=== PATIENT | female | born 1975 | race African-American/Black ===

== ENCOUNTER 2017-08-30 18:57 | Inpatient (IN) | payer MEDICARE, OTHER ==
[~2017-08-30] VITALS: Ht 165.1 cm; Wt 147.9 kg
[2017-08-30 18:31] VITALS: BP 123/86
[~2017-08-30 18:57] MED LIST: ABILIFY20 MG ORAL; ACETAMINOPHEN325 M3 PO; ADVAIR HFA 115-12 GM INH; ALPRAZOLAM0.5 MG PO; ALPRAZOLAM1 MG ORAL; AMBIEN10 M1 ORAL; AMLODIPINE BESYL5 MG ORAL; BREO ELLIPTA 11 EACH IH; COLACE100 MG ORAL; CYMBALTA60 MG ORAL; DETROL2 MG ORAL; DILAUDID2 MG ORAL; DITROPAN XL5 MG ORAL; DITROPAN10 MG ORAL; DULCOLAX10 MG RC; DUONEB 0.5-3(2.53 ML HHN; FENTANYL1 EACH TDERMAL; FOLIC ACID1 MG ORAL; FUROSEMIDE40 MG ORAL; HEPARIN SO5000 UNIT2 SUBQ; LIDODERM700 M1 TOPIC; LISINOPRIL10 MG ORAL; LISINOPRIL5 MG ORAL; LYRICA75 M1 ORAL; Lidocaine Patch TD; MIRALAX; MIRALAX17 G2 ORAL; MORPHINE SU4 MG/1 M2 IV; MULTIVITAMINS1 EA14 PO; MYLANTA30 M1 ORAL; MYLANTA30 M1 PO; NALOXONE H0.4 MG/11 IV; NEURONTIN800 MG ORAL; NORCO 10/3251 EA ORAL; OMEPRAZOLE20 M2 ORAL; OXYCODONE HCL10 MG ORAL; OXYCODONE HCL15 M1 ORAL; PEPTO-BISMOL262 MG PO; POTASSIUM CHLO10 MEQ ORAL; POTASSIUM CHLO20 ME1 ORAL; POTASSIUM CHLO20 ME3 PO; PREDNISONE20 MG ORAL; PROAIR HFA8.5 GM INH; PROTONIX40 M2 GT; PROTONIX40 MG ORAL; REGLAN5 MG ORAL; RESTORIL30 MG ORAL; RISPERDAL1 MG PO; ROBAXIN500 MG PO; ROXICODONE15 MG ORAL; SENNA-GEN8.6 M1 PO; SENNA8.6 M3 PO; SERTRALINE HCL50 MG ORAL; SOMA350 MG PO; TRAMADOL HCL50 MG ORAL; TYLENOL325 MG ORAL; XANAX2 MG ORAL; ZOFRAN4 M1 ORAL; ZOFRAN4 M3 ORAL; ZOLPIDEM TARTRA10 MG ORAL
[2017-08-30] MEDS ORDERED: Solu-MEDROL 125mg Inj IVP ONE (19:15)
[2017-08-30] MEDS ORDERED: Morphine Sulfate 10mg/ml Inj IVP ONE (19:15)
--- NOTE | 2017-08-30 20:11 | Emergency Room Report ---
History of Present Illness General Chief Complaint: Generalized Weakness Source: Patient Present Illness HPI 41-year-old female presents ED for evaluation. States that [facility] with generalized body pain times one week. History of fibromyalgia and lupus. States she is having a flareup of her lupus. Also notes spots on her hands bilaterally. States pain has improved with pain medication at the facility. Pain is sharp, 10 out of 10, diffuse, nonradiating. Denies chest pain or shortness of breath. Denies fevers or chills. Denies nausea or vomiting. No other aggravating relieving factors. Denies any other associated symptoms Allergies: Coded Allergies: Cashew (Verified Allergy, Unknown, 12/30/14) White Fish (Verified Allergy, Unknown, 01/19/15) Uncoded Allergies: FISH (Allergy, Unknown, 12/30/14) Patient History Past Medical History: HTN, asthma, COPD, other - lupus/fibromylalgia Past Surgical History: none Pertinent Family History: none Social History: Denies: smoking, alcohol use, drug use Now: No Immunizations: UTD Reviewed Nursing Documentation: PMH: Agreed; PSxH: Agreed Nursing Documentation-PMH Hx Hypertension: Yes Hx Asthma: Yes Hx COPD: Yes Hx Cancer: No Hx Gastrointestinal Problems: Yes Hx Neurological Problems: Yes - Spinal cord injury Hx Spinal Cord Injury: Yes - 2012 Review of Systems All Other Systems: negative except mentioned in HPI Physical Exam Vital Signs Date Time Temp Pulse Resp B/P (MAP) Pulse Ox O2 Delivery O2 Flow Rate FiO2 08/30/17 18:25 98.4 89 16 123/86 94 Room Air 98.4 Sp02 EP Interpretation: reviewed, normal General Appearance: no apparent distress, alert, GCS 15, non-toxic, obese Head: normocephalic, atraumatic Eyes: bilateral eye normal inspection, bilateral eye PERRL ENT: hearing grossly normal, normal pharynx, no angioedema, normal voice Neck: full range of motion, supple/symm/no masses Respiratory: chest non-tender, lungs clear, normal breath sounds, speaking full sentences Cardiovascular #1: regular rate, rhythm, no edema Cardiovascular #2: 2+ carotid (R), 2+ carotid (L), 2+ radial (R), 2+ radial (L) , 2+ dorsalis pedis (R), 2+ dorsalis pedis (L) Gastrointestinal: normal bowel sounds, non tender, soft, non-distended, no guarding, no rebound Rectal: deferred Genitourinary: normal inspection, no CVA tenderness Musculoskeletal: back normal, gait/station normal, normal range of motion, non- tender Neurologic: alert, oriented x3, responsive, motor strength/tone normal, sensory intact, speech normal Psychiatric: judgement/insight normal, memory normal, mood/affect normal, no suicidal/homicidal ideation Reflexes: 3+ bicep (R), 3+ bicep (L), 3+ tricep (R), 3+ tricep (L), 3+ knee (R) , 3+ knee (L) Skin: normal color, no rash, warm/dry, well hydrated Lymphatic: no adenopathy Medical Decision Making Diagnostic Impression: Primary Impression: Intractable pain Additional Impressions: Lupus (systemic lupus erythematosus) Qualified Codes: M32.9 - Systemic lupus erythematosus, unspecified Obesity, morbid, BMI 40.0-49.9 ER Course Hospital Course 41 yo F presents to ED c/o generalized pain. 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 electrolytes ok. Unable to establish IV access despite multiple times. Unsuccessful using ultrasound. Patient has stable vitals with normal labs. No emergent indication for central line access She given IM medications here. however continues to have pain Case discussed with Dr. Tovar and he agreed to accept the patient to his service for further care and support I feel this is a highly complex case requiring extensive working including EKG/ Rhythm strip, Xray/CT/US, Blood/urine lab work, repeat exams while in ED, and administration of strong opiates/narcotics for pain control, admission to hospital or close patient follow up. Diagnosis -intractable pain, lupus, morbid obesity Patient admitted to floor in serious condition Labs Test 08/30/17 20:50 08/30/17 21:25 White Blood Count 7.7 K/UL (4.8-10.8) Red Blood Count 4.28 M/UL (4.20-5.40) Hemoglobin 11.2 G/DL (12.0-16.0) Hematocrit 35.6 % (37.0-47.0) Mean Corpuscular Volume 83 FL (80-99) Mean Corpuscular Hemoglobin 26.2 PG (27.0-31.0) Mean Corpuscular Hemoglobin Concent 31.5 G/DL (32.0-36.0) Red Cell Distribution Width 15.1 % (11.6-14.8) Platelet Count 179 K/UL (150-450) Mean Platelet Volume 6.1 FL (6.5-10.1) Neutrophils (%) (Auto) 51.1 % (45.0-75.0) Lymphocytes (%) (Auto) 39.6 % (20.0-45.0) Monocytes (%) (Auto) 6.5 % (1.0-10.0) Eosinophils (%) (Auto) 1.6 % (0.0-3.0) Basophils (%) (Auto) 1.3 % (0.0-2.0) Erythrocyte Sedimentation Rate 73 MM/HR (0-20) Sodium Level 135 MMOL/L (136-145) Potassium Level 4.1 MMOL/L (3.5-5.1) Chloride Level 102 MMOL/L (98-107) Carbon Dioxide Level 28 MMOL/L (21-32) Anion Gap 5 mmol/L (5-15) Blood Urea Nitrogen 13 mg/dL (7-18) Creatinine 0.7 MG/DL (0.55-1.30) Estimat Glomerular Filtration Rate > 60 mL/min (>60) Glucose Level 98 MG/DL (74-106) Calcium Level 8.8 MG/DL (8.5-10.1) Total Bilirubin 0.2 MG/DL (0.2-1.0) Aspartate Amino Transf (AST/SGOT) 29 U/L (15-37) Alanine Aminotransferase (ALT/SGPT) 43 U/L (12-78) Alkaline Phosphatase 110 U/L (46-116) Total Protein 8.8 G/DL (6.4-8.2) Albumin 3.0 G/DL (3.4-5.0) Globulin 5.8 g/dL Albumin/Globulin Ratio 0.5 (1.0-2.7) Lipase 82 U/L (73-393) Urine Color Pale yellow Urine Appearance Clear Urine pH 6 (4.5-8.0) Urine Specific [place] 1.015 (1.005-1.035) Urine Protein Negative (NEGATIVE) Urine Glucose (UA) Negative (NEGATIVE) Urine Ketones Negative (NEGATIVE) Urine Occult Blood Negative (NEGATIVE) Urine Nitrite Negative (NEGATIVE) Urine Bilirubin Negative (NEGATIVE) Urine Urobilinogen Normal MG/DL (0.0-1.0) Urine Leukocyte Esterase Negative (NEGATIVE) Urine HCG, Qualitative Negative (NEGATIVE) Last Vital Signs Date Time Temp Pulse Resp B/P (MAP) Pulse Ox O2 Delivery O2 Flow Rate FiO2 08/30/17 18:31 98.4 88 16 123/86 94 Room Air 98.4 Status: improved Disposition: ADMITTED INPATIENT Condition: Serious Mazin Martinez MD Aug 30, 2017 20:11
[2017-08-30 21:07] LABS: BASOPHILS % (AUTO) 1.3 % (0.0-2.0); EOSINOPHILS % (AUTO) 1.6 % (0.0-3.0); HEMATOCRIT 35.6 % (37.0-47.0); HEMOGLOBIN 11.2 G/DL (12.0-16.0); LYMPHOCYTES % (AUTO) 39.6 % (20.0-45.0); MEAN CORPUSCULAR VOLUME 83 FL (80-99); MONOCYTES % (AUTO) 6.5 % (1.0-10.0); NEUTROPHILS % (AUTO) 51.1 % (45.0-75.0); PLATELET COUNT 179 K/UL (150-450); RED BLOOD COUNT 4.28 M/UL (4.20-5.40); RED CELL DISTRIBUTION WIDTH 15.1 % (11.6-14.8); WHITE BLOOD COUNT 7.7 K/UL (4.8-10.8)
[2017-08-30 21:28] LABS: ANION GAP 5 mmol/L (5-15); BLOOD UREA NITROGEN 13 mg/dL (7-18); CALCIUM 8.8 MG/DL (8.5-10.1); CARBON DIOXIDE 28 MMOL/L (21-32); CHLORIDE 102 MMOL/L (98-107); CREATININE 0.7 MG/DL (0.55-1.30); POTASSIUM 4.1 MMOL/L (3.5-5.1); SODIUM 135 MMOL/L (136-145)
[2017-08-30 21:33] LABS: ALANINE AMINOTRANSFERASE 43 U/L (12-78); ALBUMIN/GLOBULIN RATIO 0.5 (1.0-2.7); ALKALINE PHOSPHATASE 110 U/L (46-116); ASPARTATE AMINO TRANSFERASE 29 U/L (15-37); BILIRUBIN,TOTAL 0.2 MG/DL (0.2-1.0)
[2017-08-30 21:37] LABS: APPEARANCE,URINE CLEAR; BILIRUBIN, URINE NEGATIVE (NEGATIVE); COLOR,URINE PALE YELLOW; GLUCOSE, URINE (UA) NEGATIVE (NEGATIVE); KETONES,URINE NEGATIVE (NEGATIVE); LEUKOCYTE ESTERASE ,URINE NEGATIVE (NEGATIVE); NITRITE,URINE NEGATIVE (NEGATIVE); PH,URINE 6 (4.5-8.0); PROTEIN,URINE NEGATIVE (NEGATIVE); UROBILINOGEN,URINE NORMAL MG/DL (0.0-1.0)
[2017-08-30] MEDS ORDERED: Morphine Sulfate 2mg/ml Inj(IV/IM USE ONLY) IM ONE (22:30)
[2017-08-30 22:59] VITALS: BP 126/85
[2017-08-31] VITALS: BP 158/92
[2017-08-31 04:00] VITALS: BP 153/86
[2017-08-31] MEDS ORDERED: Zolpidem 5mg tab ORAL PRN ×2 (05:15→22:45)
[2017-08-31] MEDS ORDERED: oxyCODONE 5mg IR tab ORAL PRN ×2 (05:45→09:45)
[2017-08-31] MEDS ORDERED: ALPRAZolam 0.5mg tab ORAL PRN ×2 (06:30→20:30)
[2017-08-31] MEDS ORDERED: Morphine Sulfate 4mg/ml Inj (IV USE ONLY) IVP PRN (07:30)
[2017-08-31 08:00] VITALS: BP 159/99
[2017-08-31] MEDS ORDERED: CYCLOBENZAPRINE10 MG ORAL (08:39)
[2017-08-31] MEDS ORDERED: LYRICA75 M1 ORAL (08:39)
[2017-08-31] MEDS ORDERED: CYMBALTA60 MG ORAL (08:39)
[2017-08-31] MEDS ORDERED: FUROSEMIDE20 M1 ORAL (08:39)
[2017-08-31] MEDS ORDERED: BENADRYL25 MG ORAL (08:50)
[2017-08-31] MEDS ORDERED: Morphine Sulfate 4mg/ml Inj (IV USE ONLY) IVP ONE (09:00)
[2017-08-31] MEDS ORDERED: Albuterol 90mcg Inhaler 8gm INH SCH (09:00)
[2017-08-31] MEDS: DULoxetine 30mg cap ORAL SCH ×2 (09:30→18:31)
[2017-08-31] MEDS: Lyrica 75mg cap ORAL SCH ×3 (09:32→18:32)
[2017-08-31] MEDS: Lisinopril 10mg tab ORAL SCH (09:33)
[2017-08-31] MEDS: Heparin 5000 units/ml inj SUBQ SCH ×3 (09:45→20:50)
[2017-08-31 10:13] LABS: BASOPHILS % (AUTO) 1.1 % (0.0-2.0); HEMATOCRIT 35.6 % (37.0-47.0); HEMOGLOBIN 11.4 G/DL (12.0-16.0); LYMPHOCYTES % (AUTO) 20.1 % (20.0-45.0); MEAN CORPUSCULAR VOLUME 83 FL (80-99); MONOCYTES % (AUTO) 5.4 % (1.0-10.0); NEUTROPHILS % (AUTO) 73.3 % (45.0-75.0); PLATELET COUNT 392 K/UL (150-450); RED CELL DISTRIBUTION WIDTH 15.1 % (11.6-14.8); WHITE BLOOD COUNT 9.1 K/UL (4.8-10.8)
[2017-08-31 10:31] LABS: ANION GAP 5 mmol/L (5-15); BLOOD UREA NITROGEN 13 mg/dL (7-18); CALCIUM 8.8 MG/DL (8.5-10.1); CARBON DIOXIDE 27 MMOL/L (21-32); CHLORIDE 101 MMOL/L (98-107); CREATININE 0.8 MG/DL (0.55-1.30); POTASSIUM 4.1 MMOL/L (3.5-5.1); SODIUM 133 MMOL/L (136-145)
--- NOTE | 2017-08-31 10:54 | General Progress Note ---
Assessment/Plan Assessment/Plan (1) Morbid obesity (2) Degenerative disc disease, cervical (3) Lumbar degenerative disc disease (4) Lumbar radiculopathy (5) Cervical radiculopathy (6) Osteoarthritis of multiple joints (7) Multiple joint pain (8) Fibromyalgia We will continue Oxycodone increased to 10mg PO 1 tab Q6H PRN moderate pain, Lyrica and Morphine We recommend patient to be seen by Facilities Custodian as per iphone developer. Pt was d/w Dr. Leonardo and he concurred. Subjective Date patient seen: Aug 31, 2017 Time patient seen: 07:30 - am Constitutional: Reports: no symptoms HEENT: Reports: no symptoms Cardiovascular: Reports: no symptoms Respiratory: Reports: no symptoms Gastrointestinal/Abdominal: Reports: no symptoms Genitourinary: Reports: no symptoms Neurologic/Psychiatric: Reports: numbness, weakness Endocrine: Reports: no symptoms Hematologic/Lymphatic: Reports: no symptoms Allergies: Coded Allergies: Cashew (Verified Allergy, Unknown, 12/30/14) HYDROXYCHLOROQUINE (Verified Allergy, Unknown, 08/31/17) White Fish (Verified Allergy, Unknown, 01/19/15) Uncoded Allergies: FISH (Allergy, Unknown, 12/30/14) Subjective Patient is a known patient brought in from SNF due to SLU flare up, has been seen a Pain management physician Dr. Mazariegos who has been prescribing Fentanyl patch 12mcg patches and Oxycodone 15mg tabs. At this time is on Morphine IV 4mg Q4H PRN and Oxycodone 5mg tab Q4H PRN moderate pain with minimal pain relief, due to this we were consulted so patient has adequate pain relief while her in the hospital. Objective Last 24 Hour Vital Signs Date Time Temp Pulse Resp B/P (MAP) Pulse Ox O2 Delivery O2 Flow Rate FiO2 08/31/17 09:34 97.1 08/31/17 09:33 159/99 08/31/17 09:33 114 159/99 08/31/17 09:32 97.1 08/31/17 08:00 97.1 114 23 159/99 (119) 97 97.1 08/31/17 04:00 98.4 79 20 153/86 (108) 95 98.4 08/31/17 02:42 Room Air 08/31/17 00:00 98.8 82 20 158/92 (114) 97 98.8 08/30/17 23:10 98.4 75 16 126/85 96 Room Air 209.1 08/30/17 22:59 75 16 126/85 96 Room Air 08/30/17 22:29 98.4 08/30/17 18:31 98.4 88 16 123/86 94 Room Air 98.4 08/30/17 18:25 98.4 89 16 123/86 94 Room Air 98.4 Intake and Output 08/30/17 08/31/17 19:00 07:00 Intake Total 350 ml Output Total 0 ml 500 ml Balance 0 ml -150 ml Intake Oral 350 ml Output Urine Total 0 ml 500 ml # Voids 3 Laboratory Tests 08/30/17 20:50: White Blood Count 7.7, Red Blood Count 4.28, Hemoglobin 11.2L, Hematocrit 35.6L , Mean Corpuscular Volume 83, Mean Corpuscular Hemoglobin 26.2L, Mean Corpuscular Hemoglobin Concent 31.5L, Red Cell Distribution Width 15.1H, Platelet Count 179, Mean Platelet Volume 6.1L, Neutrophils (%) (Auto) 51.1, Lymphocytes (%) (Auto) 39.6, Monocytes (%) (Auto) 6.5, Eosinophils (%) (Auto) 1.6, Basophils (%) (Auto) 1.3, Erythrocyte Sedimentation Rate 73H, Sodium Level 135L, Potassium Level 4.1, Chloride Level 102, Carbon Dioxide Level 28, Anion Gap 5, Blood Urea Nitrogen 13, Creatinine 0.7, Estimat Glomerular Filtration Rate > 60, Glucose Level 98, Calcium Level 8.8, Total Bilirubin 0.2, Aspartate Amino Transf (AST/SGOT) 29, Alanine Aminotransferase (ALT/SGPT) 43, Alkaline Phosphatase 110, Total Protein 8.8H, Albumin 3.0L, Globulin 5.8, Albumin/ Globulin Ratio 0.5L, Lipase 82 08/30/17 21:25: Urine Color Pale yellow, Urine Appearance Clear, Urine pH 6, Urine Specific [place] 1.015, Urine Protein Negative, Urine Glucose (UA) Negative, Urine Ketones Negative, Urine Occult Blood Negative, Urine Nitrite Negative, Urine Bilirubin Negative, Urine Urobilinogen Normal, Urine Leukocyte Esterase Negative , Urine HCG, Qualitative Negative 08/31/17 09:55: White Blood Count 9.1, Red Blood Count 4.30, Hemoglobin 11.4L, Hematocrit 35.6L , Mean Corpuscular Volume 83, Mean Corpuscular Hemoglobin 26.4L, Mean Corpuscular Hemoglobin Concent 31.9L, Red Cell Distribution Width 15.1H, Platelet Count 392#, Mean Platelet Volume 5.6L, Neutrophils (%) (Auto) 73.3, Lymphocytes (%) (Auto) 20.1, Monocytes (%) (Auto) 5.4, Eosinophils (%) (Auto) 0.0, Basophils (%) (Auto) 1.1, Sodium Level 133L, Potassium Level 4.1, Chloride Level 101, Carbon Dioxide Level 27, Anion Gap 5, Blood Urea Nitrogen 13, Creatinine 0.8, Estimat Glomerular Filtration Rate > 60, Glucose Level 105, Calcium Level 8.8 Height (Feet): 5 Height (Inches): 5.00 Weight (Pounds): 300 Objective General Appearance: no apparent distress, alert EENT: PERRL/EOMI, normal ENT inspection, TMs normal Neck: non-tender, supple Cardiovascular: normal rate, regular rhythm Respiratory/Chest: lungs clear, normal breath sounds Abdomen: soft, no organomegaly Extremities: non-tender Edema: no edema noted Arm (L), no edema noted Arm (R), no edema noted Leg (L), no edema noted Leg (R), no edema noted Pedal (L), no edema noted Pedal (R), no edema noted Generalized Neurologic: alert, oriented x 3 Skin: warm/dry Cirilo Chavez Aug 31, 2017 10:54
[2017-08-31] MEDS ORDERED: Albuterol 90mcg Inhaler 8gm INH PRN (11:00)
[2017-08-31] MEDS ORDERED: Oxybutynin 5mg tab ORAL SCH (11:30)
--- NOTE | 2017-08-31 11:37 | Consultation ---
History of Present Illness General Date patient seen: Aug 31, 2017 Chief Complaint: Generalized Weakness Present Illness HPI 41-year-old female with hx of KAREN, Asthma, Lupus, morbid obesity, Fibromyalgia presented to ED for evaluation of generalized body pain times one week. States she is having a flareup of her lupus. Also notes spots on her hands bilaterally. Pain is sharp, 10 out of 10, diffuse, nonradiating. Denies chest pain or shortness of breath. Denies fevers or chills. Pt is admitted for furhter evaluation. Allergies: Coded Allergies: Cashew (Verified Allergy, Unknown, 12/30/14) HYDROXYCHLOROQUINE (Verified Allergy, Unknown, 08/31/17) White Fish (Verified Allergy, Unknown, 01/19/15) Uncoded Allergies: FISH (Allergy, Unknown, 12/30/14) Medication History Scheduled Acetaminophen (Tylenol), 325 MG ORAL Q4HR, (Reported) Acetaminophen (Acetaminophen), 325 MG PO Q4HR, (Reported) Al Hydroxide/mg Hydroxide (Mag-Al Liquid), 30 ML PO Q4HR, (Reported) Al Hydroxide/mg Hydroxide (Mag-Al Liquid), 30 ML ORAL Q6HR, (Reported) Albuterol Sulfate* (Proair Hfa*), 1 PUFF INH Q4HR, (Reported) Amlodipine Besylate* (Amlodipine Besylate*), 5 MG ORAL DAILY, (Reported) Carisoprodol* (Soma*), 350 MG PO TID, (Reported) Docusate Sodium* (Colace*), 250 MG ORAL BID, (Reported) Duloxetine Hcl* (Cymbalta*), 60 MG ORAL BID, (Reported) Fentanyl 25MCG Patch* (Fentanyl 25MCG Patch*), 1 PATCH TDERMAL EVERY 72 HOURS, ( Reported) Fluticasone/Salmeterol (Advair Hfa 115-21 Mcg Inhaler), 2 PUFFS INH EVERY 12 HOURS, (Reported) Fluticasone/Vilanterol (Breo Ellipta 100-25 Mcg INH), 1 EACH IH DAILY, (Reported ) Folic Acid* (Folic Acid*), 1 MG ORAL DAILY, (Reported) Furosemide* (Lasix*), 20 MG ORAL DAILY, (Reported) Gabapentin* (Neurontin*), 800 MG ORAL TID, (Reported) Heparin Sod (Porcine) (Heparin Sodium*), 5,000 UNITS SUBQ EVERY 12 HOURS, ( Reported) Ipratropium/Albuterol Sulfate (DuoNeb 0.5-3(2.5)mg/3ml), 3 ML HHN Q4HR, ( Reported) Lisinopril* (Lisinopril*), 10 MG ORAL DAILY, (Reported) Morphine Sulfate (Morphine Sulfate), 4 MG IV Q4HR, (Reported) Multivitamin (Multivitamins), 1 EACH PO DAILY, (Reported) Oxybutynin Chloride (Ditropan Xl), 5 MG ORAL THREE TIMES A DAY, (Reported) Pantoprazole* (Protonix*), 40 MG ORAL DAILY, (Reported) Potassium Chloride* (K-Dur*), 10 MEQ ORAL DAILY, (Reported) Potassium Chloride* (K-Dur*), 20 MEQ ORAL TWICE A DAY, (Reported) Prednisone* (Prednisone*), 20 MG ORAL DAILY Pregabalin* (Lyrica*), 150 MG ORAL THREE TIMES A DAY, (Reported) Sennosides (Senna), 8.6 MG PO BID, (Reported) Sennosides (Senna-Gen), 17.2 MG PO BID, (Reported) [Lidocaine Patch], TD BID, (Reported) Scheduled PRN Bisacodyl (Dulcolax), 10 MG RC DAILY PRN for Constipation, (Reported) Bismuth Subsalicylate ([place] Bismuth), 30 MG PO BID PRN for Per rx protocol, ( Reported) Cyclobenzaprine Hcl* (Flexeril*), 10 MG ORAL THREE TIMES A DAY PRN for fibromyalgia pain, (Reported) Diphenhydramine Hcl* (Benadryl*), 125 MG ORAL Q6H PRN for Itching, (Reported) Metoclopramide Hcl* (Reglan*), 5 MG ORAL EVERY 6 HOURS PRN for Nausea & Vomiting , (Reported) Ondansetron* (Zofran*), 4 MG ORAL DAILY PRN for Nausea & Vomiting, (Reported) Oxycodone Hcl* (Oxycodone Hcl*), 5 MG ORAL Q4HR PRN for Moderate Pain (Pain Scale 4-6), (Reported) Polyethylene Glycol 3350* (Miralax*), 17 GM ORAL DAILY PRN for Constipation, ( Reported) Miscellaneous Medications Lidocaine (Lidoderm), 2 PATCH TOPIC, (Reported) Naloxone HCl (Naloxone HCl), 0.1 MG IV, (Reported) [Miralax powder], (Reported) Discontinued Medications Alprazolam* (Xanax*), 0.5 MG PO Q6HR, (Reported) Discontinued Reason: MD discontinued med Duloxetine Hcl* (Cymbalta*), 90 MG ORAL DAILY, (Reported) Discontinued Reason: Medication dose changed Furosemide* (Lasix*), 40 MG ORAL TWICE A DAY, (Reported) Discontinued Reason: Medication dose changed Furosemide* (Lasix*), 40 MG ORAL DAILY, (Reported) Discontinued Reason: Medication dose changed Omeprazole (Omeprazole), 20 MG ORAL DAILY, (Reported) Discontinued Reason: MD discontinued med Ondansetron* (Zofran*), 4 MG ORAL DAILY PRN for Nausea & Vomiting, (Reported) Discontinued Reason: Therapy completed Pregabalin* (Lyrica*), 100 MG ORAL THREE TIMES A DAY, (Reported) Discontinued Reason: Medication dose changed Risperidone* (Risperdal*), 1 MG PO TID, (Reported) Discontinued Reason: Pt stopped taking med Risperidone* (Risperdal*), 1 MG PO Q12HR, (Reported) Discontinued Reason: Pt stopped taking med Tramadol Hcl* (Ultram*), 50 MG ORAL Q8HR PRN for Breakthrough Pain, (Reported) Discontinued Reason: Therapy completed Zolpidem Tartrate* (Ambien*), 10 MG ORAL HS PRN for Insomnia, (Reported) Discontinued Reason: Medication dose changed Patient History Healthcare decision maker Resuscitation status Full Code Advanced Directive on File Past Medical/Surgical History Past Medical/Surgical History: (1) Lupus (systemic lupus erythematosus) (2) KAREN (obstructive sleep apnea) (3) Hepatitis C (4) Fibromyalgia Review of Systems All Other Systems: negative except mentioned in HPI Physical Exam General Appearance: WD/WN, no apparent distress Lines, tubes and drains: peripheral HEENT: normocephalic, anicteric Neck: non-tender, supple, limited range of motion Respiratory/Chest: lungs clear, normal breath sounds Breasts: no masses Cardiovascular/Chest: normal peripheral pulses, no gallop/murmur Abdomen: normal bowel sounds Genitourinary/Rectal: normal genital exam, normal rectal exam Last 24 Hour Vital Signs Date Time Temp Pulse Resp B/P (MAP) Pulse Ox O2 Delivery O2 Flow Rate FiO2 08/31/17 09:34 97.1 08/31/17 09:33 159/99 08/31/17 09:33 114 159/99 08/31/17 09:32 97.1 08/31/17 08:00 97.1 114 23 159/99 (119) 97 97.1 08/31/17 04:00 98.4 79 20 153/86 (108) 95 98.4 08/31/17 02:42 Room Air 08/31/17 00:00 98.8 82 20 158/92 (114) 97 98.8 08/30/17 23:10 98.4 75 16 126/85 96 Room Air 209.1 08/30/17 22:59 75 16 126/85 96 Room Air 08/30/17 22:29 98.4 08/30/17 18:31 98.4 88 16 123/86 94 Room Air 98.4 08/30/17 18:25 98.4 89 16 123/86 94 Room Air 98.4 Intake and Output 08/30/17 08/31/17 19:00 07:00 Intake Total 350 ml Output Total 0 ml 500 ml Balance 0 ml -150 ml Intake Oral 350 ml Output Urine Total 0 ml 500 ml # Voids 3 Laboratory Tests Test 08/30/17 20:50 08/30/17 21:25 08/31/17 09:55 White Blood Count 7.7 K/UL (4.8-10.8) 9.1 K/UL (4.8-10.8) Red Blood Count 4.28 M/UL (4.20-5.40) 4.30 M/UL (4.20-5.40) Hemoglobin 11.2 G/DL (12.0-16.0) L 11.4 G/DL (12.0-16.0) L Hematocrit 35.6 % (37.0-47.0) L 35.6 % (37.0-47.0) L Mean Corpuscular Volume 83 FL (80-99) 83 FL (80-99) Mean Corpuscular Hemoglobin 26.2 PG (27.0-31.0) L 26.4 PG (27.0-31.0) L Mean Corpuscular Hemoglobin Concent 31.5 G/DL (32.0-36.0) L 31.9 G/DL (32.0-36.0) L Red Cell Distribution Width 15.1 % (11.6-14.8) H 15.1 % (11.6-14.8) H Platelet Count 179 K/UL (150-450) 392 K/UL (150-450) # Mean Platelet Volume 6.1 FL (6.5-10.1) L 5.6 FL (6.5-10.1) L Neutrophils (%) (Auto) 51.1 % (45.0-75.0) 73.3 % (45.0-75.0) Lymphocytes (%) (Auto) 39.6 % (20.0-45.0) 20.1 % (20.0-45.0) Monocytes (%) (Auto) 6.5 % (1.0-10.0) 5.4 % (1.0-10.0) Eosinophils (%) (Auto) 1.6 % (0.0-3.0) 0.0 % (0.0-3.0) Basophils (%) (Auto) 1.3 % (0.0-2.0) 1.1 % (0.0-2.0) Erythrocyte Sedimentation Rate 73 MM/HR (0-20) H Sodium Level 135 MMOL/L (136-145) L 133 MMOL/L (136-145) L Potassium Level 4.1 MMOL/L (3.5-5.1) 4.1 MMOL/L (3.5-5.1) Chloride Level 102 MMOL/L (98-107) 101 MMOL/L (98-107) Carbon Dioxide Level 28 MMOL/L (21-32) 27 MMOL/L (21-32) Anion Gap 5 mmol/L (5-15) 5 mmol/L (5-15) Blood Urea Nitrogen 13 mg/dL (7-18) 13 mg/dL (7-18) Creatinine 0.7 MG/DL (0.55-1.30) 0.8 MG/DL (0.55-1.30) Estimat Glomerular Filtration Rate > 60 mL/min (>60) > 60 mL/min (>60) Glucose Level 98 MG/DL (74-106) 105 MG/DL (74-106) Calcium Level 8.8 MG/DL (8.5-10.1) 8.8 MG/DL (8.5-10.1) Total Bilirubin 0.2 MG/DL (0.2-1.0) Aspartate Amino Transf (AST/SGOT) 29 U/L (15-37) Alanine Aminotransferase (ALT/SGPT) 43 U/L (12-78) Alkaline Phosphatase 110 U/L (46-116) Total Protein 8.8 G/DL (6.4-8.2) H Albumin 3.0 G/DL (3.4-5.0) L Globulin 5.8 g/dL Albumin/Globulin Ratio 0.5 (1.0-2.7) L Lipase 82 U/L (73-393) Urine Color Pale yellow Urine Appearance Clear Urine pH 6 (4.5-8.0) Urine Specific [place] 1.015 (1.005-1.035) Urine Protein Negative (NEGATIVE) Urine Glucose (UA) Negative (NEGATIVE) Urine Ketones Negative (NEGATIVE) Urine Occult Blood Negative (NEGATIVE) Urine Nitrite Negative (NEGATIVE) Urine Bilirubin Negative (NEGATIVE) Urine Urobilinogen Normal MG/DL (0.0-1.0) Urine Leukocyte Esterase Negative (NEGATIVE) Urine HCG, Qualitative Negative (NEGATIVE) Microbiology Date/Time Source Procedure Growth Status 08/30/17 22:00 Rectum Received Height (Feet): 5 Height (Inches): 5.00 Weight (Pounds): 300 Medications Current Medications Medications (Trade) Dose Ordered Sig/Farideh Route PRN Reason Start Time Stop Time Status Last Admin Dose Admin Albuterol Sulfate (Proventil MDI) 1 puff Q4HR PRN INH Bronchospasm 08/31/17 11:00 09/30/17 08:59 Alprazolam (Xanax) 2 mg Q4H PRN ORAL For Anxiety 08/31/17 06:30 09/07/17 06:29 Amlodipine Besylate (Norvasc) 5 mg DAILY ORAL 08/31/17 09:00 09/30/17 08:59 08/31/17 09:33 Clonidine HCl (Catapres Tab) 0.1 mg Q6H PRN ORAL For High Blood Pressure 08/31/17 06:30 09/30/17 06:29 Cyclobenzaprine HCl (Flexeril) 10 mg THREE TIMES A DAY PRN ORAL Muscle Spasm 08/31/17 06:30 8 06:29 Diphenhydramine HCl (Benadryl) 25 mg Q6H PRN ORAL Itching 08/31/17 06:30 8 06:29 Docusate Sodium (Colace) 250 mg BID ORAL 08/31/17 18:00 09/30/17 17:59 Duloxetine HCl (Cymbalta) 60 mg BID ORAL 08/31/17 09:00 09/30/17 08:59 08/31/17 09:30 Folic Acid (Folate) 1 mg DAILY ORAL 08/31/17 09:00 09/30/17 08:59 08/31/17 09:32 Furosemide (Lasix) 20 mg DAILY ORAL 08/31/17 09:00 09/30/17 08:59 08/31/17 09:31 Heparin Sodium (Porcine) (Heparin 5000 units/ml) 5,000 units EVERY 12 HOURS SUBQ 08/31/17 09:00 09/30/17 08:59 08/31/17 09:45 Lisinopril (Zestril) 10 mg DAILY ORAL 08/31/17 09:00 09/30/17 08:59 08/31/17 09:33 Morphine Sulfate (Morphine Sulfate) 4 mg Q4H PRN IVP Severe Pain (Pain Scale 7-10) 08/31/17 11:30 09/07/17 07:29 Multivitamins (Multivitamins) 1 tab DAILY ORAL 08/31/17 09:00 09/30/17 08:59 08/31/17 09:31 Oxybutynin Chloride (Ditropan) 5 mg ONCE ORAL 08/31/17 11:30 08/31/17 11:31 Oxybutynin Chloride (Ditropan) 5 mg Q8HR ORAL 08/31/17 14:00 09/30/17 13:59 Oxycodone HCl (Roxicodone) 10 mg Q6H PRN ORAL moderate breakthrough pain 08/31/17 11:11 09/07/17 11:10 Pantoprazole (Protonix) 40 mg DAILY ORAL 08/31/17 09:00 09/30/17 08:59 08/31/17 09:31 Potassium Chloride (K-Dur) 20 meq DAILY ORAL 08/31/17 09:00 09/30/17 08:59 08/31/17 09:53 Pregabalin (Lyrica) 150 mg THREE TIMES A DAY ORAL 08/31/17 09:00 09/30/17 08:59 08/31/17 09:32 Zolpidem Tartrate (Ambien) 5 mg QHS PRN ORAL Insomnia 08/31/17 05:15 09/07/17 05:14 Assessment/Plan Problem List: (1) Lupus (systemic lupus erythematosus) ICD Codes: M32.9 - Systemic lupus erythematosus, unspecified SNOMED: 85951710 Qualifiers: Qualified Codes: M32.9 - Systemic lupus erythematosus, unspecified (2) KAREN (obstructive sleep apnea) ICD Codes: G47.33 - Obstructive sleep apnea (adult) (pediatric) SNOMED: 54153588 (3) Intractable pain ICD Codes: R52 - Pain, unspecified SNOMED: 64735227 (4) Fibromyalgia ICD Codes: M79.7 - Fibromyalgia SNOMED: 54177420 (5) Hx of gastric bypass ICD Codes: Z98.89 - Other specified postprocedural states SNOMED: 66261194, 52210839, 437773464 (6) Hepatitis C ICD Codes: B19.20 - Unspecified viral hepatitis C without hepatic coma SNOMED: 93845634 (7) Obesity, morbid, BMI 40.0-49.9 ICD Codes: E66.01 - Morbid (severe) obesity due to excess calories SNOMED: 927203299 Assessment/Plan symptomatic treatment check CH50, ESR, RF etc titrate fio2 to sat of 92% BIPAP prn for KAREN pain management dvt prophylaxis. Mer Powell MD Aug 31, 2017 11:36
[2017-08-31] MEDS: Cyclobenzaprine 10mg Tab ORAL PRN (11:41)
[2017-08-31 12:00] VITALS: BP 141/98
[2017-08-31] MEDS: Oxybutynin 5mg tab ORAL SCH ×2 (13:40→21:50)
[2017-08-31] MEDS: Morphine Sulfate 4mg/ml Inj (IV USE ONLY) IVP PRN ×2 (13:41→21:50)
[2017-08-31 16:00] VITALS: BP 121/82
[2017-08-31] MEDS: Docusate 100mg cap ORAL SCH (18:32)
[2017-08-31 20:00] VITALS: BP 149/100
--- NOTE | 2017-08-31 20:22 | Consultation ---
History of Present Illness General Date patient seen: Aug 31, 2017 Chief Complaint: Generalized Weakness Present Illness HPI 41-year-old female presents ED coming from half-way facility with generalized body pain times one week. the pt is axious and has med seeking behavior. she is asking for Xanax ans pain medication Allergies: Coded Allergies: Cashew (Verified Allergy, Unknown, 12/30/14) HYDROXYCHLOROQUINE (Verified Allergy, Unknown, 08/31/17) White Fish (Verified Allergy, Unknown, 01/19/15) Uncoded Allergies: FISH (Allergy, Unknown, 12/30/14) Medication History Scheduled Acetaminophen (Tylenol), 325 MG ORAL Q4HR, (Reported) Acetaminophen (Acetaminophen), 325 MG PO Q4HR, (Reported) Al Hydroxide/mg Hydroxide (Mag-Al Liquid), 30 ML PO Q4HR, (Reported) Al Hydroxide/mg Hydroxide (Mag-Al Liquid), 30 ML ORAL Q6HR, (Reported) Albuterol Sulfate* (Proair Hfa*), 1 PUFF INH Q4HR, (Reported) Amlodipine Besylate* (Amlodipine Besylate*), 5 MG ORAL DAILY, (Reported) Carisoprodol* (Soma*), 350 MG PO TID, (Reported) Docusate Sodium* (Colace*), 250 MG ORAL BID, (Reported) Duloxetine Hcl* (Cymbalta*), 60 MG ORAL BID, (Reported) Fentanyl 25MCG Patch* (Fentanyl 25MCG Patch*), 1 PATCH TDERMAL EVERY 72 HOURS, ( Reported) Fluticasone/Salmeterol (Advair Hfa 115-21 Mcg Inhaler), 2 PUFFS INH EVERY 12 HOURS, (Reported) Fluticasone/Vilanterol (Breo Ellipta 100-25 Mcg INH), 1 EACH IH DAILY, (Reported ) Folic Acid* (Folic Acid*), 1 MG ORAL DAILY, (Reported) Furosemide* (Lasix*), 20 MG ORAL DAILY, (Reported) Gabapentin* (Neurontin*), 800 MG ORAL TID, (Reported) Heparin Sod (Porcine) (Heparin Sodium*), 5,000 UNITS SUBQ EVERY 12 HOURS, ( Reported) Ipratropium/Albuterol Sulfate (DuoNeb 0.5-3(2.5)mg/3ml), 3 ML HHN Q4HR, ( Reported) Lisinopril* (Lisinopril*), 10 MG ORAL DAILY, (Reported) Morphine Sulfate (Morphine Sulfate), 4 MG IV Q4HR, (Reported) Multivitamin (Multivitamins), 1 EACH PO DAILY, (Reported) Oxybutynin Chloride (Ditropan Xl), 5 MG ORAL THREE TIMES A DAY, (Reported) Pantoprazole* (Protonix*), 40 MG ORAL DAILY, (Reported) Potassium Chloride* (K-Dur*), 10 MEQ ORAL DAILY, (Reported) Potassium Chloride* (K-Dur*), 20 MEQ ORAL TWICE A DAY, (Reported) Prednisone* (Prednisone*), 20 MG ORAL DAILY Pregabalin* (Lyrica*), 150 MG ORAL THREE TIMES A DAY, (Reported) Sennosides (Senna), 8.6 MG PO BID, (Reported) Sennosides (Senna-Gen), 17.2 MG PO BID, (Reported) [Lidocaine Patch], TD BID, (Reported) Scheduled PRN Bisacodyl (Dulcolax), 10 MG RC DAILY PRN for Constipation, (Reported) Bismuth Subsalicylate (Struthers Bismuth), 30 MG PO BID PRN for Per rx protocol, ( Reported) Cyclobenzaprine Hcl* (Flexeril*), 10 MG ORAL THREE TIMES A DAY PRN for fibromyalgia pain, (Reported) Diphenhydramine Hcl* (Benadryl*), 125 MG ORAL Q6H PRN for Itching, (Reported) Metoclopramide Hcl* (Reglan*), 5 MG ORAL EVERY 6 HOURS PRN for Nausea & Vomiting , (Reported) Ondansetron* (Zofran*), 4 MG ORAL DAILY PRN for Nausea & Vomiting, (Reported) Oxycodone Hcl* (Oxycodone Hcl*), 5 MG ORAL Q4HR PRN for Moderate Pain (Pain Scale 4-6), (Reported) Polyethylene Glycol 3350* (Miralax*), 17 GM ORAL DAILY PRN for Constipation, ( Reported) Miscellaneous Medications Lidocaine (Lidoderm), 2 PATCH TOPIC, (Reported) Naloxone HCl (Naloxone HCl), 0.1 MG IV, (Reported) [Miralax powder], (Reported) Discontinued Medications Alprazolam* (Xanax*), 0.5 MG PO Q6HR, (Reported) Discontinued Reason: MD discontinued med Duloxetine Hcl* (Cymbalta*), 90 MG ORAL DAILY, (Reported) Discontinued Reason: Medication dose changed Furosemide* (Lasix*), 40 MG ORAL TWICE A DAY, (Reported) Discontinued Reason: Medication dose changed Furosemide* (Lasix*), 40 MG ORAL DAILY, (Reported) Discontinued Reason: Medication dose changed Omeprazole (Omeprazole), 20 MG ORAL DAILY, (Reported) Discontinued Reason: MD discontinued med Ondansetron* (Zofran*), 4 MG ORAL DAILY PRN for Nausea & Vomiting, (Reported) Discontinued Reason: Therapy completed Pregabalin* (Lyrica*), 100 MG ORAL THREE TIMES A DAY, (Reported) Discontinued Reason: Medication dose changed Risperidone* (Risperdal*), 1 MG PO TID, (Reported) Discontinued Reason: Pt stopped taking med Risperidone* (Risperdal*), 1 MG PO Q12HR, (Reported) Discontinued Reason: Pt stopped taking med Tramadol Hcl* (Ultram*), 50 MG ORAL Q8HR PRN for Breakthrough Pain, (Reported) Discontinued Reason: Therapy completed Zolpidem Tartrate* (Ambien*), 10 MG ORAL HS PRN for Insomnia, (Reported) Discontinued Reason: Medication dose changed Patient History Limited by: medical condition History Provided By: Patient, Medical Record, PMD Healthcare decision maker Resuscitation status Full Code Advanced Directive on File Past Medical/Surgical History Past Medical/Surgical History: (1) Migraine (2) Depressed (3) Encounter for generalized patient complaints (4) Vomiting (5) Lumbar radiculopathy (6) Cervical radiculopathy (7) Osteoarthritis of multiple joints (8) Degenerative disc disease, cervical (9) Lumbar degenerative disc disease (10) Lupus (11) Morbid obesity (12) Multiple joint pain (13) H/O back injury (14) Constipation (15) Hypoalbuminemia (16) Abdominal pain (17) Alkaline phosphatase elevation (18) Hypertension (19) History of asthma (20) Hypokalemia (21) Lupus (systemic lupus erythematosus) (22) Obesity, morbid, BMI 40.0-49.9 (23) Fibromyalgia (24) Hepatitis C (25) KAREN (obstructive sleep apnea) (26) Intractable pain Review of Systems Psychiatric: Reports: prior hx, anxiety, depressed feelings, emotional problems Physical Exam General Appearance: no apparent distress, alert Neurologic: oriented x 3, responsive, depressed affect Last 24 Hour Vital Signs Date Time Temp Pulse Resp B/P (MAP) Pulse Ox O2 Delivery O2 Flow Rate FiO2 08/31/17 19:31 98.4 08/31/17 18:32 98.4 08/31/17 16:00 98.4 87 22 121/82 (95) 95 98.4 08/31/17 14:11 98.6 08/31/17 13:41 98.6 08/31/17 13:40 98.6 08/31/17 12:40 98.6 08/31/17 12:00 98.6 91 22 141/98 (112) 97 98.6 08/31/17 11:41 97.1 08/31/17 10:04 98.6 08/31/17 09:34 97.1 08/31/17 09:33 159/99 08/31/17 09:33 114 159/99 08/31/17 09:32 97.1 08/31/17 09:00 Room Air 08/31/17 08:00 97.1 114 23 159/99 (119) 97 97.1 08/31/17 04:00 98.4 79 20 153/86 (108) 95 98.4 08/31/17 02:42 Room Air 08/31/17 00:00 98.8 82 20 158/92 (114) 97 98.8 08/30/17 23:10 98.4 75 16 126/85 96 Room Air 209.1 08/30/17 22:59 75 16 126/85 96 Room Air 08/30/17 22:29 98.4 Intake and Output 08/30/17 08/31/17 19:00 07:00 Intake Total 350 ml Output Total 0 ml 500 ml Balance 0 ml -150 ml Intake Oral 350 ml Output Urine Total 0 ml 500 ml # Voids 3 Laboratory Tests Test 08/30/17 20:50 08/30/17 21:25 08/31/17 09:55 White Blood Count 7.7 K/UL (4.8-10.8) 9.1 K/UL (4.8-10.8) Red Blood Count 4.28 M/UL (4.20-5.40) 4.30 M/UL (4.20-5.40) Hemoglobin 11.2 G/DL (12.0-16.0) L 11.4 G/DL (12.0-16.0) L Hematocrit 35.6 % (37.0-47.0) L 35.6 % (37.0-47.0) L Mean Corpuscular Volume 83 FL (80-99) 83 FL (80-99) Mean Corpuscular Hemoglobin 26.2 PG (27.0-31.0) L 26.4 PG (27.0-31.0) L Mean Corpuscular Hemoglobin Concent 31.5 G/DL (32.0-36.0) L 31.9 G/DL (32.0-36.0) L Red Cell Distribution Width 15.1 % (11.6-14.8) H 15.1 % (11.6-14.8) H Platelet Count 179 K/UL (150-450) 392 K/UL (150-450) # Mean Platelet Volume 6.1 FL (6.5-10.1) L 5.6 FL (6.5-10.1) L Neutrophils (%) (Auto) 51.1 % (45.0-75.0) 73.3 % (45.0-75.0) Lymphocytes (%) (Auto) 39.6 % (20.0-45.0) 20.1 % (20.0-45.0) Monocytes (%) (Auto) 6.5 % (1.0-10.0) 5.4 % (1.0-10.0) Eosinophils (%) (Auto) 1.6 % (0.0-3.0) 0.0 % (0.0-3.0) Basophils (%) (Auto) 1.3 % (0.0-2.0) 1.1 % (0.0-2.0) Erythrocyte Sedimentation Rate 73 MM/HR (0-20) H Sodium Level 135 MMOL/L (136-145) L 133 MMOL/L (136-145) L Potassium Level 4.1 MMOL/L (3.5-5.1) 4.1 MMOL/L (3.5-5.1) Chloride Level 102 MMOL/L (98-107) 101 MMOL/L (98-107) Carbon Dioxide Level 28 MMOL/L (21-32) 27 MMOL/L (21-32) Anion Gap 5 mmol/L (5-15) 5 mmol/L (5-15) Blood Urea Nitrogen 13 mg/dL (7-18) 13 mg/dL (7-18) Creatinine 0.7 MG/DL (0.55-1.30) 0.8 MG/DL (0.55-1.30) Estimat Glomerular Filtration Rate > 60 mL/min (>60) > 60 mL/min (>60) Glucose Level 98 MG/DL (74-106) 105 MG/DL (74-106) Calcium Level 8.8 MG/DL (8.5-10.1) 8.8 MG/DL (8.5-10.1) Total Bilirubin 0.2 MG/DL (0.2-1.0) Aspartate Amino Transf (AST/SGOT) 29 U/L (15-37) Alanine Aminotransferase (ALT/SGPT) 43 U/L (12-78) Alkaline Phosphatase 110 U/L (46-116) Total Protein 8.8 G/DL (6.4-8.2) H Albumin 3.0 G/DL (3.4-5.0) L Globulin 5.8 g/dL Albumin/Globulin Ratio 0.5 (1.0-2.7) L Lipase 82 U/L (73-393) Urine Color Pale yellow Urine Appearance Clear Urine pH 6 (4.5-8.0) Urine Specific Arnold 1.015 (1.005-1.035) Urine Protein Negative (NEGATIVE) Urine Glucose (UA) Negative (NEGATIVE) Urine Ketones Negative (NEGATIVE) Urine Occult Blood Negative (NEGATIVE) Urine Nitrite Negative (NEGATIVE) Urine Bilirubin Negative (NEGATIVE) Urine Urobilinogen Normal MG/DL (0.0-1.0) Urine Leukocyte Esterase Negative (NEGATIVE) Urine HCG, Qualitative Negative (NEGATIVE) Microbiology Date/Time Source Procedure Growth Status 08/30/17 22:00 Rectum Received Height (Feet): 5 Height (Inches): 5.00 Weight (Pounds): 300 Medications Current Medications Medications (Trade) Dose Ordered Sig/Farideh Route PRN Reason Start Time Stop Time Status Last Admin Dose Admin Albuterol Sulfate (Proventil MDI) 1 puff Q4HR PRN INH Bronchospasm 08/31/17 11:00 09/30/17 08:59 Alprazolam (Xanax) 2 mg Q4H PRN ORAL For Anxiety 08/31/17 06:30 09/07/17 06:29 08/31/17 11:41 Amlodipine Besylate (Norvasc) 5 mg DAILY ORAL 08/31/17 09:00 09/30/17 08:59 08/31/17 09:33 Clonidine HCl (Catapres Tab) 0.1 mg Q6H PRN ORAL For High Blood Pressure 08/31/17 06:30 8 06:29 Cyclobenzaprine HCl (Flexeril) 10 mg THREE TIMES A DAY PRN ORAL Muscle Spasm 08/31/17 06:30 09/30/17 06:29 08/31/17 11:41 Diphenhydramine HCl (Benadryl) 25 mg Q6H PRN ORAL Itching 08/31/17 06:30 09/30/17 06:29 08/31/17 11:41 Docusate Sodium (Colace) 250 mg BID ORAL 08/31/17 18:00 09/30/17 17:59 08/31/17 18:32 Duloxetine HCl (Cymbalta) 60 mg BID ORAL 08/31/17 09:00 09/30/17 08:59 08/31/17 18:31 Folic Acid (Folate) 1 mg DAILY ORAL 08/31/17 09:00 09/30/17 08:59 08/31/17 09:32 Furosemide (Lasix) 20 mg DAILY ORAL 08/31/17 09:00 09/30/17 08:59 08/31/17 09:31 Heparin Sodium (Porcine) (Heparin 5000 units/ml) 5,000 units EVERY 12 HOURS SUBQ 08/31/17 09:00 09/30/17 08:59 08/31/17 09:45 Lisinopril (Zestril) 10 mg DAILY ORAL 08/31/17 09:00 09/30/17 08:59 08/31/17 09:33 Morphine Sulfate (Morphine Sulfate) 4 mg Q4H PRN IVP Severe Pain (Pain Scale 7-10) 08/31/17 11:30 09/07/17 07:29 08/31/17 13:41 Multivitamins (Multivitamins) 1 tab DAILY ORAL 08/31/17 09:00 09/30/17 08:59 08/31/17 09:31 Oxybutynin Chloride (Ditropan) 5 mg Q8HR ORAL 08/31/17 14:00 09/30/17 13:59 08/31/17 13:40 Oxycodone HCl (Roxicodone) 10 mg Q6H PRN ORAL moderate breakthrough pain 08/31/17 11:11 09/07/17 11:10 Pantoprazole (Protonix) 40 mg DAILY ORAL 08/31/17 09:00 09/30/17 08:59 08/31/17 09:31 Potassium Chloride (K-Dur) 20 meq DAILY ORAL 08/31/17 09:00 09/30/17 08:59 08/31/17 09:53 Pregabalin (Lyrica) 150 mg THREE TIMES A DAY ORAL 08/31/17 09:00 09/30/17 08:59 08/31/17 18:32 Zolpidem Tartrate (Ambien) 5 mg QHS PRN ORAL Insomnia 08/31/17 05:15 09/07/17 05:14 Assessment/Plan Assessment/Plan MDD Anxiety d/u xanax Ana Guzman MD Aug 31, 2017 20:22
[2017-08-31] MEDS: Cyclobenzaprine 10mg Tab ORAL SCH (20:41)
--- NOTE | 2017-08-31 21:31 | History and Physical Report ---
DATE OF ADMISSION: 08/30/2017 CONSULTANTS: 1. Karlee Leonardo M.D. 2. Troy Esparza M.D. 3. Mer Powell M.D. CHIEF COMPLAINT: Weakness, pain, and lupus flare. BRIEF HISTORY: This is a 41-year-old female, living at the [facility], presented with increased bilateral hand pain, slight shortness of breath, history of lupus, I think it is flaring up. The patient came in also with hip pain bilaterally, 8/10, admitted to medical floor for further treatment. Currently slightly anxious in bed, general pain, 8/10, oriented x3, in no acute distress. REVIEW OF SYSTEMS: No chest pain. Slight shortness of breath. No nausea, vomiting, or diarrhea. PAST MEDICAL HISTORY: DJD, arthritis, lupus, obesity, hypertension, asthma, CHF, rheumatoid arthritis, Sjogren, chronic pain, hepatitis C, and fibromyalgia. PAST SURGICAL HISTORY: Spine surgery. MEDICATIONS: Colace, Ditropan, morphine, oxycodone, Proventil, Norvasc, multivitamin, folate, Cymbalta, K-Dur, Zestril, Lasix, Lyrica, heparin, alprazolam, Catapres, Benadryl and Flexeril. ALLERGIES: Plaquenil. SOCIAL HISTORY: No smoking. Occasional alcohol. No intravenous drug abuse. FAMILY HISTORY: Noncontributory. PHYSICAL EXAMINATION: GENERAL: Slightly anxious in bed, oriented x3, in no acute distress. VITAL SIGNS: Temperature 97 degrees, pulse 114, respirations 23, and blood pressure 159/99. CARDIOVASCULAR: No murmur. LUNGS: Distant and clear. ABDOMEN: Bowel sounds positive. Nontender. Nondistended. EXTREMITIES: No cyanosis, clubbing, or edema. NEUROLOGIC: The patient moves all extremities, slightly weak. LABORATORY AND DIAGNOSTIC DATA: Hemoglobin 11.4, otherwise, CBC is normal. BMP shows sodium 133, otherwise, BMP is normal. Albumin is 3.0. Urinalysis is negative. ASSESSMENT: 1. Bilateral hip pain. 2. Shortness of breath. 3. Lupus. 4. Hand pain. 5. Obesity. 6. Hypertension. 7. Asthma. 8. Congestive heart failure. 9. Rheumatoid arthritis. 10. Hepatitis C. 11. Sjogren's. 12. Fibromyalgia. 13. Anemia. PLAN: 1. Continue previous medications. 2. Pain control. 3. O2 and pulmonary treatment as needed. 4. OT, PT, and dietary evaluation. 5. CBC and BMP in the morning. 6. We will continue to follow the patient medically. Get Tovar D.O. DR: ALEX JOB#: [id number] CC:
[2017-08-31] MEDS ORDERED: Zolpidem 5mg tab ORAL ONE ×2 (22:15→23:00)
[2017-09-01] VITALS: BP 162/90
[2017-09-01] MEDS: oxyCODONE 5mg IR tab ORAL PRN ×3 (03:22→17:36)
[2017-09-01] MEDS: Cyclobenzaprine 10mg Tab ORAL PRN ×3 (03:22→17:37)
[2017-09-01 04:00] VITALS: BP 139/92
--- NOTE | 2017-09-01 05:46 | Consultation ---
DATE OF CONSULTATION: 09/01/2017 INITIAL PSYCHIATRIC EVALUATION CONSULTING PHYSICIAN: Troy Esparza M.D. REQUESTING PHYSICIAN: Get Tovar D.O. HISTORY OF PRESENT ILLNESS: This psychiatric consultation was requested specifically by Dr. Get Tovar for me to see this patient. So, I saw and assessed this patient this morning, 09/01/2017. This patient says that she has high levels of anxiety and mood lability. She said her anxiety is primarily a result of her lupus flare she has been having and she states that she is in lot of pain and has anxiety and depression related to her medical illness, but she denies any current suicidal or homicidal thoughts. Denies auditory or visual hallucinations or delusions. MEDICAL HISTORY: She has a history of degenerative joint disease, arthritis, lupus, hypertension, asthma, congestive heart failure, rheumatoid arthritis, Sjogren syndrome, hepatitis C, and fibromyalgia. SOCIAL HISTORY: She lives at [facility]. She is financially supported by [employer] and Medicare. ALLERGIES: Plaquenil. SUBSTANCE ABUSE HISTORY: Denies any recent drug and alcohol use. FAMILY PSYCHIATRIC HISTORY: Denies. PSYCHIATRIC HISTORY: She has had multiple psychiatric admissions specifically at [facility] for diagnosis of schizoaffective, bipolar type. STRENGTHS: She is motivated to get better and has a place to live. WEAKNESSES: She is impulsive. Minimal support system. MENTAL STATUS EXAMINATION: This is a 41-year-old female. Appearance is disheveled. Attitude irritable and agitated. Affect guarded and restricted. Intellect poor. Mood depressed and anxious. Motor activity, psychomotor agitation. Attention span is poor. Orientation x2. Speech is pressured. Thought process, disorganized and illogical. Thought content, auditory hallucinations and paranoid delusions. Insight and judgment is poor. Short-term memory, 3/3 word recall is good. Long-term memory, she is able to recall long-term events she went to. DIAGNOSES: 1. Major depressive disorder, mild, recurrent, without psychotic features. Also secondary generalized anxiety disorder. 2. Medical, lupus flare. 3. Psychosocial stressors, financial. PLAN: The plan for this patient is to treat her with a medication regimen of Cymbalta 60 mg twice a day and Ambien 10 mg at bedtime and then also I am going to increase this patient's Xanax, but the patient says she is on higher dose of Xanax. She normally takes 2 mg q.6 hours and she lacked to titrate her Xanax down much slower than her original dose was started, so I am going to change her Xanax to 1.5 mg of Xanax q.6 hours p.r.n. anxiety and provide her with 20 minutes of cognitive behavioral therapy. Discussing automatic negative thoughts as a result of outside stressors and how to convert those 20 minutes of cognitive behavior therapy at bedside today. Chart reviewed and discussed with staff. Seen and assessed in her room. I would like to thank, Dr. Get Tovar, for this interesting consultation. The patient was seen and assessed at bedside. Chart reviewed and discussed with staff. Troy Esparza M.D. DR: ROBERT JOB#: [id number] CC:
[2017-09-01] MEDS: Morphine Sulfate 4mg/ml Inj (IV USE ONLY) IVP PRN ×4 (06:37→20:28)
[2017-09-01] MEDS: Oxybutynin 5mg tab ORAL SCH ×3 (06:37→22:14)
--- NOTE | 2017-09-01 07:42 | Pulmonology Progress Note ---
Assessment/Plan Assessment/Plan ASSESSMENT Lupus flare intractable pain obstructive sleep apnea morbid obesity history of gastric bypass hepatitis C cervical DDD lumbar DDD cervical radiculopathy lumbar radiculopathy fibromyalgia HTN MDD PIIL OF CARE Med Surg floor BiPAP at night prn O2 HHN prn Pain management pain specialist follows ESR elevated, intractable pain, likely lupus flare under rheumo care as outpt, had appointment soon not on any meds for lupus developed SE from Plaquenil ( change in vision) after 2 yrs of taking it DVT prophylaxis bowel regimen supportive care BP management with CCB Maintenance dose of Lasix, monitor volumes, cardiorenal parameters PT/OT a/emetic prn hep C management - as outpt seen and evaluated by psych for MDD case discussed and evaluated by supervising physician Subjective Allergies: Coded Allergies: Cashew (Verified Allergy, Unknown, 12/30/14) HYDROXYCHLOROQUINE (Verified Allergy, Unknown, 08/31/17) White Fish (Verified Allergy, Unknown, 01/19/15) Uncoded Allergies: FISH (Allergy, Unknown, 12/30/14) Subjective intermittent pain in neck and back and joint pain migraine Objective Last 24 Hour Vital Signs Date Time Temp Pulse Resp B/P (MAP) Pulse Ox O2 Delivery O2 Flow Rate FiO2 09/01/17 04:00 98.4 93 19 139/92 (108) 95 98.4 09/01/17 03:21 162/90 09/01/17 00:00 99.1 104 20 162/90 (114) 96 99.1 08/31/17 21:23 99 20 Room Air 21 08/31/17 21:00 Room Air 08/31/17 20:00 99.3 88 20 149/100 (116) 96 99.3 08/31/17 19:31 98.4 08/31/17 18:32 98.4 08/31/17 16:00 98.4 87 22 121/82 (95) 95 98.4 08/31/17 14:11 98.6 08/31/17 13:41 98.6 08/31/17 13:40 98.6 08/31/17 12:40 98.6 08/31/17 12:00 98.6 91 22 141/98 (112) 97 98.6 08/31/17 11:41 97.1 08/31/17 10:04 98.6 08/31/17 09:34 97.1 08/31/17 09:33 159/99 08/31/17 09:33 114 159/99 08/31/17 09:32 97.1 08/31/17 09:00 Room Air 08/31/17 08:00 97.1 114 23 159/99 (119) 97 97.1 Intake and Output 08/31/17 09/01/17 19:00 07:00 Intake Total 1200 ml 1000 ml Balance 1200 ml 1000 ml Intake Oral 1200 ml 1000 ml # Voids 3 # Bowel Movements 1 1 General Appearance: no acute distress, other - A/A/O x 3 obese AA female HEENT: normocephalic, atraumatic, anicteric, mucous membranes moist Respiratory/Chest: lungs clear Cardiovascular: normal rate, no JVD Abdomen: normal bowel sounds, soft, non tender - obese Extremities: no edema Neurologic/Psychiatric: no motor/sensory deficits, alert, oriented x 3, responsive Musculoskeletal: normal muscle bulk Microbiology Date/Time Source Procedure Growth Status 08/30/17 22:00 Rectum Received Laboratory Tests 08/31/17 09:55: White Blood Count 9.1, Red Blood Count 4.30, Hemoglobin 11.4L, Hematocrit 35.6L , Mean Corpuscular Volume 83, Mean Corpuscular Hemoglobin 26.4L, Mean Corpuscular Hemoglobin Concent 31.9L, Red Cell Distribution Width 15.1H, Platelet Count 392#, Mean Platelet Volume 5.6L, Neutrophils (%) (Auto) 73.3, Lymphocytes (%) (Auto) 20.1, Monocytes (%) (Auto) 5.4, Eosinophils (%) (Auto) 0.0, Basophils (%) (Auto) 1.1, Sodium Level 133L, Potassium Level 4.1, Chloride Level 101, Carbon Dioxide Level 27, Anion Gap 5, Blood Urea Nitrogen 13, Creatinine 0.8, Estimat Glomerular Filtration Rate > 60, Glucose Level 105, Calcium Level 8.8 09/01/17 06:58: White Blood Count [Pending], Red Blood Count [Pending], Hemoglobin [Pending], Hematocrit [Pending], Mean Corpuscular Volume [Pending], Mean Corpuscular Hemoglobin [Pending], Mean Corpuscular Hemoglobin Concent [Pending], Red Cell Distribution Width [Pending], Platelet Count [Pending], Mean Platelet Volume [ Pending], Neutrophils (%) (Auto) [Pending], Lymphocytes (%) (Auto) [Pending], Monocytes (%) (Auto) [Pending], Eosinophils (%) (Auto) [Pending], Basophils (%) (Auto) [Pending], Sodium Level [Pending], Potassium Level [Pending], Chloride Level [Pending], Carbon Dioxide Level [Pending], Blood Urea Nitrogen [Pending], Creatinine [Pending], Estimat Glomerular Filtration Rate [Pending], Glucose Level [Pending], Calcium Level [Pending], Erythrocyte Sedimentation Rate [ Pending], Reticulocyte Count [Pending], Prothrombin Time [Pending], Prothromb Time International Ratio [Pending], Activated Partial Thromboplast Time [Pending ], Iron Level [Pending], Unsaturated Iron Binding [Pending], Lactate Dehydrogenase [Pending], Carcinoembryonic Antigen [Pending], Vitamin B12 Level [ Pending], Folate [Pending] Current Medications Medications (Trade) Dose Ordered Sig/Farideh Route PRN Reason Start Time Stop Time Status Last Admin Dose Admin Albuterol Sulfate (Proventil MDI) 1 puff Q4HR PRN INH Bronchospasm 08/31/17 11:00 09/30/17 08:59 Alprazolam (Xanax) 1.5 mg Q6H PRN ORAL For Anxiety 09/01/17 04:30 09/08/17 04:29 Amlodipine Besylate (Norvasc) 5 mg DAILY ORAL 08/31/17 09:00 09/30/17 08:59 08/31/17 09:33 Clonidine HCl (Catapres Tab) 0.1 mg Q6H PRN ORAL For High Blood Pressure 08/31/17 06:30 09/30/17 06:29 09/01/17 03:21 Cyclobenzaprine HCl (Flexeril) 10 mg BEDTIME ORAL 08/31/17 21:00 09/30/17 20:59 08/31/17 20:41 Cyclobenzaprine HCl (Flexeril) 10 mg THREE TIMES A DAY PRN ORAL Muscle Spasm 08/31/17 06:30 09/30/17 06:29 09/01/17 03:22 Diphenhydramine HCl (Benadryl) 25 mg Q6H PRN ORAL Itching 08/31/17 06:30 09/30/17 06:29 08/31/17 11:41 Diphenhydramine HCl (Benadryl) 50 mg HSPRN PRN ORAL Insomnia 08/31/17 20:30 09/30/17 20:29 08/31/17 21:49 Docusate Sodium (Colace) 250 mg BID ORAL 08/31/17 18:00 09/30/17 17:59 08/31/17 18:32 Duloxetine HCl (Cymbalta) 60 mg BID ORAL 08/31/17 09:00 09/30/17 08:59 08/31/17 18:31 Folic Acid (Folate) 1 mg DAILY ORAL 08/31/17 09:00 09/30/17 08:59 08/31/17 09:32 Furosemide (Lasix) 20 mg DAILY ORAL 08/31/17 09:00 09/30/17 08:59 08/31/17 09:31 Heparin Sodium (Porcine) (Heparin 5000 units/ml) 5,000 units EVERY 12 HOURS SUBQ 08/31/17 09:00 09/30/17 08:59 08/31/17 09:45 Lisinopril (Zestril) 10 mg DAILY ORAL 08/31/17 09:00 09/30/17 08:59 08/31/17 09:33 Morphine Sulfate (Morphine Sulfate) 4 mg Q4H PRN IVP Severe Pain (Pain Scale 7-10) 08/31/17 11:30 09/07/17 07:29 09/01/17 06:37 Multivitamins (Multivitamins) 1 tab DAILY ORAL 08/31/17 09:00 09/30/17 08:59 08/31/17 09:31 Oxybutynin Chloride (Ditropan) 5 mg Q8HR ORAL 08/31/17 14:00 09/30/17 13:59 09/01/17 06:37 Oxycodone HCl (Roxicodone) 10 mg Q6H PRN ORAL moderate breakthrough pain 08/31/17 11:11 09/07/17 11:10 09/01/17 03:22 Pantoprazole (Protonix) 40 mg DAILY ORAL 08/31/17 09:00 09/30/17 08:59 08/31/17 09:31 Potassium Chloride (K-Dur) 20 meq DAILY ORAL 08/31/17 09:00 09/30/17 08:59 08/31/17 09:53 Pregabalin (Lyrica) 150 mg THREE TIMES A DAY ORAL 08/31/17 09:00 09/30/17 08:59 08/31/17 18:32 Zolpidem Tartrate (Ambien) 10 mg HSPRN PRN ORAL Insomnia 09/01/17 04:00 09/08/17 03:59 Yasmin Blackwood PATIENT ACCESS DIRECTOR Sep 01, 2017 07:42
[2017-09-01 07:54] LABS: HEMATOCRIT 35.7 % (37.0-47.0); HEMOGLOBIN 11.7 G/DL (12.0-16.0); MEAN CORPUSCULAR VOLUME 83 FL (80-99); PLATELET COUNT 357 K/UL (150-450); RED BLOOD COUNT 4.27 M/UL (4.20-5.40); RED CELL DISTRIBUTION WIDTH 15.2 % (11.6-14.8)
[2017-09-01 07:59] LABS: ANION GAP 7 mmol/L (5-15); BLOOD UREA NITROGEN 16 mg/dL (7-18); CALCIUM 8.2 MG/DL (8.5-10.1); CARBON DIOXIDE 28 MMOL/L (21-32); CHLORIDE 100 MMOL/L (98-107); CREATININE 0.9 MG/DL (0.55-1.30); POTASSIUM 3.5 MMOL/L (3.5-5.1); SODIUM 135 MMOL/L (136-145)
[2017-09-01 08:00] VITALS: BP 150/106
[2017-09-01 08:25] LABS: LACTATE DEHYDROGENASE 141 U/L (81-234)
--- NOTE | 2017-09-01 08:49 | General Progress Note ---
Assessment/Plan Problem List: (1) Lupus (systemic lupus erythematosus) ICD Codes: M32.9 - Systemic lupus erythematosus, unspecified SNOMED: 58766037 Qualifiers: Qualified Codes: M32.9 - Systemic lupus erythematosus, unspecified (2) Obesity, morbid, BMI 40.0-49.9 ICD Codes: E66.01 - Morbid (severe) obesity due to excess calories SNOMED: 533377230 (3) Fibromyalgia ICD Codes: M79.7 - Fibromyalgia SNOMED: 60558085 (4) Intractable pain ICD Codes: R52 - Pain, unspecified SNOMED: 46395552 (5) Hypertension ICD Codes: I10 - Essential (primary) hypertension SNOMED: 56238079 (6) Multiple joint pain ICD Codes: M25.50 - Pain in unspecified joint SNOMED: 78039694 Status: unchanged Assessment/Plan ot pt diet pain control cbc bmp am Subjective Constitutional: Reports: weakness Allergies: Coded Allergies: Cashew (Verified Allergy, Unknown, 12/30/14) HYDROXYCHLOROQUINE (Verified Allergy, Unknown, 08/31/17) White Fish (Verified Allergy, Unknown, 01/19/15) Uncoded Allergies: FISH (Allergy, Unknown, 12/30/14) All Systems: reviewed and negative except above Subjective sl gen pain Objective Last 24 Hour Vital Signs Date Time Temp Pulse Resp B/P (MAP) Pulse Ox O2 Delivery O2 Flow Rate FiO2 09/01/17 08:00 97.8 98 19 150/106 (121) 96 97.8 09/01/17 04:00 98.4 93 19 139/92 (108) 95 98.4 09/01/17 03:21 162/90 09/01/17 00:00 99.1 104 20 162/90 (114) 96 99.1 08/31/17 21:23 99 20 Room Air 21 08/31/17 21:00 Room Air 08/31/17 20:00 99.3 88 20 149/100 (116) 96 99.3 08/31/17 19:31 98.4 08/31/17 18:32 98.4 08/31/17 16:00 98.4 87 22 121/82 (95) 95 98.4 08/31/17 14:11 98.6 08/31/17 13:41 98.6 08/31/17 13:40 98.6 08/31/17 12:40 98.6 08/31/17 12:00 98.6 91 22 141/98 (112) 97 98.6 08/31/17 11:41 97.1 08/31/17 10:04 98.6 08/31/17 09:34 97.1 08/31/17 09:33 159/99 08/31/17 09:33 114 159/99 08/31/17 09:32 97.1 08/31/17 09:00 Room Air Intake and Output 08/31/17 09/01/17 19:00 07:00 Intake Total 1200 ml 1000 ml Balance 1200 ml 1000 ml Intake Oral 1200 ml 1000 ml # Voids 3 # Bowel Movements 1 1 Laboratory Tests 08/31/17 09:55: White Blood Count 9.1, Red Blood Count 4.30, Hemoglobin 11.4L, Hematocrit 35.6L , Mean Corpuscular Volume 83, Mean Corpuscular Hemoglobin 26.4L, Mean Corpuscular Hemoglobin Concent 31.9L, Red Cell Distribution Width 15.1H, Platelet Count 392#, Mean Platelet Volume 5.6L, Neutrophils (%) (Auto) 73.3, Lymphocytes (%) (Auto) 20.1, Monocytes (%) (Auto) 5.4, Eosinophils (%) (Auto) 0.0, Basophils (%) (Auto) 1.1, Sodium Level 133L, Potassium Level 4.1, Chloride Level 101, Carbon Dioxide Level 27, Anion Gap 5, Blood Urea Nitrogen 13, Creatinine 0.8, Estimat Glomerular Filtration Rate > 60, Glucose Level 105, Calcium Level 8.8 09/01/17 06:58: White Blood Count 8.0, Red Blood Count 4.27, Hemoglobin 11.7L, Hematocrit 35.7L , Mean Corpuscular Volume 83, Mean Corpuscular Hemoglobin 27.4, Mean Corpuscular Hemoglobin Concent 32.8, Red Cell Distribution Width 15.2H, Platelet Count 357, Mean Platelet Volume 5.4L, Neutrophils (%) (Auto) , Lymphocytes (%) (Auto) , Monocytes (%) (Auto) , Eosinophils (%) (Auto) , Basophils (%) (Auto) , Sodium Level 135L, Potassium Level 3.5, Chloride Level 100, Carbon Dioxide Level 28, Anion Gap 7, Blood Urea Nitrogen 16, Creatinine 0.9, Estimat Glomerular Filtration Rate > 60, Glucose Level 153H, Calcium Level 8.2L, Neutrophils % (Manual) [Pending], Lymphocytes % (Manual) [Pending], Platelet Estimate [Pending], Platelet Morphology [Pending], Erythrocyte Sedimentation Rate [Pending], Reticulocyte Count [Pending], Prothrombin Time 10.1, Prothromb Time International Ratio 1.0, Activated Partial Thromboplast Time 26, Iron Level [Pending], Unsaturated Iron Binding [Pending], Lactate Dehydrogenase 141, Carcinoembryonic Antigen [Pending], Vitamin B12 Level [ Pending], Folate [Pending] Height (Feet): 5 Height (Inches): 5.00 Weight (Pounds): 300 General Appearance: lethargic EENT: normal ENT inspection Neck: normal alignment Cardiovascular: normal peripheral pulses, normal rate, regular rhythm Respiratory/Chest: chest wall non-tender, lungs clear, normal breath sounds Abdomen: normal bowel sounds, non tender, soft Extremities: normal inspection Edema: no edema noted Arm (L), no edema noted Arm (R), no edema noted Leg (L), no edema noted Leg (R), no edema noted Pedal (L), no edema noted Pedal (R), no edema noted Generalized Neurologic: responsive, motor weakness Skin: normal pigmentation, warm/dry Get Tovar DO Sep 01, 2017 08:49
[2017-09-01] MEDS: Lisinopril 10mg tab ORAL SCH (09:21)
[2017-09-01] MEDS: Docusate 100mg cap ORAL SCH ×2 (09:21→17:35)
[2017-09-01] MEDS: Lyrica 75mg cap ORAL SCH ×3 (09:22→17:34)
[2017-09-01] MEDS: DULoxetine 30mg cap ORAL SCH ×2 (09:23→17:34)
[2017-09-01 09:35] LABS: % IRON SATURATION 12 % (15-50); IRON 51 ug/dL (50-175); TOTAL IRON BINDING CAPACITY 435 ug/dL (250-450)
[2017-09-01 12:00] VITALS: BP 114/72
[2017-09-01] MEDS: ALPRAZolam 0.5mg tab ORAL PRN ×2 (12:36→20:29)
--- NOTE | 2017-09-01 13:13 | Consultation ---
Consult Note Consult Note NEUROLOGY CONSULTATION: Full note dictated #[id number] y/o, RH, BF with PH of FM, Lupus, neck injuries, low back injuries, visual problems, headaches, DJD, chronic pain syndrome, chronic opiate use, HTN, asthma and hep C. She was hospitalized on 08/30/17 for generalized worsening of her pain. At this time she continues to complain of pain all over. She is also not very cooperative with her exam and attributes that to being in pain. She feels that her mind has also been unclear for quite sometime and is getting worse. ON EXAM: Disoriented to exact date. Problems with memory, HCF, VS function and language. CN Normal Give way in all muscle groups and thus unable to assess power. Did not cooperate for sensory tests. Globally diminished DTRs. Refused to stand and walk. IMPRESSION: Chronic pain syndrome. Intoxicated at this time with prescription medications. Unable to assess motor and sensory function. H/O Lupus and FM. B12 deficiency. REC: Rx of underlying rheumatologic illnesses. Pain management as per pain management. Minimize mind altering drugs. B12 parenterally. EEG. Labs for cognitive dysfunction. Observe Cesar Walton M.D., M.S.P.CESAR ENCISO Sep 01, 2017 13:13
[2017-09-01] MEDS: Vitamin B12 1000mcg/ml Inj SUBQ SCH (14:09)
[2017-09-01 16:00] VITALS: BP 123/80
[2017-09-01 20:00] VITALS: BP 141/87
--- NOTE | 2017-09-01 20:12 | Cardiology Progress Note ---
Assessment/Plan Assessment/Plan The patient is seen and examined, full consult note is dictated. Objective Last 24 Hour Vital Signs Date Time Temp Pulse Resp B/P (MAP) Pulse Ox O2 Delivery O2 Flow Rate FiO2 09/01/17 18:33 97.5 09/01/17 18:33 97.5 09/01/17 17:37 97.5 09/01/17 17:34 97.5 09/01/17 16:48 97.5 09/01/17 16:18 97.5 09/01/17 16:00 97.8 88 20 123/80 (94) 96 97.8 09/01/17 14:08 97.5 09/01/17 12:00 97.5 87 19 114/72 (86) 95 97.5 09/01/17 11:30 97.8 09/01/17 09:23 97.8 09/01/17 09:23 98 150/106 09/01/17 09:22 97.8 09/01/17 09:21 150/106 09/01/17 09:00 Room Air 09/01/17 08:00 97.8 98 19 150/106 (121) 96 97.8 09/01/17 04:00 98.4 93 19 139/92 (108) 95 98.4 09/01/17 03:21 162/90 09/01/17 00:00 99.1 104 20 162/90 (114) 96 99.1 08/31/17 21:23 99 20 Room Air 21 08/31/17 21:00 Room Air Intake and Output 08/31/17 09/01/17 19:00 07:00 Intake Total 1200 ml 1000 ml Balance 1200 ml 1000 ml Intake Oral 1200 ml 1000 ml # Voids 3 # Bowel Movements 1 1 Laboratory Tests Test 09/01/17 06:58 White Blood Count 8.0 K/UL (4.8-10.8) Red Blood Count 4.27 M/UL (4.20-5.40) Hemoglobin 11.7 G/DL (12.0-16.0) L Hematocrit 35.7 % (37.0-47.0) L Mean Corpuscular Volume 83 FL (80-99) Mean Corpuscular Hemoglobin 27.4 PG (27.0-31.0) Mean Corpuscular Hemoglobin Concent 32.8 G/DL (32.0-36.0) Red Cell Distribution Width 15.2 % (11.6-14.8) H Platelet Count 357 K/UL (150-450) Mean Platelet Volume 5.4 FL (6.5-10.1) L Neutrophils (%) (Auto) % (45.0-75.0) Lymphocytes (%) (Auto) % (20.0-45.0) Monocytes (%) (Auto) % (1.0-10.0) Eosinophils (%) (Auto) % (0.0-3.0) Basophils (%) (Auto) % (0.0-2.0) Differential Total Cells Counted 100 Neutrophils % (Manual) 44 % (45-75) L Lymphocytes % (Manual) 55 % (20-45) H Monocytes % (Manual) 1 % (1-10) Eosinophils % (Manual) 0 % (0-3) Basophils % (Manual) 0 % (0-2) Band Neutrophils 0 % (0-8) Platelet Estimate Adequate Platelet Morphology Normal Anisocytosis 1+ Erythrocyte Sedimentation Rate 49 MM/HR (0-20) H Reticulocyte Count 0.5 % (0.0-2.0) Prothrombin Time 10.1 SEC (9.30-11.50) Prothromb Time International Ratio 1.0 (0.9-1.1) Activated Partial Thromboplast Time 26 SEC (23-33) Sodium Level 135 MMOL/L (136-145) L Potassium Level 3.5 MMOL/L (3.5-5.1) Chloride Level 100 MMOL/L (98-107) Carbon Dioxide Level 28 MMOL/L (21-32) Anion Gap 7 mmol/L (5-15) Blood Urea Nitrogen 16 mg/dL (7-18) Creatinine 0.9 MG/DL (0.55-1.30) Estimat Glomerular Filtration Rate > 60 mL/min (>60) Glucose Level 153 MG/DL (74-106) H Hemoglobin A1c 6.2 % (4.3-6.0) H Calcium Level 8.2 MG/DL (8.5-10.1) L Iron Level 51 ug/dL (50-175) Total Iron Binding Capacity 435 ug/dL (250-450) Percent Iron Saturation 12 % (15-50) L Unsaturated Iron Binding 384 ug/dL (112-346) H Lactate Dehydrogenase 141 U/L (81-234) Carcinoembryonic Antigen Pending Vitamin B12 Level 305 PG/ML (193-986) Vitamin D 25-Hydroxy Pending 25-Hydroxy Vitamin D2 Pending 25-Hydroxy Vitamin D3 Pending Folate 34.4 NG/ML (8.6-58.9) Thyroid Stimulating Hormone (TSH) 2.614 uiU/mL (0.358-3.740) Microbiology Date/Time Source Procedure Growth Status 08/30/17 22:00 Rectum Received Lorenzo Peck MD Sep 01, 2017 20:12
[2017-09-01] MEDS: Zolpidem 5mg tab ORAL PRN (20:29)
[2017-09-01] MEDS: Heparin 5000 units/ml inj SUBQ SCH (20:30)
[2017-09-01] MEDS: Cyclobenzaprine 10mg Tab ORAL SCH (20:30)
[2017-09-01] MEDS ORDERED: Zolpidem 5mg tab ORAL PRN (22:30)
--- NOTE | 2017-09-01 23:01 | Consultation ---
DATE OF CONSULTATION: 09/01/2017 CONSULTING PHYSICIAN: Fabian Walton M.D. REQUESTING PHYSICIAN: Dr. Get Tovar. HISTORY: Ms. Patricia Quiroga is a 41-year-old, right-handed, black lady who does have a past history of fibromyalgia, systemic lupus erythematosus, neck injuries, low back injuries, degenerative joint disease involving multiple joints including the spine, visual problems related to Plaquenil use, headaches, a chronic pain syndrome, chronic opiate use, hypertension, asthma, and hepatitis C. She was hospitalized on 08/30/2017 from her [facility] for generalized worsening of her pain and she also says that the mind has been unclear. At this point in time, she continues to have pain all over her body. She is also not very cooperative with her examination and attributes that to being in pain. She feels that her mind has been unclear for quite sometime now and is getting worse. She denies any specific weakness on one side or the other, numbness on one side or the other, problems with speech, problems with language, problems with vision, but does say that she is generally weak. PAST MEDICAL HISTORY: Significant for fibromyalgia, lupus, neck injuries, low back injuries, degenerative joint disease involving multiple joints including the spine, visual problems, headaches, chronic pain, chronic opiate use, hypertension, asthma, and hepatitis C. FAMILY HISTORY: Nothing significant. PERSONAL HISTORY: Home: She lives in a [facility]. Work: She is unemployed and has been unemployed for numerous years. Habits: She denies use of alcohol, tobacco, or illicit drugs. PRESENT MEDICATIONS: Zofran, Xanax, Ambien, Flexeril, Benadryl, DSS, Ditropan, morphine, oxycodone, albuterol, amlodipine, folic acid, multivitamins, pantoprazole, Cymbalta, K-Dur, lisinopril, Lasix, Lyrica, heparin for DVT prophylaxis, and clonidine. PHYSICAL EXAMINATION: GENERAL: She is a well-developed and well-nourished obese, black lady, lying in bed, in no acute distress. VITAL SIGNS: Pulse 87/minute, blood pressure 114/72 mm of Hg respirations 19/minute, and temperature 97.5 degrees Fahrenheit. HEAD: Normocephalic and atraumatic. EENT: Examination benign. NECK: No neck rigidity was observed. NEUROLOGICAL EXAMINATION: MENTAL STATUS EXAMINATION: She was awake and alert. She was oriented to [facility], [facility], and August 2017. She did not know the exact date. She was able to recall 3/3 words immediately, but could only remember 2/3 words in 1 minute and 3 minutes. She was able to remember presidents, Trump and Obama, but could not remember presidents prior to that. Her mathematical skills were impaired. Her visuospatial function was also impaired. She had slowing of a cerebration and she was not very cooperative with the entire examination. SPEECH: She had no dysarthria. LANGUAGE: She had anomia for low-frequency words. CRANIAL NERVE EXAMINATION: II: The visual byrd were intact on confrontation testing. III, IV & : External ocular movements were full and the pupils 3 mm in diameter, equal, round, regular, and reactive to light. V: She had normal facial sensations and the temporales, masseters, and pterygoids functioned normally. VII: She had normal facial expressions and no facial asymmetry. VIII: She was able to hear well bilaterally and had no nystagmus. IX: The palate moved symmetrically on phonation. X: She had no hoarseness of voice. XI: The sternocleidomastoids and trapezii functioned normally. XII: The tongue was in the midline without any fasciculations or atrophy. MOTOR SYSTEM: The tone was normal in all four extremities. Examination of muscle mass revealed no focal wasting. Examination of power was exceedingly difficult to test because of her poor cooperation. She gave way in all muscle groups making it impossible to know what the underlying power was like. SENSORY EXAMINATION: She responded to painful stimuli equally in all four extremities. She did not cooperate for testing other sensory modalities. REFLEXES: Trace+ and bilaterally symmetrical at the biceps, triceps, brachioradialis, and knees, 0 at both ankles. The plantar responses were flexor bilaterally. COORDINATION: She performed well on [id number] testing. STANCE & GAIT: Could not tested as she refused to stand and walk. DIAGNOSTIC IMPRESSION: 1. Ms. patricia Quiroga is a 41-year-old, right-handed, black lady, who does have past history of fibromyalgia, lupus, neck injuries, low back injuries, degenerative joint disease involving the spine, visual problems, headache, chronic pain, chronic opiate use, hypertension, asthma, and hepatitis C who was hospitalized for generalized worsening of her pain, and in addition she has been bothered by the mind not being very clear. 2. On neurological examination at this time, she has significant slowing of cerebration, is disoriented to the exact date, and has problems with memory, visuospatial function, higher cognitive function, and language. She is unable to give a good motor effort and thus is unable to cooperate for power testing making it impossible to know what her underlying motor power is. She is unable to cooperate for sensory testing, has globally diminished reflexes and refuses to stand and walk. 3. Laboratory data obtained thus far had revealed that she is mildly anemic with a hemoglobin of 11.7, her ESR is elevated to 49. Her chemistry panel reveals a sodium which is minimally low at 135, blood glucose is elevated to 153, her albumin is low at 3.0, B12 is low at 305, folate is normal at 34.4, and her urinalysis is benign. 4. The patient's history, neurological examination, and laboratory data are most compatible with rheumatological diseases mainly the systemic lupus erythematosus and fibromyalgia associated with a chronic pain syndrome and chronic opiate use. 5. At this point in time, the patient is intoxicated with prescription medicines and as a result of that is exhibiting significant slowing of cerebration and possibly some underlying cognitive dysfunction. She is unable to cooperate for motor and sensory examination and thus it is impossible to know if she does have an ongoing radiculopathic or neuropathic process. RECOMMENDATIONS: 1. Agree with management thus far. 2. Treatment of rheumatological illnesses. 3. Pain management as per pain care management coordinator. 4. Attempt should be made to minimize her mind-altering drugs. 5. Her B12 deficiency should be treated appropriately. 6. She should be worked up thoroughly for other treatable causes of cognitive dysfunction. 7. An EEG will be ordered to evaluate the patient for the degree and type of cerebral dysfunction. 8. The patient will be observed closely and depending on how she fares over the next day or so, further recommendations will be given. Thank you for entrusting me with the care of Ms. Quiroga. I shall follow her with you. Fabian Walton M.D., M.S.P.H. DR: EUGENE JOB#: [id number] [email or web address]
[2017-09-02] VITALS: BP 127/85
[2017-09-02] MEDS: Morphine Sulfate 4mg/ml Inj (IV USE ONLY) IVP PRN ×6 (00:30→21:39)
[2017-09-02] MEDS: oxyCODONE 5mg IR tab ORAL PRN (02:03)
[2017-09-02] MEDS: ALPRAZolam 0.5mg tab ORAL PRN ×3 (03:42→20:13)
[2017-09-02 04:00] VITALS: BP 127/78
[2017-09-02] MEDS: Oxybutynin 5mg tab ORAL SCH ×3 (05:54→21:38)
--- NOTE | 2017-09-02 07:53 | General Progress Note ---
Assessment/Plan Problem List: (1) Lupus (systemic lupus erythematosus) ICD Codes: M32.9 - Systemic lupus erythematosus, unspecified SNOMED: 51339026 Qualifiers: Qualified Codes: M32.9 - Systemic lupus erythematosus, unspecified (2) Obesity, morbid, BMI 40.0-49.9 ICD Codes: E66.01 - Morbid (severe) obesity due to excess calories SNOMED: 262676543 (3) Fibromyalgia ICD Codes: M79.7 - Fibromyalgia SNOMED: 39662415 (4) Intractable pain ICD Codes: R52 - Pain, unspecified SNOMED: 34364366 (5) Hypertension ICD Codes: I10 - Essential (primary) hypertension SNOMED: 53301404 (6) Multiple joint pain ICD Codes: M25.50 - Pain in unspecified joint SNOMED: 04851689 Status: stable, progressing Assessment/Plan ot pt diet pain control cbc bmp am Subjective Constitutional: Reports: weakness Allergies: Coded Allergies: Cashew (Verified Allergy, Unknown, 12/30/14) HYDROXYCHLOROQUINE (Verified Allergy, Unknown, 08/31/17) White Fish (Verified Allergy, Unknown, 01/19/15) Uncoded Allergies: FISH (Allergy, Unknown, 12/30/14) All Systems: reviewed and negative except above Subjective sl gen pain Objective Last 24 Hour Vital Signs Date Time Temp Pulse Resp B/P (MAP) Pulse Ox O2 Delivery O2 Flow Rate FiO2 09/02/17 04:00 98.5 97 20 127/78 (94) 96 98.5 09/02/17 00:30 98.5 09/02/17 00:00 98.5 100 20 127/85 (99) 92 98.5 09/01/17 21:00 Room Air 09/01/17 20:51 91 20 Room Air 09/01/17 20:00 99.2 77 20 141/87 (105) 94 99.2 09/01/17 18:33 97.5 09/01/17 18:33 97.5 09/01/17 17:37 97.5 09/01/17 17:34 97.5 09/01/17 16:48 97.5 09/01/17 16:18 97.5 09/01/17 16:00 97.8 88 20 123/80 (94) 96 97.8 09/01/17 14:08 97.5 09/01/17 12:00 97.5 87 19 114/72 (86) 95 97.5 09/01/17 11:30 97.8 09/01/17 09:23 97.8 09/01/17 09:23 98 150/106 09/01/17 09:22 97.8 09/01/17 09:21 150/106 09/01/17 09:00 Room Air 09/01/17 08:00 97.8 98 19 150/106 (121) 96 97.8 Intake and Output 09/01/17 09/02/17 19:00 07:00 Intake Total 560 ml 115 ml Balance 560 ml 115 ml Intake Oral 560 ml 115 ml # Voids 5 3 # Bowel Movements 1 1 Height (Feet): 5 Height (Inches): 5.00 Weight (Pounds): 300 General Appearance: lethargic EENT: normal ENT inspection Neck: normal alignment Cardiovascular: normal peripheral pulses, normal rate, regular rhythm Respiratory/Chest: chest wall non-tender, lungs clear, normal breath sounds Abdomen: normal bowel sounds, non tender, soft Extremities: normal inspection Edema: no edema noted Arm (L), no edema noted Arm (R), no edema noted Leg (L), no edema noted Leg (R), no edema noted Pedal (L), no edema noted Pedal (R), no edema noted Generalized Neurologic: responsive, motor weakness Skin: normal pigmentation, warm/dry Get Tovar DO Sep 02, 2017 07:53
[2017-09-02 08:05] VITALS: BP 145/83
--- NOTE | 2017-09-02 08:24 | Pulmonology Progress Note ---
Assessment/Plan Assessment/Plan ASSESSMENT Lupus flare intractable pain obstructive sleep apnea morbid obesity history of gastric bypass hepatitis C cervical DDD lumbar DDD cervical radiculopathy lumbar radiculopathy fibromyalgia HTN MDD B 12 deficiency PLAN OF CARE Med Surg floor BiPAP at night prn O2 HHN prn Pain management pain specialist follows ESR elevated, intractable pain, likely lupus flare under rheumo care as outpt, had appointment soon not on any meds for lupus ; developed SE from Plaquenil ( change in vision) after 2 yrs of taking it neuro eval appreciated EEG pending s/p B 12 x 1 TSH, HgA1c WNL DVT prophylaxis bowel regimen supportive care BP management with CCB Maintenance dose of Lasix, monitor volumes, cardiorenal parameters PT/OT a/emetic prn hep C management - as outpt seen and evaluated by psych for MDD case discussed and evaluated by supervising physician Subjective Allergies: Coded Allergies: Cashew (Verified Allergy, Unknown, 12/30/14) HYDROXYCHLOROQUINE (Verified Allergy, Unknown, 08/31/17) White Fish (Verified Allergy, Unknown, 01/19/15) Uncoded Allergies: FISH (Allergy, Unknown, 12/30/14) Subjective intermittent pain in neck , back and joints migraine continues seen and evaluated by neuro Objective Last 24 Hour Vital Signs Date Time Temp Pulse Resp B/P (MAP) Pulse Ox O2 Delivery O2 Flow Rate FiO2 09/02/17 08:08 Room Air 09/02/17 08:05 98.8 109 20 145/83 (103) 93 98.8 09/02/17 04:00 98.5 97 20 127/78 (94) 96 98.5 09/02/17 00:30 98.5 09/02/17 00:00 98.5 100 20 127/85 (99) 92 98.5 09/01/17 21:00 Room Air 09/01/17 20:51 91 20 Room Air 09/01/17 20:00 99.2 77 20 141/87 (105) 94 99.2 09/01/17 18:33 97.5 09/01/17 18:33 97.5 09/01/17 17:37 97.5 09/01/17 17:34 97.5 09/01/17 16:48 97.5 09/01/17 16:18 97.5 09/01/17 16:00 97.8 88 20 123/80 (94) 96 97.8 09/01/17 14:08 97.5 09/01/17 12:00 97.5 87 19 114/72 (86) 95 97.5 09/01/17 11:30 97.8 09/01/17 09:23 97.8 09/01/17 09:23 98 150/106 09/01/17 09:22 97.8 09/01/17 09:21 150/106 09/01/17 09:00 Room Air Intake and Output 09/01/17 09/02/17 19:00 07:00 Intake Total 560 ml 115 ml Balance 560 ml 115 ml Intake Oral 560 ml 115 ml # Voids 5 3 # Bowel Movements 1 1 Objective General Appearance: no acute distress, A/A/O x 3 obese AA female HEENT: normocephalic, atraumatic, anicteric, mucous membranes moist Respiratory/Chest: lungs clear Cardiovascular: normal rate, no JVD Abdomen: normal bowel sounds, soft, non tender - obese Extremities: no edema Neurologic/Psychiatric: no motor/sensory deficits, alert, oriented x 3, responsive Musculoskeletal: normal muscle bulk Microbiology Date/Time Source Procedure Growth Status 08/30/17 22:00 Rectum Received Laboratory Tests 09/02/17 07:55: White Blood Count [Pending], Red Blood Count [Pending], Hemoglobin [Pending], Hematocrit [Pending], Mean Corpuscular Volume [Pending], Mean Corpuscular Hemoglobin [Pending], Mean Corpuscular Hemoglobin Concent [Pending], Red Cell Distribution Width [Pending], Platelet Count [Pending], Mean Platelet Volume [ Pending], Neutrophils (%) (Auto) [Pending], Lymphocytes (%) (Auto) [Pending], Monocytes (%) (Auto) [Pending], Eosinophils (%) (Auto) [Pending], Basophils (%) (Auto) [Pending], Sodium Level [Pending], Potassium Level [Pending], Chloride Level [Pending], Carbon Dioxide Level [Pending], Blood Urea Nitrogen [Pending], Creatinine [Pending], Estimat Glomerular Filtration Rate [Pending], Glucose Level [Pending], Calcium Level [Pending] Current Medications Medications (Trade) Dose Ordered Sig/Farideh Route PRN Reason Start Time Stop Time Status Last Admin Dose Admin Albuterol Sulfate (Proventil MDI) 1 puff Q4HR PRN INH Bronchospasm 08/31/17 11:00 09/30/17 08:59 Alprazolam (Xanax) 1.5 mg Q6H PRN ORAL For Anxiety 09/01/17 04:30 09/08/17 04:29 09/02/17 03:42 Amlodipine Besylate (Norvasc) 5 mg DAILY ORAL 08/31/17 09:00 09/30/17 08:59 09/01/17 09:23 Clonidine HCl (Catapres Tab) 0.1 mg Q6H PRN ORAL For High Blood Pressure 08/31/17 06:30 09/30/17 06:29 09/01/17 03:21 Cyanocobalamin (Vitamin B12) 1,000 mcg DAILY SUBQ 09/01/17 13:45 09/03/17 09:01 09/01/17 14:09 Cyclobenzaprine HCl (Flexeril) 10 mg BEDTIME ORAL 08/31/17 21:00 09/30/17 20:59 09/01/17 20:30 Cyclobenzaprine HCl (Flexeril) 10 mg THREE TIMES A DAY PRN ORAL Muscle Spasm 08/31/17 06:30 09/30/17 06:29 09/01/17 17:37 Diphenhydramine HCl (Benadryl) 25 mg Q6H PRN ORAL Itching 08/31/17 06:30 09/30/17 06:29 09/01/17 22:14 Diphenhydramine HCl (Benadryl) 50 mg HSPRN PRN ORAL Insomnia 08/31/17 20:30 09/30/17 20:29 08/31/17 21:49 Docusate Sodium (Colace) 250 mg BID ORAL 08/31/17 18:00 09/30/17 17:59 09/01/17 17:35 Duloxetine HCl (Cymbalta) 60 mg BID ORAL 08/31/17 09:00 09/30/17 08:59 09/01/17 17:34 Folic Acid (Folate) 1 mg DAILY ORAL 08/31/17 09:00 09/30/17 08:59 09/01/17 09:21 Furosemide (Lasix) 20 mg DAILY ORAL 08/31/17 09:00 09/30/17 08:59 09/01/17 09:22 Heparin Sodium (Porcine) (Heparin 5000 units/ml) 5,000 units EVERY 12 HOURS SUBQ 08/31/17 09:00 09/30/17 08:59 08/31/17 09:45 Lisinopril (Zestril) 10 mg DAILY ORAL 08/31/17 09:00 09/30/17 08:59 09/01/17 09:21 Morphine Sulfate (Morphine Sulfate) 4 mg Q4H PRN IVP Severe Pain (Pain Scale 7-10) 08/31/17 11:30 09/07/17 07:29 09/02/17 04:39 Multivitamins (Multivitamins) 1 tab DAILY ORAL 08/31/17 09:00 09/30/17 08:59 09/01/17 09:21 Ondansetron HCl (Zofran) 4 mg Q6H PRN IVP Nausea & Vomiting 09/01/17 08:30 10/01/17 08:29 09/02/17 02:06 Oxybutynin Chloride (Ditropan) 5 mg Q8HR ORAL 08/31/17 14:00 09/30/17 13:59 09/02/17 05:54 Oxycodone HCl (Roxicodone) 10 mg Q6H PRN ORAL moderate breakthrough pain 08/31/17 11:11 09/07/17 11:10 09/02/17 02:03 Pantoprazole (Protonix) 40 mg DAILY ORAL 08/31/17 09:00 09/30/17 08:59 09/01/17 09:23 Potassium Chloride (K-Dur) 20 meq DAILY ORAL 08/31/17 09:00 09/30/17 08:59 09/01/17 09:21 Pregabalin (Lyrica) 150 mg THREE TIMES A DAY ORAL 08/31/17 09:00 09/30/17 08:59 09/01/17 17:34 Zolpidem Tartrate (Ambien) 10 mg HSPRN PRN ORAL Insomnia 09/01/17 04:00 09/08/17 03:59 09/01/17 20:29 Yasmin Youssef TECHNICAL AGRONOMIST Sep 02, 2017 08:24
[2017-09-02 08:44] LABS: BASOPHILS % (AUTO) 0.9 % (0.0-2.0); EOSINOPHILS % (AUTO) 2.7 % (0.0-3.0); HEMATOCRIT 37.4 % (37.0-47.0); LYMPHOCYTES % (AUTO) 44.3 % (20.0-45.0); MEAN CORPUSCULAR VOLUME 84 FL (80-99); MONOCYTES % (AUTO) 5.3 % (1.0-10.0); NEUTROPHILS % (AUTO) 46.7 % (45.0-75.0); PLATELET COUNT 350 K/UL (150-450); RED BLOOD COUNT 4.46 M/UL (4.20-5.40); RED CELL DISTRIBUTION WIDTH 15.3 % (11.6-14.8); WHITE BLOOD COUNT 8.5 K/UL (4.8-10.8)
[2017-09-02] MEDS: Docusate 100mg cap ORAL SCH (08:48)
[2017-09-02] MEDS: DULoxetine 30mg cap ORAL SCH ×2 (08:48→17:32)
[2017-09-02] MEDS: Lisinopril 10mg tab ORAL SCH (08:48)
[2017-09-02] MEDS: Vitamin B12 1000mcg/ml Inj SUBQ SCH (08:49)
[2017-09-02] MEDS: Lyrica 75mg cap ORAL SCH ×3 (08:49→17:32)
[2017-09-02] MEDS: Heparin 5000 units/ml inj SUBQ SCH ×2 (08:50→20:17)
[2017-09-02] MEDS: Cyclobenzaprine 10mg Tab ORAL PRN ×2 (09:07→16:19)
[2017-09-02 09:10] LABS: ANION GAP 11 mmol/L (5-15); BLOOD UREA NITROGEN 17 mg/dL (7-18); CALCIUM 8.8 MG/DL (8.5-10.1); CARBON DIOXIDE 25 MMOL/L (21-32); CHLORIDE 100 MMOL/L (98-107); CREATININE 0.9 MG/DL (0.55-1.30); POTASSIUM 4.2 MMOL/L (3.5-5.1); SODIUM 135 MMOL/L (136-145)
--- NOTE | 2017-09-02 11:11 | Neurology Progress Note ---
Interim History Interim History Interim History Ms. Quiroga looks and feels a little better. When I walked into her room she was in the bathroom. She walked out steadily with no signs of weakness. She continues to complain of headaches. She continues to complain of total body pain. The mind is still not completely clear. She continues to be cognitively impoverished. Her motor function however is much better today as she is more cooperative. Review of Systems Neuro Review of Systems Benign. Objective Physical Exam Last Vital Signs Date Time Temp Pulse Resp B/P (MAP) Pulse Ox O2 Delivery O2 Flow Rate FiO2 09/02/17 10:06 98.8 09/02/17 08:48 145/83 09/02/17 08:47 109 09/02/17 08:08 Room Air 09/02/17 08:05 20 93 08/31/17 21:23 21 Laboratory Tests Test 09/02/17 07:55 White Blood Count 8.5 K/UL (4.8-10.8) Red Blood Count 4.46 M/UL (4.20-5.40) Hemoglobin 12.0 G/DL (12.0-16.0) Hematocrit 37.4 % (37.0-47.0) Mean Corpuscular Volume 84 FL (80-99) Mean Corpuscular Hemoglobin 26.8 PG (27.0-31.0) L Mean Corpuscular Hemoglobin Concent 32.0 G/DL (32.0-36.0) Red Cell Distribution Width 15.3 % (11.6-14.8) H Platelet Count 350 K/UL (150-450) Mean Platelet Volume 5.8 FL (6.5-10.1) L Neutrophils (%) (Auto) 46.7 % (45.0-75.0) Lymphocytes (%) (Auto) 44.3 % (20.0-45.0) Monocytes (%) (Auto) 5.3 % (1.0-10.0) Eosinophils (%) (Auto) 2.7 % (0.0-3.0) Basophils (%) (Auto) 0.9 % (0.0-2.0) Sodium Level 135 MMOL/L (136-145) L Potassium Level 4.2 MMOL/L (3.5-5.1) Chloride Level 100 MMOL/L (98-107) Carbon Dioxide Level 25 MMOL/L (21-32) Anion Gap 11 mmol/L (5-15) Blood Urea Nitrogen 17 mg/dL (7-18) Creatinine 0.9 MG/DL (0.55-1.30) Estimat Glomerular Filtration Rate > 60 mL/min (>60) Glucose Level 178 MG/DL (74-106) H Calcium Level 8.8 MG/DL (8.5-10.1) Neurologic Exam Objective PHYSICAL EXAMINATION: GENERAL: She is a well-developed, well-nourished, obese, black lady, sitting up at the edge of her bed, in no acute distress. HEAD: Normocephalic and atraumatic. EENT: Examination benign. NECK: No neck rigidity was observed. NEUROLOGICAL EXAMINATION: MENTAL STATUS EXAMINATION: She was awake and alert. She was oriented to [facility], [facility], and September 02, 2017. She was able to recall 3/3 words immediately, but could only remember 2/3 words in 1 minute and 3 minutes. She was able to remember presidents, Trump and Obama, but could not remember presidents prior to that. Her mathematical skills were impaired. Her visuospatial function was also impaired. She had minimal slowing of a cerebration - better than yesterday. She was more cooperative. SPEECH: She had no dysarthria. LANGUAGE: She had anomia for low-frequency words. CRANIAL NERVE EXAMINATION: II: The visual byrd were intact on confrontation testing. III, IV & : External ocular movements were full and the pupils 3 mm in diameter, equal, round, regular, and reactive to light. V: She had normal facial sensations and the temporales, masseters, and pterygoids functioned normally. VII: She had normal facial expressions and no facial asymmetry. VIII: She was able to hear well bilaterally and had no nystagmus. IX: The palate moved symmetrically on phonation. X: She had no hoarseness of voice. XI: The sternocleidomastoids and trapezii functioned normally. XII: The tongue was in the midline without any fasciculations or atrophy. MOTOR SYSTEM: The tone was normal in all four extremities. Examination of muscle mass revealed no focal wasting. Examination of power revealed G 5/5 power. SENSORY EXAMINATION: She responded to painful stimuli equally in all four extremities. She did not cooperate for testing other sensory modalities. REFLEXES: Trace+ and bilaterally symmetrical at the biceps, triceps, brachioradialis, and knees, 0 at both ankles. The plantar responses were flexor bilaterally. COORDINATION: She performed well on [id number] testing. STANCE & GAIT: She was able to stand and walk normally. Impression/Recommendations Diagnostic Impression 1. Ms. Vanna Quiroga is a 41-year-old, right-handed, black lady, who does have past history of fibromyalgia, lupus, neck injuries, low back injuries, degenerative joint disease involving the spine, visual problems, headache, chronic pain, chronic opiate use, hypertension, asthma, and hepatitis C who was hospitalized for generalized worsening of her pain, and in addition she has been bothered by the mind not being very clear. 2. She looks and feels a little better. When I walked into her room she was in the bathroom. She walked out steadily with no signs of weakness. She continues to complain of headaches. She continues to complain of total body pain. The mind is still not completely clear. She continues to be cognitively impoverished. Her motor function however is much better today as she is more cooperative. 3. On neurological examination at this time, her cerebration is faster than yesterday. She is fully oriented. She still has problems with memory, visuospatial function, higher cognitive function, and language. Her motor function is normal now as she is giving an adequate effort. She is unable to cooperate for sensory testing, and has globally diminished reflexes. She is able to stand and walk normally. 4. Laboratory data obtained thus far had revealed that she is mildly anemic with a hemoglobin of 11.7, her ESR is elevated to 49. Her chemistry panel reveals a sodium which is minimally low at 135, blood glucose is elevated to 153 , her albumin is low at 3.0, B12 is low at 305, folate is normal at 34.4, and her urinalysis is benign. Her HB A1c is elevated at 6.2% 5. Her EEG done on 09/01/17 revealed a mild encephalopathy. 5. The patient's history, neurological examination, and laboratory data are most compatible with rheumatological diseases mainly the systemic lupus erythematosus and fibromyalgia associated with a chronic pain syndrome and chronic opiate use. 6. She does have a mild toxic encephalopathy leading to slowing of cerebration and possibly some underlying cognitive dysfunction. Recommendations 1. Continue present management. 2. Treatment of rheumatological illnesses. 3. Pain management as per pain trial management associate. 4. Attempt should be made to minimize her mind-altering drugs. 5. Vitamin B12 parenterally. 6. Increase activity. 7. Observe closely. Cesar Walton M.D., M.S.P.Tomas. CESAR WALTON Sep 02, 2017 11:11
[2017-09-02 12:00] VITALS: BP 118/79
--- NOTE | 2017-09-02 12:11 | General Progress Note ---
Assessment/Plan Assessment/Plan (1) Morbid obesity (2) Degenerative disc disease, cervical (3) Lumbar degenerative disc disease (4) Lumbar radiculopathy (5) Cervical radiculopathy (6) Osteoarthritis of multiple joints (7) Multiple joint pain (8) Fibromyalgia We will continue Oxycodone increased to 10mg PO 1 tab Q6H PRN moderate pain, Lyrica and Morphine We recommend patient to be seen by Communications Designer as per mottler machine feeder. Pt was d/w Dr. Leonardo and he concurred. Subjective Date patient seen: Sep 02, 2017 Time patient seen: 11:00 - am Constitutional: Reports: weakness HEENT: Reports: no symptoms Cardiovascular: Reports: no symptoms Respiratory: Reports: no symptoms Gastrointestinal/Abdominal: Reports: no symptoms Genitourinary: Reports: no symptoms Neurologic/Psychiatric: Reports: headache, numbness, weakness Endocrine: Reports: no symptoms Hematologic/Lymphatic: Reports: no symptoms Allergies: Coded Allergies: Cashew (Verified Allergy, Unknown, 12/30/14) HYDROXYCHLOROQUINE (Verified Allergy, Unknown, 08/31/17) White Fish (Verified Allergy, Unknown, 01/19/15) Uncoded Allergies: FISH (Allergy, Unknown, 12/30/14) Subjective Patient is in bed and sister is at bedside. She is requesting Dilaudid IV I d/w her option for Dilaudid 4mg tabs and that IV Dilaudid is used for acute fractures or s/p surgery and explained that her condition is a chronic condition , I also explained to pt that the Dilaudid tabs have the same effectiveness in reduction of her pain. Pt how ever refuses and would like to continue the Morphine IV. Objective Last 24 Hour Vital Signs Date Time Temp Pulse Resp B/P (MAP) Pulse Ox O2 Delivery O2 Flow Rate FiO2 09/02/17 10:06 98.8 09/02/17 09:48 98.8 09/02/17 09:20 98.8 09/02/17 09:07 98.8 09/02/17 08:50 98.8 09/02/17 08:49 98.8 09/02/17 08:48 145/83 09/02/17 08:47 109 145/83 09/02/17 08:08 Room Air 09/02/17 08:05 98.8 109 20 145/83 (103) 93 98.8 09/02/17 04:00 98.5 97 20 127/78 (94) 96 98.5 09/02/17 00:30 98.5 09/02/17 00:00 98.5 100 20 127/85 (99) 92 98.5 09/01/17 21:00 Room Air 09/01/17 20:51 91 20 Room Air 09/01/17 20:00 99.2 77 20 141/87 (105) 94 99.2 09/01/17 17:37 97.5 09/01/17 17:34 97.5 09/01/17 16:18 97.5 09/01/17 16:00 97.8 88 20 123/80 (94) 96 97.8 09/01/17 14:08 97.5 Intake and Output 09/01/17 09/02/17 19:00 07:00 Intake Total 560 ml 115 ml Balance 560 ml 115 ml Intake Oral 560 ml 115 ml # Voids 5 3 # Bowel Movements 1 1 Laboratory Tests 09/02/17 07:55: White Blood Count 8.5, Red Blood Count 4.46, Hemoglobin 12.0, Hematocrit 37.4, Mean Corpuscular Volume 84, Mean Corpuscular Hemoglobin 26.8L, Mean Corpuscular Hemoglobin Concent 32.0, Red Cell Distribution Width 15.3H, Platelet Count 350, Mean Platelet Volume 5.8L, Neutrophils (%) (Auto) 46.7, Lymphocytes (%) (Auto) 44.3, Monocytes (%) (Auto) 5.3, Eosinophils (%) (Auto) 2.7, Basophils (%) (Auto ) 0.9, Sodium Level 135L, Potassium Level 4.2, Chloride Level 100, Carbon Dioxide Level 25, Anion Gap 11, Blood Urea Nitrogen 17, Creatinine 0.9, Estimat Glomerular Filtration Rate > 60, Glucose Level 178H, Calcium Level 8.8 Height (Feet): 5 Height (Inches): 5.00 Weight (Pounds): 300 Objective General Appearance: no apparent distress, alert EENT: PERRL/EOMI, normal ENT inspection, TMs normal Neck: non-tender, supple Cardiovascular: normal rate, regular rhythm Respiratory/Chest: lungs clear, normal breath sounds Abdomen: soft, no organomegaly Extremities: non-tender Edema: no edema noted Arm (L), no edema noted Arm (R), no edema noted Leg (L), no edema noted Leg (R), no edema noted Pedal (L), no edema noted Pedal (R), no edema noted Generalized Neurologic: alert, oriented x 3 Skin: warm/dry Cirilo Chavez Sep 02, 2017 12:11
[2017-09-02] MEDS ORDERED: Metoprolol Succinate XL 25mg tab ORAL SCH (15:00)
[2017-09-02 16:00] VITALS: BP 129/60
--- NOTE | 2017-09-02 17:30 | Electroencephalogram ---
DATE OF PROCEDURE: 09/01/2017 EEG REPORT REQUESTING PHYSICIAN: Get Tovar D.O. HISTORY: This EEG was performed on a 41-year-old lady with history of multiple medical problems including lupus, fibromyalgia, cervical spine disease, lumbosacral spine disease, headaches, chronic opiate use, hypertension, a chronic pain syndrome, and slowness in her thought processing. The purpose of this EEG was to evaluate the patient for the degree and type of cerebral dysfunction. TECHNICAL NOTE: This EEG was performed on a [email or web address] with electrodes placed on the scalp according to the International 10-20 system. [id number] and [id number] montages were used. The EEG was technically satisfactory and was performed in the awake, drowsy, and sleep states. OBSERVATIONS: In the best awake state, the background activity consisted of 8-8.5 Hz alpha activity with a moderate amount of intermixed theta frequencies. Throughout the tracing, moderate amount of superimposed beta activity was also seen. Drowsiness was characterized by dissolution of the alpha rhythm and the appearance of slower frequencies in the 4-5 Hz theta range. Stage II sleep was characterized by further slowing of the background in the delta and theta range, the presence of vertex waves, and 14 Hz sleep spindles. No focal abnormalities or epileptiform discharges were seen. IMPRESSION: This is an abnormal EEG characterized by: 1. An unusually large amount of intermixed theta activity seen in the reportedly awake state. 2. The presence of superimposed beta activity seen throughout the tracing. COMMENT: This study is consistent with an encephalopathy of mild degree, most probably of toxic nature as evidenced by the abundance of beta activity seen throughout the tracing. Fabian Walton M.D., M.S.P.H. DR: Eloise JOB#: [id number] PETROS
[2017-09-02] MEDS: Docusate 250mg cap ORAL SCH (17:31)
[2017-09-02 20:00] VITALS: BP 125/72
[2017-09-02] MEDS: Zolpidem 5mg tab ORAL PRN (20:14)
[2017-09-02] MEDS: Cyclobenzaprine 10mg Tab ORAL SCH (20:14)
--- NOTE | 2017-09-02 21:04 | Cardiology Progress Note ---
Assessment/Plan Assessment/Plan 1. Accelerated HTN, metoprolol XL was added to amlodipine and lisinopril. 2. Hx of CHF due to SLE according to the patient , awaiting result of 2D echo. 3. SLE 4. Hx of asthma/COPD Subjective Subjective Not on the telemetry unit. Denies chest pain. Objective Last 24 Hour Vital Signs Date Time Temp Pulse Resp B/P (MAP) Pulse Ox O2 Delivery O2 Flow Rate FiO2 09/02/17 20:39 82 20 Room Air 09/02/17 18:03 97.9 09/02/17 18:03 97.9 09/02/17 17:33 97.9 09/02/17 17:32 97.9 09/02/17 17:18 97.9 09/02/17 16:19 97.9 09/02/17 16:00 97.9 94 20 129/60 (83) 92 97.9 09/02/17 15:40 94 129/60 09/02/17 13:06 98.9 09/02/17 12:39 98.9 09/02/17 12:00 98.9 95 20 118/79 (92) 90 98.9 95 09/02/17 09:07 98.8 09/02/17 08:50 98.8 09/02/17 08:49 98.8 09/02/17 08:48 145/83 09/02/17 08:47 109 145/83 09/02/17 08:08 Room Air 09/02/17 08:05 98.8 109 20 145/83 (103) 93 98.8 09/02/17 07:00 85 20 Room Air 09/02/17 04:00 98.5 97 20 127/78 (94) 96 98.5 09/02/17 00:30 98.5 09/02/17 00:00 98.5 100 20 127/85 (99) 92 98.5 09/01/17 21:00 Room Air Intake and Output 09/01/17 09/02/17 19:00 07:00 Intake Total 560 ml 115 ml Balance 560 ml 115 ml Intake Oral 560 ml 115 ml # Voids 5 3 # Bowel Movements 1 1 Laboratory Tests Test 09/02/17 07:55 White Blood Count 8.5 K/UL (4.8-10.8) Red Blood Count 4.46 M/UL (4.20-5.40) Hemoglobin 12.0 G/DL (12.0-16.0) Hematocrit 37.4 % (37.0-47.0) Mean Corpuscular Volume 84 FL (80-99) Mean Corpuscular Hemoglobin 26.8 PG (27.0-31.0) L Mean Corpuscular Hemoglobin Concent 32.0 G/DL (32.0-36.0) Red Cell Distribution Width 15.3 % (11.6-14.8) H Platelet Count 350 K/UL (150-450) Mean Platelet Volume 5.8 FL (6.5-10.1) L Neutrophils (%) (Auto) 46.7 % (45.0-75.0) Lymphocytes (%) (Auto) 44.3 % (20.0-45.0) Monocytes (%) (Auto) 5.3 % (1.0-10.0) Eosinophils (%) (Auto) 2.7 % (0.0-3.0) Basophils (%) (Auto) 0.9 % (0.0-2.0) Sodium Level 135 MMOL/L (136-145) L Potassium Level 4.2 MMOL/L (3.5-5.1) Chloride Level 100 MMOL/L (98-107) Carbon Dioxide Level 25 MMOL/L (21-32) Anion Gap 11 mmol/L (5-15) Blood Urea Nitrogen 17 mg/dL (7-18) Creatinine 0.9 MG/DL (0.55-1.30) Estimat Glomerular Filtration Rate > 60 mL/min (>60) Glucose Level 178 MG/DL (74-106) H Calcium Level 8.8 MG/DL (8.5-10.1) Microbiology Date/Time Source Procedure Growth Status 08/30/17 22:00 Nasal Nares MRSA Culture - Final NO METHICILLIN RESISTANT STAPH AUREUS... Complete 08/30/17 22:00 Rectum - Final NO CARBAPENEM-RESISTANT ENTEROBACTERI... Complete Objective HEENT: normocephalic, atraumatic, bilateral eye normal inspection, bilateral eye PERRL Neck: No JVD, no carotid bruit. Respiratory: chest non-tender, normal breath sounds Cardiovascular: Regular rate rhythm, normal S1S2, no murmurs, gallops or rubs. Gastrointestinal: normal bowel sounds, non tender, soft, non-distended, no guarding, no rebound Genitourinary: normal inspection, no CVA tenderness Musculoskeletal: back normal, gait/station normal, normal range of motion, non- tender, no edema, clubbing or cyanosis. Neurologic: alert, oriented x3, responsive, motor strength/tone normal, sensory intact, speech Lorenzo Ellison MD Sep 02, 2017 21:04
[2017-09-03] VITALS: BP 115/83
[2017-09-03] MEDS: Morphine Sulfate 4mg/ml Inj (IV USE ONLY) IVP PRN ×5 (01:44→21:12)
[2017-09-03] MEDS: Cyclobenzaprine 10mg Tab ORAL PRN ×3 (02:12→19:39)
[2017-09-03] MEDS: ALPRAZolam 0.5mg tab ORAL PRN ×2 (02:12→08:37)
[2017-09-03 04:00] VITALS: BP 110/74
[2017-09-03] MEDS: oxyCODONE 5mg IR tab ORAL PRN ×3 (04:52→19:39)
[2017-09-03] MEDS: Oxybutynin 5mg tab ORAL SCH ×4 (05:57→21:11)
[2017-09-03 08:00] VITALS: BP 144/98
--- NOTE | 2017-09-03 08:10 | General Progress Note ---
Assessment/Plan Assessment/Plan (1) Morbid obesity (2) Degenerative disc disease, cervical (3) Lumbar degenerative disc disease (4) Lumbar radiculopathy (5) Cervical radiculopathy (6) Osteoarthritis of multiple joints (7) Multiple joint pain (8) Fibromyalgia We will continue Oxycodone, Lyrica and Morphine Pt was d/w Dr. Leonardo and he concurred. Subjective Date patient seen: Sep 03, 2017 Time patient seen: 07:00 - am Allergies: Coded Allergies: Cashew (Verified Allergy, Unknown, 12/30/14) HYDROXYCHLOROQUINE (Verified Allergy, Unknown, 08/31/17) White Fish (Verified Allergy, Unknown, 01/19/15) Uncoded Allergies: FISH (Allergy, Unknown, 12/30/14) All Systems: reviewed and negative except above Subjective Constitutional: Reports: weakness HEENT: Reports: no symptoms Cardiovascular: Reports: no symptoms Respiratory: Reports: no symptoms Gastrointestinal/Abdominal: Reports: no symptoms Genitourinary: Reports: no symptoms Neurologic/Psychiatric: Reports: headache, numbness, weakness Endocrine: Reports: no symptoms Hematologic/Lymphatic: Reports: no symptoms Subjective: Patient is in bed wheel chair with no changes to her pain. The pain has been tolerated on the Oxycodone and Morphine. Objective Last 24 Hour Vital Signs Date Time Temp Pulse Resp B/P (MAP) Pulse Ox O2 Delivery O2 Flow Rate FiO2 09/03/17 04:00 98.2 68 22 110/74 (86) 94 98.2 09/03/17 00:00 98.1 75 24 115/83 (94) 93 98.1 09/02/17 21:00 Room Air 09/02/17 20:39 82 20 Room Air 09/02/17 20:00 99.3 87 20 125/72 (89) 94 99.3 09/02/17 18:03 97.9 09/02/17 18:03 97.9 09/02/17 17:33 97.9 09/02/17 17:32 97.9 09/02/17 17:18 97.9 09/02/17 16:19 97.9 09/02/17 16:00 97.9 94 20 129/60 (83) 92 97.9 09/02/17 15:40 94 129/60 7/15/18 13:06 98.9 09/02/17 12:39 98.9 09/02/17 12:00 98.9 95 20 118/79 (92) 90 98.9 95 09/02/17 09:07 98.8 09/02/17 08:50 98.8 09/02/17 08:49 98.8 09/02/17 08:48 145/83 09/02/17 08:47 109 145/83 Intake and Output 09/02/17 09/03/17 19:00 07:00 Intake Total 650 ml 500 ml Balance 650 ml 500 ml Intake Oral 650 ml 500 ml # Voids 1 3 Height (Feet): 5 Height (Inches): 5.00 Weight (Pounds): 300 Objective General Appearance: no apparent distress, alert EENT: PERRL/EOMI, normal ENT inspection, TMs normal Neck: non-tender, supple Cardiovascular: normal rate, regular rhythm Respiratory/Chest: lungs clear, normal breath sounds Abdomen: soft, no organomegaly Extremities: non-tender Edema: no edema noted Arm (L), no edema noted Arm (R), no edema noted Leg (L), no edema noted Leg (R), no edema noted Pedal (L), no edema noted Pedal (R), no edema noted Generalized Neurologic: alert, oriented x 3 Skin: warm/dry Cirilo Chavez Sep 03, 2017 08:10
[2017-09-03] MEDS: Heparin 5000 units/ml inj SUBQ SCH ×2 (08:35→21:00)
[2017-09-03] MEDS: Vitamin B12 1000mcg/ml Inj SUBQ SCH (08:35)
[2017-09-03] MEDS: Lisinopril 10mg tab ORAL SCH (08:36)
[2017-09-03] MEDS: DULoxetine 30mg cap ORAL SCH ×2 (08:36→17:52)
[2017-09-03] MEDS: Docusate 250mg cap ORAL SCH ×2 (08:36→17:53)
[2017-09-03] MEDS: Lyrica 75mg cap ORAL SCH ×3 (08:38→17:53)
[2017-09-03] MEDS: Metoprolol Succinate XL 25mg tab ORAL SCH (08:41)
--- NOTE | 2017-09-03 10:32 | Neurology Progress Note ---
Interim History Interim History Interim History Ms. Quiroga looks and feels a little better. The headache is better. She has been able to walk steadily. She continues to complain of total body pain. The mind is still not completely clear. She continues to be cognitively impoverished. Her motor function however is much better today as she is more cooperative. She denies any new neurologic symptoms. Review of Systems Neuro Review of Systems Benign. Objective Physical Exam Last Vital Signs Date Time Temp Pulse Resp B/P (MAP) Pulse Ox O2 Delivery O2 Flow Rate FiO2 09/03/17 09:50 80 16 Room Air 09/03/17 08:41 144/98 09/03/17 08:00 97.2 100 97.2 08/31/17 21:23 21 Neurologic Exam Objective PHYSICAL EXAMINATION: GENERAL: She is a well-developed, well-nourished, obese, black lady, lying in bed, in no acute distress. HEAD: Normocephalic and atraumatic. EENT: Examination benign. NECK: No neck rigidity was observed. NEUROLOGICAL EXAMINATION: MENTAL STATUS EXAMINATION: She was awake and alert. She was oriented to [facility], [facility], and September 03, 2017. She was able to recall 3/3 words immediately, but could only remember 2/3 words in 1 minute and 3 minutes. She was able to remember presidents, Trump and Obama, but could not remember presidents prior to that. Her mathematical skills were impaired. Her visuospatial function was also impaired. She had minimal slowing of a cerebration. She was more cooperative. SPEECH: She had no dysarthria. LANGUAGE: She had anomia for low-frequency words. CRANIAL NERVE EXAMINATION: II: The visual byrd were intact on confrontation testing. III, IV & : External ocular movements were full and the pupils 3 mm in diameter, equal, round, regular, and reactive to light. V: She had normal facial sensations and the temporales, masseters, and pterygoids functioned normally. VII: She had normal facial expressions and no facial asymmetry. VIII: She was able to hear well bilaterally and had no nystagmus. IX: The palate moved symmetrically on phonation. X: She had no hoarseness of voice. XI: The sternocleidomastoids and trapezii functioned normally. XII: The tongue was in the midline without any fasciculations or atrophy. MOTOR SYSTEM: The tone was normal in all four extremities. Examination of muscle mass revealed no focal wasting. Examination of power revealed G 5/5 power. SENSORY EXAMINATION: She responded to painful stimuli equally in all four extremities. She did not cooperate for testing other sensory modalities. REFLEXES: Trace+ and bilaterally symmetrical at the biceps, triceps, brachioradialis, and knees, 0 at both ankles. The plantar responses were flexor bilaterally. COORDINATION: She performed well on [id number] testing. STANCE & GAIT: She was able to stand and walk normally. Impression/Recommendations Diagnostic Impression 1. Ms. Vanna Quiroga is a 41-year-old, right-handed, black lady, who does have past history of fibromyalgia, lupus, neck injuries, low back injuries, degenerative joint disease involving the spine, visual problems, headache, chronic pain, chronic opiate use, hypertension, asthma, and hepatitis C who was hospitalized for generalized worsening of her pain, and in addition she has been bothered by the mind not being very clear. 2. She looks and feels a little better. The headache is better. She has been able to walk steadily. She continues to complain of total body pain. The mind is still not completely clear. She continues to be cognitively impoverished. Her motor function however is much better today as she is more cooperative. She denies any new neurologic symptoms. 3. On neurological examination at this time, her cerebration is faster than when I first saw her but about the same as yesterday. She is fully oriented. She still has problems with memory, visuospatial function, higher cognitive function, and language. Her motor function is normal now as she is giving an adequate effort. She is unable to cooperate for sensory testing, and has globally diminished reflexes. She is able to stand and walk normally. 4. Laboratory data obtained thus far had revealed that she is mildly anemic with a hemoglobin of 11.7, her ESR is elevated to 49. Her chemistry panel reveals a sodium which is minimally low at 135, blood glucose is elevated to 153 , her albumin is low at 3.0, B12 is low at 305, folate is normal at 34.4, and her urinalysis is benign. Her HB A1c is elevated at 6.2% 5. Her EEG done on 09/01/17 revealed a mild encephalopathy of a toxic nature. 5. The patient's history, neurological examination, and laboratory data are most compatible with rheumatological diseases mainly the systemic lupus erythematosus and fibromyalgia associated with a chronic pain syndrome and chronic opiate use. 6. She does have a mild toxic encephalopathy leading to slowing of cerebration and possibly some underlying cognitive dysfunction. Recommendations 1. Continue present management. 2. Treatment of rheumatological illnesses. 3. Pain management as per pain change management analyst. 4. Attempt should be made to minimize her mind-altering drugs. 5. Vitamin B12 parenterally. 6. Increase activity. 7. Observe closely. Cesar Walton M.D., M.S.P.H. CESAR WALTON Sep 03, 2017 10:32
[2017-09-03 10:52] LABS: BASOPHILS % (AUTO) 1.7 % (0.0-2.0); EOSINOPHILS % (AUTO) 2.7 % (0.0-3.0); HEMATOCRIT 33.8 % (37.0-47.0); HEMOGLOBIN 10.8 G/DL (12.0-16.0); MEAN CORPUSCULAR VOLUME 84 FL (80-99); MONOCYTES % (AUTO) 7.7 % (1.0-10.0); NEUTROPHILS % (AUTO) 49.9 % (45.0-75.0); PLATELET COUNT 346 K/UL (150-450); RED BLOOD COUNT 4.03 M/UL (4.20-5.40); RED CELL DISTRIBUTION WIDTH 15.1 % (11.6-14.8); WHITE BLOOD COUNT 8.8 K/UL (4.8-10.8)
--- NOTE | 2017-09-03 11:06 | General Progress Note ---
Assessment/Plan Problem List: (1) Lupus (systemic lupus erythematosus) ICD Codes: M32.9 - Systemic lupus erythematosus, unspecified SNOMED: 80689091 Qualifiers: Qualified Codes: M32.9 - Systemic lupus erythematosus, unspecified (2) Obesity, morbid, BMI 40.0-49.9 ICD Codes: E66.01 - Morbid (severe) obesity due to excess calories SNOMED: 756028138 (3) Fibromyalgia ICD Codes: M79.7 - Fibromyalgia SNOMED: 68823807 (4) Intractable pain ICD Codes: R52 - Pain, unspecified SNOMED: 71172282 (5) Hypertension ICD Codes: I10 - Essential (primary) hypertension SNOMED: 87469240 (6) Multiple joint pain ICD Codes: M25.50 - Pain in unspecified joint SNOMED: 29386840 Status: stable, progressing Assessment/Plan ot pt diet pain control cbc bmp am dc plan snf Subjective Constitutional: Reports: weakness Allergies: Coded Allergies: Cashew (Verified Allergy, Unknown, 12/30/14) HYDROXYCHLOROQUINE (Verified Allergy, Unknown, 08/31/17) White Fish (Verified Allergy, Unknown, 01/19/15) Uncoded Allergies: FISH (Allergy, Unknown, 12/30/14) All Systems: reviewed and negative except above Subjective sl gen pain Objective Last 24 Hour Vital Signs Date Time Temp Pulse Resp B/P (MAP) Pulse Ox O2 Delivery O2 Flow Rate FiO2 09/03/17 09:50 80 16 Room Air 09/03/17 08:41 87 144/98 09/03/17 08:37 87 144/98 09/03/17 08:36 144/98 09/03/17 08:25 Room Air 09/03/17 08:00 97.2 87 20 144/98 (113) 100 97.2 09/03/17 04:00 98.2 68 22 110/74 (86) 94 98.2 09/03/17 00:00 98.1 75 24 115/83 (94) 93 98.1 09/02/17 21:00 Room Air 09/02/17 20:39 82 20 Room Air 09/02/17 20:00 99.3 87 20 125/72 (89) 94 99.3 09/02/17 18:03 97.9 09/02/17 18:03 97.9 09/02/17 17:33 97.9 09/02/17 17:32 97.9 09/02/17 17:18 97.9 09/02/17 16:19 97.9 09/02/17 16:00 97.9 94 20 129/60 (83) 92 97.9 09/02/17 15:40 94 129/60 09/02/17 13:06 98.9 09/02/17 12:39 98.9 09/02/17 12:00 98.9 95 20 118/79 (92) 90 98.9 95 Intake and Output 09/02/17 09/03/17 19:00 07:00 Intake Total 650 ml 500 ml Balance 650 ml 500 ml Intake Oral 650 ml 500 ml # Voids 1 3 Laboratory Tests 09/03/17 10:40: White Blood Count 8.8, Red Blood Count 4.03L, Hemoglobin 10.8L, Hematocrit 33.8L , Mean Corpuscular Volume 84, Mean Corpuscular Hemoglobin 26.7L, Mean Corpuscular Hemoglobin Concent 31.9L, Red Cell Distribution Width 15.1H, Platelet Count 346, Mean Platelet Volume 5.3L, Neutrophils (%) (Auto) 49.9, Lymphocytes (%) (Auto) 38.0, Monocytes (%) (Auto) 7.7, Eosinophils (%) (Auto) 2.7, Basophils (%) (Auto) 1.7, Sodium Level [Pending], Potassium Level [Pending] , Chloride Level [Pending], Carbon Dioxide Level [Pending], Blood Urea Nitrogen [Pending], Creatinine [Pending], Estimat Glomerular Filtration Rate [Pending], Glucose Level [Pending], Calcium Level [Pending] Height (Feet): 5 Height (Inches): 5.00 Weight (Pounds): 300 General Appearance: alert EENT: normal ENT inspection Neck: normal alignment Cardiovascular: normal peripheral pulses, normal rate, regular rhythm Respiratory/Chest: chest wall non-tender, lungs clear, normal breath sounds Abdomen: normal bowel sounds, non tender, soft Extremities: normal inspection Edema: no edema noted Arm (L), no edema noted Arm (R), no edema noted Leg (L), no edema noted Leg (R), no edema noted Pedal (L), no edema noted Pedal (R), no edema noted Generalized Neurologic: responsive, motor weakness Skin: normal pigmentation, warm/dry Get Tovar DO Sep 03, 2017 11:06
[2017-09-03 11:19] LABS: ANION GAP 5 mmol/L (5-15); BLOOD UREA NITROGEN 21 mg/dL (7-18); CALCIUM 8.5 MG/DL (8.5-10.1); CARBON DIOXIDE 28 MMOL/L (21-32); CHLORIDE 100 MMOL/L (98-107); POTASSIUM 4.3 MMOL/L (3.5-5.1); SODIUM 133 MMOL/L (136-145)
--- NOTE | 2017-09-03 11:53 | GI Initial Consult Note ---
History of Present Illness General Date patient seen: Sep 03, 2017 Time patient seen: 10:00 Reason for Hospitalization: Generalized Weakness Referring physician: LOBO MOLINA Reason for Consultation: ABDOMINAL PAIN Present Illness HPI 41-year-old female presents ED for evaluation. States that she's been coming from residential facility with generalized body pain times one week. History of fibromyalgia and lupus. States she is having a flareup of her lupus. Also notes spots on her hands bilaterally. States pain has improved with pain medication at the facility. Pain is sharp, 10 out of 10, diffuse, nonradiating. Denies chest pain or shortness of breath. Denies fevers or chills. Denies nausea or vomiting. No other aggravating relieving factors. Denies any other associated symptoms. GI consulted for abdominal pain. Pt c/o of generalized abdominal pain. No active s/sx of N/V/D. States she has a history of Hep C without treatment. Presents today with iron deficiency anemia. Had EGD in 2014. Home Meds Active Scripts Prednisone* (PREDNISONE*) 20 Mg Tablet, 20 MG ORAL DAILY, #5 TAB 0 Refills Prov:Ángel Villela MD 09/25/15 Reported Medications Diphenhydramine Hcl* (BENADRYL*) 25 Mg Capsule, 125 MG ORAL Q6H PRN for Itching , CAP 08/31/17 Pregabalin* (LYRICA*) 75 Mg Capsule, 150 MG ORAL THREE TIMES A DAY, CAP 08/31/17 Cyclobenzaprine Hcl* (FLEXERIL*) 10 Mg Tablet, 10 MG ORAL THREE TIMES A DAY PRN for fibromyalgia pain, TAB 08/31/17 Furosemide* (LASIX*) 20 Mg Tablet, 20 MG ORAL DAILY, TAB 08/31/17 Duloxetine Hcl* (CYMBALTA*) 60 Mg Capsule.dr, 60 MG ORAL BID, CAP 08/31/17 Pantoprazole* (PROTONIX*) 40 Mg Tablet.dr, 40 MG ORAL DAILY, TAB 12/24/15 Heparin Sod (Porcine) (HEPARIN SODIUM*) 5 000/1 Ml Vial, 5000 UNITS SUBQ EVERY 12 HOURS, VIAL 12/24/15 Lidocaine (Lidoderm) 1 Each Adh..patch, 2 PATCH TOPIC, #7 PATCH 0 Refills Patch(es) may remain in place for up to 12 hours in any 24-hour period. 12/24/15 Morphine Sulfate (Morphine Sulfate) 4 Mg/1 Ml Vial, 4 MG IV Q4HR for Breakthrough Pain, VIAL 12/24/15 Naloxone HCl (Naloxone HCl) 0.4 Mg/1 Ml Syringe, 0.1 MG IV, EA 12/24/15 Ondansetron* (ZOFRAN*) 4 Mg Tablet, 4 MG ORAL DAILY PRN for Nausea & Vomiting, TAB 12/24/15 Sennosides (SENNA-GEN) 8.6 Mg Tablet, 17.2 MG PO BID for Constipation, TAB 12/24/15 Potassium Chloride* (K-DUR*) 20 Meq Tab.er.prt, 20 MEQ ORAL TWICE A DAY, #14 TAB 0 Refills 12/24/15 Al Hydroxide/mg Hydroxide (Mag-Al Liquid) 30 Ml Oral.susp, 30 ML ORAL Q6HR, ML 12/24/15 Acetaminophen (Acetaminophen) 325 Mg Capsule, 325 MG PO Q4HR for Fever/Headache/ Mild Pain, CAP 12/24/15 Fluticasone/Salmeterol (ADVAIR HFA 115-21 MCG INHALER) 12 Gm Hfa.aer.ad, 2 PUFFS INH EVERY 12 HOURS, EA 12/22/15 Bisacodyl (DULCOLAX) 10 Mg Supp.rect, 10 MG RC DAILY PRN for Constipation, SUPP 12/22/15 Fluticasone/Vilanterol (Breo Ellipta 100-25 Mcg INH) 1 Each Blst.w.dev, 1 EACH IH DAILY, EACH 12/22/15 Ipratropium/Albuterol Sulfate (DuoNeb 0.5-3(2.5)mg/3ml) 3 Ml Ampul.neb, 3 ML HHN Q4HR for Shortness of Breath, EA 12/22/15 Albuterol Sulfate* (PROAIR HFA*) 8.5 Gm Hfa.aer.ad, 1 PUFF INH Q4HR for Shortness of breath, #8.5 GM 0 Refills 12/22/15 Polyethylene Glycol 3350* (MIRALAX*) 17 Gm Powd.pack, 17 GM ORAL DAILY PRN for Constipation, PACKET 12/22/15 Metoclopramide Hcl* (REGLAN*) 5 Mg Tablet, 5 MG ORAL EVERY 6 HOURS PRN for Nausea & Vomiting, TAB 12/22/15 Oxybutynin Chloride (DITROPAN XL) 5 Mg Tab.er.24, 5 MG ORAL THREE TIMES A DAY, TAB 12/22/15 Oxycodone Hcl* (OXYCODONE HCL*) 15 Mg Tablet, 5 MG ORAL Q4HR PRN for Moderate Pain (Pain Scale 4-6), TAB 12/22/15 Potassium Chloride* (K-DUR*) 10 Meq Capsule.er, 10 MEQ ORAL DAILY, #7 TAB 0 Refills 09/25/15 Al Hydroxide/mg Hydroxide (Mag-Al Liquid) 30 Ml Susp, 30 ML PO Q4HR for Per rx protocol 01/16/15 Sennosides (SENNA) 8.6 Mg Capsule, 8.6 MG PO BID, CAP 01/16/15 Gabapentin* (NEURONTIN*) 800 Mg Tablet, 800 MG ORAL TID, #15 TAB 0 Refills 01/16/15 Bismuth Subsalicylate ([place] Bismuth) 262 Mg Chew, 30 MG PO BID PRN for Per rx protocol, TAB 01/16/15 Acetaminophen (Tylenol) 325 Mg Tab, 325 MG ORAL Q4HR for Prn Pain/Headache/Temp > 101, #30 TAB 0 Refills 12/30/14 Carisoprodol* (SOMA*) 350 Mg Tablet, 350 MG PO TID, TAB 12/30/14 Multivitamin (Multivitamins) 1 Each Tablet, 1 EACH PO DAILY, TAB 12/30/14 [Miralax powder] No Conflict Check 12/30/14 Lisinopril* (LISINOPRIL*) 10 Mg Tablet, 10 MG ORAL DAILY, TAB 12/30/14 [Lidocaine Patch] No Conflict Check, TD BID 12/30/14 Folic Acid* (FOLIC ACID*) 1 Mg Tablet, 1 MG ORAL DAILY, TAB 12/30/14 Fentanyl 25MCG Patch* (FENTANYL 25MCG PATCH*) 1 Each Patch.td72, 1 PATCH TDERMAL EVERY 72 HOURS, PATCH 12/30/14 Docusate Sodium* (COLACE*) 100 Mg Capsule, 250 MG ORAL BID, CAP 12/30/14 Amlodipine Besylate* (AMLODIPINE BESYLATE*) 5 Mg Tablet, 5 MG ORAL DAILY, TAB 12/30/14 Discontinued Reported Medications Ondansetron* (ZOFRAN*) 4 Mg Tablet, 4 MG ORAL DAILY PRN for Nausea & Vomiting, TAB 12/24/15 Risperidone* (RISPERDAL*) 1 Mg Tablet, 1 MG PO Q12HR, TAB 12/24/15 Furosemide* (LASIX*) 40 Mg Tablet, 40 MG ORAL DAILY, TAB 12/24/15 Alprazolam* (XANAX*) 0.5 Mg Tablet, 0.5 MG PO Q6HR for For Anxiety, TAB 12/24/15 Zolpidem Tartrate* (AMBIEN*) 10 Mg Tablet, 10 MG ORAL HS PRN for Insomnia, TAB 12/22/15 Omeprazole (OMEPRAZOLE) 20 Mg Capsule.dr, 20 MG ORAL DAILY, CAP 12/22/15 Tramadol Hcl* (ULTRAM*) 50 Mg Tablet, 50 MG ORAL Q8HR PRN for Breakthrough Pain , #30 TAB 0 Refills 12/22/15 Duloxetine Hcl* (CYMBALTA*) 60 Mg Capsule.dr, 90 MG ORAL DAILY, CAP 12/22/15 Risperidone* (RISPERDAL*) 1 Mg Tablet, 1 MG PO TID, TAB 12/22/15 Pregabalin* (LYRICA*) 75 Mg Capsule, 100 MG ORAL THREE TIMES A DAY, CAP 12/30/14 Furosemide* (LASIX*) 40 Mg Tablet, 40 MG ORAL TWICE A DAY, TAB 0 Refills 12/30/14 Med list reviewed/reconciled: Yes Allergies: Coded Allergies: Cashew (Verified Allergy, Unknown, 12/30/14) HYDROXYCHLOROQUINE (Verified Allergy, Unknown, 08/31/17) White Fish (Verified Allergy, Unknown, 01/19/15) Uncoded Allergies: FISH (Allergy, Unknown, 12/30/14) Patient History History Provided By: Patient, Medical Record PMH Narrative Past Medical History: HTN, asthma, COPD, other - lupus/fibromyalgia Past Surgical History: none Pertinent Family History: none Social History: Denies: smoking, alcohol use, drug use Now: No Immunizations: UTD Reviewed Nursing Documentation: PMH: Agreed; PSxH: Agreed Nursing Documentation-PM Hx Hypertension: Yes Hx Asthma: Yes Hx COPD: Yes Hx Cancer: No Hx Gastrointestinal Problems: Yes Hx Neurological Problems: Yes - Spinal cord injury Hx Spinal Cord Injury: Yes - 2012 Review of Systems All Other Systems: negative except mentioned in HPI Physical Exam Vital Signs Date Time Temp Pulse Resp B/P (MAP) Pulse Ox O2 Delivery O2 Flow Rate FiO2 08/30/17 18:25 98.4 89 16 123/86 94 Room Air 98.4 08/31/17 21:23 21 Sp02 EP Interpretation: reviewed, normal Labs Laboratory Tests Test 09/03/17 10:40 White Blood Count 8.8 K/UL (4.8-10.8) Red Blood Count 4.03 M/UL (4.20-5.40) L Hemoglobin 10.8 G/DL (12.0-16.0) L Hematocrit 33.8 % (37.0-47.0) L Mean Corpuscular Volume 84 FL (80-99) Mean Corpuscular Hemoglobin 26.7 PG (27.0-31.0) L Mean Corpuscular Hemoglobin Concent 31.9 G/DL (32.0-36.0) L Red Cell Distribution Width 15.1 % (11.6-14.8) H Platelet Count 346 K/UL (150-450) Mean Platelet Volume 5.3 FL (6.5-10.1) L Neutrophils (%) (Auto) 49.9 % (45.0-75.0) Lymphocytes (%) (Auto) 38.0 % (20.0-45.0) Monocytes (%) (Auto) 7.7 % (1.0-10.0) Eosinophils (%) (Auto) 2.7 % (0.0-3.0) Basophils (%) (Auto) 1.7 % (0.0-2.0) Sodium Level 133 MMOL/L (136-145) L Potassium Level 4.3 MMOL/L (3.5-5.1) Chloride Level 100 MMOL/L (98-107) Carbon Dioxide Level 28 MMOL/L (21-32) Anion Gap 5 mmol/L (5-15) Blood Urea Nitrogen 21 mg/dL (7-18) H Creatinine 1.0 MG/DL (0.55-1.30) Estimat Glomerular Filtration Rate > 60 mL/min (>60) Glucose Level 107 MG/DL (74-106) H Calcium Level 8.5 MG/DL (8.5-10.1) General Appearance: well appearing, no apparent distress, alert Head: normocephalic EENT: PERRL/EOMI, normal ENT inspection Neck: supple Respiratory: normal breath sounds, no respiratory distress Cardiovascular: normal rate Gastrointestinal: normal inspection, non tender, soft, normal bowel sounds, non -distended Rectal: deferred Genitourinary: no CVA tenderness Musculoskeletal: normal inspection, back normal Neurologic: normal inspection, alert, oriented x3, responsive Psychiatric: normal inspection, judgement/insight normal, memory normal Skin: normal inspection, normal color, no rash, warm/dry, palpation normal, well hydrated Lymphatic: normal inspection, no adenopathy Current Medications Current Medications Medications (Trade) Dose Ordered Sig/Farideh Route PRN Reason Start Time Stop Time Status Last Admin Dose Admin Albuterol Sulfate (Proventil MDI) 1 puff Q4HR PRN INH Bronchospasm 08/31/17 11:00 09/30/17 08:59 Alprazolam (Xanax) 1.5 mg Q6H PRN ORAL For Anxiety 09/01/17 04:30 09/08/17 04:29 09/03/17 08:37 Amlodipine Besylate (Norvasc) 5 mg DAILY ORAL 08/31/17 09:00 09/30/17 08:59 09/03/17 08:37 Clonidine HCl (Catapres Tab) 0.1 mg Q6H PRN ORAL For High Blood Pressure 08/31/17 06:30 09/30/17 06:29 09/01/17 03:21 Cyclobenzaprine HCl (Flexeril) 10 mg BEDTIME ORAL 08/31/17 21:00 09/30/17 20:59 09/02/17 20:14 Cyclobenzaprine HCl (Flexeril) 10 mg THREE TIMES A DAY PRN ORAL Muscle Spasm 08/31/17 06:30 09/30/17 06:29 09/03/17 11:15 Diphenhydramine HCl (Benadryl) 25 mg Q6H PRN ORAL Itching 08/31/17 06:30 09/30/17 06:29 09/02/17 21:38 Diphenhydramine HCl (Benadryl) 50 mg HSPRN PRN ORAL Insomnia 08/31/17 20:30 09/30/17 20:29 08/31/17 21:49 Docusate Sodium (Colace) 250 mg BID ORAL 09/02/17 18:00 8/14/18 17:59 09/03/17 08:36 Duloxetine HCl (Cymbalta) 60 mg BID ORAL 08/31/17 09:00 09/30/17 08:59 09/03/17 08:36 Folic Acid (Folate) 1 mg DAILY ORAL 08/31/17 09:00 09/30/17 08:59 09/03/17 08:35 Heparin Sodium (Porcine) (Heparin 5000 units/ml) 5,000 units EVERY 12 HOURS SUBQ 08/31/17 09:00 09/30/17 08:59 09/03/17 08:35 Lisinopril (Zestril) 10 mg DAILY ORAL 08/31/17 09:00 09/30/17 08:59 09/03/17 08:36 Metoprolol Succinate (Toprol XL) 25 mg DAILY ORAL 09/03/17 09:00 10/03/17 08:59 09/03/17 08:41 Morphine Sulfate (Morphine Sulfate) 4 mg Q4H PRN IVP Severe Pain (Pain Scale 7-10) 08/31/17 11:30 09/07/17 07:29 09/03/17 10:08 Multivitamins (Multivitamins) 1 tab DAILY ORAL 08/31/17 09:00 09/30/17 08:59 09/03/17 08:37 Ondansetron HCl (Zofran) 4 mg Q6H PRN IVP Nausea & Vomiting 09/01/17 08:30 10/01/17 08:29 09/03/17 10:07 Oxybutynin Chloride (Ditropan) 5 mg Q8HR ORAL 08/31/17 14:00 09/30/17 13:59 09/03/17 05:57 Oxycodone HCl (Roxicodone) 10 mg Q6H PRN ORAL moderate breakthrough pain 08/31/17 11:11 09/07/17 11:10 09/03/17 11:46 Pantoprazole (Protonix) 40 mg DAILY ORAL 08/31/17 09:00 09/30/17 08:59 09/03/17 07:50 Potassium Chloride (K-Dur) 20 meq DAILY ORAL 08/31/17 09:00 09/30/17 08:59 09/03/17 08:36 Pregabalin (Lyrica) 150 mg THREE TIMES A DAY ORAL 08/31/17 09:00 09/30/17 08:59 09/03/17 08:38 Zolpidem Tartrate (Ambien) 10 mg HSPRN PRN ORAL Insomnia 09/01/17 04:00 09/08/17 03:59 09/02/17 20:14 GI: Plan Problems: (1) Iron deficiency (2) Iron deficiency anemia (3) Hx of gastric bypass (4) Lupus (5) Hypoalbuminemia (6) Abdominal pain (7) Hepatitis C (8) Lupus (systemic lupus erythematosus) Plan symptomatic treatment at this time pain mgmt cont bowel regime cont PPI venofer outpatient Hep C treatment fu labs Discussed with Dr. Duggan. Thank you for this patient referral, we will follow. The patient was seen and examined at bedside and all new and available data was reviewed in the patients chart. I agree with the above findings, impression and plan. (Patient seen earlier today. Signature stamp does not reflect patient encounter time.). - MD Eloisa DuboisHonorhealth Rehabilitation HospitalEduardo SALES AND SERVICE OFFICER Sep 03, 2017 11:53
[2017-09-03 12:00] VITALS: BP 140/88
--- NOTE | 2017-09-03 12:15 | Consultation ---
DATE OF CONSULTATION: 09/02/2017 CARDIOLOGY CONSULTATION CONSULTING PHYSICIAN: Lorenzo Peck M.D. REFERRING PHYSICIAN: Get Tovar D.O. REASON FOR CONSULTATION: Management of accelerated hypertension. HISTORY OF PRESENT ILLNESS: The patient is a very unfortunate 41-year-old female, who presents to the emergency department for evaluation of generalized body pain that has been going on for about a week. The patient states that she may have a flare of her lupus erythematosus. The patient also complains of rash over the lips of all the fingers of both hands. The patient at the time of arrival to the hospital denied any chest pain or shortness of breath, however, her blood pressure arti to 159/99. Cardiology consultation was made at request of Dr. Tovar for evaluation and management of this condition. The patient states that she has had some cardiac workup at [facility] including a nuclear stress test which she could not complete due to the fact that she could not tolerate lying on her back due to low back pain and fibromyalgia. She complains of dyspnea on exertion with regular activities. Coronary artery disease risk factors including hypertension and obesity. She states that she has history of congestive heart failure due to lupus erythematosus. PAST MEDICAL HISTORY: Hypertension, history of congestive heart failure, history of asthma/COPD, history of lupus erythematosus, history of fibromyalgia. FAMILY HISTORY: No premature coronary artery disease or arrhythmogenic in the first-degree relatives. PAST SURGICAL HISTORY: None. SOCIAL HISTORY: Denies any tobacco, alcohol, or illicit drug use. ALLERGIES: To cashew and white fish. REVIEW OF SYSTEMS: HEENT: Denies any headache, diplopia, or blurred vision. CONSTITUTIONAL: Complains of general body but no fever, chills, or night sweats. CARDIOVASCULAR: Denies any chest pain. She complains of shortness of breath with usual activities. Denies any PND, orthopnea, leg swelling, or syncope. PULMONARY: Denies any cough, hemoptysis, or wheezing. GASTROINTESTINAL: Denies any nausea, vomiting, diarrhea, constipation, abdominal pain, or GI bleed. GENITOURINARY: Denies any hematuria, dysuria, or incontinence. NEUROLOGIC: Denies any motor dysfunction, sensory deficit, or altered speech. MUSCULOSKELETAL: Generalized pain including both upper and lower extremity and trunk. Diagnosis of fibromyalgia was made in the past. DERMATOLOGY: There is some presence of exfoliating-appearing rash over the lips of the fingers of both hands. LIST OF MEDICATIONS: Tylenol 325 mg q.4 h. p.r.n. fever, headaches, mild pain. liquid 30 mL p.o. q.4 h., ProAir 1 puff inhaler q.4 h. p.r.n. shortness of breath, amlodipine mg p.o. daily, bisacodyl 10 mg rectal daily, 30 mg p.o. twice daily p.r.n. per protocol, Soma 350 mg p.o. three times a day, Flexeril 10 mg p.o. three times a day p.r.n. fibromyalgia pain, Benadryl 125 mg q.6 h. p.r.n. itching, Colace 250 mg twice daily, Cymbalta 60 mg p.o. daily, fentanyl 1 patch transdermal every 72 hours, Advair 2 puffs inhaler every 12 hours, Breo one inhaler daily, folic acid 1 mg p.o. daily, Lasix 20 mg p.o. daily, gabapentin 800 mg three times daily, heparin sulfate 5000 units subcutaneous q.12 hours, DuoNeb 3 mL HHN q.4 h. p.r.n. shortness of breath, lidocaine patch topical 12 hours out of 24 hours, lisinopril 10 mg p.o. daily, Reglan 5 mg q.6 h. p.r.n. nausea or vomiting, morphine sulfate 4 mg IV q.4 h. p.r.n. breakthrough pain, multivitamin one tablet daily, 0.1 mg IV as needed, Zofran 4 mg p.o. daily p.r.n. nausea or vomiting, Ditropan XL 5 mg p.o. three times daily, oxycodone/HCl 5 mg p.o. q.4 h. p.r.n. moderate pain, Protonix 40 mg p.o. daily, MiraLAX 17 g p.o. daily p.r.n. constipation, K-Dur 10 mEq p.o. daily, prednisone 20 mg p.o. daily, Lyrica 150 mg three times daily, senna 8.6 mg twice daily. PHYSICAL EXAMINATION: VITAL SIGNS: Blood pressure at time of arrival to the floor was 159/99, heart rate of 114, temperature 97.1 degrees Fahrenheit, respirations 23, and O2 saturation 97% on room air. GENERAL: The patient is morbidly obese 41-year-old female, in no apparent respiratory distress. Alert and oriented x4. HEENT: Atraumatic, normocephalic. Anicteric. Pupils are equal, round, reactive to light and accommodation. Extraocular muscles intact. NECK: JVP cannot be assessed due to obesity and short neck. No carotid bruit. CARDIOVASCULAR: Normal S1, S2. Regular rate and rhythm. Tachycardic. No murmurs, gallops, or rubs. LUNGS: Diminished breath sounds, but appear to be clear. ABDOMEN: Distended due to obesity. No hepatosplenomegaly appreciated. Positive bowel sounds. EXTREMITIES: No evidence of edema, clubbing, or cyanosis. SKIN: There is exfoliating rash over the beds of both hands. LABORATORY FINDINGS: WBC was 7.7, hemoglobin 11.2, hematocrit 35.6, platelet count is 179,000. Sodium 135, potassium 4.1, chloride 102, bicarbonate 28, BUN of 13, creatinine 0.7, glucose is 98, calcium is 8.8. INR was 1.0. ASSESSMENT AND PLAN: The patient is a very unfortunate 41-year-old female who is seen in Cardiology consultation at the request of Dr. Tovar. 1. Accelerated hypertension. I would like to continue with amlodipine, lisinopril, and clonidine as needed. The latest blood pressure appears to be well controlled. We will obtain 2D echocardiography as the patient also mentions about history of congestive heart failure. Further therapeutic and diagnostic decision will be based on results of 2D echocardiography. 2. Sinus tachycardia. This could be due to pain. We will consider beta-blockers if tachycardia persists. I would like to thank Dr. Tovar for allowing me to participate in the care of this patient. Lorenzo Peck M.D. DR: Pavithra JOB#: [id number] CC:
--- NOTE | 2017-09-03 12:15 | Progress Note ---
HISTORY OF PRESENT ILLNESS: The patient is a 41-year-old female patient who has 00:07. She seems to have a lupus flare 00:12 pain, anxiety, depression, worsened by stress of her medical illness. That is why, her attending has requested daily psychiatric consultation. I saw and assessed the patient in her room. She is still complaining about question of high levels of anxiety 00:22. MENTAL STATUS EXAMINATION: This is a 41-year-old female. Appearance is disheveled. Attitude irritable and agitated. Affect guarded and restricted. Intellect poor. Mood, depressed and anxious. Motor activity, psychomotor agitation 00:33. Mood is depressed. Orientation x2. Speech is pressured. Thought process, disorganized and illogical. Thought content, auditory hallucinations and paranoid delusions. Insight and judgment are poor. DIAGNOSIS: Major depressive disorder, severe, recurrent without psychotic features. PLAN: I am going to treat her with Cymbalta 60 mg twice a day, Xanax 1 mg every 12 hours p.r.n. anxiety and agitation, 00:58 10 mg 00:59 p.r.n. Provided 18 to 20 minutes of supportive psychotherapy. Chart reviewed. Discussed with staff. Seen and assessed in her room. An 18-20 minutes of cognitive behavioral therapy provided. 01:32 to reduce depression and anxiety. The patient seen and assessed in her room. Troy Esparza M.D. DR: ASHA JOB#: [id number] CC:
--- NOTE | 2017-09-03 12:20 | Pulmonology Progress Note ---
Assessment/Plan Problems: (1) Lupus (systemic lupus erythematosus) (2) KAREN (obstructive sleep apnea) (3) Intractable pain (4) Fibromyalgia (5) Hx of gastric bypass (6) Hepatitis C (7) Obesity, morbid, BMI 40.0-49.9 Assessment/Plan feeling better pain is less titrate fio2 to sat of 92% check electrolytes All medications and treatment were reviewed. dc to [facility], with outpatient Rheumatology f/u Subjective ROS Limited/Unobtainable: No Constitutional: Reports: no symptoms HEENT: Repors: no symptoms Respiratory: Reports: no symptoms Allergies: Coded Allergies: Cashew (Verified Allergy, Unknown, 12/30/14) HYDROXYCHLOROQUINE (Verified Allergy, Unknown, 08/31/17) White Fish (Verified Allergy, Unknown, 01/19/15) Uncoded Allergies: FISH (Allergy, Unknown, 12/30/14) Objective Last 24 Hour Vital Signs Date Time Temp Pulse Resp B/P (MAP) Pulse Ox O2 Delivery O2 Flow Rate FiO2 09/03/17 09:50 80 16 Room Air 09/03/17 08:41 87 144/98 09/03/17 08:37 87 144/98 09/03/17 08:36 144/98 09/03/17 08:25 Room Air 09/03/17 08:00 97.2 87 20 144/98 (113) 100 97.2 09/03/17 04:00 98.2 68 22 110/74 (86) 94 98.2 09/03/17 00:00 98.1 75 24 115/83 (94) 93 98.1 09/02/17 21:00 Room Air 09/02/17 20:39 82 20 Room Air 09/02/17 20:00 99.3 87 20 125/72 (89) 94 99.3 09/02/17 18:03 97.9 09/02/17 18:03 97.9 09/02/17 17:33 97.9 09/02/17 17:32 97.9 09/02/17 17:18 97.9 09/02/17 16:19 97.9 09/02/17 16:00 97.9 94 20 129/60 (83) 92 97.9 09/02/17 15:40 94 129/60 09/02/17 13:06 98.9 09/02/17 12:39 98.9 Intake and Output 09/02/17 09/03/17 19:00 07:00 Intake Total 650 ml 500 ml Balance 650 ml 500 ml Intake Oral 650 ml 500 ml # Voids 1 3 General Appearance: WD/WN HEENT: normocephalic, atraumatic Respiratory/Chest: chest wall non-tender, lungs clear Cardiovascular: normal peripheral pulses, normal rate Abdomen: normal bowel sounds, soft, non tender Genitourinary: normal external genitalia Extremities: no cyanosis Skin: no rash 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 Laboratory Tests 09/03/17 10:40: White Blood Count 8.8, Red Blood Count 4.03L, Hemoglobin 10.8L, Hematocrit 33.8L , Mean Corpuscular Volume 84, Mean Corpuscular Hemoglobin 26.7L, Mean Corpuscular Hemoglobin Concent 31.9L, Red Cell Distribution Width 15.1H, Platelet Count 346, Mean Platelet Volume 5.3L, Neutrophils (%) (Auto) 49.9, Lymphocytes (%) (Auto) 38.0, Monocytes (%) (Auto) 7.7, Eosinophils (%) (Auto) 2.7, Basophils (%) (Auto) 1.7, Sodium Level 133L, Potassium Level 4.3, Chloride Level 100, Carbon Dioxide Level 28, Anion Gap 5, Blood Urea Nitrogen 21H, Creatinine 1.0, Estimat Glomerular Filtration Rate > 60, Glucose Level 107H, Calcium Level 8.5 Current Medications Medications (Trade) Dose Ordered Sig/Farideh Route PRN Reason Start Time Stop Time Status Last Admin Dose Admin Albuterol Sulfate (Proventil MDI) 1 puff Q4HR PRN INH Bronchospasm 08/31/17 11:00 09/30/17 08:59 Alprazolam (Xanax) 1.5 mg Q6H PRN ORAL For Anxiety 09/01/17 04:30 09/08/17 04:29 09/03/17 08:37 Amlodipine Besylate (Norvasc) 5 mg DAILY ORAL 08/31/17 09:00 09/30/17 08:59 09/03/17 08:37 Clonidine HCl (Catapres Tab) 0.1 mg Q6H PRN ORAL For High Blood Pressure 08/31/17 06:30 09/30/17 06:29 09/01/17 03:21 Cyclobenzaprine HCl (Flexeril) 10 mg BEDTIME ORAL 08/31/17 21:00 09/30/17 20:59 09/02/17 20:14 Cyclobenzaprine HCl (Flexeril) 10 mg THREE TIMES A DAY PRN ORAL Muscle Spasm 08/31/17 06:30 09/30/17 06:29 09/03/17 11:15 Diphenhydramine HCl (Benadryl) 25 mg Q6H PRN ORAL Itching 08/31/17 06:30 09/30/17 06:29 09/02/17 21:38 Diphenhydramine HCl (Benadryl) 50 mg HSPRN PRN ORAL Insomnia 08/31/17 20:30 09/30/17 20:29 08/31/17 21:49 Docusate Sodium (Colace) 250 mg BID ORAL 09/02/17 18:00 10/02/17 17:59 09/03/17 08:36 Duloxetine HCl (Cymbalta) 60 mg BID ORAL 08/31/17 09:00 09/30/17 08:59 09/03/17 08:36 Folic Acid (Folate) 1 mg DAILY ORAL 08/31/17 09:00 09/30/17 08:59 09/03/17 08:35 Heparin Sodium (Porcine) (Heparin 5000 units/ml) 5,000 units EVERY 12 HOURS SUBQ 08/31/17 09:00 09/30/17 08:59 09/03/17 08:35 Lisinopril (Zestril) 10 mg DAILY ORAL 08/31/17 09:00 09/30/17 08:59 09/03/17 08:36 Metoprolol Succinate (Toprol XL) 25 mg DAILY ORAL 09/03/17 09:00 10/03/17 08:59 09/03/17 08:41 Morphine Sulfate (Morphine Sulfate) 4 mg Q4H PRN IVP Severe Pain (Pain Scale 7-10) 08/31/17 11:30 09/07/17 07:29 09/03/17 10:08 Multivitamins (Multivitamins) 1 tab DAILY ORAL 08/31/17 09:00 09/30/17 08:59 09/03/17 08:37 Ondansetron HCl (Zofran) 4 mg Q6H PRN IVP Nausea & Vomiting 09/01/17 08:30 10/01/17 08:29 09/03/17 10:07 Oxybutynin Chloride (Ditropan) 5 mg Q8HR ORAL 08/31/17 14:00 09/30/17 13:59 09/03/17 05:57 Oxycodone HCl (Roxicodone) 10 mg Q6H PRN ORAL moderate breakthrough pain 08/31/17 11:11 09/07/17 11:10 09/03/17 11:46 Pantoprazole (Protonix) 40 mg DAILY ORAL 08/31/17 09:00 09/30/17 08:59 09/03/17 07:50 Potassium Chloride (K-Dur) 20 meq DAILY ORAL 08/31/17 09:00 09/30/17 08:59 09/03/17 08:36 Pregabalin (Lyrica) 150 mg THREE TIMES A DAY ORAL 08/31/17 09:00 09/30/17 08:59 09/03/17 08:38 Zolpidem Tartrate (Ambien) 10 mg HSPRN PRN ORAL Insomnia 09/01/17 04:00 09/08/17 03:59 09/02/17 20:14 Mer Powell MD Sep 03, 2017 12:20
--- NOTE | 2017-09-03 12:31 | Consultation ---
History of Present Illness General Date patient seen: Sep 03, 2017 Chief Complaint: Generalized Weakness Present Illness HPI 41 y/o F with hx of HTN, asthma/COPD, chronic opiate use, Hep C, chronic pain syndrome, fibromyalgia, SLE, DJD, neck and low back injuries, visual problems 2ry to Plaquenil, Headaches, SNF resident presents to ED on 08/30 with worsening generalized pain and feeling mind has been unclear. It was noted upon admission that patient had med seeking behavior and asking for Xanax as pain medication. Denied CP, SOB, f/c, n/v Afebrile no leukocytosis off abx Allergies: Coded Allergies: Cashew (Verified Allergy, Unknown, 12/30/14) HYDROXYCHLOROQUINE (Verified Allergy, Unknown, 08/31/17) White Fish (Verified Allergy, Unknown, 01/19/15) Uncoded Allergies: FISH (Allergy, Unknown, 12/30/14) Medication History Scheduled Acetaminophen (Tylenol), 325 MG ORAL Q4HR, (Reported) Acetaminophen (Acetaminophen), 325 MG PO Q4HR, (Reported) Al Hydroxide/mg Hydroxide (Mag-Al Liquid), 30 ML PO Q4HR, (Reported) Al Hydroxide/mg Hydroxide (Mag-Al Liquid), 30 ML ORAL Q6HR, (Reported) Albuterol Sulfate* (Proair Hfa*), 1 PUFF INH Q4HR, (Reported) Amlodipine Besylate* (Amlodipine Besylate*), 5 MG ORAL DAILY, (Reported) Carisoprodol* (Soma*), 350 MG PO TID, (Reported) Docusate Sodium* (Colace*), 250 MG ORAL BID, (Reported) Duloxetine Hcl* (Cymbalta*), 60 MG ORAL BID, (Reported) Fentanyl 25MCG Patch* (Fentanyl 25MCG Patch*), 1 PATCH TDERMAL EVERY 72 HOURS, ( Reported) Fluticasone/Salmeterol (Advair Hfa 115-21 Mcg Inhaler), 2 PUFFS INH EVERY 12 HOURS, (Reported) Fluticasone/Vilanterol (Breo Ellipta 100-25 Mcg INH), 1 EACH IH DAILY, (Reported ) Folic Acid* (Folic Acid*), 1 MG ORAL DAILY, (Reported) Furosemide* (Lasix*), 20 MG ORAL DAILY, (Reported) Gabapentin* (Neurontin*), 800 MG ORAL TID, (Reported) Heparin Sod (Porcine) (Heparin Sodium*), 5,000 UNITS SUBQ EVERY 12 HOURS, ( Reported) Ipratropium/Albuterol Sulfate (DuoNeb 0.5-3(2.5)mg/3ml), 3 ML HHN Q4HR, ( Reported) Lisinopril* (Lisinopril*), 10 MG ORAL DAILY, (Reported) Morphine Sulfate (Morphine Sulfate), 4 MG IV Q4HR, (Reported) Multivitamin (Multivitamins), 1 EACH PO DAILY, (Reported) Oxybutynin Chloride (Ditropan Xl), 5 MG ORAL THREE TIMES A DAY, (Reported) Pantoprazole* (Protonix*), 40 MG ORAL DAILY, (Reported) Potassium Chloride* (K-Dur*), 10 MEQ ORAL DAILY, (Reported) Potassium Chloride* (K-Dur*), 20 MEQ ORAL TWICE A DAY, (Reported) Prednisone* (Prednisone*), 20 MG ORAL DAILY Pregabalin* (Lyrica*), 150 MG ORAL THREE TIMES A DAY, (Reported) Sennosides (Senna), 8.6 MG PO BID, (Reported) Sennosides (Senna-Gen), 17.2 MG PO BID, (Reported) [Lidocaine Patch], TD BID, (Reported) Scheduled PRN Bisacodyl (Dulcolax), 10 MG RC DAILY PRN for Constipation, (Reported) Bismuth Subsalicylate ([place] Bismuth), 30 MG PO BID PRN for Per rx protocol, ( Reported) Cyclobenzaprine Hcl* (Flexeril*), 10 MG ORAL THREE TIMES A DAY PRN for fibromyalgia pain, (Reported) Diphenhydramine Hcl* (Benadryl*), 125 MG ORAL Q6H PRN for Itching, (Reported) Metoclopramide Hcl* (Reglan*), 5 MG ORAL EVERY 6 HOURS PRN for Nausea & Vomiting , (Reported) Ondansetron* (Zofran*), 4 MG ORAL DAILY PRN for Nausea & Vomiting, (Reported) Oxycodone Hcl* (Oxycodone Hcl*), 5 MG ORAL Q4HR PRN for Moderate Pain (Pain Scale 4-6), (Reported) Polyethylene Glycol 3350* (Miralax*), 17 GM ORAL DAILY PRN for Constipation, ( Reported) Miscellaneous Medications Lidocaine (Lidoderm), 2 PATCH TOPIC, (Reported) Naloxone HCl (Naloxone HCl), 0.1 MG IV, (Reported) [Miralax powder], (Reported) Discontinued Medications Alprazolam* (Xanax*), 0.5 MG PO Q6HR, (Reported) Discontinued Reason: MD discontinued med Duloxetine Hcl* (Cymbalta*), 90 MG ORAL DAILY, (Reported) Discontinued Reason: Medication dose changed Furosemide* (Lasix*), 40 MG ORAL TWICE A DAY, (Reported) Discontinued Reason: Medication dose changed Furosemide* (Lasix*), 40 MG ORAL DAILY, (Reported) Discontinued Reason: Medication dose changed Omeprazole (Omeprazole), 20 MG ORAL DAILY, (Reported) Discontinued Reason: MD discontinued med Ondansetron* (Zofran*), 4 MG ORAL DAILY PRN for Nausea & Vomiting, (Reported) Discontinued Reason: Therapy completed Pregabalin* (Lyrica*), 100 MG ORAL THREE TIMES A DAY, (Reported) Discontinued Reason: Medication dose changed Risperidone* (Risperdal*), 1 MG PO TID, (Reported) Discontinued Reason: Pt stopped taking med Risperidone* (Risperdal*), 1 MG PO Q12HR, (Reported) Discontinued Reason: Pt stopped taking med Tramadol Hcl* (Ultram*), 50 MG ORAL Q8HR PRN for Breakthrough Pain, (Reported) Discontinued Reason: Therapy completed Zolpidem Tartrate* (Ambien*), 10 MG ORAL HS PRN for Insomnia, (Reported) Discontinued Reason: Medication dose changed Patient History Healthcare decision maker Resuscitation status Full Code Advanced Directive on File Patient History Narrative Pmhx: as above Shx: She lives in a fci. She is unemployed and has been unemployed for numerous years. Habits: She denies use of alcohol, tobacco, or illicit drugs. Fhx: non contributory Review of Systems All Other Systems: negative except mentioned in HPI Physical Exam Physical Exam Narrative GENERAL: Slightly anxious in bed, oriented x3, in no acute distress. CARDIOVASCULAR: No murmur. LUNGS: Distant and clear. ABDOMEN: Bowel sounds positive. Nontender. Nondistended. EXTREMITIES: No cyanosis, clubbing, or edema. NEUROLOGIC: The patient moves all extremities, slightly weak. Last 24 Hour Vital Signs Date Time Temp Pulse Resp B/P (MAP) Pulse Ox O2 Delivery O2 Flow Rate FiO2 09/03/17 09:50 80 16 Room Air 09/03/17 08:41 87 144/98 09/03/17 08:37 87 144/98 09/03/17 08:36 144/98 09/03/17 08:25 Room Air 09/03/17 08:00 97.2 87 20 144/98 (113) 100 97.2 09/03/17 04:00 98.2 68 22 110/74 (86) 94 98.2 09/03/17 00:00 98.1 75 24 115/83 (94) 93 98.1 09/02/17 21:00 Room Air 09/02/17 20:39 82 20 Room Air 09/02/17 20:00 99.3 87 20 125/72 (89) 94 99.3 09/02/17 18:03 97.9 09/02/17 18:03 97.9 09/02/17 17:33 97.9 09/02/17 17:32 97.9 09/02/17 17:18 97.9 09/02/17 16:19 97.9 09/02/17 16:00 97.9 94 20 129/60 (83) 92 97.9 09/02/17 15:40 94 129/60 09/02/17 13:06 98.9 09/02/17 12:39 98.9 Intake and Output 09/02/17 09/03/17 19:00 07:00 Intake Total 650 ml 500 ml Balance 650 ml 500 ml Intake Oral 650 ml 500 ml # Voids 1 3 Laboratory Tests Test 09/03/17 10:40 White Blood Count 8.8 K/UL (4.8-10.8) Red Blood Count 4.03 M/UL (4.20-5.40) L Hemoglobin 10.8 G/DL (12.0-16.0) L Hematocrit 33.8 % (37.0-47.0) L Mean Corpuscular Volume 84 FL (80-99) Mean Corpuscular Hemoglobin 26.7 PG (27.0-31.0) L Mean Corpuscular Hemoglobin Concent 31.9 G/DL (32.0-36.0) L Red Cell Distribution Width 15.1 % (11.6-14.8) H Platelet Count 346 K/UL (150-450) Mean Platelet Volume 5.3 FL (6.5-10.1) L Neutrophils (%) (Auto) 49.9 % (45.0-75.0) Lymphocytes (%) (Auto) 38.0 % (20.0-45.0) Monocytes (%) (Auto) 7.7 % (1.0-10.0) Eosinophils (%) (Auto) 2.7 % (0.0-3.0) Basophils (%) (Auto) 1.7 % (0.0-2.0) Sodium Level 133 MMOL/L (136-145) L Potassium Level 4.3 MMOL/L (3.5-5.1) Chloride Level 100 MMOL/L (98-107) Carbon Dioxide Level 28 MMOL/L (21-32) Anion Gap 5 mmol/L (5-15) Blood Urea Nitrogen 21 mg/dL (7-18) H Creatinine 1.0 MG/DL (0.55-1.30) Estimat Glomerular Filtration Rate > 60 mL/min (>60) Glucose Level 107 MG/DL (74-106) H Calcium Level 8.5 MG/DL (8.5-10.1) Height (Feet): 5 Height (Inches): 5.00 Weight (Pounds): 300 Medications Current Medications Medications (Trade) Dose Ordered Sig/Farideh Route PRN Reason Start Time Stop Time Status Last Admin Dose Admin Albuterol Sulfate (Proventil MDI) 1 puff Q4HR PRN INH Bronchospasm 08/31/17 11:00 09/30/17 08:59 Alprazolam (Xanax) 1.5 mg Q6H PRN ORAL For Anxiety 09/01/17 04:30 09/08/17 04:29 09/03/17 08:37 Amlodipine Besylate (Norvasc) 5 mg DAILY ORAL 08/31/17 09:00 09/30/17 08:59 09/03/17 08:37 Clonidine HCl (Catapres Tab) 0.1 mg Q6H PRN ORAL For High Blood Pressure 08/31/17 06:30 09/30/17 06:29 09/01/17 03:21 Cyclobenzaprine HCl (Flexeril) 10 mg BEDTIME ORAL 08/31/17 21:00 09/30/17 20:59 09/02/17 20:14 Cyclobenzaprine HCl (Flexeril) 10 mg THREE TIMES A DAY PRN ORAL Muscle Spasm 08/31/17 06:30 09/30/17 06:29 09/03/17 11:15 Diphenhydramine HCl (Benadryl) 25 mg Q6H PRN ORAL Itching 08/31/17 06:30 09/30/17 06:29 09/02/17 21:38 Diphenhydramine HCl (Benadryl) 50 mg HSPRN PRN ORAL Insomnia 08/31/17 20:30 09/30/17 20:29 08/31/17 21:49 Docusate Sodium (Colace) 250 mg BID ORAL 09/02/17 18:00 10/02/17 17:59 09/03/17 08:36 Duloxetine HCl (Cymbalta) 60 mg BID ORAL 08/31/17 09:00 09/30/17 08:59 09/03/17 08:36 Folic Acid (Folate) 1 mg DAILY ORAL 08/31/17 09:00 09/30/17 08:59 09/03/17 08:35 Heparin Sodium (Porcine) (Heparin 5000 units/ml) 5,000 units EVERY 12 HOURS SUBQ 08/31/17 09:00 09/30/17 08:59 09/03/17 08:35 Lisinopril (Zestril) 10 mg DAILY ORAL 08/31/17 09:00 09/30/17 08:59 09/03/17 08:36 Metoprolol Succinate (Toprol XL) 25 mg DAILY ORAL 09/03/17 09:00 10/03/17 08:59 09/03/17 08:41 Morphine Sulfate (Morphine Sulfate) 4 mg Q4H PRN IVP Severe Pain (Pain Scale 7-10) 08/31/17 11:30 09/07/17 07:29 09/03/17 10:08 Multivitamins (Multivitamins) 1 tab DAILY ORAL 08/31/17 09:00 09/30/17 08:59 09/03/17 08:37 Ondansetron HCl (Zofran) 4 mg Q6H PRN IVP Nausea & Vomiting 09/01/17 08:30 10/01/17 08:29 09/03/17 10:07 Oxybutynin Chloride (Ditropan) 5 mg Q8HR ORAL 08/31/17 14:00 09/30/17 13:59 09/03/17 05:57 Oxycodone HCl (Roxicodone) 10 mg Q6H PRN ORAL moderate breakthrough pain 08/31/17 11:11 09/07/17 11:10 09/03/17 11:46 Pantoprazole (Protonix) 40 mg DAILY ORAL 08/31/17 09:00 09/30/17 08:59 09/03/17 07:50 Potassium Chloride (K-Dur) 20 meq DAILY ORAL 08/31/17 09:00 09/30/17 08:59 09/03/17 08:36 Pregabalin (Lyrica) 150 mg THREE TIMES A DAY ORAL 08/31/17 09:00 09/30/17 08:59 09/03/17 08:38 Zolpidem Tartrate (Ambien) 10 mg HSPRN PRN ORAL Insomnia 09/01/17 04:00 09/08/17 03:59 09/02/17 20:14 Assessment/Plan Assessment/Plan Abx: None Assessment: Lupus flare- no evidence of infectious process -u/a neg Afebrile, no leukocytosis HTN asthma/COPD chronic opiate use Hep C chronic pain syndrome fibromyalgia SLE DJD neck and low back injuries visual problems 2ry to Plaquenil hx of Headaches SNF resident Plan: -Continue to monitor off abx -f/u cx -Monitor CBC/CMP, temperatures -Lupus management -pain control -CXR am Thank you for this consultation. Will continue to follow along with you. Discussed with Zoie Mera M.D. Sep 03, 2017 12:31
[2017-09-03 16:00] VITALS: BP 138/84
[2017-09-03 20:00] VITALS: BP 119/70
--- NOTE | 2017-09-03 20:06 | Cardiology Progress Note ---
Assessment/Plan Assessment/Plan 1. Accelerated HTN, metoprolol XL was added to amlodipine and lisinopril. 2. Hx of CHF due to SLE according to the patient , awaiting result of 2D echo. 3. SLE 4. Hx of asthma/COPD Subjective Subjective Not on the telemetry unit. Denies chest pain. Objective Last 24 Hour Vital Signs Date Time Temp Pulse Resp B/P (MAP) Pulse Ox O2 Delivery O2 Flow Rate FiO2 09/03/17 16:00 97.7 81 20 138/84 (102) 98 97.7 09/03/17 12:00 97.6 84 19 140/88 (105) 98 97.6 09/03/17 09:50 80 16 Room Air 09/03/17 08:41 87 144/98 09/03/17 08:37 87 144/98 09/03/17 08:36 144/98 09/03/17 08:25 Room Air 09/03/17 08:00 97.2 87 20 144/98 (113) 100 97.2 09/03/17 04:00 98.2 68 22 110/74 (86) 94 98.2 09/03/17 00:00 98.1 75 24 115/83 (94) 93 98.1 09/02/17 21:00 Room Air 09/02/17 20:39 82 20 Room Air Intake and Output 09/02/17 09/03/17 19:00 07:00 Intake Total 650 ml 500 ml Balance 650 ml 500 ml Intake Oral 650 ml 500 ml # Voids 1 3 Laboratory Tests Test 09/03/17 10:40 White Blood Count 8.8 K/UL (4.8-10.8) Red Blood Count 4.03 M/UL (4.20-5.40) L Hemoglobin 10.8 G/DL (12.0-16.0) L Hematocrit 33.8 % (37.0-47.0) L Mean Corpuscular Volume 84 FL (80-99) Mean Corpuscular Hemoglobin 26.7 PG (27.0-31.0) L Mean Corpuscular Hemoglobin Concent 31.9 G/DL (32.0-36.0) L Red Cell Distribution Width 15.1 % (11.6-14.8) H Platelet Count 346 K/UL (150-450) Mean Platelet Volume 5.3 FL (6.5-10.1) L Neutrophils (%) (Auto) 49.9 % (45.0-75.0) Lymphocytes (%) (Auto) 38.0 % (20.0-45.0) Monocytes (%) (Auto) 7.7 % (1.0-10.0) Eosinophils (%) (Auto) 2.7 % (0.0-3.0) Basophils (%) (Auto) 1.7 % (0.0-2.0) Sodium Level 133 MMOL/L (136-145) L Potassium Level 4.3 MMOL/L (3.5-5.1) Chloride Level 100 MMOL/L (98-107) Carbon Dioxide Level 28 MMOL/L (21-32) Anion Gap 5 mmol/L (5-15) Blood Urea Nitrogen 21 mg/dL (7-18) H Creatinine 1.0 MG/DL (0.55-1.30) Estimat Glomerular Filtration Rate > 60 mL/min (>60) Glucose Level 107 MG/DL (74-106) H Calcium Level 8.5 MG/DL (8.5-10.1) Objective HEENT: normocephalic, atraumatic, bilateral eye normal inspection, bilateral eye PERRL Neck: No JVD, no carotid bruit. Respiratory: chest non-tender, normal breath sounds Cardiovascular: Regular rate rhythm, normal S1S2, no murmurs, gallops or rubs. Gastrointestinal: normal bowel sounds, non tender, soft, non-distended, no guarding, no rebound Genitourinary: normal inspection, no CVA tenderness Musculoskeletal: back normal, gait/station normal, normal range of motion, non- tender, no edema, clubbing or cyanosis. Neurologic: alert, oriented x3, responsive, motor strength/tone normal, sensory intact, speech Lorenzo Ellison MD Sep 03, 2017 20:06
[2017-09-03] MEDS: Cyclobenzaprine 10mg Tab ORAL SCH (21:11)
[2017-09-04] VITALS: BP 113/76
[2017-09-04] MEDS: Morphine Sulfate 4mg/ml Inj (IV USE ONLY) IVP PRN ×6 (01:18→21:51)
[2017-09-04] MEDS: Zolpidem 5mg tab ORAL PRN ×2 (01:52→21:22)
[2017-09-04] MEDS: ALPRAZolam 0.5mg tab ORAL PRN ×4 (01:53→21:22)
[2017-09-04 04:00] VITALS: BP 146/85
--- NOTE | 2017-09-04 05:00 | Consultation ---
DATE OF CONSULTATION: 09/03/2017 NOTE: POOR AUDIO CONSULTING PHYSICIAN: Troy Esparza M.D. HISTORY: This is a 41-year-old female with systemic lupus erythematosus. She had a flare, increasing levels of anxiety and depression and that is why her attending physician has requested daily psychiatric consultation to present her mood lability and anxiety secondary to stress of her medical illness. The patient seen and assessed at bedside. She is still depressed, confused and mood labile. MENTAL STATUS EXAMINATION: This is a female. Appearance is disheveled. Attitude is . Affect guarded and restricted. Intellect poor. Mood depressed and anxious. Motor activity, psychomotor agitation. Attention span is poor. Orientation x2. Speech is pressured. Thought process, disorganized and illogical. Thought content, auditory hallucinations and paranoid delusions. Insight and judgment is poor. . DIAGNOSIS: Major depressive disorder, severe, recurrent without psychotic features. PLAN: Continue Cymbalta 60 mg twice a day to reduce pain, anxiety and also every 12 hours p.r.n. and 18-20 minutes of cognitive behavioral therapy is provided. . Chart reviewed. Discussed with staff. Seen and assessed at bedside. Troy Esparza M.D. DR: ASHA JOB#: [id number] CC:
[2017-09-04] MEDS: Oxybutynin 5mg tab ORAL SCH ×3 (05:22→21:18)
[2017-09-04] MEDS: Cyclobenzaprine 10mg Tab ORAL PRN (08:20)
[2017-09-04] MEDS: Lyrica 75mg cap ORAL SCH ×3 (08:21→17:33)
[2017-09-04] MEDS: Heparin 5000 units/ml inj SUBQ SCH ×2 (08:22→21:00)
[2017-09-04] MEDS: Metoprolol Succinate XL 25mg tab ORAL SCH (08:29)
[2017-09-04] MEDS: DULoxetine 30mg cap ORAL SCH ×2 (08:29→17:33)
[2017-09-04] MEDS: Docusate 250mg cap ORAL SCH ×2 (08:30→17:37)
[2017-09-04] MEDS: Lisinopril 10mg tab ORAL SCH (08:30)
--- NOTE | 2017-09-04 08:34 | General Progress Note ---
Assessment/Plan Assessment/Plan (1) Morbid obesity (2) Degenerative disc disease, cervical (3) Lumbar degenerative disc disease (4) Lumbar radiculopathy (5) Cervical radiculopathy (6) Osteoarthritis of multiple joints (7) Multiple joint pain (8) Fibromyalgia We will continue Oxycodone, Lyrica and Morphine Pt was d/w Dr. Leonardo and he concurred. Subjective Date patient seen: Sep 04, 2017 Time patient seen: 07:15 - am Allergies: Coded Allergies: Cashew (Verified Allergy, Unknown, 12/30/14) HYDROXYCHLOROQUINE (Verified Allergy, Unknown, 08/31/17) White Fish (Verified Allergy, Unknown, 01/19/15) Uncoded Allergies: FISH (Allergy, Unknown, 12/30/14) Subjective Constitutional: Reports: weakness HEENT: Reports: no symptoms Cardiovascular: Reports: no symptoms Respiratory: Reports: no symptoms Gastrointestinal/Abdominal: Reports: no symptoms Genitourinary: Reports: no symptoms Neurologic/Psychiatric: Reports: headache, numbness, weakness Endocrine: Reports: no symptoms Hematologic/Lymphatic: Reports: no symptoms Subjective: Patient is in bed reports that the pain has been well tolerated on the Oxycodone and morphine. She has no new complaints. Objective Last 24 Hour Vital Signs Date Time Temp Pulse Resp B/P (MAP) Pulse Ox O2 Delivery O2 Flow Rate FiO2 09/04/17 08:30 147/74 09/04/17 08:29 89 147/74 09/04/17 08:29 89 147/74 09/04/17 08:21 98.7 09/04/17 08:20 98.7 09/04/17 04:00 98.7 20 146/85 (105) 92 98.7 09/04/17 00:00 98.6 20 113/76 (88) 93 98.6 09/03/17 21:00 Room Air 09/03/17 20:33 77 16 Room Air 21 09/03/17 20:00 98.9 89 20 119/70 (86) 95 98.9 09/03/17 16:00 97.7 81 20 138/84 (102) 98 97.7 09/03/17 12:00 97.6 84 19 140/88 (105) 98 97.6 09/03/17 09:50 80 16 Room Air 09/03/17 08:41 87 144/98 09/03/17 08:37 87 144/98 09/03/17 08:36 144/98 Intake and Output 09/03/17 09/04/17 19:00 07:00 Intake Total 600 ml 400 ml Balance 600 ml 400 ml Intake Oral 600 ml 400 ml # Voids 3 3 Laboratory Tests 09/03/17 10:40: White Blood Count 8.8, Red Blood Count 4.03L, Hemoglobin 10.8L, Hematocrit 33.8L , Mean Corpuscular Volume 84, Mean Corpuscular Hemoglobin 26.7L, Mean Corpuscular Hemoglobin Concent 31.9L, Red Cell Distribution Width 15.1H, Platelet Count 346, Mean Platelet Volume 5.3L, Neutrophils (%) (Auto) 49.9, Lymphocytes (%) (Auto) 38.0, Monocytes (%) (Auto) 7.7, Eosinophils (%) (Auto) 2.7, Basophils (%) (Auto) 1.7, Sodium Level 133L, Potassium Level 4.3, Chloride Level 100, Carbon Dioxide Level 28, Anion Gap 5, Blood Urea Nitrogen 21H, Creatinine 1.0, Estimat Glomerular Filtration Rate > 60, Glucose Level 107H, Calcium Level 8.5 Height (Feet): 5 Height (Inches): 5.00 Weight (Pounds): 300 Objective General Appearance: no apparent distress, alert EENT: PERRL/EOMI, normal ENT inspection, TMs normal Neck: non-tender, supple Cardiovascular: normal rate, regular rhythm Respiratory/Chest: lungs clear, normal breath sounds Abdomen: soft, no organomegaly Extremities: non-tender Edema: no edema noted Arm (L), no edema noted Arm (R), no edema noted Leg (L), no edema noted Leg (R), no edema noted Pedal (L), no edema noted Pedal (R), no edema noted Generalized Neurologic: alert, oriented x 3 Skin: warm/dry Cirilo Chavez Sep 04, 2017 08:34
[2017-09-04 09:00] VITALS: BP 147/74
[2017-09-04 09:21] LABS: BASOPHILS % (AUTO) 1.2 % (0.0-2.0); EOSINOPHILS % (AUTO) 2.7 % (0.0-3.0); HEMATOCRIT 34.3 % (37.0-47.0); HEMOGLOBIN 10.7 G/DL (12.0-16.0); MEAN CORPUSCULAR VOLUME 84 FL (80-99); MONOCYTES % (AUTO) 5.4 % (1.0-10.0); NEUTROPHILS % (AUTO) 55.6 % (45.0-75.0); PLATELET COUNT 354 K/UL (150-450); RED BLOOD COUNT 4.07 M/UL (4.20-5.40); RED CELL DISTRIBUTION WIDTH 15.4 % (11.6-14.8); WHITE BLOOD COUNT 7.7 K/UL (4.8-10.8)
[2017-09-04 09:34] LABS: ANION GAP 5 mmol/L (5-15); BLOOD UREA NITROGEN 15 mg/dL (7-18); CALCIUM 8.3 MG/DL (8.5-10.1); CARBON DIOXIDE 29 MMOL/L (21-32); CHLORIDE 101 MMOL/L (98-107); CREATININE 0.9 MG/DL (0.55-1.30); POTASSIUM 4.4 MMOL/L (3.5-5.1); SODIUM 135 MMOL/L (136-145)
--- NOTE | 2017-09-04 09:45 | Consultation ---
DATE OF CONSULTATION: 09/02/2017 PSYCHOTHERAPY CONSULTATION PROGRESS NOTE CONSULTING PHYSICIAN: Kevon Lala M.D. TREATING ATTENDING PHYSICIAN: Get Tovar D.O. HISTORY: This patient is a 41-year-old female patient. She is brought in from [facility], as she had bilateral chest pain, shortness of breath, and possibly history of lupus. The patient has a history of mental illness as well including schizophrenia and possible depression. The patient has been seen anxious and agitated. Today, the patient was very tired and lethargic and complaining of feelings of anxiety. The patient states that she wants more medication for her anxiety, states that her anxiety level has been very high. She has been feeling depressed. Denies suicidal or homicidal thoughts of ideation. She states that she has been sleeping more. She has been very tired. Her hallucination was very high today as well. Denies suicidal or homicidal thoughts of ideation. Denies any auditory or visual hallucination. PAST MEDICAL HISTORY: History of hypertension, CHF, rheumatoid arthritis, hepatitis C, and fibromyalgia. ALLERGIES: The patient is allergic to Plaquenil. SUBSTANCE ABUSE HISTORY: The patient has a history of alcohol use. Denies history of illicit substance use. 02:01. PSYCHIATRIC HISTORY: The patient has a history of depression and anxiety. The patient has been treated with psychotropic medications in the past and has been hospitalized in psychiatric hospitals. SOCIAL HISTORY: The patient is a 41-year-old female patient from [facility]. Financially supported by [email or web address]. [facility]. MENTAL STATUS EXAMINATION: The patient is alert and oriented to person and place. Her mood is anxious. Affect is blunted. Thought process is disoriented. Thought content, focused on her anxiety medication 02:32. DIAGNOSIS: Major depressive disorder, recurrent, severe without psychotic features and generalized anxiety disorder. PLAN: The clinician assessed this patient secondary to the patient's mental status. Provided the patient with reality orientation, supportive psychotherapy. Addressing the patient's anxiety, poor frustration tolerance, 02:57 skills. Continue behavioral management. The clinician has reviewed the patient's chart. Discussed with the treatment and nursing staff. Kevon Lala PsyD. DR: ERNESTO JOB#: [id number] CC:
--- NOTE | 2017-09-04 10:50 | Diagnostic Imaging Report ---
Indication: Cough Comparison: 12/21/2015 A single view chest radiograph was obtained. Findings: Cardiomediastinal appearance is prominent but within normal limits for age and for lung volumes which are extremely low. Pulmonary vascularity is probably within normal limits. The diaphragmatic contour is smooth and costophrenic angles are sharp. No pleural effusions are identified. The bones are unremarkable. Impression: No acute findings. Limited evaluation
--- NOTE | 2017-09-04 11:20 | Pulmonology Progress Note ---
Assessment/Plan Problems: (1) Lupus (systemic lupus erythematosus) (2) KAREN (obstructive sleep apnea) (3) Intractable pain (4) Fibromyalgia (5) Hx of gastric bypass (6) Hepatitis C (7) Obesity, morbid, BMI 40.0-49.9 Assessment/Plan still depressed c/o of the small lesion in palm of her hand pain is less titrate fio2 to sat of 92% check electrolytes All medications and treatment were reviewed. dc to [facility], with outpatient Rheumatology f/u Subjective ROS Limited/Unobtainable: No Constitutional: Reports: no symptoms HEENT: Repors: no symptoms Respiratory: Reports: no symptoms Allergies: Coded Allergies: Cashew (Verified Allergy, Unknown, 12/30/14) HYDROXYCHLOROQUINE (Verified Allergy, Unknown, 08/31/17) White Fish (Verified Allergy, Unknown, 01/19/15) Uncoded Allergies: FISH (Allergy, Unknown, 12/30/14) Objective Last 24 Hour Vital Signs Date Time Temp Pulse Resp B/P (MAP) Pulse Ox O2 Delivery O2 Flow Rate FiO2 09/04/17 09:54 98.6 09/04/17 09:24 98.6 09/04/17 09:19 98.6 09/04/17 09:19 98.6 09/04/17 09:00 Room Air 09/04/17 09:00 98.6 89 19 147/74 (98) 96 98.6 09/04/17 08:30 147/74 09/04/17 08:29 89 147/74 09/04/17 08:29 89 147/74 09/04/17 08:21 98.7 09/04/17 08:20 98.7 09/04/17 04:00 98.7 20 146/85 (105) 92 98.7 09/04/17 00:00 98.6 20 113/76 (88) 93 98.6 09/03/17 21:00 Room Air 09/03/17 20:33 77 16 Room Air 21 09/03/17 20:00 98.9 89 20 119/70 (86) 95 98.9 09/03/17 16:00 97.7 81 20 138/84 (102) 98 97.7 09/03/17 12:00 97.6 84 19 140/88 (105) 98 97.6 Intake and Output 09/03/17 09/04/17 19:00 07:00 Intake Total 600 ml 400 ml Balance 600 ml 400 ml Intake Oral 600 ml 400 ml # Voids 3 3 General Appearance: WD/WN HEENT: normocephalic, atraumatic Respiratory/Chest: chest wall non-tender, lungs clear Cardiovascular: normal peripheral pulses, normal rate Abdomen: normal bowel sounds, soft, non tender Genitourinary: normal external genitalia Extremities: no cyanosis Neurologic/Psychiatric: brass sorter II-XII grossly normal Lymphatic: no neck adenopathy Laboratory Tests 09/04/17 08:55: White Blood Count 7.7, Red Blood Count 4.07L, Hemoglobin 10.7L, Hematocrit 34.3L , Mean Corpuscular Volume 84, Mean Corpuscular Hemoglobin 26.3L, Mean Corpuscular Hemoglobin Concent 31.3L, Red Cell Distribution Width 15.4H, Platelet Count 354, Mean Platelet Volume 5.9L, Neutrophils (%) (Auto) 55.6, Lymphocytes (%) (Auto) 35.0, Monocytes (%) (Auto) 5.4, Eosinophils (%) (Auto) 2.7, Basophils (%) (Auto) 1.2, Sodium Level 135L, Potassium Level 4.4, Chloride Level 101, Carbon Dioxide Level 29, Anion Gap 5, Blood Urea Nitrogen 15, Creatinine 0.9, Estimat Glomerular Filtration Rate > 60, Glucose Level 117H, Calcium Level 8.3L Current Medications Medications (Trade) Dose Ordered Sig/Farideh Route PRN Reason Start Time Stop Time Status Last Admin Dose Admin Albuterol Sulfate (Proventil MDI) 1 puff Q4HR PRN INH Bronchospasm 08/31/17 11:00 09/30/17 08:59 Alprazolam (Xanax) 1.5 mg Q6H PRN ORAL For Anxiety 09/01/17 04:30 09/08/17 04:29 09/04/17 08:28 Amlodipine Besylate (Norvasc) 5 mg DAILY ORAL 08/31/17 09:00 09/30/17 08:59 09/04/17 08:29 Clonidine HCl (Catapres Tab) 0.1 mg Q6H PRN ORAL For High Blood Pressure 08/31/17 06:30 09/30/17 06:29 09/01/17 03:21 Cyclobenzaprine HCl (Flexeril) 10 mg BEDTIME ORAL 08/31/17 21:00 09/30/17 20:59 09/03/17 21:11 Cyclobenzaprine HCl (Flexeril) 10 mg THREE TIMES A DAY PRN ORAL Muscle Spasm 08/31/17 06:30 09/30/17 06:29 09/04/17 08:20 Diphenhydramine HCl (Benadryl) 25 mg Q6H PRN ORAL Itching 08/31/17 06:30 09/30/17 06:29 09/04/17 05:22 Diphenhydramine HCl (Benadryl) 50 mg HSPRN PRN ORAL Insomnia 08/31/17 20:30 09/30/17 20:29 08/31/17 21:49 Docusate Sodium (Colace) 250 mg BID ORAL 09/02/17 18:00 10/02/17 17:59 09/04/17 08:30 Duloxetine HCl (Cymbalta) 60 mg BID ORAL 08/31/17 09:00 09/30/17 08:59 09/04/17 08:29 Folic Acid (Folate) 1 mg DAILY ORAL 08/31/17 09:00 09/30/17 08:59 09/04/17 08:28 Heparin Sodium (Porcine) (Heparin 5000 units/ml) 5,000 units EVERY 12 HOURS SUBQ 08/31/17 09:00 09/30/17 08:59 09/04/17 08:22 Lisinopril (Zestril) 10 mg DAILY ORAL 08/31/17 09:00 09/30/17 08:59 09/04/17 08:30 Metoprolol Succinate (Toprol XL) 25 mg DAILY ORAL 09/03/17 09:00 10/03/17 08:59 09/04/17 08:29 Morphine Sulfate (Morphine Sulfate) 4 mg Q4H PRN IVP Severe Pain (Pain Scale 7-10) 08/31/17 11:30 09/07/17 07:29 09/04/17 09:24 Multivitamins (Multivitamins) 1 tab DAILY ORAL 08/31/17 09:00 09/30/17 08:59 09/04/17 08:28 Ondansetron HCl (Zofran) 4 mg Q6H PRN IVP Nausea & Vomiting 09/01/17 08:30 10/01/17 08:29 09/04/17 09:24 Oxybutynin Chloride (Ditropan) 5 mg Q8HR ORAL 08/31/17 14:00 09/30/17 13:59 09/04/17 05:22 Oxycodone HCl (Roxicodone) 10 mg Q6H PRN ORAL moderate breakthrough pain 08/31/17 11:11 09/07/17 11:10 09/03/17 19:39 Pantoprazole (Protonix) 40 mg DAILY ORAL 08/31/17 09:00 09/30/17 08:59 09/04/17 08:20 Potassium Chloride (K-Dur) 20 meq DAILY ORAL 08/31/17 09:00 09/30/17 08:59 09/04/17 08:30 Pregabalin (Lyrica) 150 mg THREE TIMES A DAY ORAL 08/31/17 09:00 09/30/17 08:59 09/04/17 08:21 Zolpidem Tartrate (Ambien) 10 mg HSPRN PRN ORAL Insomnia 09/01/17 04:00 09/08/17 03:59 09/04/17 01:52 Mer Powell MD Sep 04, 2017 11:20
[2017-09-04 12:00] VITALS: BP 132/74
[2017-09-04] MEDS: oxyCODONE 5mg IR tab ORAL PRN (12:37)
--- NOTE | 2017-09-04 14:03 | GI Progress Note ---
Assessment/Plan Problems: (1) Hx of gastric bypass ICD Codes: Z98.89 - Other specified postprocedural states SNOMED: 17022211, 44213023, 822825601 (2) Iron deficiency anemia ICD Codes: D50.9 - Iron deficiency anemia, unspecified SNOMED: 66499018 (3) Iron deficiency ICD Codes: E61.1 - Iron deficiency SNOMED: 65157452 (4) Encounter for generalized patient complaints ICD Codes: Z00.8 - Encounter for other general examination SNOMED: 671118774 (5) Lupus ICD Codes: M32.9 - Systemic lupus erythematosus, unspecified SNOMED: 38811275 (6) Vomiting ICD Codes: R11.10 - Vomiting, unspecified SNOMED: 361550730 (7) Abdominal pain ICD Codes: R10.9 - Unspecified abdominal pain SNOMED: 80326885 (8) Hypoalbuminemia ICD Codes: E88.09 - Other disorders of plasma-protein metabolism, not elsewhere classified SNOMED: 508710971 (9) Morbid obesity ICD Codes: E66.01 - Morbid (severe) obesity due to excess calories SNOMED: 223999925 (10) Hepatitis C ICD Codes: B19.20 - Unspecified viral hepatitis C without hepatic coma SNOMED: 83049636 Status: stable Status Narrative Discussed with Dr. Duggan. Assessment/Plan symptomatic treatment at this time pain mgmt cont bowel regime cont PPI venofer outpatient Hep C treatment fu labs The patient was seen and examined at bedside and all new and available data was reviewed in the patients chart. I agree with the above findings, impression and plan. (Patient seen earlier today. Signature stamp does not reflect patient encounter time.). - Tuan Duggan MD Subjective Gastrointestinal/Abdominal: Reports: abdominal pain Objective Last 24 Hour Vital Signs Date Time Temp Pulse Resp B/P (MAP) Pulse Ox O2 Delivery O2 Flow Rate FiO2 09/04/17 13:41 99.4 09/04/17 13:35 99.4 09/04/17 12:36 99.4 09/04/17 12:00 99.4 76 18 132/74 (93) 96 99.4 09/04/17 09:54 98.6 09/04/17 09:50 81 16 Room Air 21 09/04/17 09:24 98.6 09/04/17 09:19 98.6 7/17/18 09:00 Room Air 09/04/17 09:00 98.6 89 19 147/74 (98) 96 98.6 09/04/17 08:30 147/74 09/04/17 08:29 89 147/74 09/04/17 08:29 89 147/74 09/04/17 08:21 98.7 09/04/17 08:20 98.7 09/04/17 04:00 98.7 20 146/85 (105) 92 98.7 09/04/17 00:00 98.6 20 113/76 (88) 93 98.6 09/03/17 21:00 Room Air 09/03/17 20:33 77 16 Room Air 21 09/03/17 20:00 98.9 89 20 119/70 (86) 95 98.9 09/03/17 16:00 97.7 81 20 138/84 (102) 98 97.7 Intake and Output 09/03/17 09/04/17 19:00 07:00 Intake Total 600 ml 400 ml Balance 600 ml 400 ml Intake Oral 600 ml 400 ml # Voids 3 3 Laboratory Tests Test 09/04/17 08:55 White Blood Count 7.7 K/UL (4.8-10.8) Red Blood Count 4.07 M/UL (4.20-5.40) L Hemoglobin 10.7 G/DL (12.0-16.0) L Hematocrit 34.3 % (37.0-47.0) L Mean Corpuscular Volume 84 FL (80-99) Mean Corpuscular Hemoglobin 26.3 PG (27.0-31.0) L Mean Corpuscular Hemoglobin Concent 31.3 G/DL (32.0-36.0) L Red Cell Distribution Width 15.4 % (11.6-14.8) H Platelet Count 354 K/UL (150-450) Mean Platelet Volume 5.9 FL (6.5-10.1) L Neutrophils (%) (Auto) 55.6 % (45.0-75.0) Lymphocytes (%) (Auto) 35.0 % (20.0-45.0) Monocytes (%) (Auto) 5.4 % (1.0-10.0) Eosinophils (%) (Auto) 2.7 % (0.0-3.0) Basophils (%) (Auto) 1.2 % (0.0-2.0) Sodium Level 135 MMOL/L (136-145) L Potassium Level 4.4 MMOL/L (3.5-5.1) Chloride Level 101 MMOL/L (98-107) Carbon Dioxide Level 29 MMOL/L (21-32) Anion Gap 5 mmol/L (5-15) Blood Urea Nitrogen 15 mg/dL (7-18) Creatinine 0.9 MG/DL (0.55-1.30) Estimat Glomerular Filtration Rate > 60 mL/min (>60) Glucose Level 117 MG/DL (74-106) H Calcium Level 8.3 MG/DL (8.5-10.1) L Height (Feet): 5 Height (Inches): 5.00 Weight (Pounds): 300 General Appearance: WD/WN, no apparent distress, alert, morbidly obese Cardiovascular: normal rate Respiratory/Chest: normal breath sounds, no respiratory distress Abdominal Exam: normal bowel sounds, non tender, soft Extremities: normal range of motion, non-tender Nerissa Amin NP Sep 04, 2017 14:03
--- NOTE | 2017-09-04 14:52 | General Progress Note ---
Assessment/Plan Problem List: (1) Lupus (systemic lupus erythematosus) ICD Codes: M32.9 - Systemic lupus erythematosus, unspecified SNOMED: 41938256 Qualifiers: Qualified Codes: M32.9 - Systemic lupus erythematosus, unspecified (2) Obesity, morbid, BMI 40.0-49.9 ICD Codes: E66.01 - Morbid (severe) obesity due to excess calories SNOMED: 220803643 (3) Fibromyalgia ICD Codes: M79.7 - Fibromyalgia SNOMED: 85829258 (4) Intractable pain ICD Codes: R52 - Pain, unspecified SNOMED: 03930716 (5) Hypertension ICD Codes: I10 - Essential (primary) hypertension SNOMED: 35636392 (6) Multiple joint pain ICD Codes: M25.50 - Pain in unspecified joint SNOMED: 84403299 Status: stable, progressing Assessment/Plan ot pt diet pain control cbc bmp am dc plan snf Subjective Constitutional: Reports: weakness Allergies: Coded Allergies: Cashew (Verified Allergy, Unknown, 12/30/14) HYDROXYCHLOROQUINE (Verified Allergy, Unknown, 08/31/17) White Fish (Verified Allergy, Unknown, 01/19/15) Uncoded Allergies: FISH (Allergy, Unknown, 12/30/14) All Systems: reviewed and negative except above Subjective sl gen pain Objective Last 24 Hour Vital Signs Date Time Temp Pulse Resp B/P (MAP) Pulse Ox O2 Delivery O2 Flow Rate FiO2 09/04/17 14:11 99.4 09/04/17 13:41 99.4 09/04/17 13:35 99.4 09/04/17 12:36 99.4 09/04/17 12:00 99.4 76 18 132/74 (93) 96 99.4 09/04/17 09:50 81 16 Room Air 21 09/04/17 09:24 98.6 09/04/17 09:19 98.6 09/04/17 09:00 Room Air 09/04/17 09:00 98.6 89 19 147/74 (98) 96 98.6 09/04/17 08:30 147/74 09/04/17 08:29 89 147/74 09/04/17 08:29 89 147/74 09/04/17 08:21 98.7 09/04/17 08:20 98.7 09/04/17 04:00 98.7 20 146/85 (105) 92 98.7 09/04/17 00:00 98.6 20 113/76 (88) 93 98.6 09/03/17 21:00 Room Air 09/03/17 20:33 77 16 Room Air 21 09/03/17 20:00 98.9 89 20 119/70 (86) 95 98.9 09/03/17 16:00 97.7 81 20 138/84 (102) 98 97.7 Intake and Output 09/03/17 09/04/17 19:00 07:00 Intake Total 600 ml 400 ml Balance 600 ml 400 ml Intake Oral 600 ml 400 ml # Voids 3 3 Laboratory Tests 09/04/17 08:55: White Blood Count 7.7, Red Blood Count 4.07L, Hemoglobin 10.7L, Hematocrit 34.3L , Mean Corpuscular Volume 84, Mean Corpuscular Hemoglobin 26.3L, Mean Corpuscular Hemoglobin Concent 31.3L, Red Cell Distribution Width 15.4H, Platelet Count 354, Mean Platelet Volume 5.9L, Neutrophils (%) (Auto) 55.6, Lymphocytes (%) (Auto) 35.0, Monocytes (%) (Auto) 5.4, Eosinophils (%) (Auto) 2.7, Basophils (%) (Auto) 1.2, Sodium Level 135L, Potassium Level 4.4, Chloride Level 101, Carbon Dioxide Level 29, Anion Gap 5, Blood Urea Nitrogen 15, Creatinine 0.9, Estimat Glomerular Filtration Rate > 60, Glucose Level 117H, Calcium Level 8.3L Height (Feet): 5 Height (Inches): 5.00 Weight (Pounds): 300 General Appearance: alert EENT: normal ENT inspection Neck: normal alignment Cardiovascular: normal peripheral pulses, normal rate, regular rhythm Respiratory/Chest: chest wall non-tender, lungs clear, normal breath sounds Abdomen: normal bowel sounds, non tender, soft Extremities: normal inspection Edema: no edema noted Arm (L), no edema noted Arm (R), no edema noted Leg (L), no edema noted Leg (R), no edema noted Pedal (L), no edema noted Pedal (R), no edema noted Generalized Neurologic: motor weakness Skin: normal pigmentation, warm/dry Get Tovar DO Sep 04, 2017 14:52
[2017-09-04 16:00] VITALS: BP 147/75
--- NOTE | 2017-09-04 17:12 | Neurology Progress Note ---
Interim History Interim History Interim History Ms. Quiroga looks and feels a little better. She is headache-free now but says she had a headache this morning. She has been able to walk steadily. She continues to complain of total body pain. The mind is still not completely clear. She continues to be cognitively impoverished. Her motor function is much better and she is more cooperative. She denies any new neurologic symptoms. Review of Systems Neuro Review of Systems Benign. Objective Physical Exam Last Vital Signs Date Time Temp Pulse Resp B/P (MAP) Pulse Ox O2 Delivery O2 Flow Rate FiO2 09/04/17 16:00 98.0 84 19 147/75 (99) 96 98.0 09/04/17 09:50 Room Air 21 Laboratory Tests Test 09/04/17 08:55 White Blood Count 7.7 K/UL (4.8-10.8) Red Blood Count 4.07 M/UL (4.20-5.40) L Hemoglobin 10.7 G/DL (12.0-16.0) L Hematocrit 34.3 % (37.0-47.0) L Mean Corpuscular Volume 84 FL (80-99) Mean Corpuscular Hemoglobin 26.3 PG (27.0-31.0) L Mean Corpuscular Hemoglobin Concent 31.3 G/DL (32.0-36.0) L Red Cell Distribution Width 15.4 % (11.6-14.8) H Platelet Count 354 K/UL (150-450) Mean Platelet Volume 5.9 FL (6.5-10.1) L Neutrophils (%) (Auto) 55.6 % (45.0-75.0) Lymphocytes (%) (Auto) 35.0 % (20.0-45.0) Monocytes (%) (Auto) 5.4 % (1.0-10.0) Eosinophils (%) (Auto) 2.7 % (0.0-3.0) Basophils (%) (Auto) 1.2 % (0.0-2.0) Sodium Level 135 MMOL/L (136-145) L Potassium Level 4.4 MMOL/L (3.5-5.1) Chloride Level 101 MMOL/L (98-107) Carbon Dioxide Level 29 MMOL/L (21-32) Anion Gap 5 mmol/L (5-15) Blood Urea Nitrogen 15 mg/dL (7-18) Creatinine 0.9 MG/DL (0.55-1.30) Estimat Glomerular Filtration Rate > 60 mL/min (>60) Glucose Level 117 MG/DL (74-106) H Calcium Level 8.3 MG/DL (8.5-10.1) L Neurologic Exam Objective PHYSICAL EXAMINATION: GENERAL: She is a well-developed, well-nourished, obese, black lady, lying in bed, in no acute distress. HEAD: Normocephalic and atraumatic. EENT: Examination benign. NECK: No neck rigidity was observed. NEUROLOGICAL EXAMINATION: MENTAL STATUS EXAMINATION: She was awake and alert. She was oriented to [facility], [facility], and September 04, 2017. She was able to recall 3/3 words immediately, but could only remember 2/3 words in 1 minute and 3 minutes. She was able to remember presidents, Trump and Obama, but could not remember presidents prior to that. Her mathematical skills were impaired. Her visuospatial function was also impaired. She had minimal slowing of a cerebration. She was more cooperative. SPEECH: She had no dysarthria. LANGUAGE: She had anomia for low-frequency words. CRANIAL NERVE EXAMINATION: II: The visual byrd were intact on confrontation testing. III, IV & : External ocular movements were full and the pupils 3 mm in diameter, equal, round, regular, and reactive to light. V: She had normal facial sensations and the temporales, masseters, and pterygoids functioned normally. VII: She had normal facial expressions and no facial asymmetry. VIII: She was able to hear well bilaterally and had no nystagmus. IX: The palate moved symmetrically on phonation. X: She had no hoarseness of voice. XI: The sternocleidomastoids and trapezii functioned normally. XII: The tongue was in the midline without any fasciculations or atrophy. MOTOR SYSTEM: The tone was normal in all four extremities. Examination of muscle mass revealed no focal wasting. Examination of power revealed G 5/5 power. SENSORY EXAMINATION: She responded to painful stimuli equally in all four extremities. She did not cooperate for testing other sensory modalities. REFLEXES: Trace+ and bilaterally symmetrical at the biceps, triceps, brachioradialis, and knees, 0 at both ankles. The plantar responses were flexor bilaterally. COORDINATION: She performed well on [id number] testing. STANCE & GAIT: She was able to stand and walk normally. Impression/Recommendations Diagnostic Impression 1. Ms. Vanna Quiroga is a 41-year-old, right-handed, black lady, who does have past history of fibromyalgia, lupus, neck injuries, low back injuries, degenerative joint disease involving the spine, visual problems, headache, chronic pain, chronic opiate use, hypertension, asthma, and hepatitis C who was hospitalized for generalized worsening of her pain, and in addition she has been bothered by the mind not being very clear. 2. She looks and feels a little better. She is headache-free now but says she had a headache this morning. She has been able to walk steadily. She continues to complain of total body pain. The mind is still not completely clear. She continues to be cognitively impoverished. Her motor function is much better and she is more cooperative. She denies any new neurologic symptoms. 3. On neurological examination at this time, her cerebration is faster than when I first saw her but about the same as yesterday. She is fully oriented. She still has problems with memory, visuospatial function, higher cognitive function, and language. Her motor function is normal now that she is giving an adequate effort. She is unable to cooperate for sensory testing, and has globally diminished reflexes. She is able to stand and walk normally. 4. Laboratory data obtained thus far had revealed that she is mildly anemic with a hemoglobin of 11.7, her ESR is elevated to 49. Her chemistry panel reveals a sodium which is minimally low at 135, blood glucose is elevated to 153 , her albumin is low at 3.0, B12 is low at 305, folate is normal at 34.4, and her urinalysis is benign. Her HB A1c is elevated at 6.2% 5. Her EEG done on 09/01/17 revealed a mild encephalopathy of a toxic nature. 5. The patient's history, neurological examination, and laboratory data are most compatible with rheumatological diseases mainly the systemic lupus erythematosus and fibromyalgia associated with a chronic pain syndrome and chronic opiate use. 6. She does have a mild toxic encephalopathy leading to slowing of cerebration and possibly some underlying cognitive dysfunction. Recommendations 1. Continue present management. 2. Treatment of rheumatological illnesses. 3. Pain management as per pain resource management planner. 4. Attempt should be made to minimize her mind-altering drugs. 5. Vitamin B12 parenterally. 6. Increase activity. 7. Observe closely. Cesar Walton M.D., M.SYury.Tomas. CESAR WALTON Sep 04, 2017 17:12
[2017-09-04 20:00] VITALS: BP 140/90
[2017-09-04] MEDS: Cyclobenzaprine 10mg Tab ORAL SCH (21:17)
--- NOTE | 2017-09-04 23:30 | Cardiology Progress Note ---
Assessment/Plan Assessment/Plan 1. Accelerated HTN, still stage I, increase metoprolol XL, continue amlodipine and lisinopril. 2. Hx of CHF due to SLE according to the patient , awaiting result of 2D echo. 3. SLE 4. Hx of asthma/COPD Subjective Subjective Denies chest pain or SOB. Objective Last 24 Hour Vital Signs Date Time Temp Pulse Resp B/P (MAP) Pulse Ox O2 Delivery O2 Flow Rate FiO2 09/04/17 20:11 79 16 Room Air 21 09/04/17 18:32 98.0 09/04/17 18:03 98.0 09/04/17 17:33 98.0 09/04/17 17:33 98.0 09/04/17 16:00 98.0 84 19 147/75 (99) 96 98.0 09/04/17 13:41 99.4 09/04/17 12:36 99.4 09/04/17 12:00 99.4 76 18 132/74 (93) 96 99.4 09/04/17 09:50 81 16 Room Air 21 09/04/17 09:24 98.6 09/04/17 09:19 98.6 09/04/17 09:00 Room Air 09/04/17 09:00 98.6 89 19 147/74 (98) 96 98.6 09/04/17 08:30 147/74 09/04/17 08:29 89 147/74 09/04/17 08:29 89 147/74 09/04/17 08:21 98.7 09/04/17 08:20 98.7 09/04/17 04:00 98.7 20 146/85 (105) 92 98.7 09/04/17 00:00 98.6 20 113/76 (88) 93 98.6 Intake and Output 09/03/17 09/04/17 19:00 07:00 Intake Total 600 ml 400 ml Balance 600 ml 400 ml Intake Oral 600 ml 400 ml # Voids 3 3 Laboratory Tests Test 09/04/17 08:55 09/04/17 20:00 White Blood Count 7.7 K/UL (4.8-10.8) Red Blood Count 4.07 M/UL (4.20-5.40) L Hemoglobin 10.7 G/DL (12.0-16.0) L Hematocrit 34.3 % (37.0-47.0) L Mean Corpuscular Volume 84 FL (80-99) Mean Corpuscular Hemoglobin 26.3 PG (27.0-31.0) L Mean Corpuscular Hemoglobin Concent 31.3 G/DL (32.0-36.0) L Red Cell Distribution Width 15.4 % (11.6-14.8) H Platelet Count 354 K/UL (150-450) Mean Platelet Volume 5.9 FL (6.5-10.1) L Neutrophils (%) (Auto) 55.6 % (45.0-75.0) Lymphocytes (%) (Auto) 35.0 % (20.0-45.0) Monocytes (%) (Auto) 5.4 % (1.0-10.0) Eosinophils (%) (Auto) 2.7 % (0.0-3.0) Basophils (%) (Auto) 1.2 % (0.0-2.0) Sodium Level 135 MMOL/L (136-145) L Potassium Level 4.4 MMOL/L (3.5-5.1) Chloride Level 101 MMOL/L (98-107) Carbon Dioxide Level 29 MMOL/L (21-32) Anion Gap 5 mmol/L (5-15) Blood Urea Nitrogen 15 mg/dL (7-18) Creatinine 0.9 MG/DL (0.55-1.30) Estimat Glomerular Filtration Rate > 60 mL/min (>60) Glucose Level 117 MG/DL (74-106) H Calcium Level 8.3 MG/DL (8.5-10.1) L Stool Occult Blood Pending Objective HEENT: normocephalic, atraumatic, bilateral eye normal inspection, bilateral eye PERRL Neck: No JVD, no carotid bruit. Respiratory: chest non-tender, normal breath sounds Cardiovascular: Regular rate rhythm, normal S1S2, no murmurs, gallops or rubs. Gastrointestinal: normal bowel sounds, non tender, soft, non-distended, no guarding, no rebound Genitourinary: normal inspection, no CVA tenderness Musculoskeletal: back normal, gait/station normal, normal range of motion, non- tender, no edema, clubbing or cyanosis. Neurologic: alert, oriented x3, responsive, motor strength/tone normal, sensory intact, speech fransico Cisco,Lorenzo MD Sep 04, 2017 23:30
[2017-09-05] VITALS: BP 121/77
[2017-09-05 04:00] VITALS: BP 120/80
[2017-09-05] MEDS: Oxybutynin 5mg tab ORAL SCH ×2 (05:45→14:04)
[2017-09-05] MEDS: Morphine Sulfate 4mg/ml Inj (IV USE ONLY) IVP PRN ×4 (05:52→18:16)
[2017-09-05] MEDS: Cyclobenzaprine 10mg Tab ORAL PRN ×3 (06:00→19:40)
[2017-09-05 07:08] LABS: BASOPHILS % (AUTO) 0.8 % (0.0-2.0); EOSINOPHILS % (AUTO) 2.4 % (0.0-3.0); HEMATOCRIT 34.3 % (37.0-47.0); LYMPHOCYTES % (AUTO) 33.6 % (20.0-45.0); MEAN CORPUSCULAR VOLUME 84 FL (80-99); MONOCYTES % (AUTO) 8.3 % (1.0-10.0); NEUTROPHILS % (AUTO) 54.8 % (45.0-75.0); PLATELET COUNT 314 K/UL (150-450); RED BLOOD COUNT 4.06 M/UL (4.20-5.40); RED CELL DISTRIBUTION WIDTH 15.2 % (11.6-14.8); WHITE BLOOD COUNT 7.6 K/UL (4.8-10.8)
[2017-09-05 07:21] LABS: ANION GAP 3 mmol/L (5-15); BLOOD UREA NITROGEN 12 mg/dL (7-18); CALCIUM 8.2 MG/DL (8.5-10.1); CARBON DIOXIDE 30 MMOL/L (21-32); CHLORIDE 103 MMOL/L (98-107); CREATININE 0.9 MG/DL (0.55-1.30); POTASSIUM 4.4 MMOL/L (3.5-5.1); SODIUM 136 MMOL/L (136-145)
[2017-09-05 08:00] VITALS: BP 133/66
[2017-09-05] MEDS: oxyCODONE 5mg IR tab ORAL PRN ×2 (08:18→15:53)
--- NOTE | 2017-09-05 08:30 | General Progress Note ---
Assessment/Plan Assessment/Plan (1) Morbid obesity (2) Degenerative disc disease, cervical (3) Lumbar degenerative disc disease (4) Lumbar radiculopathy (5) Cervical radiculopathy (6) Osteoarthritis of multiple joints (7) Multiple joint pain (8) Fibromyalgia We will continue Oxycodone, Lyrica and Morphine Pt was d/w Dr. Leonardo and he concurred. Subjective Date patient seen: Sep 05, 2017 Time patient seen: 07:00 - am Allergies: Coded Allergies: Cashew (Verified Allergy, Unknown, 12/30/14) HYDROXYCHLOROQUINE (Verified Allergy, Unknown, 08/31/17) White Fish (Verified Allergy, Unknown, 01/19/15) Uncoded Allergies: FISH (Allergy, Unknown, 12/30/14) Subjective Constitutional: Reports: weakness HEENT: Reports: no symptoms Cardiovascular: Reports: no symptoms Respiratory: Reports: no symptoms Gastrointestinal/Abdominal: Reports: no symptoms Genitourinary: Reports: no symptoms Neurologic/Psychiatric: Reports: headache, numbness, weakness Endocrine: Reports: no symptoms Hematologic/Lymphatic: Reports: no symptoms Subjective: Patient looking forward to being discharged back to SNF. Her pain has been stable on the Oxycodone and morphine. Objective Last 24 Hour Vital Signs Date Time Temp Pulse Resp B/P (MAP) Pulse Ox O2 Delivery O2 Flow Rate FiO2 09/05/17 04:00 98.0 73 20 120/80 (93) 90 98.0 09/05/17 00:00 98.2 73 19 121/77 (92) 100 98.2 09/04/17 21:00 Room Air 09/04/17 20:11 79 16 Room Air 21 09/04/17 20:00 98.7 67 20 140/90 (107) 93 98.7 09/04/17 18:32 98.0 09/04/17 18:03 98.0 09/04/17 17:33 98.0 09/04/17 17:33 98.0 09/04/17 16:00 98.0 84 19 147/75 (99) 96 98.0 09/04/17 13:41 99.4 09/04/17 12:36 99.4 09/04/17 12:00 99.4 76 18 132/74 (93) 96 99.4 09/04/17 09:50 81 16 Room Air 21 09/04/17 09:24 98.6 09/04/17 09:19 98.6 09/04/17 09:00 Room Air 09/04/17 09:00 98.6 89 19 147/74 (98) 96 98.6 09/04/17 08:30 147/74 Intake and Output 09/04/17 09/05/17 19:00 07:00 Intake Total 1600 ml Balance 1600 ml Other 1600 ml # Voids 3 # Bowel Movements 1 Laboratory Tests 09/04/17 08:55: White Blood Count 7.7, Red Blood Count 4.07L, Hemoglobin 10.7L, Hematocrit 34.3L , Mean Corpuscular Volume 84, Mean Corpuscular Hemoglobin 26.3L, Mean Corpuscular Hemoglobin Concent 31.3L, Red Cell Distribution Width 15.4H, Platelet Count 354, Mean Platelet Volume 5.9L, Neutrophils (%) (Auto) 55.6, Lymphocytes (%) (Auto) 35.0, Monocytes (%) (Auto) 5.4, Eosinophils (%) (Auto) 2.7, Basophils (%) (Auto) 1.2, Sodium Level 135L, Potassium Level 4.4, Chloride Level 101, Carbon Dioxide Level 29, Anion Gap 5, Blood Urea Nitrogen 15, Creatinine 0.9, Estimat Glomerular Filtration Rate > 60, Glucose Level 117H, Calcium Level 8.3L 09/04/17 20:00: Stool Occult Blood [Pending] 09/05/17 07:00: White Blood Count 7.6, Red Blood Count 4.06L, Hemoglobin 11.0L, Hematocrit 34.3L , Mean Corpuscular Volume 84, Mean Corpuscular Hemoglobin 27.1, Mean Corpuscular Hemoglobin Concent 32.2, Red Cell Distribution Width 15.2H, Platelet Count 314, Mean Platelet Volume 5.4L, Neutrophils (%) (Auto) 54.8, Lymphocytes (%) (Auto) 33.6, Monocytes (%) (Auto) 8.3, Eosinophils (%) (Auto) 2.4, Basophils (%) (Auto) 0.8, Sodium Level 136, Potassium Level 4.4, Chloride Level 103, Carbon Dioxide Level 30, Anion Gap 3L, Blood Urea Nitrogen 12, Creatinine 0.9, Estimat Glomerular Filtration Rate > 60, Glucose Level 109H, Calcium Level 8.2L, Rapid Plasma Reagin [Pending], Treponema pallidum Ab (FTA- ABS) [Pending] Height (Feet): 5 Height (Inches): 5.00 Weight (Pounds): 326 Objective General Appearance: no apparent distress, alert EENT: PERRL/EOMI, normal ENT inspection, TMs normal Neck: non-tender, supple Cardiovascular: normal rate, regular rhythm Respiratory/Chest: lungs clear, normal breath sounds Abdomen: soft, no organomegaly Extremities: non-tender Edema: no edema noted Arm (L), no edema noted Arm (R), no edema noted Leg (L), no edema noted Leg (R), no edema noted Pedal (L), no edema noted Pedal (R), no edema noted Generalized Neurologic: alert, oriented x 3 Skin: warm/dry Cirilo Chavez Sep 05, 2017 08:29
[2017-09-05] MEDS: ALPRAZolam 0.5mg tab ORAL PRN ×2 (08:43→14:38)
[2017-09-05] MEDS: Docusate 250mg cap ORAL SCH ×2 (08:43→18:12)
[2017-09-05] MEDS: Lisinopril 10mg tab ORAL SCH (08:47)
[2017-09-05] MEDS: DULoxetine 30mg cap ORAL SCH ×2 (08:48→18:13)
[2017-09-05] MEDS: Lyrica 75mg cap ORAL SCH ×3 (08:49→18:13)
[2017-09-05] MEDS: Heparin 5000 units/ml inj SUBQ SCH (08:53)
[2017-09-05] MEDS ORDERED: Metoprolol Succinate XL 25mg tab ORAL SCH (09:00)
--- NOTE | 2017-09-05 11:20 | GI Progress Note ---
Assessment/Plan Problems: (1) Hx of gastric bypass ICD Codes: Z98.89 - Other specified postprocedural states SNOMED: 40705504, 99632921, 614176323 (2) Iron deficiency anemia ICD Codes: D50.9 - Iron deficiency anemia, unspecified SNOMED: 75113363 (3) Iron deficiency ICD Codes: E61.1 - Iron deficiency SNOMED: 00059795 (4) Encounter for generalized patient complaints ICD Codes: Z00.8 - Encounter for other general examination SNOMED: 297310405 (5) Lupus ICD Codes: M32.9 - Systemic lupus erythematosus, unspecified SNOMED: 18203144 (6) Vomiting ICD Codes: R11.10 - Vomiting, unspecified SNOMED: 928312267 (7) Abdominal pain ICD Codes: R10.9 - Unspecified abdominal pain SNOMED: 18032457 (8) Hypoalbuminemia ICD Codes: E88.09 - Other disorders of plasma-protein metabolism, not elsewhere classified SNOMED: 242415778 (9) Morbid obesity ICD Codes: E66.01 - Morbid (severe) obesity due to excess calories SNOMED: 186888415 (10) Hepatitis C ICD Codes: B19.20 - Unspecified viral hepatitis C without hepatic coma SNOMED: 30446222 (11) Drug-seeking behavior ICD Codes: Z76.5 - Malingerer [conscious simulation] SNOMED: 398025108 (12) Depressed ICD Codes: F32.9 - Major depressive disorder, single episode, unspecified SNOMED: 68395907 Status: stable, unchanged Status Narrative Discussed with Dr. Duggan. Assessment/Plan OB stool negative symptomatic treatment at this time pain mgmt cont bowel regime cont PPI venofer outpatient Hep C treatment fu labs okay for DC per GI standpoint The patient was seen and examined at bedside and all new and available data was reviewed in the patients chart. I agree with the above findings, impression and plan. (Patient seen earlier today. Signature stamp does not reflect patient encounter time.). - Tuan Duggan MD Subjective Gastrointestinal/Abdominal: Reports: abdominal pain Subjective generalized pain nausea Objective Last 24 Hour Vital Signs Date Time Temp Pulse Resp B/P (MAP) Pulse Ox O2 Delivery O2 Flow Rate FiO2 09/05/17 10:17 98.0 09/05/17 09:48 98.0 09/05/17 09:47 98.0 09/05/17 09:00 Room Air 09/05/17 08:50 90 133/66 09/05/17 08:49 90 133/66 09/05/17 08:49 98.0 09/05/17 08:47 133/66 09/05/17 08:19 83 16 Room Air 21 09/05/17 08:00 99.0 90 16 133/66 (88) 90 99.0 09/05/17 04:00 98.0 73 20 120/80 (93) 90 98.0 09/05/17 00:00 98.2 73 19 121/77 (92) 100 98.2 09/04/17 21:00 Room Air 09/04/17 20:11 79 16 Room Air 21 09/04/17 20:00 98.7 67 20 140/90 (107) 93 98.7 09/04/17 17:33 98.0 09/04/17 17:33 98.0 09/04/17 16:00 98.0 84 19 147/75 (99) 96 98.0 09/04/17 13:41 99.4 09/04/17 12:36 99.4 09/04/17 12:00 99.4 76 18 132/74 (93) 96 99.4 Intake and Output 09/04/17 09/05/17 19:00 07:00 Intake Total 1600 ml Balance 1600 ml Other 1600 ml # Voids 3 # Bowel Movements 1 Laboratory Tests Test 09/04/17 20:00 09/05/17 07:00 Stool Occult Blood Negative (NEGATIVE) White Blood Count 7.6 K/UL (4.8-10.8) Red Blood Count 4.06 M/UL (4.20-5.40) L Hemoglobin 11.0 G/DL (12.0-16.0) L Hematocrit 34.3 % (37.0-47.0) L Mean Corpuscular Volume 84 FL (80-99) Mean Corpuscular Hemoglobin 27.1 PG (27.0-31.0) Mean Corpuscular Hemoglobin Concent 32.2 G/DL (32.0-36.0) Red Cell Distribution Width 15.2 % (11.6-14.8) H Platelet Count 314 K/UL (150-450) Mean Platelet Volume 5.4 FL (6.5-10.1) L Neutrophils (%) (Auto) 54.8 % (45.0-75.0) Lymphocytes (%) (Auto) 33.6 % (20.0-45.0) Monocytes (%) (Auto) 8.3 % (1.0-10.0) Eosinophils (%) (Auto) 2.4 % (0.0-3.0) Basophils (%) (Auto) 0.8 % (0.0-2.0) Sodium Level 136 MMOL/L (136-145) Potassium Level 4.4 MMOL/L (3.5-5.1) Chloride Level 103 MMOL/L (98-107) Carbon Dioxide Level 30 MMOL/L (21-32) Anion Gap 3 mmol/L (5-15) L Blood Urea Nitrogen 12 mg/dL (7-18) Creatinine 0.9 MG/DL (0.55-1.30) Estimat Glomerular Filtration Rate > 60 mL/min (>60) Glucose Level 109 MG/DL (74-106) H Calcium Level 8.2 MG/DL (8.5-10.1) L Rapid Plasma Reagin Pending Treponema pallidum Ab (FTA-ABS) Pending Height (Feet): 5 Height (Inches): 5.00 Weight (Pounds): 326 General Appearance: WD/WN, no apparent distress, alert, morbidly obese Cardiovascular: normal rate Respiratory/Chest: normal breath sounds, no respiratory distress Abdominal Exam: normal bowel sounds, non tender, soft Extremities: normal range of motion, non-tender Nerissa Amin MEDICAL PATHOLOGY TEACHER Sep 05, 2017 11:20
[2017-09-05 12:00] VITALS: BP 134/80
--- NOTE | 2017-09-05 12:24 | Infectious Diseases Prog Note ---
Assessment/Plan Assessment/Plan Abx: None Assessment: Lupus flare- no evidence of infectious process -u/a neg -CXR : No acute findings Afebrile, no leukocytosis R hand skin lesion, healing HTN asthma/COPD chronic opiate use Hep C chronic pain syndrome fibromyalgia SLE DJD neck and low back injuries visual problems 2ry to Plaquenil hx of Headaches SNF resident Plan: -Continue to monitor off abx; ok to discharge from ID stand point -Monitor CBC/CMP, temperatures -Lupus management -pain control -f/u RPR, FTA-abs Thank you for this consultation. Will continue to follow along with you. Discussed with RN. Subjective Allergies: Coded Allergies: Cashew (Verified Allergy, Unknown, 12/30/14) HYDROXYCHLOROQUINE (Verified Allergy, Unknown, 08/31/17) White Fish (Verified Allergy, Unknown, 01/19/15) Uncoded Allergies: FISH (Allergy, Unknown, 12/30/14) Subjective afebrile no leukcoytosis at RA Objective Vital Signs Last 24 Hour Vital Signs Date Time Temp Pulse Resp B/P (MAP) Pulse Ox O2 Delivery O2 Flow Rate FiO2 09/05/17 10:17 98.0 09/05/17 09:48 98.0 09/05/17 09:47 98.0 09/05/17 09:00 Room Air 09/05/17 08:50 90 133/66 09/05/17 08:49 90 133/66 09/05/17 08:49 98.0 09/05/17 08:47 133/66 09/05/17 08:19 83 16 Room Air 21 09/05/17 08:00 99.0 90 16 133/66 (88) 90 99.0 09/05/17 04:00 98.0 73 20 120/80 (93) 90 98.0 09/05/17 00:00 98.2 73 19 121/77 (92) 100 98.2 09/04/17 21:00 Room Air 09/04/17 20:11 79 16 Room Air 21 09/04/17 20:00 98.7 67 20 140/90 (107) 93 98.7 09/04/17 17:33 98.0 09/04/17 17:33 98.0 09/04/17 16:00 98.0 84 19 147/75 (99) 96 98.0 09/04/17 13:41 99.4 09/04/17 12:36 99.4 Height (Feet): 5 Height (Inches): 5.00 Weight (Pounds): 326 Objective GENERAL: Slightly anxious in bed, oriented x3, in no acute distress. CARDIOVASCULAR: No murmur. LUNGS: Distant and clear. ABDOMEN: Bowel sounds positive. Nontender. Nondistended. EXTREMITIES: No cyanosis, clubbing, or edema. NEUROLOGIC: The patient moves all extremities, slightly weak. Laboratory Tests Test 09/04/17 20:00 09/05/17 07:00 Stool Occult Blood Negative (NEGATIVE) White Blood Count 7.6 K/UL (4.8-10.8) Red Blood Count 4.06 M/UL (4.20-5.40) L Hemoglobin 11.0 G/DL (12.0-16.0) L Hematocrit 34.3 % (37.0-47.0) L Mean Corpuscular Volume 84 FL (80-99) Mean Corpuscular Hemoglobin 27.1 PG (27.0-31.0) Mean Corpuscular Hemoglobin Concent 32.2 G/DL (32.0-36.0) Red Cell Distribution Width 15.2 % (11.6-14.8) H Platelet Count 314 K/UL (150-450) Mean Platelet Volume 5.4 FL (6.5-10.1) L Neutrophils (%) (Auto) 54.8 % (45.0-75.0) Lymphocytes (%) (Auto) 33.6 % (20.0-45.0) Monocytes (%) (Auto) 8.3 % (1.0-10.0) Eosinophils (%) (Auto) 2.4 % (0.0-3.0) Basophils (%) (Auto) 0.8 % (0.0-2.0) Sodium Level 136 MMOL/L (136-145) Potassium Level 4.4 MMOL/L (3.5-5.1) Chloride Level 103 MMOL/L (98-107) Carbon Dioxide Level 30 MMOL/L (21-32) Anion Gap 3 mmol/L (5-15) L Blood Urea Nitrogen 12 mg/dL (7-18) Creatinine 0.9 MG/DL (0.55-1.30) Estimat Glomerular Filtration Rate > 60 mL/min (>60) Glucose Level 109 MG/DL (74-106) H Calcium Level 8.2 MG/DL (8.5-10.1) L Rapid Plasma Reagin Pending Treponema pallidum Ab (FTA-ABS) Pending Current Medications Medications (Trade) Dose Ordered Sig/Farideh Route PRN Reason Start Time Stop Time Status Last Admin Dose Admin Albuterol Sulfate (Proventil MDI) 1 puff Q4HR PRN INH Bronchospasm 08/31/17 11:00 09/30/17 08:59 Alprazolam (Xanax) 1.5 mg Q6H PRN ORAL For Anxiety 09/01/17 04:30 09/08/17 04:29 09/05/17 08:43 Amlodipine Besylate (Norvasc) 5 mg DAILY ORAL 08/31/17 09:00 09/30/17 08:59 09/05/17 08:50 Clonidine HCl (Catapres Tab) 0.1 mg Q6H PRN ORAL For High Blood Pressure 08/31/17 06:30 09/30/17 06:29 09/01/17 03:21 Cyclobenzaprine HCl (Flexeril) 10 mg BEDTIME ORAL 08/31/17 21:00 09/30/17 20:59 09/04/17 21:17 Cyclobenzaprine HCl (Flexeril) 10 mg THREE TIMES A DAY PRN ORAL Muscle Spasm 08/31/17 06:30 09/30/17 06:29 09/05/17 06:00 Diphenhydramine HCl (Benadryl) 25 mg Q6H PRN ORAL Itching 08/31/17 06:30 09/30/17 06:29 09/04/17 15:11 Diphenhydramine HCl (Benadryl) 50 mg HSPRN PRN ORAL Insomnia 08/31/17 20:30 09/30/17 20:29 08/31/17 21:49 Docusate Sodium (Colace) 250 mg BID ORAL 09/02/17 18:00 10/02/17 17:59 09/05/17 08:43 Duloxetine HCl (Cymbalta) 60 mg BID ORAL 08/31/17 09:00 09/30/17 08:59 09/05/17 08:48 Folic Acid (Folate) 1 mg DAILY ORAL 08/31/17 09:00 09/30/17 08:59 09/05/17 08:43 Heparin Sodium (Porcine) (Heparin 5000 units/ml) 5,000 units EVERY 12 HOURS SUBQ 08/31/17 09:00 09/30/17 08:59 09/04/17 08:22 Lisinopril (Zestril) 10 mg DAILY ORAL 08/31/17 09:00 09/30/17 08:59 09/05/17 08:47 Metoprolol Succinate (Toprol XL) 50 mg DAILY ORAL 09/05/17 09:00 10/05/17 08:59 09/05/17 08:49 Morphine Sulfate (Morphine Sulfate) 4 mg Q4H PRN IVP Severe Pain (Pain Scale 7-10) 08/31/17 11:30 09/07/17 07:29 09/05/17 09:47 Multivitamins (Multivitamins) 1 tab DAILY ORAL 08/31/17 09:00 09/30/17 08:59 09/05/17 08:49 Ondansetron HCl (Zofran) 4 mg Q6H PRN IVP Nausea & Vomiting 09/01/17 08:30 10/01/17 08:29 09/05/17 05:51 Oxybutynin Chloride (Ditropan) 5 mg Q8HR ORAL 08/31/17 14:00 09/30/17 13:59 09/05/17 05:45 Oxycodone HCl (Roxicodone) 10 mg Q6H PRN ORAL moderate breakthrough pain 08/31/17 11:11 09/07/17 11:10 09/05/17 08:18 Pantoprazole (Protonix) 40 mg DAILY ORAL 08/31/17 09:00 09/30/17 08:59 09/05/17 08:48 Potassium Chloride (K-Dur) 20 meq DAILY ORAL 08/31/17 09:00 09/30/17 08:59 09/05/17 08:48 Pregabalin (Lyrica) 150 mg THREE TIMES A DAY ORAL 08/31/17 09:00 09/30/17 08:59 09/05/17 08:49 Zolpidem Tartrate (Ambien) 10 mg HSPRN PRN ORAL Insomnia 09/01/17 04:00 09/08/17 03:59 09/04/17 21:22 Zoie Connolly M.D. Sep 05, 2017 12:24
[2017-09-05] MEDS ORDERED: ROXICODONE15 MG ORAL (14:24)
--- NOTE | 2017-09-05 14:34 | General Progress Note ---
Assessment/Plan Problem List: (1) Lupus (systemic lupus erythematosus) ICD Codes: M32.9 - Systemic lupus erythematosus, unspecified SNOMED: 80805903 Qualifiers: Qualified Codes: M32.9 - Systemic lupus erythematosus, unspecified (2) Obesity, morbid, BMI 40.0-49.9 ICD Codes: E66.01 - Morbid (severe) obesity due to excess calories SNOMED: 721102612 (3) Fibromyalgia ICD Codes: M79.7 - Fibromyalgia SNOMED: 51736847 (4) Intractable pain ICD Codes: R52 - Pain, unspecified SNOMED: 77371691 (5) Hypertension ICD Codes: I10 - Essential (primary) hypertension SNOMED: 18256248 (6) Multiple joint pain ICD Codes: M25.50 - Pain in unspecified joint SNOMED: 85158196 Status: stable, progressing Assessment/Plan ot pt diet pain control dc to snf if clear Subjective Constitutional: Reports: weakness Allergies: Coded Allergies: Cashew (Verified Allergy, Unknown, 12/30/14) HYDROXYCHLOROQUINE (Verified Allergy, Unknown, 08/31/17) White Fish (Verified Allergy, Unknown, 01/19/15) Uncoded Allergies: FISH (Allergy, Unknown, 12/30/14) All Systems: reviewed and negative except above Subjective sl gen pain Objective Last 24 Hour Vital Signs Date Time Temp Pulse Resp B/P (MAP) Pulse Ox O2 Delivery O2 Flow Rate FiO2 09/05/17 14:04 98.0 09/05/17 12:57 98.0 09/05/17 12:00 98.6 72 14 134/80 (98) 92 98.6 09/05/17 10:17 98.0 09/05/17 09:48 98.0 09/05/17 09:47 98.0 09/05/17 09:00 Room Air 09/05/17 08:50 90 133/66 09/05/17 08:49 90 133/66 09/05/17 08:49 98.0 09/05/17 08:47 133/66 09/05/17 08:19 83 16 Room Air 21 09/05/17 08:00 99.0 90 16 133/66 (88) 90 99.0 09/05/17 04:00 98.0 73 20 120/80 (93) 90 98.0 09/05/17 00:00 98.2 73 19 121/77 (92) 100 98.2 09/04/17 21:00 Room Air 09/04/17 20:11 79 16 Room Air 21 09/04/17 20:00 98.7 67 20 140/90 (107) 93 98.7 18 17:33 98.0 18 17:33 98.0 09/04/17 16:00 98.0 84 19 147/75 (99) 96 98.0 Intake and Output 09/04/17 09/05/17 19:00 07:00 Intake Total 1600 ml Balance 1600 ml Other 1600 ml # Voids 3 # Bowel Movements 1 Laboratory Tests 09/04/17 20:00: Stool Occult Blood Negative 09/05/17 07:00: White Blood Count 7.6, Red Blood Count 4.06L, Hemoglobin 11.0L, Hematocrit 34.3L , Mean Corpuscular Volume 84, Mean Corpuscular Hemoglobin 27.1, Mean Corpuscular Hemoglobin Concent 32.2, Red Cell Distribution Width 15.2H, Platelet Count 314, Mean Platelet Volume 5.4L, Neutrophils (%) (Auto) 54.8, Lymphocytes (%) (Auto) 33.6, Monocytes (%) (Auto) 8.3, Eosinophils (%) (Auto) 2.4, Basophils (%) (Auto) 0.8, Sodium Level 136, Potassium Level 4.4, Chloride Level 103, Carbon Dioxide Level 30, Anion Gap 3L, Blood Urea Nitrogen 12, Creatinine 0.9, Estimat Glomerular Filtration Rate > 60, Glucose Level 109H, Calcium Level 8.2L, Rapid Plasma Reagin [Pending], Treponema pallidum Ab (FTA- ABS) [Pending] Height (Feet): 5 Height (Inches): 5.00 Weight (Pounds): 326 General Appearance: lethargic EENT: normal ENT inspection Neck: normal alignment Cardiovascular: normal peripheral pulses, normal rate, regular rhythm Respiratory/Chest: chest wall non-tender, lungs clear, normal breath sounds Abdomen: normal bowel sounds, non tender, soft Extremities: normal inspection Edema: no edema noted Arm (L), no edema noted Arm (R), no edema noted Leg (L), no edema noted Leg (R), no edema noted Pedal (L), no edema noted Pedal (R), no edema noted Generalized Neurologic: responsive, motor weakness Skin: normal pigmentation, warm/dry Get Tovar DO Sep 05, 2017 14:34
[2017-09-05] MEDS ORDERED: LIDOCAINE700 M1 TP (15:21)
--- NOTE | 2017-09-05 15:30 | Pulmonology Progress Note ---
Assessment/Plan Problems: (1) Lupus (systemic lupus erythematosus) (2) KAREN (obstructive sleep apnea) (3) Intractable pain (4) Fibromyalgia (5) Hx of gastric bypass (6) Hepatitis C (7) Obesity, morbid, BMI 40.0-49.9 Assessment/Plan doing better c/o of the small lesion in palm of her hand pain is less titrate fio2 to sat of 92% check electrolytes All medications and treatment were reviewed. dc to [facility], with outpatient Rheumatology f/u Subjective ROS Limited/Unobtainable: No Constitutional: Reports: no symptoms HEENT: Repors: no symptoms Respiratory: Reports: no symptoms Allergies: Coded Allergies: Cashew (Verified Allergy, Unknown, 12/30/14) HYDROXYCHLOROQUINE (Verified Allergy, Unknown, 08/31/17) White Fish (Verified Allergy, Unknown, 01/19/15) Uncoded Allergies: FISH (Allergy, Unknown, 12/30/14) Objective Last 24 Hour Vital Signs Date Time Temp Pulse Resp B/P (MAP) Pulse Ox O2 Delivery O2 Flow Rate FiO2 09/05/17 14:38 98.0 09/05/17 14:34 98.0 09/05/17 14:04 98.0 09/05/17 13:56 98.0 09/05/17 12:57 98.0 09/05/17 12:00 98.6 72 14 134/80 (98) 92 98.6 09/05/17 09:47 98.0 09/05/17 09:00 Room Air 09/05/17 08:50 90 133/66 09/05/17 08:49 90 133/66 09/05/17 08:49 98.0 09/05/17 08:47 133/66 09/05/17 08:19 83 16 Room Air 21 09/05/17 08:00 99.0 90 16 133/66 (88) 90 99.0 09/05/17 04:00 98.0 73 20 120/80 (93) 90 98.0 09/05/17 00:00 98.2 73 19 121/77 (92) 100 98.2 09/04/17 21:00 Room Air 09/04/17 20:11 79 16 Room Air 21 09/04/17 20:00 98.7 67 20 140/90 (107) 93 98.7 09/04/17 17:33 98.0 09/04/17 17:33 98.0 09/04/17 16:00 98.0 84 19 147/75 (99) 96 98.0 Intake and Output 09/04/17 09/05/17 19:00 07:00 Intake Total 1600 ml Balance 1600 ml Other 1600 ml # Voids 3 # Bowel Movements 1 General Appearance: WD/WN HEENT: normocephalic, atraumatic Respiratory/Chest: chest wall non-tender, lungs clear Cardiovascular: normal peripheral pulses, normal rate Abdomen: normal bowel sounds, soft, non tender Genitourinary: normal external genitalia Extremities: no cyanosis Skin: no rash Neurologic/Psychiatric: litigation partner II-XII grossly normal Laboratory Tests 09/04/17 20:00: Stool Occult Blood Negative 09/05/17 07:00: White Blood Count 7.6, Red Blood Count 4.06L, Hemoglobin 11.0L, Hematocrit 34.3L , Mean Corpuscular Volume 84, Mean Corpuscular Hemoglobin 27.1, Mean Corpuscular Hemoglobin Concent 32.2, Red Cell Distribution Width 15.2H, Platelet Count 314, Mean Platelet Volume 5.4L, Neutrophils (%) (Auto) 54.8, Lymphocytes (%) (Auto) 33.6, Monocytes (%) (Auto) 8.3, Eosinophils (%) (Auto) 2.4, Basophils (%) (Auto) 0.8, Sodium Level 136, Potassium Level 4.4, Chloride Level 103, Carbon Dioxide Level 30, Anion Gap 3L, Blood Urea Nitrogen 12, Creatinine 0.9, Estimat Glomerular Filtration Rate > 60, Glucose Level 109H, Calcium Level 8.2L, Rapid Plasma Reagin [Pending], Treponema pallidum Ab (FTA- ABS) [Pending] Current Medications Medications (Trade) Dose Ordered Sig/Farideh Route PRN Reason Start Time Stop Time Status Last Admin Dose Admin Albuterol Sulfate (Proventil MDI) 1 puff Q4HR PRN INH Bronchospasm 08/31/17 11:00 09/30/17 08:59 Alprazolam (Xanax) 1.5 mg Q6H PRN ORAL For Anxiety 09/01/17 04:30 09/08/17 04:29 09/05/17 14:38 Amlodipine Besylate (Norvasc) 5 mg DAILY ORAL 08/31/17 09:00 09/30/17 08:59 09/05/17 08:50 Clonidine HCl (Catapres Tab) 0.1 mg Q6H PRN ORAL For High Blood Pressure 08/31/17 06:30 09/30/17 06:29 09/01/17 03:21 Cyclobenzaprine HCl (Flexeril) 10 mg BEDTIME ORAL 08/31/17 21:00 09/30/17 20:59 09/04/17 21:17 Cyclobenzaprine HCl (Flexeril) 10 mg THREE TIMES A DAY PRN ORAL Muscle Spasm 08/31/17 06:30 09/30/17 06:29 09/05/17 14:38 Diphenhydramine HCl (Benadryl) 25 mg Q6H PRN ORAL Itching 08/31/17 06:30 09/30/17 06:29 09/04/17 15:11 Diphenhydramine HCl (Benadryl) 50 mg HSPRN PRN ORAL Insomnia 08/31/17 20:30 09/30/17 20:29 08/31/17 21:49 Docusate Sodium (Colace) 250 mg BID ORAL 09/02/17 18:00 10/02/17 17:59 09/05/17 08:43 Duloxetine HCl (Cymbalta) 60 mg BID ORAL 08/31/17 09:00 09/30/17 08:59 09/05/17 08:48 Folic Acid (Folate) 1 mg DAILY ORAL 08/31/17 09:00 09/30/17 08:59 09/05/17 08:43 Heparin Sodium (Porcine) (Heparin 5000 units/ml) 5,000 units EVERY 12 HOURS SUBQ 08/31/17 09:00 09/30/17 08:59 09/04/17 08:22 Lisinopril (Zestril) 10 mg DAILY ORAL 08/31/17 09:00 09/30/17 08:59 09/05/17 08:47 Metoprolol Succinate (Toprol XL) 50 mg DAILY ORAL 09/05/17 09:00 10/05/17 08:59 09/05/17 08:49 Morphine Sulfate (Morphine Sulfate) 4 mg Q4H PRN IVP Severe Pain (Pain Scale 7-10) 08/31/17 11:30 09/07/17 07:29 09/05/17 14:04 Multivitamins (Multivitamins) 1 tab DAILY ORAL 08/31/17 09:00 09/30/17 08:59 09/05/17 08:49 Ondansetron HCl (Zofran) 4 mg Q6H PRN IVP Nausea & Vomiting 09/01/17 08:30 10/01/17 08:29 09/05/17 12:56 Oxybutynin Chloride (Ditropan) 5 mg Q8HR ORAL 08/31/17 14:00 09/30/17 13:59 09/05/17 14:04 Oxycodone HCl (Roxicodone) 10 mg Q6H PRN ORAL moderate breakthrough pain 08/31/17 11:11 09/07/17 11:10 09/05/17 08:18 Pantoprazole (Protonix) 40 mg DAILY ORAL 08/31/17 09:00 09/30/17 08:59 09/05/17 08:48 Potassium Chloride (K-Dur) 20 meq DAILY ORAL 08/31/17 09:00 09/30/17 08:59 09/05/17 08:48 Pregabalin (Lyrica) 150 mg THREE TIMES A DAY ORAL 08/31/17 09:00 09/30/17 08:59 09/05/17 12:57 Zolpidem Tartrate (Ambien) 10 mg HSPRN PRN ORAL Insomnia 09/01/17 04:00 09/08/17 03:59 09/04/17 21:22 Mer Powell MD Sep 05, 2017 15:30
--- NOTE | 2017-09-05 17:46 | Neurology Progress Note ---
Interim History Interim History Interim History Ms. Quiroga feels about the same as yesterday. She again has a headache. She has been able to walk steadily. She continues to complain of total body pain. The mind is still not completely clear. She continues to be cognitively impoverished. Her motor function is much better and she is more cooperative. She denies any new neurologic symptoms. Review of Systems Neuro Review of Systems Benign. Objective Physical Exam Last Vital Signs Date Time Temp Pulse Resp B/P (MAP) Pulse Ox O2 Delivery O2 Flow Rate FiO2 09/05/17 15:37 98.0 09/05/17 12:00 72 14 134/80 (98) 92 09/05/17 09:00 Room Air 09/05/17 08:19 21 Laboratory Tests Test 09/04/17 20:00 09/05/17 07:00 Stool Occult Blood Negative (NEGATIVE) White Blood Count 7.6 K/UL (4.8-10.8) Red Blood Count 4.06 M/UL (4.20-5.40) L Hemoglobin 11.0 G/DL (12.0-16.0) L Hematocrit 34.3 % (37.0-47.0) L Mean Corpuscular Volume 84 FL (80-99) Mean Corpuscular Hemoglobin 27.1 PG (27.0-31.0) Mean Corpuscular Hemoglobin Concent 32.2 G/DL (32.0-36.0) Red Cell Distribution Width 15.2 % (11.6-14.8) H Platelet Count 314 K/UL (150-450) Mean Platelet Volume 5.4 FL (6.5-10.1) L Neutrophils (%) (Auto) 54.8 % (45.0-75.0) Lymphocytes (%) (Auto) 33.6 % (20.0-45.0) Monocytes (%) (Auto) 8.3 % (1.0-10.0) Eosinophils (%) (Auto) 2.4 % (0.0-3.0) Basophils (%) (Auto) 0.8 % (0.0-2.0) Sodium Level 136 MMOL/L (136-145) Potassium Level 4.4 MMOL/L (3.5-5.1) Chloride Level 103 MMOL/L (98-107) Carbon Dioxide Level 30 MMOL/L (21-32) Anion Gap 3 mmol/L (5-15) L Blood Urea Nitrogen 12 mg/dL (7-18) Creatinine 0.9 MG/DL (0.55-1.30) Estimat Glomerular Filtration Rate > 60 mL/min (>60) Glucose Level 109 MG/DL (74-106) H Calcium Level 8.2 MG/DL (8.5-10.1) L Rapid Plasma Reagin Pending Treponema pallidum Ab (FTA-ABS) Pending Neurologic Exam Objective PHYSICAL EXAMINATION: GENERAL: She is a well-developed, well-nourished, obese, black lady, lying in bed, in no acute distress. HEAD: Normocephalic and atraumatic. EENT: Examination benign. NECK: No neck rigidity was observed. NEUROLOGICAL EXAMINATION: MENTAL STATUS EXAMINATION: She was awake and alert. She was oriented to [facility], [facility], and September 05, 2017. She was able to recall 3/3 words immediately, but could only remember 2/3 words in 1 minute and 3 minutes. She was able to remember presidents, Trump and Obama, but could not remember presidents prior to that. Her mathematical skills were impaired. Her visuospatial function was also impaired. She had minimal slowing of a cerebration. She was more cooperative. SPEECH: She had no dysarthria. LANGUAGE: She had anomia for low-frequency words. CRANIAL NERVE EXAMINATION: II: The visual byrd were intact on confrontation testing. III, IV & : External ocular movements were full and the pupils 3 mm in diameter, equal, round, regular, and reactive to light. V: She had normal facial sensations and the temporales, masseters, and pterygoids functioned normally. VII: She had normal facial expressions and no facial asymmetry. VIII: She was able to hear well bilaterally and had no nystagmus. IX: The palate moved symmetrically on phonation. X: She had no hoarseness of voice. XI: The sternocleidomastoids and trapezii functioned normally. XII: The tongue was in the midline without any fasciculations or atrophy. MOTOR SYSTEM: The tone was normal in all four extremities. Examination of muscle mass revealed no focal wasting. Examination of power revealed G 5/5 power. SENSORY EXAMINATION: She responded to painful stimuli equally in all four extremities. She did not cooperate for testing other sensory modalities. REFLEXES: Trace+ and bilaterally symmetrical at the biceps, triceps, brachioradialis, and knees, 0 at both ankles. The plantar responses were flexor bilaterally. COORDINATION: She performed well on [id number] testing. STANCE & GAIT: She was able to stand and walk normally. Impression/Recommendations Diagnostic Impression 1. Ms. Vanna Quiroga is a 41-year-old, right-handed, black lady, who does have past history of fibromyalgia, lupus, neck injuries, low back injuries, degenerative joint disease involving the spine, visual problems, headache, chronic pain, chronic opiate use, hypertension, asthma, and hepatitis C who was hospitalized for generalized worsening of her pain, and in addition she has been bothered by the mind not being very clear. 2. She feels about the same as yesterday. She again has a headache. She has been able to walk steadily. She continues to complain of total body pain. The mind is still not completely clear. She continues to be cognitively impoverished. Her motor function is much better and she is more cooperative. She denies any new neurologic symptoms. 3. On neurological examination at this time, her cerebration is faster than when I first saw her but about the same as yesterday. She is fully oriented. She still has problems with memory, visuospatial function, higher cognitive function, and language. Her motor function is normal now that she is giving an adequate effort. She is unable to cooperate for sensory testing, and has globally diminished reflexes. She is able to stand and walk normally. 4. Laboratory data obtained thus far had revealed that she is mildly anemic with a hemoglobin of 11.7, her ESR is elevated to 49. Her chemistry panel reveals a sodium which is minimally low at 135, blood glucose is elevated to 153 , her albumin is low at 3.0, B12 is low at 305, folate is normal at 34.4, and her urinalysis is benign. Her HB A1c is elevated at 6.2% 5. Her EEG done on 09/01/17 revealed a mild encephalopathy of a toxic nature. 5. The patient's history, neurological examination, and laboratory data are most compatible with rheumatological diseases mainly the systemic lupus erythematosus and fibromyalgia associated with a chronic pain syndrome and chronic opiate use. 6. She does have a mild toxic encephalopathy leading to slowing of cerebration and possibly some underlying cognitive dysfunction. Recommendations 1. Continue present management. 2. Treatment of rheumatological illnesses. 3. Pain management as per pain knowledge management advisor. 4. Attempt should be made to minimize her mind-altering drugs. 5. Vitamin B12 parenterally. 6. Increase activity. 7. Observe. Cesar Walton M.D., M.S.P.H. CESAR WALTON Sep 05, 2017 17:46
[2017-09-05] MEDS: Zolpidem 5mg tab ORAL PRN (19:41)
[2017-09-05 20:00] VITALS: BP 135/81
--- NOTE | 2017-09-06 08:40 | Discharge Summary ---
Discharge Summary Discharge Summary _ DATE OF ADMISSION: 08/30/2017 DATE OF DISCHARGE: 09/05/2017 CONSULTANTS: Dr. Fabian Esparza [facility] COURSE: Patient is a 41-year-old female, who resides at [facility], presented with increased bilateral hand pain, shortness of breath and bilateral hip pain. Patient has history of lupus. She complained of severe pain unrelieved with pain medications. She has medical history significant for hypertension, asthma, rheumatoid arthritis, hepatitis C, fibromyalgia, Sjogren's disease, degenerative joint disease involving multiple joints including the spine, and visual problems secondary to Plaquenil . She was brought to emergency room. Blood work was stable. ESR was 49. She was given pain medications with no relief. She was then admitted for lupus flareup. She was seen by pain management. Oxycodone was increased to 10 mg every 6 hours , she was given morphine 4 mg IV every 4 hours and Lyrica 150 mg 3 times a day. She was given muscle relaxants 10 mg 3 times a day prn. She has history of obesity and obstructive sleep apnea. Chest x-ray with no acute findings. She underwent neuro evaluation. She denied any specific localized weakness or numbness. B12 was low. She was given B12 injections. She had an EEG that revealed mild encephalopathy of a toxic nature. Patient has mild toxic encephalopathy leading to slowing of cerebration and possibly underlying cognitive dysfunction. She had elevated blood pressure. She was given amlodipine and lisinopril. Metoprolol XL was increased to 50 mg daily. She complained of generalized abdominal pain. There was no nausea, vomiting or diarrhea. She had iron deficiency anemia. Stool OB was negative. She was given proton pump inhibitors. She had high levels of anxiety and mood lability. She was given Cymbalta 60 mg twice a day and Ambien 10 mg daily at bedtime prn. 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 She was given Xanax 1.5 mg every 6 hours. There was no evidence of infectious process that caused lupus flare. Urinalysis was negative, RPR nonreactive and patient was afebrile with no leukocytosis. She was observed off antibiotics. She was discharged back to intermediate. 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 DISCHARGE MEDICATIONS: Refer to Discharge Medication List. I have been assigned to dictate discharge summary on this account, and I was not involved in the patient's management. Molly Green NP Sep 06, 2017 08:40
== END 2017-09-05 20:15 | DRG 545 ==
LOC: EDBD 18:57 → EMR 19:05 → 4E 21:10 → EDBEDREQ 22:04
DX: M32.9 Systemic lupus erythematosus, unspecified (principal); G92 Toxic encephalopathy; F33.9 Major depressive disorder, recurrent, unspecified; Z68.41 Body mass index [BMI] 40.0-44.9, adult; E66.01 Morbid (severe) obesity due to excess calories; G47.33 Obstructive sleep apnea (adult) (pediatric); B19.20 Unspecified viral hepatitis C without hepatic coma; Z88.8 Allergy status to other drugs, medicaments and biological substances; M06.9 Rheumatoid arthritis, unspecified; M25.552 Pain in left hip; M25.551 Pain in right hip; M79.643 Pain in unspecified hand; I11.0 Hypertensive heart disease with heart failure; I50.9 Heart failure, unspecified; M35.00 Sjogren syndrome, unspecified; M79.7 Fibromyalgia; D64.9 Anemia, unspecified; F41.1 Generalized anxiety disorder; D50.9 Iron deficiency anemia, unspecified; J44.9 Chronic obstructive pulmonary disease, unspecified; E53.8 Deficiency of other specified B group vitamins; Z98.84 Bariatric surgery status; M51.16 Intervertebral disc disorders with radiculopathy, lumbar region; R00.0 Tachycardia, unspecified; F20.9 Schizophrenia, unspecified; M54.12 Radiculopathy, cervical region; Z76.5 Malingerer [conscious simulation]; R51 Headache
CPT/HCPCS: 36415; 71045; 80048; 80053; 81003; 81025; 82270; 82306; 82378; 82607; 82746; 83036; 83540; 83550; 83615; 83690; 84443; 85007; 85025; 85044; 85060; 85610; 85651; 85730; 86592; 86780; 87081; 94664; 95819; 97803; 99285; J2405; J8499

== ENCOUNTER 2017-11-08 19:30 | Inpatient (IN) | payer MEDICARE, OTHER ==
[~2017-11-08] VITALS: Ht 172.7 cm; Wt 134.3 kg
[2017-11-08 19:27] VITALS: BP 150/80
[~2017-11-08 19:30] MED LIST changes: +BENADRYL25 MG ORAL; +CYCLOBENZAPRINE10 MG ORAL; +FUROSEMIDE20 M1 ORAL; +LIDOCAINE700 M1 TP
[2017-11-08] MEDS ORDERED: Sodium Chloride 500ML 500 ML IV ONE (19:46)
[2017-11-08] MEDS ORDERED: DiphenhydrAMINE 50mg/ml Inj IVP ONE (20:00)
[2017-11-08] MEDS ORDERED: Metoclopramide 10mg/2ml Inj IVP ONE (20:00)
--- NOTE | 2017-11-08 20:20 | Emergency Room Report ---
History of Present Illness General Chief Complaint: Pain Source: Patient, EMS Present Illness HPI 41-year-old female, coming from [facility], for headache, nausea, vomiting. She has history of lupus, fibromyalgia, chronic pain. Says that she's had a headache for 6 months. Has not yet seen a neurologist but she has an appointment. She is visiting her pain specialist, she has been taking oxycodone , Excedrin, says that nothing is working for her headache. It is intermittent, throbbing, bilateral head. Says that she has damage to her retinas from Plaquenil, so the light also makes the pain worse. Says that has the headache has been worse the last 2 days. No fever no chills. Has chronic neck pain and back pain from multiple disc herniations. Allergies: Coded Allergies: Cashew (Verified Allergy, Unknown, 12/30/14) HYDROQUINONE (Unverified Allergy, Unknown, 11/08/17) HYDROXYCHLOROQUINE (Verified Allergy, Unknown, 08/31/17) White Fish (Verified Allergy, Unknown, 01/19/15) Uncoded Allergies: FISH (Allergy, Unknown, 12/30/14) Patient History Past Medical History: see triage record Past Surgical History: none Pertinent Family History: none Last Menstrual Period: 11/05/17 Reviewed Nursing Documentation: PMH: Agreed; PSxH: Agreed Nursing Documentation-PMH Past Medical History: No History, Except For Hx Cardiac Problems: Yes - CHF Hx Asthma: Yes Hx COPD: Yes Hx Cancer: No Hx Gastrointestinal Problems: Yes Hx Neurological Problems: Yes - Fibromyalgia; Lupus Hx Spinal Cord Injury: Yes - 2012 Review of Systems All Other Systems: negative except mentioned in HPI Physical Exam Vital Signs Date Time Temp Pulse Resp B/P (MAP) Pulse Ox O2 Delivery O2 Flow Rate FiO2 11/08/17 19:22 98.2 70 16 150/80 98 Room Air 98.2 Sp02 EP Interpretation: reviewed, normal General Appearance: alert, GCS 15, non-toxic, mild distress Head: normocephalic, atraumatic Eyes: bilateral eye normal inspection, bilateral eye PERRL, bilateral eye EOMI ENT: normal ENT inspection, normal pharynx, normal voice, moist mucus membranes Neck: normal inspection, full range of motion, supple Respiratory: normal inspection, lungs clear, normal breath sounds, no respiratory distress, no retraction, no wheezing, speaking full sentences, chest symmetrical Cardiovascular #1: normal inspection, regular rate, rhythm, normal capillary refill Cardiovascular #2: 2+ radial (R), 2+ radial (L) Gastrointestinal: normal inspection, non tender, soft, non-distended, no guarding Musculoskeletal: normal inspection, back normal, normal range of motion, non- tender Neurologic: normal inspection, alert, oriented x3, responsive, motor strength/ tone normal, sensory intact, normal gait, speech normal Psychiatric: normal inspection, judgement/insight normal, memory normal Skin: normal inspection, normal color, no rash, warm/dry, well hydrated, normal turgor Medical Decision Making Diagnostic Impression: Primary Impression: Headache ER Course 41-year-old female headache for 6 months worsening last 3 days DDX: Primary LACY such as migraine, tension LACY, cluster. vs. dehydration Other serious diagnoses on differential such as intracranial bleed/sah, meningitis/encephalitis, tumor, however patients H&P is more consistent with benign etiology at this time. There are no neurological signs/symptoms/findings on physical exam and patient appears nontoxic. Plan: Pain control with reglan/benadryl, IVF ER course: Patient continues to appear nontoxic, aox3, no neurologic symptoms. still not feeling well, despite meds unlikely to be meningitis, no meningismus, pain has been chronic will admit for acute on chronic pain Disposition: Admitted to medicine under Dr Get Tovar Please note that this Emergency Department Report was dictated using FohBohlighting technician technology software, occasionally this can lead to erroneous entry secondary to interpretation by the dictation equipment. Laboratory Tests Test 11/08/17 20:10 White Blood Count 7.2 K/UL (4.8-10.8) Red Blood Count 4.41 M/UL (4.20-5.40) Hemoglobin 12.3 G/DL (12.0-16.0) Hematocrit 37.4 % (37.0-47.0) Mean Corpuscular Volume 85 FL (80-99) Mean Corpuscular Hemoglobin 27.9 PG (27.0-31.0) Mean Corpuscular Hemoglobin Concent 32.9 G/DL (32.0-36.0) Red Cell Distribution Width 15.6 % (11.6-14.8) H Platelet Count 257 K/UL (150-450) Mean Platelet Volume 6.3 FL (6.5-10.1) L Neutrophils (%) (Auto) 47.0 % (45.0-75.0) Lymphocytes (%) (Auto) 40.5 % (20.0-45.0) Monocytes (%) (Auto) 8.8 % (1.0-10.0) Eosinophils (%) (Auto) 2.4 % (0.0-3.0) Basophils (%) (Auto) 1.3 % (0.0-2.0) Sodium Level 131 MMOL/L (136-145) L Potassium Level 4.4 MMOL/L (3.5-5.1) Chloride Level 102 MMOL/L (98-107) Carbon Dioxide Level 23 MMOL/L (21-32) Anion Gap 6 mmol/L (5-15) Blood Urea Nitrogen 9 mg/dL (7-18) Creatinine 0.8 MG/DL (0.55-1.30) Estimate Glomerular Filtration Rate > 60 mL/min (>60) Glucose Level 100 MG/DL (74-106) Calcium Level 8.7 MG/DL (8.5-10.1) Total Bilirubin 0.2 MG/DL (0.2-1.0) Aspartate Amino Transferase (AST) 38 U/L (15-37) H Alanine Aminotransferase (ALT) 36 U/L (12-78) Alkaline Phosphatase 91 U/L (46-116) Total Protein 8.1 G/DL (6.4-8.2) Albumin 2.6 G/DL (3.4-5.0) L Globulin 5.5 g/dL Albumin/Globulin Ratio 0.5 (1.0-2.7) L Lipase 71 U/L (73-393) L Last Vital Signs Date Time Temp Pulse Resp B/P (MAP) Pulse Ox O2 Delivery O2 Flow Rate FiO2 11/08/17 19:27 98.2 16 150/80 98 Room Air 98.2 11/08/17 19:22 70 Disposition: ADMITTED INPATIENT Condition: Charlie Burroughs M.D. Nov 08, 2017 20:20
[2017-11-08 20:41] LABS: BASOPHILS % (AUTO) 1.3 % (0.0-2.0); EOSINOPHILS % (AUTO) 2.4 % (0.0-3.0); HEMATOCRIT 37.4 % (37.0-47.0); HEMOGLOBIN 12.3 G/DL (12.0-16.0); LYMPHOCYTES % (AUTO) 40.5 % (20.0-45.0); MEAN CORPUSCULAR VOLUME 85 FL (80-99); MONOCYTES % (AUTO) 8.8 % (1.0-10.0); PLATELET COUNT 257 K/UL (150-450); RED BLOOD COUNT 4.41 M/UL (4.20-5.40); RED CELL DISTRIBUTION WIDTH 15.6 % (11.6-14.8); WHITE BLOOD COUNT 7.2 K/UL (4.8-10.8)
[2017-11-08 20:42] LABS: ANION GAP 6 mmol/L (5-15); BLOOD UREA NITROGEN 9 mg/dL (7-18); CALCIUM 8.7 MG/DL (8.5-10.1); CARBON DIOXIDE 23 MMOL/L (21-32); CHLORIDE 102 MMOL/L (98-107); CREATININE 0.8 MG/DL (0.55-1.30); POTASSIUM 4.4 MMOL/L (3.5-5.1); SODIUM 131 MMOL/L (136-145)
[2017-11-08 20:46] LABS: ALANINE AMINOTRANSFERASE 36 U/L (12-78); ALBUMIN 2.6 G/DL (3.4-5.0); ALBUMIN/GLOBULIN RATIO 0.5 (1.0-2.7); ALKALINE PHOSPHATASE 91 U/L (46-116); ASPARTATE AMINO TRANSFERASE 38 U/L (15-37); BILIRUBIN,TOTAL 0.2 MG/DL (0.2-1.0)
[2017-11-08] MEDS ORDERED: Ketorolac 30mg Inj IV ONE (21:00)
[2017-11-08] MEDS ORDERED: TOPROL XL PO (21:15)
[2017-11-08] MEDS ORDERED: LIDOCAINE PATCH 5% SOFTTIS (21:18)
[2017-11-08] MEDS ORDERED: Miralax 17gm pkt ORAL PRN (21:30)
[2017-11-08] MEDS ORDERED: oxyCODONE 15mg IR tab ORAL PRN (21:30)
[2017-11-08] MEDS ORDERED: Mylanta II UD 30ml ORAL PRN (21:30)
[2017-11-08 21:44] LABS: APPEARANCE,URINE CLEAR; BILIRUBIN, URINE NEGATIVE (NEGATIVE); GLUCOSE, URINE (UA) NEGATIVE (NEGATIVE); KETONES,URINE NEGATIVE (NEGATIVE); LEUKOCYTE ESTERASE ,URINE NEGATIVE (NEGATIVE); NITRITE,URINE NEGATIVE (NEGATIVE); PH,URINE 6 (4.5-8.0); PROTEIN,URINE NEGATIVE (NEGATIVE); UROBILINOGEN,URINE 1 MG/DL (0.0-1.0)
[2017-11-08 21:48] LABS: COLOR,URINE YELLOW
[2017-11-08] MEDS ORDERED: DSS PO (21:50)
[2017-11-08] MEDS ORDERED: FENTANYL1 EAC4 TDERMAL (21:50)
[2017-11-08] MEDS ORDERED: TOPIRAMATE25 MG ORAL (21:51)
[2017-11-08] MEDS ORDERED: Zolpidem 5mg tab ORAL PRN (22:30)
[2017-11-08 22:39] VITALS: BP 148/75
[2017-11-08] MEDS: Morphine Sulfate 4mg/ml Inj (IV USE ONLY) IVP PRN (23:29)
[2017-11-09] VITALS: BP 127/64
[2017-11-09] MEDS: Zolpidem 5mg tab ORAL PRN ×3 (00:37→21:54)
[2017-11-09] MEDS: LORazepam Inj 2mg/ml 1ml IV PRN ×2 (02:59→11:18)
[2017-11-09] MEDS: Morphine Sulfate 4mg/ml Inj (IV USE ONLY) IVP PRN ×4 (05:08→20:20)
[2017-11-09 08:00] VITALS: BP 143/83
[2017-11-09] MEDS: DULoxetine 30mg cap ORAL SCH ×2 (08:32→18:58)
[2017-11-09] MEDS: Heparin 5000 units/ml inj SUBQ SCH ×2 (08:32→21:00)
[2017-11-09] MEDS: Lisinopril 10mg tab ORAL SCH (08:33)
[2017-11-09] MEDS: Lyrica 75mg cap ORAL SCH ×3 (08:33→18:58)
[2017-11-09] MEDS: Sennosides 8.6mg ORAL SCH ×2 (08:34→18:58)
[2017-11-09 08:58] LABS: BASOPHILS % (AUTO) 0.6 % (0.0-2.0); EOSINOPHILS % (AUTO) 2.6 % (0.0-3.0); HEMATOCRIT 35.2 % (37.0-47.0); HEMOGLOBIN 11.7 G/DL (12.0-16.0); LYMPHOCYTES % (AUTO) 39.4 % (20.0-45.0); MEAN CORPUSCULAR VOLUME 85 FL (80-99); MONOCYTES % (AUTO) 7.9 % (1.0-10.0); NEUTROPHILS % (AUTO) 49.4 % (45.0-75.0); PLATELET COUNT 327 K/UL (150-450); RED BLOOD COUNT 4.16 M/UL (4.20-5.40); RED CELL DISTRIBUTION WIDTH 15.5 % (11.6-14.8); WHITE BLOOD COUNT 7.2 K/UL (4.8-10.8)
[2017-11-09 09:25] LABS: ALANINE AMINOTRANSFERASE 38 U/L (12-78); ALBUMIN 2.6 G/DL (3.4-5.0); ALBUMIN/GLOBULIN RATIO 0.5 (1.0-2.7); ALKALINE PHOSPHATASE 86 U/L (46-116); ANION GAP 6 mmol/L (5-15); ASPARTATE AMINO TRANSFERASE 31 U/L (15-37); BILIRUBIN,TOTAL 0.2 MG/DL (0.2-1.0); BLOOD UREA NITROGEN 8 mg/dL (7-18); CALCIUM 8.5 MG/DL (8.5-10.1); CARBON DIOXIDE 27 MMOL/L (21-32); CHLORIDE 105 MMOL/L (98-107); CREATININE 0.8 MG/DL (0.55-1.30); POTASSIUM 4.1 MMOL/L (3.5-5.1); SODIUM 138 MMOL/L (136-145)
[2017-11-09] MEDS ORDERED: oxyCODONE 5mg IR tab ORAL PRN (10:30)
[2017-11-09 12:00] VITALS: BP 139/92
--- NOTE | 2017-11-09 12:33 | Consultation ---
History of Present Illness General Date patient seen: Nov 09, 2017 Chief Complaint: Pain Present Illness HPI 41-year-old female with hx of asthma, COPD, SLE, Hep C, fibromyalgia, morbid obesity, incapacitated, bed bound, alf resident, presented to ER with CC of headache, nausea, vomiting and a headache for 6 months. The pain is intermittent, throbbing, bilateral and worse in the last 2 days. No fever no chills. Has chronic neck pain and back pain from multiple disc herniations. Pt is admitted for intractable pain. Allergies: Coded Allergies: Cashew (Verified Allergy, Unknown, 12/30/14) HYDROQUINONE (Unverified Allergy, Unknown, 11/08/17) HYDROXYCHLOROQUINE (Verified Allergy, Unknown, 08/31/17) White Fish (Verified Allergy, Unknown, 01/19/15) Uncoded Allergies: FISH (Allergy, Unknown, 12/30/14) Medication History Scheduled Acetaminophen (Tylenol), 325 MG ORAL Q4HR, (Reported) Acetaminophen (Acetaminophen), 325 MG PO Q4HR, (Reported) Al Hydroxide/mg Hydroxide (Mag-Al Liquid), 30 ML PO Q4HR, (Reported) Al Hydroxide/mg Hydroxide (Mag-Al Liquid), 30 ML ORAL Q6HR, (Reported) Albuterol Sulfate* (Proair Hfa*), 1 PUFF INH Q4HR, (Reported) Amlodipine Besylate* (Amlodipine Besylate*), 5 MG ORAL DAILY, (Reported) Carisoprodol* (Soma*), 350 MG PO TID, (Reported) Docusate Sodium* (Colace*), 250 MG ORAL BID, (Reported) Duloxetine Hcl* (Cymbalta*), 60 MG ORAL BID, (Reported) Fentanyl 12MCG Patch* (Fentanyl 12MCG Patch*), 1 PATCH TDERMAL EVERY 72 HOURS, ( Reported) Fentanyl 25MCG Patch* (Fentanyl 25MCG Patch*), 1 PATCH TDERMAL EVERY 72 HOURS, ( Reported) Fluticasone/Salmeterol (Advair Hfa 115-21 Mcg Inhaler), 2 PUFFS INH EVERY 12 HOURS, (Reported) Fluticasone/Vilanterol (Breo Ellipta 100-25 Mcg INH), 1 EACH IH DAILY, (Reported ) Folic Acid* (Folic Acid*), 1 MG ORAL DAILY, (Reported) Furosemide* (Lasix*), 40 MG ORAL DAILY, (Reported) Gabapentin* (Neurontin*), 800 MG ORAL TID, (Reported) Heparin Sod (Porcine) (Heparin Sodium*), 5,000 UNITS SUBQ EVERY 12 HOURS, ( Reported) Ipratropium/Albuterol Sulfate (DuoNeb 0.5-3(2.5)mg/3ml), 3 ML HHN Q4HR, ( Reported) Lidocaine (Lidocaine), 700 MG TP DAILY, (Reported) Lisinopril* (Lisinopril*), 10 MG ORAL DAILY, (Reported) Morphine Sulfate (Morphine Sulfate), 4 MG IV Q4HR, (Reported) Multivitamin (Multivitamins), 1 EACH PO DAILY, (Reported) Oxybutynin Chloride (Ditropan Xl), 5 MG ORAL THREE TIMES A DAY, (Reported) Pantoprazole* (Protonix*), 40 MG ORAL DAILY, (Reported) Potassium Chloride* (K-Dur*), 10 MEQ ORAL DAILY, (Reported) Potassium Chloride* (K-Dur*), 20 MEQ ORAL DAILY, (Reported) Prednisone* (Prednisone*), 20 MG ORAL DAILY Pregabalin* (Lyrica*), 150 MG ORAL THREE TIMES A DAY, (Reported) Sennosides (Senna), 8.6 MG PO BID, (Reported) Sennosides (Senna-Gen), 17.2 MG PO BID, (Reported) Topiramate* (Topamax*), 25 MG ORAL TWICE A DAY, (Reported) [Dss], 250 MG PO BID, (Reported) [Lidocaine Patch 5%], 2 PATCH SOFTTIS Q12HR, (Reported) [Lidocaine Patch], TD BID, (Reported) [Toprol Xl], 75 MG PO DAILY, (Reported) Scheduled PRN Bisacodyl (Dulcolax), 10 MG RC DAILY PRN for Constipation, (Reported) Bismuth Subsalicylate ([place] Bismuth), 30 MG PO BID PRN for Per rx protocol, ( Reported) Cyclobenzaprine Hcl* (Flexeril*), 10 MG ORAL THREE TIMES A DAY PRN for fibromyalgia pain, (Reported) Diphenhydramine Hcl* (Benadryl*), 125 MG ORAL Q6H PRN for Itching, (Reported) Metoclopramide Hcl* (Reglan*), 5 MG ORAL EVERY 6 HOURS PRN for Nausea & Vomiting , (Reported) OXYCODONE HCl* (Roxicodone*), 10 MG ORAL Q4HR PRN for For Pain, (Reported) Ondansetron* (Zofran*), 4 MG ORAL DAILY PRN for Nausea & Vomiting, (Reported) Oxycodone Hcl* (Oxycodone Hcl*), 5 MG ORAL Q4HR PRN for Moderate Pain (Pain Scale 4-6), (Reported) Polyethylene Glycol 3350* (Miralax*), 17 GM ORAL DAILY PRN for Constipation, ( Reported) Miscellaneous Medications Lidocaine (Lidoderm), 2 PATCH TOPIC, (Reported) Naloxone HCl (Naloxone HCl), 0.1 MG IV, (Reported) [Miralax powder], (Reported) Patient History Healthcare decision maker Resuscitation status Full Code Advanced Directive on File Past Medical/Surgical History Past Medical/Surgical History: (1) Hx of gastric bypass (2) Iron deficiency (3) Degenerative disc disease, cervical (4) History of asthma (5) Lupus (6) Morbid obesity (7) Migraine (8) Fibromyalgia Review of Systems Constitutional: Reports: malaise Musculoskeletal: Reports: back pain, joint pain, joint swelling, muscle pain, muscle stiffness Physical Exam General Appearance: WD/WN, obese Lines, tubes and drains: peripheral HEENT: normocephalic, atraumatic Neck: non-tender, normal alignment Respiratory/Chest: chest wall non-tender, lungs clear Breasts: no masses Cardiovascular/Chest: normal peripheral pulses Abdomen: normal bowel sounds, non tender Genitourinary/Rectal: normal genital exam Extremities: normal range of motion Skin Exam: warm/dry 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 Last 24 Hour Vital Signs Date Time Temp Pulse Resp B/P (MAP) Pulse Ox O2 Delivery O2 Flow Rate FiO2 11/09/17 09:51 99.1 11/09/17 09:21 99.1 11/09/17 09:03 99.1 11/09/17 08:34 68 143/83 11/09/17 08:33 99.1 11/09/17 08:33 143/83 11/09/17 08:00 99.1 68 20 143/83 (103) 98 99.1 11/09/17 03:42 Room Air 11/09/17 00:00 98.7 60 18 127/64 (85) 97 98.7 11/08/17 23:25 98.2 72 16 148/75 98 Room Air 98.2 11/08/17 22:39 98.2 72 16 148/75 98 Room Air 98.2 11/08/17 21:08 98.2 11/08/17 19:27 98.2 16 150/80 98 Room Air 98.2 11/08/17 19:22 98.2 70 16 150/80 98 Room Air 98.2 Intake and Output 11/08/17 11/09/17 19:00 07:00 Intake Total 480 ml Balance 480 ml Intake Oral 480 ml Laboratory Tests Test 11/08/17 20:10 11/08/17 21:10 11/09/17 08:00 White Blood Count 7.2 K/UL (4.8-10.8) 7.2 K/UL (4.8-10.8) Red Blood Count 4.41 M/UL (4.20-5.40) 4.16 M/UL (4.20-5.40) L Hemoglobin 12.3 G/DL (12.0-16.0) 11.7 G/DL (12.0-16.0) L Hematocrit 37.4 % (37.0-47.0) 35.2 % (37.0-47.0) L Mean Corpuscular Volume 85 FL (80-99) 85 FL (80-99) Mean Corpuscular Hemoglobin 27.9 PG (27.0-31.0) 28.2 PG (27.0-31.0) Mean Corpuscular Hemoglobin Concent 32.9 G/DL (32.0-36.0) 33.4 G/DL (32.0-36.0) Red Cell Distribution Width 15.6 % (11.6-14.8) H 15.5 % (11.6-14.8) H Platelet Count 257 K/UL (150-450) 327 K/UL (150-450) Mean Platelet Volume 6.3 FL (6.5-10.1) L 5.7 FL (6.5-10.1) L Neutrophils (%) (Auto) 47.0 % (45.0-75.0) 49.4 % (45.0-75.0) Lymphocytes (%) (Auto) 40.5 % (20.0-45.0) 39.4 % (20.0-45.0) Monocytes (%) (Auto) 8.8 % (1.0-10.0) 7.9 % (1.0-10.0) Eosinophils (%) (Auto) 2.4 % (0.0-3.0) 2.6 % (0.0-3.0) Basophils (%) (Auto) 1.3 % (0.0-2.0) 0.6 % (0.0-2.0) Sodium Level 131 MMOL/L (136-145) L 138 MMOL/L (136-145) Potassium Level 4.4 MMOL/L (3.5-5.1) 4.1 MMOL/L (3.5-5.1) Chloride Level 102 MMOL/L (98-107) 105 MMOL/L (98-107) Carbon Dioxide Level 23 MMOL/L (21-32) 27 MMOL/L (21-32) Anion Gap 6 mmol/L (5-15) 6 mmol/L (5-15) Blood Urea Nitrogen 9 mg/dL (7-18) 8 mg/dL (7-18) Creatinine 0.8 MG/DL (0.55-1.30) 0.8 MG/DL (0.55-1.30) Estimat Glomerular Filtration Rate > 60 mL/min (>60) > 60 mL/min (>60) Glucose Level 100 MG/DL (74-106) 114 MG/DL (74-106) H Calcium Level 8.7 MG/DL (8.5-10.1) 8.5 MG/DL (8.5-10.1) Total Bilirubin 0.2 MG/DL (0.2-1.0) 0.2 MG/DL (0.2-1.0) Aspartate Amino Transf (AST/SGOT) 38 U/L (15-37) H 31 U/L (15-37) Alanine Aminotransferase (ALT/SGPT) 36 U/L (12-78) 38 U/L (12-78) Alkaline Phosphatase 91 U/L (46-116) 86 U/L (46-116) Total Protein 8.1 G/DL (6.4-8.2) 7.8 G/DL (6.4-8.2) Albumin 2.6 G/DL (3.4-5.0) L 2.6 G/DL (3.4-5.0) L Globulin 5.5 g/dL 5.2 g/dL Albumin/Globulin Ratio 0.5 (1.0-2.7) L 0.5 (1.0-2.7) L Lipase 71 U/L (73-393) L Urine Color Yellow Urine Appearance Clear Urine pH 6 (4.5-8.0) Urine Specific [place] 1.010 (1.005-1.035) Urine Protein Negative (NEGATIVE) Urine Glucose (UA) Negative (NEGATIVE) Urine Ketones Negative (NEGATIVE) Urine Blood Negative (NEGATIVE) Urine Nitrite Negative (NEGATIVE) Urine Bilirubin Negative (NEGATIVE) Urine Urobilinogen 1 MG/DL (0.0-1.0) H Urine Leukocyte Esterase Negative (NEGATIVE) Urine HCG, Qualitative Negative (NEGATIVE) Thyroid Stimulating Hormone (TSH) 1.600 uiU/mL (0.358-3.740) Microbiology Date/Time Source Procedure Growth Status 11/08/17 21:30 Rectum Received Height (Feet): 5 Height (Inches): 8.00 Weight (Pounds): 296 Medications Current Medications Medications (Trade) Dose Ordered Sig/Farideh Route PRN Reason Start Time Stop Time Status Last Admin Dose Admin Acetaminophen (Tylenol) 650 mg Q4H PRN ORAL fever 11/08/17 21:30 12/08/17 21:29 Al Hydroxide/Mg Hydroxide (Mylanta II) 30 ml Q6H PRN ORAL dyspepsia 11/08/17 21:30 12/08/17 21:29 Alprazolam (Xanax) 1.5 mg Q6H PRN ORAL For Anxiety 11/09/17 12:15 11/16/17 12:14 UNV Amlodipine Besylate (Norvasc) 5 mg DAILY ORAL 11/09/17 09:00 12/09/17 08:59 11/09/17 08:34 Carisoprodol (Soma) 350 mg THREE TIMES A DAY ORAL 11/09/17 13:00 12/09/17 12:59 UNV Clonidine HCl (Catapres Tab) 0.1 mg EVERY 6 HOURS PRN ORAL For High Blood Pressure 11/09/17 12:15 12/09/17 12:14 UNV Cyclobenzaprine HCl (Flexeril) 10 mg TIDPRN PRN ORAL fibromyalgia pain 11/08/17 21:00 12/08/17 20:59 Dextrose (Dextrose 50%) STAT PRN IV Hypoglycemia 11/08/17 21:30 12/08/17 21:29 Duloxetine HCl (Cymbalta) 60 mg BID ORAL 11/09/17 09:00 12/09/17 08:59 11/09/17 08:32 Fentanyl (Duragesic) 1 patch EVERY 72 HOURS TDERMAL 11/11/17 09:00 11/18/17 08:59 Folic Acid (Folate) 1 mg DAILY ORAL 11/10/17 09:00 12/10/17 08:59 UNV Heparin Sodium (Porcine) (Heparin 5000 units/ml) 5,000 units EVERY 12 HOURS SUBQ 11/09/17 09:00 12/09/17 08:59 11/09/17 08:32 Lisinopril (Zestril) 10 mg DAILY ORAL 11/09/17 09:00 12/09/17 08:59 11/09/17 08:33 Lubiprostone (Amitiza) 24 mcg TWICE A DAY ORAL 11/09/17 18:00 12/09/17 17:59 UNV Miscellaneous Medication (fentaNYL Destruction) 1 ea Q72H MISC 11/11/17 09:00 12/11/17 08:59 Morphine Sulfate (Morphine Sulfate) 2 mg Q4H PRN IVP For Pain 4-6 11/08/17 21:30 11/15/17 21:29 Morphine Sulfate (Morphine Sulfate) 4 mg Q4H PRN IVP For Pain 7-10 11/08/17 21:30 11/15/17 21:29 11/09/17 09:21 Multivitamins (Multivitamins) 1 tab DAILY ORAL 11/10/17 09:00 12/10/17 08:59 UNV Ondansetron HCl (Zofran) 4 mg Q6H PRN IVP Nausea & Vomiting 11/08/17 21:30 12/08/17 21:29 Ondansetron HCl (Zofran) 4 mg Q6H PRN IVP Nausea & Vomiting 11/09/17 12:15 12/09/17 12:14 UNV Oxybutynin Chloride (Ditropan) 5 mg Q8HR ORAL 11/09/17 14:00 12/09/17 13:59 UNV Oxycodone HCl (Roxicodone) 15 mg Q4H PRN ORAL Breakthrough Pain 11/09/17 12:15 11/16/17 12:14 UNV Pantoprazole (Protonix) 40 mg DAILY ORAL 11/09/17 09:00 12/09/17 08:59 11/09/17 08:32 Polyethylene Glycol (Miralax) 17 gm HSPRN PRN ORAL Constipation 11/08/17 21:30 12/08/17 21:29 Pregabalin (Lyrica) 150 mg THREE TIMES A DAY ORAL 11/09/17 09:00 12/09/17 08:59 11/09/17 08:33 Sennosides (Senokot) 1 tab BID ORAL 11/09/17 09:00 12/09/17 08:59 11/09/17 08:34 Topiramate (Topamax) 25 mg EVERY 12 HOURS ORAL 11/09/17 21:00 12/09/17 20:59 UNV Zolpidem Tartrate (Ambien) 10 mg HSPRN PRN ORAL Insomnia 11/09/17 12:00 11/15/17 21:29 UNV Assessment/Plan Problem List: (1) History of asthma ICD Codes: Z87.09 - Personal history of other diseases of the respiratory system SNOMED: 692627843 (2) KAREN (obstructive sleep apnea) ICD Codes: G47.33 - Obstructive sleep apnea (adult) (pediatric) SNOMED: 08917317 (3) Intractable pain ICD Codes: R52 - Pain, unspecified SNOMED: 41996245 (4) Fibromyalgia ICD Codes: M79.7 - Fibromyalgia SNOMED: 08017027 (5) Migraine ICD Codes: G43.909 - Migraine, unspecified, not intractable, without status migrainosus SNOMED: 24242591 (6) Lumbar radiculopathy ICD Codes: M54.16 - Radiculopathy, lumbar region SNOMED: 635767143 (7) Degenerative disc disease, cervical ICD Codes: M50.30 - Other cervical disc degeneration, unspecified cervical region SNOMED: 07837221 Assessment/Plan review alf medications pain management symptomatic treatment Pain specialist to see dvt prophylaxis f/u liver enzymes check electrolytes pt/ot psych evaluation. Mer Powell MD Nov 09, 2017 12:33
[2017-11-09] MEDS: oxyCODONE 15mg IR tab ORAL PRN (12:51)
[2017-11-09] MEDS: Oxybutynin 5mg tab ORAL SCH ×2 (14:50→21:54)
--- NOTE | 2017-11-09 15:13 | General Progress Note ---
Assessment/Plan Assessment/Plan (1) Morbid obesity (2) Degenerative disc disease, cervical (3) Lumbar degenerative disc disease (4) Lumbar radiculopathy (5) Cervical radiculopathy (6) Osteoarthritis of multiple joints (7) Multiple joint pain (8) Fibromyalgia We will continue Fentanyl patch, Oxycodone, Lyrica and Morphine. We will order MRI of Cervical and Lumbar spine w/o contrast. Pt was d/w Dr. Leonardo and he concurred. Subjective Date patient seen: Nov 09, 2017 Time patient seen: 02:30 - pm Allergies: Coded Allergies: Cashew (Verified Allergy, Unknown, 12/30/14) HYDROQUINONE (Unverified Allergy, Unknown, 11/08/17) HYDROXYCHLOROQUINE (Verified Allergy, Unknown, 08/31/17) White Fish (Verified Allergy, Unknown, 01/19/15) Uncoded Allergies: FISH (Allergy, Unknown, 12/30/14) Subjective Constitutional: Reports: weakness HEENT: Reports: no symptoms Cardiovascular: Reports: no symptoms Respiratory: Reports: no symptoms Gastrointestinal/Abdominal: Reports: no symptoms Genitourinary: Reports: no symptoms Neurologic/Psychiatric: Reports: headache, numbness, weakness Endocrine: Reports: no symptoms Hematologic/Lymphatic: Reports: no symptoms Subjective: Patient is known patient from prior admission and has been admitted under the care of Dr. Tovar with exacerbation of chronic pain due to her being depressed due to family member passing away. She is on Fentanyl patch 25mcg Q72hrs, Morphine 2-4mg IV Q4h PRN, Oxycodone 15mg PO 1 tab Q4H PRN for breakthrough pain being followed by Dr. Ángel Mazariegos Physical medicine & rehabilitation - hospice and palliative medicine physician. We will order MRI of Cervical and Lumbar spine w/o contrast to further asses her for further pathology due to the severity of pain. Objective Last 24 Hour Vital Signs Date Time Temp Pulse Resp B/P (MAP) Pulse Ox O2 Delivery O2 Flow Rate FiO2 11/09/17 14:35 98.7 11/09/17 14:34 98.7 11/09/17 12:00 98.7 71 19 139/92 (108) 96 98.7 11/09/17 09:51 99.1 11/09/17 09:21 99.1 11/09/17 09:03 99.1 11/09/17 09:00 Room Air 11/09/17 08:34 68 143/83 11/09/17 08:33 99.1 11/09/17 08:33 143/83 11/09/17 08:00 99.1 68 20 143/83 (103) 98 99.1 11/09/17 03:42 Room Air 11/09/17 00:00 98.7 60 18 127/64 (85) 97 98.7 11/08/17 23:25 98.2 72 16 148/75 98 Room Air 98.2 11/08/17 22:39 98.2 72 16 148/75 98 Room Air 98.2 11/08/17 21:08 98.2 11/08/17 19:27 98.2 16 150/80 98 Room Air 98.2 11/08/17 19:22 98.2 70 16 150/80 98 Room Air 98.2 Intake and Output 11/08/17 11/09/17 19:00 07:00 Intake Total 480 ml Balance 480 ml Intake Oral 480 ml Laboratory Tests 11/08/17 20:10: White Blood Count 7.2, Red Blood Count 4.41, Hemoglobin 12.3, Hematocrit 37.4, Mean Corpuscular Volume 85, Mean Corpuscular Hemoglobin 27.9, Mean Corpuscular Hemoglobin Concent 32.9, Red Cell Distribution Width 15.6H, Platelet Count 257, Mean Platelet Volume 6.3L, Neutrophils (%) (Auto) 47.0, Lymphocytes (%) (Auto) 40.5, Monocytes (%) (Auto) 8.8, Eosinophils (%) (Auto) 2.4, Basophils (%) (Auto ) 1.3, Sodium Level 131L, Potassium Level 4.4, Chloride Level 102, Carbon Dioxide Level 23, Anion Gap 6, Blood Urea Nitrogen 9, Creatinine 0.8, Estimat Glomerular Filtration Rate > 60, Glucose Level 100, Calcium Level 8.7, Total Bilirubin 0.2, Aspartate Amino Transf (AST/SGOT) 38H, Alanine Aminotransferase ( ALT/SGPT) 36, Alkaline Phosphatase 91, Total Protein 8.1, Albumin 2.6L, Globulin 5.5, Albumin/Globulin Ratio 0.5L, Lipase 71L 11/08/17 21:10: Urine Color Yellow, Urine Appearance Clear, Urine pH 6, Urine Specific [place] 1.010, Urine Protein Negative, Urine Glucose (UA) Negative, Urine Ketones Negative, Urine Blood Negative, Urine Nitrite Negative, Urine Bilirubin Negative , Urine Urobilinogen 1H, Urine Leukocyte Esterase Negative, Urine HCG, Qualitative Negative 11/09/17 08:00: White Blood Count 7.2, Red Blood Count 4.16L, Hemoglobin 11.7L, Hematocrit 35.2L , Mean Corpuscular Volume 85, Mean Corpuscular Hemoglobin 28.2, Mean Corpuscular Hemoglobin Concent 33.4, Red Cell Distribution Width 15.5H, Platelet Count 327, Mean Platelet Volume 5.7L, Neutrophils (%) (Auto) 49.4, Lymphocytes (%) (Auto) 39.4, Monocytes (%) (Auto) 7.9, Eosinophils (%) (Auto) 2.6, Basophils (%) (Auto) 0.6, Sodium Level 138, Potassium Level 4.1, Chloride Level 105, Carbon Dioxide Level 27, Anion Gap 6, Blood Urea Nitrogen 8, Creatinine 0.8, Estimat Glomerular Filtration Rate > 60, Glucose Level 114H, Calcium Level 8.5, Total Bilirubin 0.2, Aspartate Amino Transf (AST/SGOT) 31, Alanine Aminotransferase (ALT/SGPT) 38, Alkaline Phosphatase 86, Total Protein 7.8, Albumin 2.6L, Globulin 5.2, Albumin/Globulin Ratio 0.5L, Thyroid Stimulating Hormone (TSH) 1.600 Height (Feet): 5 Height (Inches): 8.00 Weight (Pounds): 296 Objective General Appearance: no apparent distress, alert EENT: PERRL/EOMI, normal ENT inspection, TMs normal Neck: non-tender, supple Cardiovascular: normal rate, regular rhythm Respiratory/Chest: lungs clear, normal breath sounds Abdomen: soft, no organomegaly Extremities: non-tender Edema: no edema noted Arm (L), no edema noted Arm (R), no edema noted Leg (L), no edema noted Leg (R), no edema noted Pedal (L), no edema noted Pedal (R), no edema noted Generalized Neurologic: alert, oriented x 3 Skin: warm/dry Cirilo Chavez Nov 09, 2017 15:13
[2017-11-09] MEDS: Cyclobenzaprine 10mg Tab ORAL PRN (16:37)
[2017-11-09] MEDS ORDERED: Amitiza 24mcg cap ORAL SCH (18:00)
--- NOTE | 2017-11-09 18:20 | Diagnostic Imaging Report ---
EXAM: MR Lumbar Spine Without Intravenous Contrast CLINICAL HISTORY: PAIN TECHNIQUE: Magnetic resonance images of the lumbar spine without intravenous contrast in multiple planes. COMPARISON: No relevant prior studies available. FINDINGS: Vertebrae: Unremarkable. No acute fracture. Spinal cord: Unremarkable. Normal signal. Soft tissues: Unremarkable. DISCS/SPINAL CANAL/NEURAL FORAMINA: L1-L2: Unremarkable. No significant disc disease. No stenosis. L2-L3: Unremarkable. No significant disc disease. No stenosis. L3-L4: Unremarkable. No significant disc disease. No stenosis. L4-L5: Unremarkable. No significant disc disease. No stenosis. L5-S1: Unremarkable. No significant disc disease. No stenosis. IMPRESSION: Normal study.
--- NOTE | 2017-11-09 18:23 | Diagnostic Imaging Report ---
EXAM: MR Cervical Spine Without Intravenous Contrast CLINICAL HISTORY: PAIN TECHNIQUE: Magnetic resonance images of the cervical spine without intravenous contrast in multiple planes. COMPARISON: No relevant prior studies available. FINDINGS: Vertebrae: Cervical spine straightening, which may be incidental or may represent muscle spasm. No acute fracture. Marrow: Minimal discogenic degeneration C2-C6 with mild marrow signal changes due to discogenic degeneration C5 and C6. Spinal cord: Unremarkable. Normal signal. Soft tissues: Unremarkable. DISCS/SPINAL CANAL/NEURAL FORAMINA: C2-C3: Unremarkable. No significant disc disease. No stenosis. C3-C4: Unremarkable. No significant disc disease. No stenosis. C4-C5: Unremarkable. No significant disc disease. No stenosis. C5-C6: Unremarkable. No significant disc disease. No stenosis. C6-C7: Unremarkable. No significant disc disease. No stenosis. C7-T1: Unremarkable. No significant disc disease. No stenosis. IMPRESSION: 1. Cervical spine straightening, which may be incidental or may represent muscle spasm. 2. Mild multilevel age-related degenerative spine findings. 3. No significant spinal canal or foraminal stenosis.
[2017-11-09] MEDS: Amitiza 24mcg cap ORAL SCH (18:58)
[2017-11-09 20:00] VITALS: BP 132/80
--- NOTE | 2017-11-09 21:30 | History and Physical Report ---
DATE OF ADMISSION: 11/08/2017 TIME: 3 p.m. CONSULTANTS: 1. Mer Powell M.D. 2. Karlee Leonardo M.D. 3. Troy Salcido M.D. 4. Fabian Walton M.D. CHIEF COMPLAINT: Intractable pain, headache, and weakness. BRIEF HISTORY: The patient is a 41-year-old female who lives at [facility], presented with above-mentioned diagnoses, has been having on and off headache for about six months, yesterday got really bad and the patient came to [facility], diagnosed with the above, admitted to medical floor for further treatment. Currently, slightly anxious in bed, oriented x3, complaining of 10/10 headache, no complaint. REVIEW OF SYSTEMS: No chest pain. No shortness of breath. No nausea, vomiting, or diarrhea. PAST MEDICAL HISTORY: Migraine headaches, neuropathy, hepatitis C, and CHF. PAST SURGICAL HISTORY: Gastric bypass, lung surgery, and spine surgery. ALLERGIES: Plaquenil. SOCIAL HISTORY: No smoking. No alcohol. No intravenous drug abuse. FAMILY HISTORY: Noncontributory. PHYSICAL EXAMINATION: GENERAL: Slightly anxious in bed, oriented x3, slight distress, headache. VITAL SIGNS: Temperature is 98 degrees, pulse 71, respirations 19, and blood pressure 139/92. CARDIOVASCULAR: No murmur. LUNGS: Distant and clear. ABDOMEN: Bowel sounds positive. Nontender. Nondistended. EXTREMITIES: No cyanosis, clubbing, or edema. NEUROLOGIC: The patient moves all extremities, slightly weak. LABORATORY DATA: Hemoglobin 11.7, normal. CBC is normal. BMP showed glucose 114 and albumin 2.6. Otherwise, BMP is normal. Urinalysis, urobilinogen is 1, otherwise normal. MEDICATIONS: Fentanyl, folic acid, multivitamins, zolpidem, topiramate, alprazolam, oxybutynin, clonidine, Zofran, Soma, Roxicodone, amlodipine, lisinopril. ASSESSMENT: 1. Hypertension. 2. Congestive heart failure. 3. Neuropathy. 4. Intractable headache, migraine. 5. Anemia. 6. Malnutrition. PLAN: 1. Continue previous medications. 2. Blood pressure, pain control. 3. Dietary followup. 4. OT, PT, dietary evaluation. 5. CBC and BMP in the morning. 6. Dr. Powell, Dr. Leonardo, Dr. Salcido, and Dr. Walton to consult. Get Tovar D.O. DR: MARY JOB#: [id number] CC:
[2017-11-09] MEDS: Topiramate 25mg tab ORAL SCH (21:53)
[2017-11-09] MEDS: ALPRAZolam 0.5mg tab ORAL PRN ×2 (21:53→22:09)
[2017-11-10] MEDS: Morphine Sulfate 4mg/ml Inj (IV USE ONLY) IVP PRN ×5 (00:30→20:39)
[2017-11-10] MEDS: Cyclobenzaprine 10mg Tab ORAL PRN ×3 (00:50→19:51)
[2017-11-10 04:50] VITALS: BP 164/85
[2017-11-10] MEDS: Oxybutynin 5mg tab ORAL SCH ×3 (05:35→21:56)
[2017-11-10] MEDS: oxyCODONE 15mg IR tab ORAL PRN ×3 (05:35→23:40)
[2017-11-10 05:40] LABS: BASOPHILS % (AUTO) 1.2 % (0.0-2.0); EOSINOPHILS % (AUTO) 2.4 % (0.0-3.0); HEMATOCRIT 35.8 % (37.0-47.0); HEMOGLOBIN 11.8 G/DL (12.0-16.0); LYMPHOCYTES % (AUTO) 44.4 % (20.0-45.0); MEAN CORPUSCULAR VOLUME 85 FL (80-99); MONOCYTES % (AUTO) 7.3 % (1.0-10.0); NEUTROPHILS % (AUTO) 44.8 % (45.0-75.0); PLATELET COUNT 224 K/UL (150-450); RED BLOOD COUNT 4.22 M/UL (4.20-5.40); RED CELL DISTRIBUTION WIDTH 15.6 % (11.6-14.8); WHITE BLOOD COUNT 6.9 K/UL (4.8-10.8)
[2017-11-10 06:44] LABS: ANION GAP 5 mmol/L (5-15); BLOOD UREA NITROGEN 9 mg/dL (7-18); CALCIUM 8.6 MG/DL (8.5-10.1); CARBON DIOXIDE 29 MMOL/L (21-32); CHLORIDE 104 MMOL/L (98-107); CREATININE 0.8 MG/DL (0.55-1.30); POTASSIUM 4.4 MMOL/L (3.5-5.1); SODIUM 138 MMOL/L (136-145)
[2017-11-10] MEDS: ALPRAZolam 0.5mg tab ORAL PRN ×2 (08:45→21:56)
--- NOTE | 2017-11-10 09:24 | General Progress Note ---
Assessment/Plan Problem List: (1) Obesity, morbid, BMI 40.0-49.9 ICD Codes: E66.01 - Morbid (severe) obesity due to excess calories SNOMED: 205478210 (2) Hepatitis C ICD Codes: B19.20 - Unspecified viral hepatitis C without hepatic coma SNOMED: 69630506 (3) Hypertension ICD Codes: I10 - Essential (primary) hypertension SNOMED: 48244540 (4) Depressed ICD Codes: F32.9 - Major depressive disorder, single episode, unspecified SNOMED: 66471203 (5) Intractable pain ICD Codes: R52 - Pain, unspecified SNOMED: 31027262 (6) Migraine ICD Codes: G43.909 - Migraine, unspecified, not intractable, without status migrainosus SNOMED: 00368383 Status: unchanged Assessment/Plan ot pt diet pain control psyc f/u cbc bmp am Subjective Allergies: Coded Allergies: Cashew (Verified Allergy, Unknown, 12/30/14) HYDROQUINONE (Unverified Allergy, Unknown, 11/08/17) HYDROXYCHLOROQUINE (Verified Allergy, Unknown, 08/31/17) White Fish (Verified Allergy, Unknown, 01/19/15) Uncoded Allergies: FISH (Allergy, Unknown, 12/30/14) All Systems: reviewed and negative except above Subjective tired sad c/o gen pain Objective Last 24 Hour Vital Signs Date Time Temp Pulse Resp B/P (MAP) Pulse Ox O2 Delivery O2 Flow Rate FiO2 11/10/17 04:50 98.1 80 18 164/85 (111) 98 98.1 11/09/17 20:00 97.4 76 19 132/80 (97) 97.4 11/09/17 20:00 Room Air 11/09/17 18:59 98.7 11/09/17 18:58 98.7 11/09/17 16:16 98.7 11/09/17 16:16 98.7 11/09/17 15:46 98.7 11/09/17 15:04 98.7 11/09/17 15:04 98.7 11/09/17 14:35 98.7 11/09/17 14:34 98.7 11/09/17 12:00 98.7 71 19 139/92 (108) 96 98.7 Intake and Output 11/09/17 11/10/17 19:00 07:00 Intake Total 800 ml 820 ml Output Total 1100 ml Balance 800 ml -280 ml Intake Oral 800 ml 120 ml Other 700 ml Output Other 1100 ml # Voids 4 Laboratory Tests 11/10/17 04:58: White Blood Count 6.9, Red Blood Count 4.22, Hemoglobin 11.8L, Hematocrit 35.8L , Mean Corpuscular Volume 85, Mean Corpuscular Hemoglobin 27.9, Mean Corpuscular Hemoglobin Concent 32.8, Red Cell Distribution Width 15.6H, Platelet Count 224, Mean Platelet Volume 5.7L, Neutrophils (%) (Auto) 44.8L, Lymphocytes (%) (Auto) 44.4, Monocytes (%) (Auto) 7.3, Eosinophils (%) (Auto) 2.4, Basophils (%) (Auto) 1.2, Sodium Level 138, Potassium Level 4.4, Chloride Level 104, Carbon Dioxide Level 29, Anion Gap 5, Blood Urea Nitrogen 9, Creatinine 0.8, Estimat Glomerular Filtration Rate > 60, Glucose Level 107H, Calcium Level 8.6 Height (Feet): 5 Height (Inches): 8.00 Weight (Pounds): 296 General Appearance: lethargic EENT: normal ENT inspection Neck: normal alignment Cardiovascular: normal peripheral pulses, normal rate, regular rhythm Respiratory/Chest: chest wall non-tender, lungs clear, normal breath sounds Abdomen: normal bowel sounds, non tender, soft Extremities: normal inspection Edema: no edema noted Arm (L), no edema noted Arm (R), no edema noted Leg (L), no edema noted Leg (R), no edema noted Pedal (L), no edema noted Pedal (R), no edema noted Generalized Neurologic: responsive, motor weakness Skin: normal pigmentation, warm/dry Get Tovar DO Nov 10, 2017 09:24
--- NOTE | 2017-11-10 10:03 | Pulmonology Progress Note ---
Assessment/Plan Assessment/Plan ASSESSMENT migraines COPD/asthma Obstructive sleep apnea HTN urgency SLE Fibromyalgia Chronic pain Morbid obesity Hepatitis C Lumbar radiculopathy DDD C-spine PLAN OF CARE Med Surg floor BiPAP at night at least 4 hrs O2 prn to keep pulse ox above 92% pulmonary toilet prn pain specialist consult pain management as per pain specialist recs BP management with CCB, increase to bid and ANGELO DVT /GI prophylaxis PT /OT psych consult sleep study if not done recently as outpatient, encourage use of BiPAP nightly for at least 4 hours previous study + KAREN patient is not using CPAP/BiPAP , could be a reason for constant headaches case discussed and evaluated by supervising physician Subjective Allergies: Coded Allergies: Cashew (Verified Allergy, Unknown, 12/30/14) HYDROQUINONE (Unverified Allergy, Unknown, 11/08/17) HYDROXYCHLOROQUINE (Verified Allergy, Unknown, 08/31/17) White Fish (Verified Allergy, Unknown, 01/19/15) Uncoded Allergies: FISH (Allergy, Unknown, 12/30/14) Subjective c/p intermittent headaches BP not controlled no CP no SOB Objective Last 24 Hour Vital Signs Date Time Temp Pulse Resp B/P (MAP) Pulse Ox O2 Delivery O2 Flow Rate FiO2 11/10/17 04:50 98.1 80 18 164/85 (111) 98 98.1 11/09/17 20:00 97.4 76 19 132/80 (97) 97.4 11/09/17 20:00 Room Air 11/09/17 18:59 98.7 11/09/17 18:58 98.7 11/09/17 16:16 98.7 11/09/17 16:16 98.7 11/09/17 15:46 98.7 11/09/17 15:04 98.7 11/09/17 15:04 98.7 11/09/17 14:35 98.7 11/09/17 14:34 98.7 11/09/17 12:00 98.7 71 19 139/92 (108) 96 98.7 Intake and Output 11/09/17 11/10/17 19:00 07:00 Intake Total 800 ml 820 ml Output Total 1100 ml Balance 800 ml -280 ml Intake Oral 800 ml 120 ml Other 700 ml Output Other 1100 ml # Voids 4 General Appearance: no acute distress, other - A/A/O x 3 morbidly obese AA female HEENT: normocephalic, atraumatic, anicteric, mucous membranes moist Respiratory/Chest: lungs clear - with mdoerate air exchange , no respiratory distress Cardiovascular: normal peripheral pulses, normal rate - distant heart sounds , no JVD Abdomen: normal bowel sounds, soft, non tender - obese Extremities: pedal pulses normal Neurologic/Psychiatric: alert, oriented x 3, responsive Musculoskeletal: normal muscle bulk Microbiology Date/Time Source Procedure Growth Status 11/08/17 21:30 Rectum Received Laboratory Tests 11/10/17 04:58: White Blood Count 6.9, Red Blood Count 4.22, Hemoglobin 11.8L, Hematocrit 35.8L , Mean Corpuscular Volume 85, Mean Corpuscular Hemoglobin 27.9, Mean Corpuscular Hemoglobin Concent 32.8, Red Cell Distribution Width 15.6H, Platelet Count 224, Mean Platelet Volume 5.7L, Neutrophils (%) (Auto) 44.8L, Lymphocytes (%) (Auto) 44.4, Monocytes (%) (Auto) 7.3, Eosinophils (%) (Auto) 2.4, Basophils (%) (Auto) 1.2, Sodium Level 138, Potassium Level 4.4, Chloride Level 104, Carbon Dioxide Level 29, Anion Gap 5, Blood Urea Nitrogen 9, Creatinine 0.8, Estimat Glomerular Filtration Rate > 60, Glucose Level 107H, Calcium Level 8.6 Current Medications Medications (Trade) Dose Ordered Sig/Farideh Route PRN Reason Start Time Stop Time Status Last Admin Dose Admin Acetaminophen (Tylenol) 650 mg Q4H PRN ORAL fever 11/08/17 21:30 12/08/17 21:29 Al Hydroxide/Mg Hydroxide (Mylanta II) 30 ml Q6H PRN ORAL dyspepsia 11/08/17 21:30 12/08/17 21:29 Alprazolam (Xanax) 1.5 mg Q6H PRN ORAL For Anxiety 11/09/17 15:18 11/16/17 15:17 11/10/17 08:45 Amlodipine Besylate (Norvasc) 5 mg DAILY ORAL 11/09/17 09:00 12/09/17 08:59 11/09/17 08:34 Carisoprodol (Soma) 350 mg THREE TIMES A DAY ORAL 11/09/17 13:00 12/09/17 12:59 11/09/17 18:59 Clonidine HCl (Catapres Tab) 0.1 mg Q6H PRN ORAL SBP>160 11/09/17 13:00 12/09/17 12:59 Cyclobenzaprine HCl (Flexeril) 10 mg TIDPRN PRN ORAL fibromyalgia pain 11/08/17 21:00 12/08/17 20:59 11/10/17 08:47 Dextrose (Dextrose 50%) STAT PRN IV Hypoglycemia 11/08/17 21:30 12/08/17 21:29 Duloxetine HCl (Cymbalta) 60 mg BID ORAL 11/09/17 09:00 12/09/17 08:59 11/09/17 18:58 Fentanyl (Duragesic) 1 patch EVERY 72 HOURS TDERMAL 11/11/17 09:00 11/18/17 08:59 Folic Acid (Folate) 1 mg DAILY ORAL 11/10/17 09:00 12/10/17 08:59 Heparin Sodium (Porcine) (Heparin 5000 units/ml) 5,000 units EVERY 12 HOURS SUBQ 11/09/17 09:00 12/09/17 08:59 11/09/17 21:00 Lidocaine (Lidoderm 5% PATCH) 1 patch DAILY TDERMAL 11/10/17 09:00 12/10/17 08:59 Lisinopril (Zestril) 10 mg DAILY ORAL 11/09/17 09:00 12/09/17 08:59 11/09/17 08:33 Lubiprostone (Amitiza) 24 mcg TWICE A DAY ORAL 11/09/17 18:00 12/09/17 17:59 11/09/17 18:58 Miscellaneous Medication (fentaNYL Destruction) 1 ea Q72H MISC 11/11/17 09:00 12/11/17 08:59 Morphine Sulfate (Morphine Sulfate) 2 mg Q4H PRN IVP For Pain 4-6 11/08/17 21:30 11/15/17 21:29 Morphine Sulfate (Morphine Sulfate) 4 mg Q4H PRN IVP For Pain 7-10 11/08/17 21:30 11/15/17 21:29 11/10/17 04:32 Multivitamins (Multivitamins) 1 tab DAILY ORAL 11/10/17 09:00 12/10/17 08:59 Ondansetron HCl (Zofran) 4 mg Q6H PRN IVP Nausea & Vomiting 11/09/17 13:00 12/09/17 12:59 Oxybutynin Chloride (Ditropan) 5 mg Q8HR ORAL 11/09/17 14:00 12/09/17 13:59 11/10/17 05:35 Oxycodone HCl (Roxicodone) 15 mg Q4H PRN ORAL Breakthrough Pain 11/09/17 12:30 11/16/17 12:29 11/10/17 05:35 Pantoprazole (Protonix) 40 mg DAILY ORAL 11/09/17 09:00 12/09/17 08:59 11/09/17 08:32 Polyethylene Glycol (Miralax) 17 gm HSPRN PRN ORAL Constipation 11/08/17 21:30 12/08/17 21:29 Pregabalin (Lyrica) 150 mg THREE TIMES A DAY ORAL 11/09/17 09:00 12/09/17 08:59 11/09/17 18:58 Sennosides (Senokot) 1 tab BID ORAL 11/09/17 09:00 12/09/17 08:59 11/09/17 18:58 Topiramate (Topamax) 25 mg EVERY 12 HOURS ORAL 11/09/17 21:00 12/09/17 20:59 11/09/17 21:53 Zolpidem Tartrate (Ambien) 5 mg HSPRN PRN ORAL Insomnia 11/09/17 21:00 11/15/17 20:59 11/09/17 21:54 Yasmin Youssef NP Nov 10, 2017 10:03
[2017-11-10] MEDS: Amitiza 24mcg cap ORAL SCH ×2 (10:07→18:54)
[2017-11-10] MEDS: Topiramate 25mg tab ORAL SCH ×2 (10:07→20:40)
[2017-11-10] MEDS: Lisinopril 10mg tab ORAL SCH (10:08)
[2017-11-10] MEDS: DULoxetine 30mg cap ORAL SCH ×2 (10:08→18:52)
[2017-11-10] MEDS: Lyrica 75mg cap ORAL SCH ×3 (10:09→18:53)
[2017-11-10] MEDS: Sennosides 8.6mg ORAL SCH ×2 (10:09→18:53)
[2017-11-10] MEDS: Heparin 5000 units/ml inj SUBQ SCH ×2 (10:12→20:47)
[2017-11-10 20:00] VITALS: BP 131/80
[2017-11-10] MEDS: Zolpidem 5mg tab ORAL PRN (21:56)
--- NOTE | 2017-11-10 22:45 | Consultation ---
DATE OF CONSULTATION: 11/10/2017 NOTE: POOR AUDIO HISTORY OF PRESENT ILLNESS: This is a 41-year-old female patient who is admitted to the hospital at [facility] secondary to intractable pain. She also has bilateral edema, due to pain. She also has a multitude of other medical problems and she presents with a sharp headache in the last few months and chronic pain current situation. She talks about a lot of stresses, which she . She talked about having a tremendous amount of grief was severe enough suicidal or homicidal ideations, but she also attributes a lot of stress to depression, to stressors of her current medical illness. functional . MEDICAL HISTORY: migraine headaches, neuropathy, hepatitis C, and congestive heart failure. ALLERGIES: To Plaquenil. SUBSTANCE ABUSE HISTORY: Denies any drugs and alcohol. SOCIAL HISTORY: She is currently living in a facility nursing home facility. She does have bouts of depression in the past. depression and mood lability. . She denies any drugs and alcohol. STRENGTHS: She is motivated to get better WEAKNESSES: She is impulsive and has a very poor support system. MENTAL STATUS EXAMINATION: This is a 41-year-old female. Appearance, disheveled. Attitude, irritable and agitated. Affect, guarded and restricted. Mood is depressed and anxious. Motor activity, psychomotor agitation. Attention span is poor. Orientation x2. Speech is low volume and slurred. Thought process is linear and goal directed. Denies suicidal or homicidal thoughts. Short-term memory, 3/3 word recall . Long-term memory is intact. . Her attention span is fair. . Her intellect is fair. ability to recall current event. DIAGNOSES: Major depressive disorder, mild, recurrent, without psychotic features. Medical, chronic pain, hypertension, obesity. Psychosocial stresses, financial stressors and is mild. PLAN: My plan for this patient is to treat 5 mg twice a day as a mood stabilizer, but I am also extreme anxiety q.6 hours p.r.n. agitation and I am also going to encourage her to interact appropriately with the staff and also provide 20 minutes of cognitive behavior therapy automatic negative thoughts and also to convert the negative thoughts to more positive . Chart was reviewed. Discussed with staff. . Troy Esparza M.D. DR: JUAN JOB#: [id number] CC:
[2017-11-10 23:30] VITALS: BP 143/101
[2017-11-11] MEDS: Morphine Sulfate 2mg/ml Inj IVP PRN ×2 (01:31→06:02)
[2017-11-11 01:36] VITALS: BP 139/101
[2017-11-11 05:00] VITALS: BP 111/80
[2017-11-11] MEDS: Cyclobenzaprine 10mg Tab ORAL PRN ×2 (05:02→20:14)
[2017-11-11] MEDS: Oxybutynin 5mg tab ORAL SCH ×2 (06:02→14:40)
[2017-11-11] MEDS ORDERED: Naloxone 0.4mg/ml Inj IV PRN (07:45)
--- NOTE | 2017-11-11 07:49 | General Progress Note ---
Assessment/Plan Assessment/Plan (1) Morbid obesity (2) Degenerative disc disease, cervical (3) Cervical radiculopathy (4) Lumbago (5) Osteoarthritis of multiple joints (6) Multiple joint pain (7) Fibromyalgia (8) Narcotic dependency We will continue Fentanyl patch, Oxycodone, Lyrica and Morphine. We recommend Neurology consult as per women nurse. Based on MRI scans of cervical and Lumbar spine it is not recommended for patient to be on high doses of opioid therapy however due to the severity of her pain we are unable to reduce her medications at this time. However patient needs to a plan to taper down her narcotics in the future. Patient was advised to f/u with Dr. Ángel Mazariegos Physical medicine & rehabilitation - hospice and palliative medicine physician as outpatient for continued care if discharged. Pt was d/w Dr. Leonardo and he concurred. Subjective Date patient seen: Nov 11, 2017 Time patient seen: 07:00 - am Allergies: Coded Allergies: Cashew (Verified Allergy, Unknown, 12/30/14) HYDROQUINONE (Unverified Allergy, Unknown, 11/08/17) HYDROXYCHLOROQUINE (Verified Allergy, Unknown, 08/31/17) White Fish (Verified Allergy, Unknown, 01/19/15) Uncoded Allergies: FISH (Allergy, Unknown, 12/30/14) Subjective Constitutional: Reports: weakness HEENT: Reports: no symptoms Cardiovascular: Reports: no symptoms Respiratory: Reports: no symptoms Gastrointestinal/Abdominal: Reports: no symptoms Genitourinary: Reports: no symptoms Neurologic/Psychiatric: Reports: headache, numbness, weakness Endocrine: Reports: no symptoms Hematologic/Lymphatic: Reports: no symptoms Subjective: Patient is in bed continuing to c/o pain. MRI of neck and back reviewed with patient. She has received the Oxycodone 3 doses, Morphine 2mg 2 doses and 4mg 4 doses in the last 24hrs. Fentanyl patch will be changed back to 12mcg patch as [facility] facility. Objective Last 24 Hour Vital Signs Date Time Temp Pulse Resp B/P (MAP) Pulse Ox O2 Delivery O2 Flow Rate FiO2 11/11/17 05:00 98.0 72 18 111/80 (90) 97 98.0 11/11/17 03:32 81 23 100 Facial 30 11/11/17 01:36 79 18 139/101 (114) 97 11/11/17 01:30 81 22 100 Facial 30 11/10/17 23:30 98.0 80 17 143/101 (115) 97 98.0 11/10/17 22:06 78 20 100 Facial 30 11/10/17 21:00 Room Air 11/10/17 20:00 98.5 77 18 131/80 (97) 97 98.5 11/10/17 19:18 Room Air 21 11/10/17 19:18 96 Room Air 21 11/10/17 18:54 76 138/75 11/10/17 18:53 98.1 11/10/17 18:53 98.1 11/10/17 17:05 98.1 11/10/17 17:05 98.1 11/10/17 17:05 98.1 11/10/17 16:35 98.1 11/10/17 13:37 98.1 11/10/17 13:36 98.1 11/10/17 12:07 98.1 11/10/17 10:09 98.1 11/10/17 10:09 98.1 11/10/17 10:08 151/101 11/10/17 10:08 71 151/101 11/10/17 09:17 98.1 11/10/17 09:00 Room Air Intake and Output 11/10/17 11/11/17 19:00 07:00 Intake Total 1080 ml 400 ml Balance 1080 ml 400 ml Intake Oral 1080 ml 400 ml # Voids 3 3 Height (Feet): 5 Height (Inches): 8.00 Weight (Pounds): 296 Objective General Appearance: no apparent distress, alert EENT: PERRL/EOMI, normal ENT inspection, TMs normal Neck: non-tender, supple Cardiovascular: normal rate, regular rhythm Respiratory/Chest: lungs clear, normal breath sounds Abdomen: soft, no organomegaly Extremities: non-tender Edema: no edema noted Arm (L), no edema noted Arm (R), no edema noted Leg (L), no edema noted Leg (R), no edema noted Pedal (L), no edema noted Pedal (R), no edema noted Generalized Neurologic: alert, oriented x 3 Skin: warm/dry Procedure: MRI L Spine no Contrast EXAM: MR Lumbar Spine Without Intravenous Contrast CLINICAL HISTORY: PAIN TECHNIQUE: Magnetic resonance images of the lumbar spine without intravenous contrast in multiple planes. COMPARISON: No relevant prior studies available. FINDINGS: Vertebrae: Unremarkable. No acute fracture. Spinal cord: Unremarkable. Normal signal. Soft tissues: Unremarkable. DISCS/SPINAL CANAL/NEURAL FORAMINA: L1-L2: Unremarkable. No significant disc disease. No stenosis. L2-L3: Unremarkable. No significant disc disease. No stenosis. L3-L4: Unremarkable. No significant disc disease. No stenosis. L4-L5: Unremarkable. No significant disc disease. No stenosis. L5-S1: Unremarkable. No significant disc disease. No stenosis. IMPRESSION: Normal study. Procedure: MRI C Spine no Contrast EXAM: MR Cervical Spine Without Intravenous Contrast CLINICAL HISTORY: PAIN TECHNIQUE: Magnetic resonance images of the cervical spine without intravenous contrast in multiple planes. COMPARISON: No relevant prior studies available. FINDINGS: Vertebrae: Cervical spine straightening, which may be incidental or may represent muscle spasm. No acute fracture. Marrow: Minimal discogenic degeneration C2-C6 with mild marrow signal changes due to discogenic degeneration C5 and C6. Spinal cord: Unremarkable. Normal signal. Soft tissues: Unremarkable. DISCS/SPINAL CANAL/NEURAL FORAMINA: C2-C3: Unremarkable. No significant disc disease. No stenosis. C3-C4: Unremarkable. No significant disc disease. No stenosis. C4-C5: Unremarkable. No significant disc disease. No stenosis. C5-C6: Unremarkable. No significant disc disease. No stenosis. C6-C7: Unremarkable. No significant disc disease. No stenosis. C7-T1: Unremarkable. No significant disc disease. No stenosis. IMPRESSION: 1. Cervical spine straightening, which may be incidental or may represent muscle spasm. 2. Mild multilevel age-related degenerative spine findings. 3. No significant spinal canal or foraminal stenosis. Cirilo Chavez Nov 11, 2017 07:49
--- NOTE | 2017-11-11 08:14 | Pulmonology Progress Note ---
Assessment/Plan Assessment/Plan ASSESSMENT migraines COPD/asthma obstructive sleep apnea HTN urgency SLE fibromyalgia chronic pain morbid obesity hepatitis C lumbar radiculopathy DDD C-spine cervical radiculopathy osteoarthritis of multiple joints narcotic dependency major depressive disorder , recurrent, w/out psychotic features PLAN OF CARE Med Surg floor BiPAP at night at least 4 hrs O2 prn to keep pulse ox above 92% pulmonary toilet prn pain specialist sen and evaluated, pain management as per pain specialist recs BP management with CCB, increase to bid and ANGELO DVT /GI prophylaxis PT /OT psych follwos, psych meds optimized sleep study if not done recently as outpatient, encourage use of BiPAP nightly for at least 4 hours previous study + KAREN patient is not using CPAP/BiPAP , could be a reason for constant headaches case discussed and evaluated by supervising physician Subjective Allergies: Coded Allergies: Cashew (Verified Allergy, Unknown, 12/30/14) HYDROQUINONE (Unverified Allergy, Unknown, 11/08/17) HYDROXYCHLOROQUINE (Verified Allergy, Unknown, 08/31/17) White Fish (Verified Allergy, Unknown, 01/19/15) Uncoded Allergies: FISH (Allergy, Unknown, 12/30/14) Subjective c/p intermittent headaches BP stable this am no CP no SOB Objective Last 24 Hour Vital Signs Date Time Temp Pulse Resp B/P (MAP) Pulse Ox O2 Delivery O2 Flow Rate FiO2 11/11/17 05:00 98.0 72 18 111/80 (90) 97 98.0 11/11/17 03:32 81 23 100 Facial 30 11/11/17 01:36 79 18 139/101 (114) 97 11/11/17 01:30 81 22 100 Facial 30 11/10/17 23:30 98.0 80 17 143/101 (115) 97 98.0 11/10/17 22:06 78 20 100 Facial 30 11/10/17 21:00 Room Air 11/10/17 20:00 98.5 77 18 131/80 (97) 97 98.5 11/10/17 19:18 Room Air 21 11/10/17 19:18 96 Room Air 21 11/10/17 18:54 76 138/75 11/10/17 18:53 98.1 11/10/17 18:53 98.1 11/10/17 17:05 98.1 11/10/17 17:05 98.1 11/10/17 17:05 98.1 11/10/17 16:35 98.1 11/10/17 13:37 98.1 11/10/17 13:36 98.1 11/10/17 12:07 98.1 11/10/17 10:09 98.1 11/10/17 10:09 98.1 11/10/17 10:08 151/101 11/10/17 10:08 71 151/101 11/10/17 09:17 98.1 11/10/17 09:00 Room Air Intake and Output 11/10/17 11/11/17 19:00 07:00 Intake Total 1080 ml 400 ml Balance 1080 ml 400 ml Intake Oral 1080 ml 400 ml # Voids 3 3 Objective General Appearance: no acute distress, other - A/A/O x 3 morbidly obese AA female HEENT: normocephalic, atraumatic, anicteric, mucous membranes moist Respiratory/Chest: lungs clear - with moderate air exchange , no respiratory distress Cardiovascular: normal peripheral pulses, normal rate - distant heart sounds , no JVD Abdomen: normal bowel sounds, soft, non tender - obese Extremities: pedal pulses normal Neurologic/Psychiatric: alert, oriented x 3, responsive Musculoskeletal: normal muscle bulk Microbiology Date/Time Source Procedure Growth Status 11/08/17 21:30 Rectum - Final NO CARBAPENEM-RESISTANT ENTEROBACTERI... Complete 11/08/17 21:30 Rectum VRE Culture - Final NO VANCOMYCIN RESISTANT ENTEROCOCCUS ... Complete Current Medications Medications (Trade) Dose Ordered Sig/Farideh Route PRN Reason Start Time Stop Time Status Last Admin Dose Admin Acetaminophen (Tylenol) 650 mg Q4H PRN ORAL fever 11/08/17 21:30 12/08/17 21:29 Al Hydroxide/Mg Hydroxide (Mylanta II) 30 ml Q6H PRN ORAL dyspepsia 11/08/17 21:30 12/08/17 21:29 Alprazolam (Xanax) 1.5 mg Q6H PRN ORAL For Anxiety 11/09/17 15:18 11/16/17 15:17 11/10/17 21:56 Amlodipine Besylate (Norvasc) 5 mg BID ORAL 11/10/17 18:00 12/09/17 08:59 11/10/17 18:54 Carisoprodol (Soma) 350 mg THREE TIMES A DAY ORAL 11/09/17 13:00 12/09/17 12:59 11/10/17 18:53 Clonidine HCl (Catapres Tab) 0.1 mg Q6H PRN ORAL SBP>160 11/09/17 13:00 12/09/17 12:59 Cyclobenzaprine HCl (Flexeril) 10 mg TIDPRN PRN ORAL fibromyalgia pain 11/08/17 21:00 12/08/17 20:59 11/11/17 05:02 Dextrose (Dextrose 50%) STAT PRN IV Hypoglycemia 11/08/17 21:30 12/08/17 21:29 Duloxetine HCl (Cymbalta) 60 mg BID ORAL 11/09/17 09:00 12/09/17 08:59 11/10/17 18:52 Fentanyl (Duragesic) 1 patch Q72H TDERMAL 11/11/17 09:00 11/18/17 08:59 Folic Acid (Folate) 1 mg DAILY ORAL 11/10/17 09:00 12/10/17 08:59 11/10/17 10:10 Heparin Sodium (Porcine) (Heparin 5000 units/ml) 5,000 units EVERY 12 HOURS SUBQ 11/09/17 09:00 12/09/17 08:59 11/10/17 20:47 Lidocaine (Lidoderm 5% PATCH) 1 patch DAILY TDERMAL 11/10/17 09:00 12/10/17 08:59 11/10/17 10:12 Lisinopril (Zestril) 10 mg DAILY ORAL 11/09/17 09:00 12/09/17 08:59 11/10/17 10:08 Lubiprostone (Amitiza) 24 mcg TWICE A DAY ORAL 11/09/17 18:00 12/09/17 17:59 11/10/17 18:54 Miscellaneous Medication (fentaNYL Destruction) 1 ea Q72H MISC 11/11/17 09:00 12/11/17 08:59 Morphine Sulfate (Morphine Sulfate) 2 mg Q4H PRN IVP For Pain 4-6 11/08/17 21:30 11/15/17 21:29 11/11/17 06:02 Morphine Sulfate (Morphine Sulfate) 4 mg Q4H PRN IVP For Pain 7-10 11/08/17 21:30 11/15/17 21:29 11/10/17 20:39 Multivitamins (Multivitamins) 1 tab DAILY ORAL 11/10/17 09:00 12/10/17 08:59 11/10/17 10:08 Naloxone HCl (Narcan) 0.1 mg PRN IV Sedation scale 3 or 4 11/11/17 07:45 Ondansetron HCl (Zofran) 4 mg Q6H PRN IVP Nausea & Vomiting 11/09/17 13:00 12/09/17 12:59 Oxybutynin Chloride (Ditropan) 5 mg Q8HR ORAL 11/09/17 14:00 12/09/17 13:59 11/11/17 06:02 Oxycodone HCl (Roxicodone) 15 mg Q4H PRN ORAL Breakthrough Pain 11/09/17 12:30 11/16/17 12:29 11/10/17 23:40 Pantoprazole (Protonix) 40 mg DAILY ORAL 11/09/17 09:00 12/09/17 08:59 11/10/17 10:13 Polyethylene Glycol (Miralax) 17 gm HSPRN PRN ORAL Constipation 11/08/17 21:30 12/08/17 21:29 Pregabalin (Lyrica) 150 mg THREE TIMES A DAY ORAL 11/09/17 09:00 12/09/17 08:59 11/10/17 18:53 Sennosides (Senokot) 1 tab BID ORAL 11/09/17 09:00 12/09/17 08:59 11/10/17 18:53 Topiramate (Topamax) 25 mg EVERY 12 HOURS ORAL 11/09/17 21:00 12/09/17 20:59 11/10/17 20:40 Zolpidem Tartrate (Ambien) 5 mg HSPRN PRN ORAL Insomnia 11/09/17 21:00 11/15/17 20:59 11/10/17 21:56 Yasmin Youssef [employer] HEL[employer] Nov 11, 2017 08:14
[2017-11-11 08:15] VITALS: BP 144/93
--- NOTE | 2017-11-11 08:28 | General Progress Note ---
Assessment/Plan Problem List: (1) Obesity, morbid, BMI 40.0-49.9 ICD Codes: E66.01 - Morbid (severe) obesity due to excess calories SNOMED: 819956235 (2) Hepatitis C ICD Codes: B19.20 - Unspecified viral hepatitis C without hepatic coma SNOMED: 28682757 (3) Hypertension ICD Codes: I10 - Essential (primary) hypertension SNOMED: 05199701 (4) Depressed ICD Codes: F32.9 - Major depressive disorder, single episode, unspecified SNOMED: 93800288 (5) Intractable pain ICD Codes: R52 - Pain, unspecified SNOMED: 69485301 (6) Migraine ICD Codes: G43.909 - Migraine, unspecified, not intractable, without status migrainosus SNOMED: 87654408 Status: unchanged Assessment/Plan ot pt diet pain control psyc f/u cbc bmp am dc plan snf Subjective Constitutional: Reports: weakness Allergies: Coded Allergies: Cashew (Verified Allergy, Unknown, 12/30/14) HYDROQUINONE (Unverified Allergy, Unknown, 11/08/17) HYDROXYCHLOROQUINE (Verified Allergy, Unknown, 08/31/17) White Fish (Verified Allergy, Unknown, 01/19/15) Uncoded Allergies: FISH (Allergy, Unknown, 12/30/14) All Systems: reviewed and negative except above Subjective tired sad c/o gen pain Objective Last 24 Hour Vital Signs Date Time Temp Pulse Resp B/P (MAP) Pulse Ox O2 Delivery O2 Flow Rate FiO2 11/11/17 08:15 98.4 102 18 144/93 (110) 96 98.4 11/11/17 05:00 98.0 72 18 111/80 (90) 97 98.0 11/11/17 03:32 81 23 100 Facial 30 11/11/17 01:36 79 18 139/101 (114) 97 11/11/17 01:30 81 22 100 Facial 30 11/10/17 23:30 98.0 80 17 143/101 (115) 97 98.0 11/10/17 22:06 78 20 100 Facial 30 11/10/17 21:00 Room Air 11/10/17 20:00 98.5 77 18 131/80 (97) 97 98.5 11/10/17 19:18 Room Air 21 11/10/17 19:18 96 Room Air 21 11/10/17 18:54 76 138/75 11/10/17 18:53 98.1 11/10/17 18:53 98.1 11/10/17 17:05 98.1 11/10/17 17:05 98.1 11/10/17 17:05 98.1 11/10/17 16:35 98.1 11/10/17 13:37 98.1 11/10/17 13:36 98.1 11/10/17 12:07 98.1 11/10/17 10:09 98.1 11/10/17 10:09 98.1 11/10/17 10:08 151/101 11/10/17 10:08 71 151/101 11/10/17 09:17 98.1 11/10/17 09:00 Room Air Intake and Output 11/10/17 11/11/17 19:00 07:00 Intake Total 1080 ml 400 ml Balance 1080 ml 400 ml Intake Oral 1080 ml 400 ml # Voids 3 3 Height (Feet): 5 Height (Inches): 8.00 Weight (Pounds): 296 General Appearance: lethargic EENT: normal ENT inspection Neck: normal alignment Cardiovascular: normal peripheral pulses, normal rate, regular rhythm Respiratory/Chest: chest wall non-tender, lungs clear, normal breath sounds Abdomen: normal bowel sounds, non tender, soft Extremities: normal inspection Edema: no edema noted Arm (L), no edema noted Arm (R), no edema noted Leg (L), no edema noted Leg (R), no edema noted Pedal (L), no edema noted Pedal (R), no edema noted Generalized Neurologic: oriented x 3, motor weakness Skin: normal pigmentation, warm/dry Get Tovar DO Nov 11, 2017 08:28
[2017-11-11] MEDS ORDERED: fentaNYL Destruction MISC SCH ×2 (09:00)
[2017-11-11] MEDS: Heparin 5000 units/ml inj SUBQ SCH ×2 (09:37→09:44)
[2017-11-11] MEDS: Topiramate 25mg tab ORAL SCH (09:38)
[2017-11-11] MEDS: DULoxetine 30mg cap ORAL SCH ×2 (09:39→18:33)
[2017-11-11] MEDS: Lisinopril 10mg tab ORAL SCH (09:39)
[2017-11-11] MEDS: Amitiza 24mcg cap ORAL SCH ×2 (09:39→18:31)
[2017-11-11] MEDS: Lyrica 75mg cap ORAL SCH ×3 (09:41→18:33)
[2017-11-11] MEDS: Sennosides 8.6mg ORAL SCH ×2 (09:42→18:33)
[2017-11-11 12:00] VITALS: BP 174/115
[2017-11-11] MEDS: Morphine Sulfate 4mg/ml Inj (IV USE ONLY) IVP PRN ×2 (14:08→19:11)
[2017-11-11 16:00] VITALS: BP 168/98
[2017-11-11] MEDS: oxyCODONE 15mg IR tab ORAL PRN (16:19)
[2017-11-11] MEDS: ALPRAZolam 0.5mg tab ORAL PRN (17:28)
[2017-11-11 20:18] VITALS: BP 125/89
--- NOTE | 2017-11-12 10:35 | Discharge Summary ---
Discharge Summary Discharge Summary _ DATE OF ADMISSION: 11/08/2017 DATE OF DISCHARGE: 11/11/2017 REASON FOR ADMISSION: 41 years old female with history of asthma, COPD, SLE, hepatitis C, fibromyalgia , morbid obesity, bedbound, custodial resident, presented to emergency department complaining of headache, nausea for 6 months. Pain intermittent, bilateral, worsening in the last few days. No fever , no chills. Patient had chronic neck and back pain for multiply disc herniation along with fibromyalgia and chronic pain syndrome. . Upon evaluation blood pressure was slightly elevated, otherwise stable vital signs. Laboratory workup revealed no leukocytosis, stable hemoglobin and hematocrit. CONSULTANTS: pulmonary Dr. Powell psychiatrist Dr. Esparza pain specialist Dr. Leonardo [facility] HOSPITAL COURSE: Patient admitted to medical surgical floor. Pain specialist closely followed. Pain management provided as per pain specialist recommendations. MRI of C spine demonstrated mild multilevel age-related degenerative spine findings. MRI of L spine was stable. Noted elevated blood rpessure. Blood pressure was managed with calcium channel karthik and ANGELO inhibitor. Dose of antihypertensive uptitrated, and blood pressure eventually was controlled. Supplemental oxygen provided as needed to keep pulse oximetry above 92%. Pulmonary toilet was on standby as needed. No evidence of respiratory distress or bronchospasm . Patient with known history of sleep apnea and had sleep study, but did not remember when . Patient was not using CPAP/BiPAP. BiPAP was prescribed for use at nighttime for at least 4 hours . Obstructive sleep apnea could probably contribute to persistent migraines along with cervical radiculopathy . DVT and GI prophylaxis provided. Patient was working with physical and occupational therapists . Psychiatrist seen the patient and optimize psychiatric medication regimen. Pain was controlled with current regimen . Patient was stable for discharge back to residential facility FINAL DIAGNOSES: Migraines COPD/asthma Obstructive sleep apnea Hypertensive urgency resolved Fibromyalgia Chronic pain SLE Morbid obesity Hepatitis C DDD C-spine of cervical radiculopathy Osteoarthritis of multiply joints Narcotic dependency Major depressive disorder recurrent without psychotic features DISCHARGE MEDICATIONS: See Medication Reconciliation list. DISCHARGE INSTRUCTIONS: Patient was discharged to the residential facility. Follow up with medical doctor at the facility. Recommended outpatient sleep study test if not done recently . Encourage compliance with CPAP/ BiPAP Yasmin Youssef NP Nov 12, 2017 10:35
--- NOTE | 2017-11-12 19:00 | Progress Note ---
DATE: 11/11/2017 SUBJECTIVE: The patient is a 41-year-old female patient with intractable pain, confusion, disorganized thought process, high levels of anxiety and depression worsened by the stress of her chronic pain and inability to function as she was before. On interview, we talked about how she her attending has requested daily psychiatric consultation to reduce anxiety and depression problems with pain control and I talked to the patient in her room today. She expressed that she is feeling very depressed and anxious. . She showed pictures of when she was more functional and working and thus she in her life very depressed, but denies suicidal or homicidal thoughts. MENTAL STATUS EXAMINATION: The patient is a 41-year-old female. Appearance is disheveled. Attitude, irritable and agitated. Affect, guarded and restricted. Intellect poor. Mood is depressed and anxious. Motor activity, psychomotor agitation. Attention is poor. Orientation x2. Speech is low volume and slurred. Thought process, linear and goal directed. Denies auditory or visual hallucinations or delusions. Insight and judgment is fair. DIAGNOSIS: Major depressive disorder, mild, recurrent, without psychotic features. PLAN: Treat with Topamax 25 mg q.12 h., Xanax 2 mg q.6 h. p.r.n. anxiety and agitation. Provided 20 minutes of cognitive behavior therapy by identifying her automatic negative thoughts and help her to convert those to more positive thoughts. Chart reviewed. Discussed with staff. Seen and assessed in her room. Troy Esparza M.D. DR: ASHA JOB#: [id number] CC:
== END 2017-11-11 20:44 | DRG 103 ==
LOC: EDBD 19:30 → EMR 20:13 → 3E 22:09 → EDBEDREQ 22:38
DX: G43.919 Migraine, unspecified, intractable, without status migrainosus (principal); E46 Unspecified protein-calorie malnutrition; F11.20 Opioid dependence, uncomplicated; F33.9 Major depressive disorder, recurrent, unspecified; Z68.41 Body mass index [BMI] 40.0-44.9, adult; J44.9 Chronic obstructive pulmonary disease, unspecified; I10 Essential (primary) hypertension; G47.33 Obstructive sleep apnea (adult) (pediatric); I16.0 Hypertensive urgency; M79.7 Fibromyalgia; M32.9 Systemic lupus erythematosus, unspecified; E66.01 Morbid (severe) obesity due to excess calories; B19.20 Unspecified viral hepatitis C without hepatic coma; M19.90 Unspecified osteoarthritis, unspecified site; M50.10 Cervical disc disorder with radiculopathy, unspecified cervical region; Z88.8 Allergy status to other drugs, medicaments and biological substances; Z88.6 Allergy status to analgesic agent; Z91.018 Allergy to other foods; Z98.84 Bariatric surgery status
CPT/HCPCS: 36415; 72141; 72148; 80048; 80053; 81003; 81025; 83690; 84443; 85025; 87081; 94760; 96374; 96375; 99285; J2765

== ENCOUNTER 2018-05-10 15:44 | Emergency (ER) | payer MEDICARE, OTHER ==
[~2018-05-10] VITALS: Ht 170.2 cm; Wt 136.1 kg
[~2018-05-10 15:44] MED LIST changes: +DSS PO; +FENTANYL1 EAC4 TDERMAL; +LIDOCAINE PATCH 5% SOFTTIS; +TOPIRAMATE25 MG ORAL; +TOPROL XL PO
[2018-05-10 15:50] VITALS: BP 130/78
--- NOTE | 2018-05-10 15:50 | NUR ---
ED Nurse Note: brought in by ambulance from [facility] due to worsening lower back pain 08/28. Pt denies any recent injury
--- NOTE | 2018-05-10 17:28 | NUR ---
d per dr alexandra patient has to be transferd to [facility]
--- NOTE | 2018-05-10 17:29 | NUR ---
called [facility] who states that she has to be medicaly clear and fax all the paperwork to them . per sudeep at intake dr flores office called and told them she will be coming there . but they were not sure if the patient was coming from [facility]
--- NOTE | 2018-05-10 17:35 | NUR ---
ED Nurse Note: pt refused to be drawn by the nurse at this time. Per pt, she is hardstick. No attempt made by RN. technical cable jointer contacted to come draw blood.
[2018-05-10 18:33] LABS: APPEARANCE,URINE CLEAR; BILIRUBIN, URINE NEGATIVE (NEGATIVE); GLUCOSE, URINE (UA) NEGATIVE (NEGATIVE); KETONES,URINE NEGATIVE (NEGATIVE); LEUKOCYTE ESTERASE ,URINE NEGATIVE (NEGATIVE); NITRITE,URINE NEGATIVE (NEGATIVE); PH,URINE 6 (4.5-8.0); PROTEIN,URINE NEGATIVE (NEGATIVE); UROBILINOGEN,URINE NORMAL MG/DL (0.0-1.0)
[2018-05-10 18:37] LABS: COLOR,URINE YELLOW
--- NOTE | 2018-05-10 18:40 | NUR ---
Spoke with Gricelda at [facility]-aware of patients return home. Spoke with [facility]- [phone].
[2018-05-10] MEDS ORDERED: HYDROmorphone 1mg/ml Carpuject IM ONE (18:45)
--- NOTE | 2018-05-10 18:54 | Diagnostic Imaging Report ---
EXAM: XR Thoracic Spine, 3 Views CLINICAL HISTORY: PAIN TECHNIQUE: Frontal, lateral and swimmer's views of the thoracic spine. COMPARISON: No relevant prior studies available. FINDINGS: Vertebrae: No acute fracture. Minimal dextrocurvature, apex at T9 Disc spaces: Mild degenerative endplate spurring. Soft tissues: Surgical clips near the GE junction. IMPRESSION: Minimal thoracic dextrocurvature. Mild degenerative endplate spurring.
--- NOTE | 2018-05-10 19:20 | NUR ---
HAND-OFF: Report given to SAMUEL Velásquez. No s/s of distress. Pt states that she does not want to go to [place] and wants to go back to her facility [facility].
--- NOTE | 2018-05-10 20:05 | NUR ---
ED Nurse Note: PT C/O BACK AND RIGHT SHOULDER PAIN, ERMD NOTIFIED.
--- NOTE | 2018-05-10 20:45 | NUR ---
ED Nurse Note: PT REQ ANOTHER PATCH, ERMD NOTIFIED.
[2018-05-10] MEDS ORDERED: LIDODERM700 M1 TOPIC (20:46)
--- NOTE | 2018-05-10 20:48 | NUR ---
ED Nurse Note: PT cleared to be d/c back to facility, charge nurse spoken with the facility regarding pt's discharge, pt discharge & aftercare instruction w/ prescription provided, pt advised to follow up with pcp or return to ed if sx worsen or new sx, pt calm and cooperative, ambulance at the bedside for transfer, pt wristband removed, vss, ambulatory w/ steady gait, left w/ all belongings, airway intact, resp even and unlabored on RA.
--- NOTE | 2018-05-10 20:58 | Emergency Room Report ---
History of Present Illness General Chief Complaint: Back Pain-No Injury Source: Medical Record Present Illness HPI 42-year-old female presents emergency department complaining of 7 out of 10 in severity upper back pain since this morning. Patient reports that she did have some mild back pain last week and today she agitated her back more. Patient reports history of herniated disc in the back she denies saddle anesthesia, urinary retention or incontinence. Patient denies trauma or fall reports that she was dancing and she accidentally twisted the wrong way tweeking her back. She denies recent spinal procedures or history of cancer. Patient reports history of lupus. Patient came from residential [facility] with documentation of history of chronic pain, uncontrollable pain, fibromyalgia, depression and obesity. she states that her current medications are not relieving her pain. Allergies: Coded Allergies: Cashew (Verified Allergy, Unknown, 12/30/14) HYDROQUINONE (Unverified Allergy, Unknown, 11/08/17) HYDROXYCHLOROQUINE (Verified Allergy, Unknown, 08/31/17) White Fish (Verified Allergy, Unknown, 01/19/15) Uncoded Allergies: FISH (Allergy, Unknown, 12/30/14) Patient History Past Medical History: see triage record Past Surgical History: none Pertinent Family History: none Last Menstrual Period: irregular, unknown Reviewed Nursing Documentation: PMH: Agreed; PSxH: Agreed Nursing Documentation-PMH Past Medical History: No History, Except For Hx Hypertension: Yes Hx Asthma: Yes Hx COPD: Yes Hx Cancer: No Hx Gastrointestinal Problems: Yes - GASTRIC BYPASS SURGERY Hx Neurological Problems: Yes - difficulty in walking Hx Spinal Cord Injury: Yes - 2012 Review of Systems All Other Systems: negative except mentioned in HPI Physical Exam Vital Signs Date Time Temp Pulse Resp B/P (MAP) Pulse Ox O2 Delivery O2 Flow Rate FiO2 05/10/18 15:42 98.4 52 16 130/78 96 Room Air Sp02 EP Interpretation: reviewed, normal General Appearance: no apparent distress, alert, GCS 15, non-toxic, obese Head: normocephalic, atraumatic Eyes: bilateral eye normal inspection, bilateral eye PERRL ENT: hearing grossly normal, normal voice Neck: full range of motion Respiratory: lungs clear, normal breath sounds, speaking full sentences Cardiovascular #1: regular rate, rhythm Musculoskeletal: back normal, gait/station normal, normal range of motion, tender - TTP to Thoracic back region. Neurologic: alert, oriented x3, responsive, motor strength/tone normal, sensory intact, normal gait, speech normal, grossly normal Psychiatric: judgement/insight normal Skin: normal color, warm/dry, well hydrated, rash - rash to the interdigital webs of hands bilaterally, hyperpigmented and patchy. Medical Decision Making HELGA lara is my supervising Physician whom patient management has been discussed with. Diagnostic Impression: Primary Impression: Back pain Qualified Codes: M54.6 - Pain in thoracic spine; G89.29 - Other chronic pain Additional Impression: Lupus (systemic lupus erythematosus) Qualified Codes: M32.9 - Systemic lupus erythematosus, unspecified ER Course 42-year-old female presents emergency department complaining of 7 out of 10 in severity upper back pain since this morning. Patient reports that she did have some mild back pain last week and today she agitated her back more. Patient reports history of herniated disc in the back she denies saddle anesthesia, urinary retention or incontinence. Patient denies trauma or fall reports that she was dancing and she accidentally twisted the wrong way tweeking her back. She denies recent spinal procedures or history of cancer. Patient reports history of lupus. Patient came from residential facility with documentation of history of chronic pain, uncontrollable pain, fibromyalgia, depression and obesity. she states that her current medications are not relieving her pain. Ddx considered but are not limited to Fracture, dislocation, contusion, Sprain/ Strain/Spasm, herniated disk, degenerative changes Epidural abscess, Neoplastic mets. Vital signs: are WNL, pt. is afebrile H&PE are most consistent with musculoskeletal injury will perform imaging to r/ o fractures/dislocations. ORDERS: - X-ray T-Spine 3 views - negative for fx, Dislocation, or significant soft tissue injury, degenerative changes noted, -per preliminary read in ED, and signed by HELGA Sotomayor, my supervising physician has reviewed, and agrees with my interpretation. ED INTERVENTIONS: - Lidoderm TP x 2 - Dilauded 1mg DISCHARGE: At this time pt. is stable for d/c to home. Will provide printed patient care instructions, and any necessary prescriptions. Care plan and follow up instructions have been discussed with the patient prior to discharge. Other X-Ray Diagnostic Results Other X-Ray Diagnostic Results : X-Ray ordered: T-Spine # of Views/Limited Vs Complete: 3 View Indication: Pain EP Interpretation: Yes PA Xray: Interpretation reviewed, by supervising MD, and agrees with findings. Interpretation: no dislocation, no soft tissue swelling, no fractures, nonspecific bowel gas Impression: No acute disease Last Vital Signs Date Time Temp Pulse Resp B/P (MAP) Pulse Ox O2 Delivery O2 Flow Rate FiO2 05/10/18 15:50 98.4 61 16 130/78 96 Room Air Status: improved Disposition: XFER SNF Condition: Stable Scripts Lidocaine (Lidoderm) 1 Each Adh..patch 1 PATCH TOPIC DAILY, #30 PATCH 0 Refills Patch(es) may remain in place for up to 12 hours in any 24-hour period. Prov: Iza Sotomayor 05/10/18 Referrals: Get Tovar DO (PCP) Patient Instructions: Back Pain, Adult Additional Instructions: Take medications as directed. Follow up with a Primary Care Provider in 3-5 days, even if your symptoms have resolved. --Please review list of primary care clinics, if you do not already have a primary care provider Return sooner to ED if new symptoms occur, or current symptoms become worse. - Please note that this Emergency Department Report was dictated using [employer] manufacturer's representative technology software, occasionally this can lead to erroneous entry secondary to interpretation by the dictation equipment. Iza Sotomayor May 10, 2018 20:58
[2018-05-10 21:02] VITALS: BP 175/68
== END 2018-05-10 21:00 ==
LOC: EDBD 15:44 → EMR 16:19
DX: M54.6 Pain in thoracic spine (principal); G89.29 Other chronic pain; M32.9 Systemic lupus erythematosus, unspecified; J45.909 Unspecified asthma, uncomplicated; Z98.84 Bariatric surgery status; Z88.8 Allergy status to other drugs, medicaments and biological substances; Z88.5 Allergy status to narcotic agent
CPT/HCPCS: 72070; 81003; 81025; 96372; 99283; J1170

== ENCOUNTER 2018-10-21 10:49 | Inpatient (IN) | payer MEDICARE, OTHER ==
[~2018-10-21] VITALS: Ht 172.7 cm; Wt 157.0 kg
--- NOTE | 2018-10-21 11:12 | NUR ---
ED Nurse Note: samina from [facility] for pain control pt was given extended release tabs nd was not happ with that wants immediate results. pt placed on monitor awaiting ermd eval and nsg orders.
[2018-10-21 11:14] VITALS: BP 132/68
[2018-10-21] MEDS ORDERED: ALPRAZOLAM1 MG ORAL (11:31)
[2018-10-21] MEDS ORDERED: COLACE100 MG ORAL (11:31)
[2018-10-21] MEDS ORDERED: LYRICA75 M1 ORAL (11:31)
[2018-10-21] MEDS ORDERED: OXYBUTYNIN CHLOR5 M1 ORAL (11:31)
[2018-10-21] MEDS ORDERED: AMLODIPINE BESYL5 MG ORAL (11:31)
[2018-10-21] MEDS ORDERED: OXYCONTIN10 MG ORAL (11:31)
[2018-10-21] MEDS ORDERED: CYCLOBENZAPRINE10 MG ORAL (11:31)
[2018-10-21] MEDS ORDERED: METOPROLOL TART50 MG ORAL (11:31)
[2018-10-21] MEDS ORDERED: ZOLPIDEM TARTRA10 MG ORAL (11:31)
[2018-10-21] MEDS ORDERED: MULTIVITAMINS1 EAC2 ORAL (11:31)
[2018-10-21] MEDS ORDERED: FOLIC ACID1 MG ORAL (11:31)
[2018-10-21] MEDS ORDERED: CYMBALTA60 MG ORAL (11:31)
[2018-10-21] MEDS ORDERED: ZOFRAN4 M3 ORAL (11:31)
[2018-10-21] MEDS ORDERED: ACETAMINOPHEN325 M1 ORAL (11:31)
[2018-10-21] MEDS ORDERED: DICLOFENAC SODI25 MG ORAL (11:31)
[2018-10-21] MEDS ORDERED: [UNRECOGNIZED DRUG - OTHER] PO (11:31)
[2018-10-21] MEDS ORDERED: FUROSEMIDE40 MG ORAL (11:31)
[2018-10-21] MEDS ORDERED: POTASSIUM CHLO20 ME1 ORAL (11:31)
[2018-10-21] MEDS ORDERED: LISINOPRIL10 MG ORAL (11:31)
[2018-10-21] MEDS ORDERED: TIZANIDINE HCL4 MG ORAL (11:31)
--- NOTE | 2018-10-21 11:45 | NUR ---
Patient refused EKG, ERMD notified and aware.
[2018-10-21] MEDS ORDERED: Morphine Sulfate 10mg/ml Inj IVP ONE (12:00)
--- NOTE | 2018-10-21 12:23 | NUR ---
ED Nurse Note: pt is a hard stick and uncooperative. ERMD informed charge aware and lab called was told they can't come draw because they don't have any one.
[2018-10-21 13:03] LABS: BASOPHILS % (AUTO) 0.6 % (0.0-2.0); EOSINOPHILS % (AUTO) 3.2 % (0.0-3.0); HEMOGLOBIN 12.8 G/DL (12.0-16.0); LYMPHOCYTES % (AUTO) 35.4 % (20.0-45.0); MEAN CORPUSCULAR VOLUME 89 FL (80-99); MONOCYTES % (AUTO) 4.2 % (1.0-10.0); NEUTROPHILS % (AUTO) 56.6 % (45.0-75.0); PLATELET COUNT 411 K/UL (150-450); RED BLOOD COUNT 4.48 M/UL (4.20-5.40); WHITE BLOOD COUNT 9.1 K/UL (4.8-10.8)
[2018-10-21 13:05] LABS: ANION GAP 8 mmol/L (5-15); BLOOD UREA NITROGEN 7 mg/dL (7-18); CALCIUM 9.3 MG/DL (8.5-10.1); CARBON DIOXIDE 30 MMOL/L (21-32); CHLORIDE 104 MMOL/L (98-107); CREATININE 0.8 MG/DL (0.55-1.30); POTASSIUM 3.8 MMOL/L (3.5-5.1); SODIUM 142 MMOL/L (136-145)
[2018-10-21 13:18] LABS: ALANINE AMINOTRANSFERASE 16 U/L (12-78); ALBUMIN 3.3 G/DL (3.4-5.0); ALBUMIN/GLOBULIN RATIO 0.6 (1.0-2.7); ALKALINE PHOSPHATASE 83 U/L (46-116); ASPARTATE AMINO TRANSFERASE 14 U/L (15-37)
--- NOTE | 2018-10-21 13:31 | NUR ---
NURSE NOTES: RECEIVED REPORT OVER THE PHONE FROM ED DEPARTMENT. SPOKE TO DEMETRI. WAITING FOR PATIENT TO ARRIVE ON THE FLOOR.
[2018-10-21] MEDS ORDERED: Morphine Sulfate 4mg/ml Inj (IV USE ONLY) IVP ONE (14:15)
--- NOTE | 2018-10-21 14:30 | NUR ---
ED Nurse Note: pt re medicated with 8 mg morphine and up to floor wit interceptor operator
[2018-10-21 14:35] LABS: BILIRUBIN,TOTAL 0.3 MG/DL (0.2-1.0)
--- NOTE | 2018-10-21 14:47 | NUR ---
NURSE NOTES: PATIENT ARRIVED TO THE FLOOR, WENT THROUGH BELONGINGS AND UPDATED LIST. PATIENT HAS LIDOCAINE PATCH IN HER BAG, INFORMED HER THAT SHE CANNOT KEEP MEDICATIONS AT THE BEDSIDE, PATIENT REFUSED TO HAND OVER THE LIDOCAINE PATCH. Addendum: 10/21/18 at 1536 by Demarco Thomas RN PATIENT ALSO HAS ALBUTEROL INHALER AND EPIPEN AT BEDSIDE THAT SHE WANTS TO KEEP ON HER AND NOT SEND TO PHARMACY. IN THE CHART I SELECTED MEDS SENT HOME BECAUSE THER WAS NO OPTION FOR MEDS WITH PATIENT AT BEDSIDE.
[2018-10-21 16:00] VITALS: BP 147/92
--- NOTE | 2018-10-21 16:31 | Consultation ---
History of Present Illness General Date patient seen: Oct 21, 2018 Chief Complaint: Pain Present Illness HPI 42 y/o F with hx of HTN, MDD, COPD, chronic pains syndrome, GERD, Lupus is transferred from [facility] to [place] on 10/21 for evaluation of R leg pain. Patient referred having a fall while she was admitted at [facility] for a respiratory infection. She twisted and the weight of her body fell over her R leg; she had a fracture. Initially she was placed on cast and sent to [facility] but having mobility issues. She was admitted to [facility] where she underwent R leg ORIF 1 week ago. She referred having some malodourous discharge and it is having pain Allergies: Coded Allergies: Cashew (Verified Allergy, Unknown, 12/30/14) GABAPENTIN (Verified Allergy, Unknown, 10/21/18) HYDROQUINONE (Unverified Allergy, Unknown, 11/08/17) HYDROXYCHLOROQUINE (Verified Allergy, Unknown, 08/31/17) PENICILLINS (Verified Allergy, Unknown, 10/21/18) PISTACHIO NUT (Verified Allergy, Unknown, 10/21/18) Uncoded Allergies: FISH (Allergy, Unknown, 12/30/14) Medication History Scheduled Alprazolam* (Xanax*), 1 MG ORAL TID, (Reported) Amlodipine Besylate* (Amlodipine Besylate*), 5 MG ORAL DAILY, (Reported) Cyclobenzaprine Hcl* (Flexeril*), 10 MG ORAL THREE TIMES A DAY, (Reported) Diclofenac Sod* (Voltaren*), 25 MG ORAL THREE TIMES A DAY, (Reported) Docusate Sodium* (Colace*), 250 MG ORAL DAILY, (Reported) Duloxetine Hcl* (Cymbalta*), 60 MG ORAL DAILY, (Reported) Folic Acid* (Folic Acid*), 1 MG ORAL DAILY, (Reported) Furosemide* (Lasix*), 40 MG ORAL DAILY, (Reported) Lisinopril* (Lisinopril*), 10 MG ORAL DAILY, (Reported) Metoprolol Tartrate* (Metoprolol Tartrate*), 75 MG ORAL DAILY, (Reported) Multivitamins* (Multivitamins*), 1 TAB ORAL DAILY, (Reported) Oxybutynin Chloride (Oxybutynin Chloride), 5 MG ORAL THREE TIMES A DAY, ( Reported) Oxycodone Hcl Er* (Oxycontin*), 10 MG ORAL EVERY 12 HOURS, (Reported) Potassium Chloride* (K-Dur*), 20 MEQ ORAL DAILY, (Reported) Pregabalin* (Lyrica*), 75 MG ORAL THREE TIMES A DAY, (Reported) Tizanidine Hcl* (Zanaflex*), 4 MG ORAL THREE TIMES A DAY, (Reported) [gerikot], 17.2 MG PO QHS, (Reported) Scheduled PRN Acetaminophen* (Acetaminophen 325MG Tablet*), 650 MG ORAL Q6H PRN for For Pain, (Reported) Ondansetron* (Zofran*), 4 MG ORAL Q6H PRN for Nausea & Vomiting, (Reported) Zolpidem Tartrate* (Zolpidem Tartrate*), 10 MG ORAL BEDTIME PRN for Insomnia, ( Reported) Discontinued Medications Acetaminophen (Tylenol), 325 MG ORAL Q4HR, (Reported) Discontinued Reason: Pt stopped taking med Acetaminophen (Acetaminophen), 325 MG PO Q4HR, (Reported) Discontinued Reason: Pt stopped taking med Al Hydroxide/mg Hydroxide (Mag-Al Liquid), 30 ML PO Q4HR, (Reported) Discontinued Reason: Pt stopped taking med Al Hydroxide/mg Hydroxide (Mag-Al Liquid), 30 ML ORAL Q6HR, (Reported) Discontinued Reason: Pt stopped taking med Albuterol Sulfate* (Proair Hfa*), 1 PUFF INH Q4HR, (Reported) Discontinued Reason: Pt stopped taking med Amlodipine Besylate* (Amlodipine Besylate*), 5 MG ORAL DAILY, (Reported) Discontinued Reason: Pt stopped taking med Bisacodyl (Dulcolax), 10 MG RC DAILY PRN for Constipation, (Reported) Discontinued Reason: Pt stopped taking med Bismuth Subsalicylate (Kidron Bismuth), 30 MG PO BID PRN for Per rx protocol, ( Reported) Discontinued Reason: Pt stopped taking med Carisoprodol* (Soma*), 350 MG PO TID, (Reported) Discontinued Reason: Pt stopped taking med Cyclobenzaprine Hcl* (Flexeril*), 10 MG ORAL THREE TIMES A DAY PRN for fibromyalgia pain, (Reported) Discontinued Reason: Pt stopped taking med Diphenhydramine Hcl* (Benadryl*), 125 MG ORAL Q6H PRN for Itching, (Reported) Discontinued Reason: Pt stopped taking med Docusate Sodium* (Colace*), 250 MG ORAL BID, (Reported) Discontinued Reason: Pt stopped taking med Duloxetine Hcl* (Cymbalta*), 60 MG ORAL BID, (Reported) Discontinued Reason: Pt stopped taking med Fentanyl 12MCG Patch* (Fentanyl 12MCG Patch*), 1 PATCH TDERMAL EVERY 72 HOURS, ( Reported) Discontinued Reason: Pt stopped taking med Fentanyl 25MCG Patch* (Fentanyl 25MCG Patch*), 1 PATCH TDERMAL EVERY 72 HOURS, ( Reported) Discontinued Reason: Pt stopped taking med Fluticasone/Salmeterol (Advair Hfa 115-21 Mcg Inhaler), 2 PUFFS INH EVERY 12 HOURS, (Reported) Discontinued Reason: Pt stopped taking med Fluticasone/Vilanterol (Breo Ellipta 100-25 Mcg INH), 1 EACH IH DAILY, (Reported ) Discontinued Reason: Pt stopped taking med Folic Acid* (Folic Acid*), 1 MG ORAL DAILY, (Reported) Discontinued Reason: Pt stopped taking med Furosemide* (Lasix*), 40 MG ORAL DAILY, (Reported) Discontinued Reason: Pt stopped taking med Gabapentin* (Neurontin*), 800 MG ORAL TID, (Reported) Discontinued Reason: Pt stopped taking med Heparin Sod (Porcine) (Heparin Sodium*), 5,000 UNITS SUBQ EVERY 12 HOURS, ( Reported) Discontinued Reason: Pt stopped taking med Ipratropium/Albuterol Sulfate (DuoNeb 0.5-3(2.5)mg/3ml), 3 ML HHN Q4HR, ( Reported) Discontinued Reason: Pt stopped taking med Lidocaine (Lidocaine), 700 MG TP DAILY, (Reported) Discontinued Reason: Pt stopped taking med Lidocaine Patch* (Lidoderm Patch*), 2 PATCH TOPIC, (Reported) Discontinued Reason: Pt stopped taking med Lidocaine Patch* (Lidoderm Patch*), 1 PATCH TOPIC DAILY Discontinued Reason: Pt stopped taking med Lisinopril* (Lisinopril*), 10 MG ORAL DAILY, (Reported) Discontinued Reason: Pt stopped taking med Metoclopramide Hcl* (Reglan*), 5 MG ORAL EVERY 6 HOURS PRN for Nausea & Vomiting , (Reported) Discontinued Reason: Pt stopped taking med Morphine Sulfate (Morphine Sulfate), 4 MG IV Q4HR, (Reported) Discontinued Reason: Pt stopped taking med Multivitamin (Multivitamins), 1 EACH PO DAILY, (Reported) Discontinued Reason: Pt stopped taking med Naloxone HCl (Naloxone HCl), 0.1 MG IV, (Reported) Discontinued Reason: Pt stopped taking med OXYCODONE HCl* (Roxicodone*), 10 MG ORAL Q4HR PRN for For Pain, (Reported) Discontinued Reason: Pt stopped taking med Ondansetron* (Zofran*), 4 MG ORAL DAILY PRN for Nausea & Vomiting, (Reported) Discontinued Reason: Pt stopped taking med Oxybutynin Chloride (Ditropan Xl), 5 MG ORAL THREE TIMES A DAY, (Reported) Discontinued Reason: Pt stopped taking med Oxycodone Hcl* (Oxycodone Hcl*), 5 MG ORAL Q4HR PRN for Moderate Pain (Pain Scale 4-6), (Reported) Discontinued Reason: Pt stopped taking med Pantoprazole* (Protonix*), 40 MG ORAL DAILY, (Reported) Discontinued Reason: Pt stopped taking med Polyethylene Glycol 3350* (Miralax*), 17 GM ORAL DAILY PRN for Constipation, ( Reported) Discontinued Reason: Pt stopped taking med Potassium Chloride* (K-Dur*), 10 MEQ ORAL DAILY, (Reported) Discontinued Reason: Pt stopped taking med Potassium Chloride* (K-Dur*), 20 MEQ ORAL DAILY, (Reported) Discontinued Reason: Pt stopped taking med Prednisone* (Prednisone*), 20 MG ORAL DAILY Discontinued Reason: Pt stopped taking med Pregabalin* (Lyrica*), 150 MG ORAL THREE TIMES A DAY, (Reported) Discontinued Reason: Pt stopped taking med Sennosides (Senna), 8.6 MG PO BID, (Reported) Discontinued Reason: Pt stopped taking med Sennosides (Senna-Gen), 17.2 MG PO BID, (Reported) Discontinued Reason: Pt stopped taking med Topiramate* (Topamax*), 25 MG ORAL TWICE A DAY, (Reported) Discontinued Reason: Pt stopped taking med [Dss], 250 MG PO BID, (Reported) Discontinued Reason: Pt stopped taking med [Lidocaine Patch 5%], 2 PATCH SOFTTIS Q12HR, (Reported) Discontinued Reason: Pt stopped taking med [Lidocaine Patch], TD BID, (Reported) Discontinued Reason: Pt stopped taking med [Miralax powder], (Reported) Discontinued Reason: Pt stopped taking med [Toprol Xl], 75 MG PO DAILY, (Reported) Discontinued Reason: Pt stopped taking med Medications Narrative Pmhx: as above Shx: reviewed Fhx: non contributory Patient History Healthcare decision maker ARIADNA MARRUFO Resuscitation status Advanced Directive on File Physical Exam Last 24 Hour Vital Signs Date Time Temp Pulse Resp B/P (MAP) Pulse Ox O2 Delivery O2 Flow Rate FiO2 10/21/18 14:49 Room Air 10/21/18 14:29 98.4 10/21/18 14:21 98.4 10/21/18 13:32 98.4 80 18 138/65 95 Room Air 10/21/18 11:14 98.4 18 132/68 94 Room Air 10/21/18 10:55 98.4 68 18 132/68 (89) 94 Room Air Laboratory Tests Test 10/21/18 12:30 White Blood Count 9.1 K/UL (4.8-10.8) Red Blood Count 4.48 M/UL (4.20-5.40) Hemoglobin 12.8 G/DL (12.0-16.0) Hematocrit 40.0 % (37.0-47.0) Mean Corpuscular Volume 89 FL (80-99) Mean Corpuscular Hemoglobin 28.6 PG (27.0-31.0) Mean Corpuscular Hemoglobin Concent 32.1 G/DL (32.0-36.0) Red Cell Distribution Width 12.0 % (11.6-14.8) Platelet Count 411 K/UL (150-450) Mean Platelet Volume 5.0 FL (6.5-10.1) L Neutrophils (%) (Auto) 56.6 % (45.0-75.0) Lymphocytes (%) (Auto) 35.4 % (20.0-45.0) Monocytes (%) (Auto) 4.2 % (1.0-10.0) Eosinophils (%) (Auto) 3.2 % (0.0-3.0) H Basophils (%) (Auto) 0.6 % (0.0-2.0) Erythrocyte Sedimentation Rate 60 MM/HR (0-20) H Sodium Level 142 MMOL/L (136-145) Potassium Level 3.8 MMOL/L (3.5-5.1) Chloride Level 104 MMOL/L (98-107) Carbon Dioxide Level 30 MMOL/L (21-32) Anion Gap 8 mmol/L (5-15) Blood Urea Nitrogen 7 mg/dL (7-18) Creatinine 0.8 MG/DL (0.55-1.30) Estimat Glomerular Filtration Rate > 60 mL/min (>60) Glucose Level 99 MG/DL (74-106) Calcium Level 9.3 MG/DL (8.5-10.1) Total Bilirubin 0.3 MG/DL (0.2-1.0) Aspartate Amino Transf (AST/SGOT) 14 U/L (15-37) L Alanine Aminotransferase (ALT/SGPT) 16 U/L (12-78) Alkaline Phosphatase 83 U/L (46-116) Total Protein 8.5 G/DL (6.4-8.2) H Albumin 3.3 G/DL (3.4-5.0) L Globulin 5.2 g/dL Albumin/Globulin Ratio 0.6 (1.0-2.7) L Thyroid Stimulating Hormone (TSH) 1.364 uiU/mL (0.358-3.740) Microbiology Date/Time Source Procedure Growth Status 10/21/18 00:00 Rectum Ordered Height (Feet): 5 Height (Inches): 8.00 Weight (Pounds): 346 Assessment/Plan Assessment/Plan: Abx: None Assessment: R/o probable Surgical site infection (currently does not appear infected but report of malodorous discharge) Afebrile No leukocytosis HTN MDD Lupus COPD chronic pain syndrome GERD Plan: -Empiric Bactrim DS 1 tab bid #/ -f/u cx -Monitor CBC/CMP, temperatures Thank you for this consultation. Will continue to follow along with you. Discussed with SAMUEL. Zoie Connolly M.D. Oct 21, 2018 16:31
[2018-10-21] MEDS: Bactrim-DS 1 tab ORAL SCH ×2 (18:00→18:57)
[2018-10-21] MEDS ORDERED: Miralax 17gm pkt ORAL PRN (18:15)
--- NOTE | 2018-10-21 19:00 | NUR ---
NURSE NOTES: NOTIFIED DR ROMAN PER PATIENT REQUEST, PATIENT STATED THAT THE MORPHINE DOSAGE IS NOT HIGH ENOUGH TO MANAGE PAIN. NO RESPONSE YET FROM DOCTOR.
[2018-10-21] MEDS: Morphine Sulfate 2mg/ml Inj(IV/IM USE ONLY) IVP PRN (19:10)
--- NOTE | 2018-10-21 20:08 | NUR ---
HAND-OFF: Report given to SAMUEL CHE.
--- NOTE | 2018-10-21 21:37 | Emergency Room Report ---
History of Present Illness General Chief Complaint: Pain Source: Patient, Medical Record, EMS Present Illness HPI Patient is a 42 year old female who presented after increased generalized pain. She had recent fall at [facility] and had fracture to her right ankle. She had been having chronic pain related to autoimmune disease in multiple parts of her body. She denies any fever. She reports having some headache. She denies vomiting. Had been taking Oxycontin ER without improvement in pain control. She had been having some pain from splint site. Allergies: Coded Allergies: Cashew (Verified Allergy, Unknown, 12/30/14) GABAPENTIN (Verified Allergy, Unknown, 10/21/18) HYDROQUINONE (Unverified Allergy, Unknown, 11/08/17) HYDROXYCHLOROQUINE (Verified Allergy, Unknown, 08/31/17) PENICILLINS (Verified Allergy, Unknown, 10/21/18) PISTACHIO NUT (Verified Allergy, Unknown, 10/21/18) Uncoded Allergies: FISH (Allergy, Unknown, 12/30/14) Patient History Past Medical History: see triage record Past Surgical History: other - ORIF right ankle Last Menstrual Period: 09/2018 Now: No Reviewed Nursing Documentation: PMH: Agreed; PSxH: Agreed Nursing Documentation-PMH Hx Cardiac Problems: Yes Hx Hypertension: Yes Hx Asthma: Yes Hx COPD: Yes Hx Cancer: No Hx Gastrointestinal Problems: Yes Hx Neurological Problems: Yes - difficulty in walking Hx Spinal Cord Injury: Yes Review of Systems All Other Systems: negative except mentioned in HPI Physical Exam Vital Signs Date Time Temp Pulse Resp B/P (MAP) Pulse Ox O2 Delivery O2 Flow Rate FiO2 10/21/18 10:55 98.4 68 18 132/68 (89) 94 Room Air Sp02 EP Interpretation: reviewed, normal General Appearance: normal inspection, well appearing, no apparent distress, alert, GCS 15, obese, Chronically Ill Head: atraumatic Eyes: bilateral eye other - some intermittent lid lag ENT: normal ENT inspection, hearing grossly normal, normal voice Neck: normal inspection, full range of motion, supple, no bony tend Respiratory: normal inspection, lungs clear, normal breath sounds, no respiratory distress, no retraction, no wheezing Cardiovascular #1: regular rate, rhythm, no edema Gastrointestinal: normal inspection, normal bowel sounds, non tender, soft, no guarding, no hernia Genitourinary: no CVA tenderness Musculoskeletal: normal inspection, back normal, normal range of motion Neurologic: normal inspection, alert, oriented x3, responsive, speech normal Psychiatric: normal inspection, judgement/insight normal, mood/affect normal Skin: other - skin breakdown to right ankle surgical site with crusted drainage. Medical Decision Making Diagnostic Impression: Primary Impression: Intractable pain Additional Impressions: Fibromyalgia Osteoarthritis of multiple joints Status post ORIF of fracture of ankle ER Course Patient is a 42 year old female sent in from nursing facility after increased generalized body pain. Patient had recent ORIF of Right lower extremity and was still in initial dressing. Right lower extremity splint was removed. There was noted to be some slight skin breakdown to the incision sight with some crusted drainage. No erythema noted to wound. Patient has prior history of chronic pain from Lupus and arthritis. She reports prior episodes of sensitivity to light related to autoimmune disease. Patient was given IV fluids. She does not appear to be in significant distress but has complaints of pain unrelieved by her pain medications at SNF. Laboratory testing was notable for elevated ESR with normal WBC. It is unclear if this is related to ORIF or patient's baseline autoimmune condition. Dr. Get Tovar was contacted for inpatient management due to primary care physician. Labs Test 10/21/18 12:30 White Blood Count 9.1 K/UL (4.8-10.8) Red Blood Count 4.48 M/UL (4.20-5.40) Hemoglobin 12.8 G/DL (12.0-16.0) Hematocrit 40.0 % (37.0-47.0) Mean Corpuscular Volume 89 FL (80-99) Mean Corpuscular Hemoglobin 28.6 PG (27.0-31.0) Mean Corpuscular Hemoglobin Concent 32.1 G/DL (32.0-36.0) Red Cell Distribution Width 12.0 % (11.6-14.8) Platelet Count 411 K/UL (150-450) Mean Platelet Volume 5.0 FL (6.5-10.1) Neutrophils (%) (Auto) 56.6 % (45.0-75.0) Lymphocytes (%) (Auto) 35.4 % (20.0-45.0) Monocytes (%) (Auto) 4.2 % (1.0-10.0) Eosinophils (%) (Auto) 3.2 % (0.0-3.0) Basophils (%) (Auto) 0.6 % (0.0-2.0) Erythrocyte Sedimentation Rate 60 MM/HR (0-20) Sodium Level 142 MMOL/L (136-145) Potassium Level 3.8 MMOL/L (3.5-5.1) Chloride Level 104 MMOL/L (98-107) Carbon Dioxide Level 30 MMOL/L (21-32) Anion Gap 8 mmol/L (5-15) Blood Urea Nitrogen 7 mg/dL (7-18) Creatinine 0.8 MG/DL (0.55-1.30) Estimat Glomerular Filtration Rate > 60 mL/min (>60) Glucose Level 99 MG/DL (74-106) Calcium Level 9.3 MG/DL (8.5-10.1) Total Bilirubin 0.3 MG/DL (0.2-1.0) Aspartate Amino Transf (AST/SGOT) 14 U/L (15-37) Alanine Aminotransferase (ALT/SGPT) 16 U/L (12-78) Alkaline Phosphatase 83 U/L (46-116) Total Protein 8.5 G/DL (6.4-8.2) Albumin 3.3 G/DL (3.4-5.0) Globulin 5.2 g/dL Albumin/Globulin Ratio 0.6 (1.0-2.7) Thyroid Stimulating Hormone (TSH) 1.364 uiU/mL (0.358-3.740) Last Vital Signs Date Time Temp Pulse Resp B/P (MAP) Pulse Ox O2 Delivery O2 Flow Rate FiO2 10/21/18 16:00 97.7 76 18 147/92 (110) 95 10/21/18 14:49 Room Air Status: unchanged Disposition: ADMITTED INPATIENT Condition: Stable Referrals: Get Tovar DO (PCP) Ángel Villela MD Oct 21, 2018 21:37
[2018-10-21] MEDS: LORazepam Inj 2mg/ml 1ml IV PRN (23:53)
[2018-10-22] MEDS: Morphine Sulfate 2mg/ml Inj(IV/IM USE ONLY) IVP PRN ×2 (00:54→06:51)
[2018-10-22] MEDS: Zolpidem 5mg tab ORAL PRN ×3 (03:02→22:00)
[2018-10-22 04:00] VITALS: BP 140/89
--- NOTE | 2018-10-22 07:30 | NUR ---
NURSE NOTES: Received report from Niurka BAKER. Patient is awake and oriented, no acute distress noted, right leg dressing clean and intact. Patient's is reporting pain, will medicate per order. Fall precautions maintained. Needs met at this time. Side rails upx3, bed low and locked, call light in reach. Will continue to monitor.
[2018-10-22] MEDS: LORazepam Inj 2mg/ml 1ml IV PRN ×3 (07:46→20:05)
--- NOTE | 2018-10-22 07:50 | NUR ---
TRANSFER NOTE: Pt was transferred at approx 0545. Pt had received Ambien from prior nurse and was drowsy. Pt refused vitals. Belongings accounted for on transfer checklist. Pt refused phlebotomy to draw labs, will endorse to oncoming RN. Pt is dissatisfied with current pain regimen, will endorse to dayshift RN.
--- NOTE | 2018-10-22 07:50 | NUR ---
HAND-OFF: Report given to Philly. Pt is stable, endorsed patient's dissatisfaction with current pain regimen.
[2018-10-22 08:00] VITALS: BP 159/108
--- NOTE | 2018-10-22 08:21 | General Progress Note ---
Assessment/Plan Assessment/Plan: (1) Morbid obesity (2) Multiple joint osteoarthritis (3) Multiple joint pain (4) Right ankle fracture (5) Right ankle pain s/p ORIF (6) Fibromyalgia The patient will be started on oxycodone 10mg PO 1 tab Q4H PRN mod pain and Dilaudid 1 mg IV Q4H PRN severe pain The patient was discussed with Dr. Leonardo he concurred and will follow the patient. Subjective Date patient seen: Oct 22, 2018 Time patient seen: 07:15 - am Allergies: Coded Allergies: Cashew (Verified Allergy, Unknown, 12/30/14) GABAPENTIN (Verified Allergy, Unknown, 10/21/18) HYDROQUINONE (Unverified Allergy, Unknown, 11/08/17) HYDROXYCHLOROQUINE (Verified Allergy, Unknown, 08/31/17) PENICILLINS (Verified Allergy, Unknown, 10/21/18) PISTACHIO NUT (Verified Allergy, Unknown, 10/21/18) Uncoded Allergies: FISH (Allergy, Unknown, 12/30/14) Subjective REVIEW OF SYSTEMS: Denies rash, fever, chills, sweating, dizziness, drowsiness, blurred vision, sore throat, change in hearing or weight. No shortness of breath, chest pain, palpitations, or cough. No nausea, vomiting, diarrhea, or blood in the stool or urine. No bowel or bladder incontinence. No dysuria. She is complaining of generalized body pain. HISTORY OF PRESENT ILLNESS: Patient is in bed and is a known patient from [facility]. She now is admitted from SNF. C/o pain in her right ankle after ORIF. Was started on Morphine 1mg IV Q4H PRN with minimal pain relief. Due to this we were consulted so patient has adequate pain control while here in the hospital. Objective Last 24 Hour Vital Signs Date Time Temp Pulse Resp B/P (MAP) Pulse Ox O2 Delivery O2 Flow Rate FiO2 10/22/18 04:00 98.0 74 18 140/89 (106) 96 10/21/18 21:01 Room Air 10/21/18 21:00 Room Air 10/21/18 16:00 97.7 76 18 147/92 (110) 95 10/21/18 14:49 Room Air 10/21/18 14:29 98.4 10/21/18 14:21 98.4 10/21/18 13:32 98.4 80 18 138/65 95 Room Air 10/21/18 11:14 98.4 18 132/68 94 Room Air 10/21/18 10:55 98.4 68 18 132/68 (89) 94 Room Air Intake and Output 10/21/18 10/22/18 19:00 07:00 Intake Total 340 ml 0 ml Balance 340 ml 0 ml Intake Oral 340 ml 0 ml Laboratory Tests 10/21/18 12:30: White Blood Count 9.1, Red Blood Count 4.48, Hemoglobin 12.8, Hematocrit 40.0, Mean Corpuscular Volume 89, Mean Corpuscular Hemoglobin 28.6, Mean Corpuscular Hemoglobin Concent 32.1, Red Cell Distribution Width 12.0, Platelet Count 411, Mean Platelet Volume 5.0L, Neutrophils (%) (Auto) 56.6, Lymphocytes (%) (Auto) 35.4, Monocytes (%) (Auto) 4.2, Eosinophils (%) (Auto) 3.2H, Basophils (%) (Auto ) 0.6, Erythrocyte Sedimentation Rate 60H, Sodium Level 142, Potassium Level 3.8 , Chloride Level 104, Carbon Dioxide Level 30, Anion Gap 8, Blood Urea Nitrogen 7, Creatinine 0.8, Estimat Glomerular Filtration Rate > 60, Glucose Level 99, Calcium Level 9.3, Total Bilirubin 0.3, Aspartate Amino Transf (AST/SGOT) 14L, Alanine Aminotransferase (ALT/SGPT) 16, Alkaline Phosphatase 83, Total Protein 8.5H, Albumin 3.3L, Globulin 5.2, Albumin/Globulin Ratio 0.6L, Thyroid Stimulating Hormone (TSH) 1.364 Height (Feet): 5 Height (Inches): 8.00 Weight (Pounds): 340 Objective PHYSICAL EXAMINATION: GENERAL: Alert, awake, and oriented. LUNGS: Decreased breath sounds bilaterally. HEART: S1, S2 regular. ABDOMEN: Obese. EXTREMITIES: No cyanosis, no clubbing with right ankle bandages applied and noted. Cirilo Chavez Oct 22, 2018 08:21
[2018-10-22 08:39] LABS: BASOPHILS % (AUTO) 0.9 % (0.0-2.0); EOSINOPHILS % (AUTO) 2.7 % (0.0-3.0); HEMATOCRIT 39.7 % (37.0-47.0); HEMOGLOBIN 12.8 G/DL (12.0-16.0); MEAN CORPUSCULAR VOLUME 90 FL (80-99); NEUTROPHILS % (AUTO) 66.5 % (45.0-75.0); PLATELET COUNT 379 K/UL (150-450); RED BLOOD COUNT 4.42 M/UL (4.20-5.40); RED CELL DISTRIBUTION WIDTH 12.5 % (11.6-14.8); WHITE BLOOD COUNT 8.5 K/UL (4.8-10.8)
[2018-10-22 09:09] LABS: ALANINE AMINOTRANSFERASE 17 U/L (12-78); ALBUMIN 3.1 G/DL (3.4-5.0); ALBUMIN/GLOBULIN RATIO 0.6 (1.0-2.7); ALKALINE PHOSPHATASE 84 U/L (46-116); ANION GAP 12 mmol/L (5-15); ASPARTATE AMINO TRANSFERASE 12 U/L (15-37); BILIRUBIN,TOTAL 0.3 MG/DL (0.2-1.0); BLOOD UREA NITROGEN 9 mg/dL (7-18); CALCIUM 9.2 MG/DL (8.5-10.1); CARBON DIOXIDE 26 MMOL/L (21-32); CHLORIDE 104 MMOL/L (98-107); CHOLESTEROL 189 MG/DL (< 200); CREATININE 0.9 MG/DL (0.55-1.30); HDL CHOLESTEROL 35 MG/DL (40-60); POTASSIUM 3.8 MMOL/L (3.5-5.1); SODIUM 142 MMOL/L (136-145); TRIGLYCERIDES 126 MG/DL (30-150)
[2018-10-22] MEDS: Oxybutynin 5mg tab ORAL SCH ×3 (09:27→18:22)
[2018-10-22] MEDS: DULoxetine 30mg cap ORAL SCH (09:28)
[2018-10-22] MEDS: Bactrim-DS 1 tab ORAL SCH ×2 (09:28→18:22)
[2018-10-22] MEDS: Cyclobenzaprine 10mg Tab ORAL SCH ×3 (09:29→18:22)
[2018-10-22] MEDS: Lyrica 75mg cap ORAL SCH ×3 (09:29→18:22)
[2018-10-22] MEDS: HYDROmorphone 1mg/ml Carpuject IVP PRN ×3 (09:30→18:57)
[2018-10-22] MEDS: Diclofenac 25mg tab ORAL SCH ×3 (09:43→18:23)
--- NOTE | 2018-10-22 11:25 | NUR ---
NURSE NOTES: Informed Dr. Powell that patient is refusing ordered venous duplex. Patient educated on risks of refusal but still refuses.
--- NOTE | 2018-10-22 11:43 | Consultation ---
History of Present Illness General Date patient seen: Oct 22, 2018 Chief Complaint: Pain Present Illness HPI 42 year old female with extensive PMHx including Asthma, KAREN, Hep C., HTN morbid obesity, s/p gastric bypass, fibromyalgia, rheumatoid arthritis, with recent fracture of right fibula, s/p ORIF presented to ER with CC of generalized pain. She claims that she has been having chronic pain related to autoimmune disease in multiple parts of her body. Had been taking Oxycontin ER without improvement in pain control. She wants Oxycodone instead. She was diagnosed to have cellulitis at the surgical site of right leg and admitted for further management. Allergies: Coded Allergies: Cashew (Verified Allergy, Unknown, 12/30/14) GABAPENTIN (Verified Allergy, Unknown, 10/21/18) HYDROQUINONE (Unverified Allergy, Unknown, 11/08/17) HYDROXYCHLOROQUINE (Verified Allergy, Unknown, 08/31/17) PENICILLINS (Verified Allergy, Unknown, 10/21/18) PISTACHIO NUT (Verified Allergy, Unknown, 10/21/18) Uncoded Allergies: FISH (Allergy, Unknown, 12/30/14) Medication History Scheduled Alprazolam* (Xanax*), 1 MG ORAL TID, (Reported) Amlodipine Besylate* (Amlodipine Besylate*), 5 MG ORAL DAILY, (Reported) Cyclobenzaprine Hcl* (Flexeril*), 10 MG ORAL THREE TIMES A DAY, (Reported) Diclofenac Sod* (Voltaren*), 25 MG ORAL THREE TIMES A DAY, (Reported) Docusate Sodium* (Colace*), 250 MG ORAL DAILY, (Reported) Duloxetine Hcl* (Cymbalta*), 60 MG ORAL DAILY, (Reported) Folic Acid* (Folic Acid*), 1 MG ORAL DAILY, (Reported) Furosemide* (Lasix*), 40 MG ORAL DAILY, (Reported) Lisinopril* (Lisinopril*), 10 MG ORAL DAILY, (Reported) Metoprolol Tartrate* (Metoprolol Tartrate*), 75 MG ORAL DAILY, (Reported) Multivitamins* (Multivitamins*), 1 TAB ORAL DAILY, (Reported) Oxybutynin Chloride (Oxybutynin Chloride), 5 MG ORAL THREE TIMES A DAY, ( Reported) Oxycodone Hcl Er* (Oxycontin*), 10 MG ORAL EVERY 12 HOURS, (Reported) Potassium Chloride* (K-Dur*), 20 MEQ ORAL DAILY, (Reported) Pregabalin* (Lyrica*), 75 MG ORAL THREE TIMES A DAY, (Reported) Tizanidine Hcl* (Zanaflex*), 4 MG ORAL THREE TIMES A DAY, (Reported) [gerikot], 17.2 MG PO QHS, (Reported) Scheduled PRN Acetaminophen* (Acetaminophen 325MG Tablet*), 650 MG ORAL Q6H PRN for For Pain, (Reported) Ondansetron* (Zofran*), 4 MG ORAL Q6H PRN for Nausea & Vomiting, (Reported) Zolpidem Tartrate* (Zolpidem Tartrate*), 10 MG ORAL BEDTIME PRN for Insomnia, ( Reported) Discontinued Medications Acetaminophen (Tylenol), 325 MG ORAL Q4HR, (Reported) Discontinued Reason: Pt stopped taking med Acetaminophen (Acetaminophen), 325 MG PO Q4HR, (Reported) Discontinued Reason: Pt stopped taking med Al Hydroxide/mg Hydroxide (Mag-Al Liquid), 30 ML PO Q4HR, (Reported) Discontinued Reason: Pt stopped taking med Al Hydroxide/mg Hydroxide (Mag-Al Liquid), 30 ML ORAL Q6HR, (Reported) Discontinued Reason: Pt stopped taking med Albuterol Sulfate* (Proair Hfa*), 1 PUFF INH Q4HR, (Reported) Discontinued Reason: Pt stopped taking med Amlodipine Besylate* (Amlodipine Besylate*), 5 MG ORAL DAILY, (Reported) Discontinued Reason: Pt stopped taking med Bisacodyl (Dulcolax), 10 MG RC DAILY PRN for Constipation, (Reported) Discontinued Reason: Pt stopped taking med Bismuth Subsalicylate ([place] Bismuth), 30 MG PO BID PRN for Per rx protocol, ( Reported) Discontinued Reason: Pt stopped taking med Carisoprodol* (Soma*), 350 MG PO TID, (Reported) Discontinued Reason: Pt stopped taking med Cyclobenzaprine Hcl* (Flexeril*), 10 MG ORAL THREE TIMES A DAY PRN for fibromyalgia pain, (Reported) Discontinued Reason: Pt stopped taking med Diphenhydramine Hcl* (Benadryl*), 125 MG ORAL Q6H PRN for Itching, (Reported) Discontinued Reason: Pt stopped taking med Docusate Sodium* (Colace*), 250 MG ORAL BID, (Reported) Discontinued Reason: Pt stopped taking med Duloxetine Hcl* (Cymbalta*), 60 MG ORAL BID, (Reported) Discontinued Reason: Pt stopped taking med Fentanyl 12MCG Patch* (Fentanyl 12MCG Patch*), 1 PATCH TDERMAL EVERY 72 HOURS, ( Reported) Discontinued Reason: Pt stopped taking med Fentanyl 25MCG Patch* (Fentanyl 25MCG Patch*), 1 PATCH TDERMAL EVERY 72 HOURS, ( Reported) Discontinued Reason: Pt stopped taking med Fluticasone/Salmeterol (Advair Hfa 115-21 Mcg Inhaler), 2 PUFFS INH EVERY 12 HOURS, (Reported) Discontinued Reason: Pt stopped taking med Fluticasone/Vilanterol (Breo Ellipta 100-25 Mcg INH), 1 EACH IH DAILY, (Reported ) Discontinued Reason: Pt stopped taking med Folic Acid* (Folic Acid*), 1 MG ORAL DAILY, (Reported) Discontinued Reason: Pt stopped taking med Furosemide* (Lasix*), 40 MG ORAL DAILY, (Reported) Discontinued Reason: Pt stopped taking med Gabapentin* (Neurontin*), 800 MG ORAL TID, (Reported) Discontinued Reason: Pt stopped taking med Heparin Sod (Porcine) (Heparin Sodium*), 5,000 UNITS SUBQ EVERY 12 HOURS, ( Reported) Discontinued Reason: Pt stopped taking med Ipratropium/Albuterol Sulfate (DuoNeb 0.5-3(2.5)mg/3ml), 3 ML HHN Q4HR, ( Reported) Discontinued Reason: Pt stopped taking med Lidocaine (Lidocaine), 700 MG TP DAILY, (Reported) Discontinued Reason: Pt stopped taking med Lidocaine Patch* (Lidoderm Patch*), 2 PATCH TOPIC, (Reported) Discontinued Reason: Pt stopped taking med Lidocaine Patch* (Lidoderm Patch*), 1 PATCH TOPIC DAILY Discontinued Reason: Pt stopped taking med Lisinopril* (Lisinopril*), 10 MG ORAL DAILY, (Reported) Discontinued Reason: Pt stopped taking med Metoclopramide Hcl* (Reglan*), 5 MG ORAL EVERY 6 HOURS PRN for Nausea & Vomiting , (Reported) Discontinued Reason: Pt stopped taking med Morphine Sulfate (Morphine Sulfate), 4 MG IV Q4HR, (Reported) Discontinued Reason: Pt stopped taking med Multivitamin (Multivitamins), 1 EACH PO DAILY, (Reported) Discontinued Reason: Pt stopped taking med Naloxone HCl (Naloxone HCl), 0.1 MG IV, (Reported) Discontinued Reason: Pt stopped taking med OXYCODONE HCl* (Roxicodone*), 10 MG ORAL Q4HR PRN for For Pain, (Reported) Discontinued Reason: Pt stopped taking med Ondansetron* (Zofran*), 4 MG ORAL DAILY PRN for Nausea & Vomiting, (Reported) Discontinued Reason: Pt stopped taking med Oxybutynin Chloride (Ditropan Xl), 5 MG ORAL THREE TIMES A DAY, (Reported) Discontinued Reason: Pt stopped taking med Oxycodone Hcl* (Oxycodone Hcl*), 5 MG ORAL Q4HR PRN for Moderate Pain (Pain Scale 4-6), (Reported) Discontinued Reason: Pt stopped taking med Pantoprazole* (Protonix*), 40 MG ORAL DAILY, (Reported) Discontinued Reason: Pt stopped taking med Polyethylene Glycol 3350* (Miralax*), 17 GM ORAL DAILY PRN for Constipation, ( Reported) Discontinued Reason: Pt stopped taking med Potassium Chloride* (K-Dur*), 10 MEQ ORAL DAILY, (Reported) Discontinued Reason: Pt stopped taking med Potassium Chloride* (K-Dur*), 20 MEQ ORAL DAILY, (Reported) Discontinued Reason: Pt stopped taking med Prednisone* (Prednisone*), 20 MG ORAL DAILY Discontinued Reason: Pt stopped taking med Pregabalin* (Lyrica*), 150 MG ORAL THREE TIMES A DAY, (Reported) Discontinued Reason: Pt stopped taking med Sennosides (Senna), 8.6 MG PO BID, (Reported) Discontinued Reason: Pt stopped taking med Sennosides (Senna-Gen), 17.2 MG PO BID, (Reported) Discontinued Reason: Pt stopped taking med Topiramate* (Topamax*), 25 MG ORAL TWICE A DAY, (Reported) Discontinued Reason: Pt stopped taking med [Dss], 250 MG PO BID, (Reported) Discontinued Reason: Pt stopped taking med [Lidocaine Patch 5%], 2 PATCH SOFTTIS Q12HR, (Reported) Discontinued Reason: Pt stopped taking med [Lidocaine Patch], TD BID, (Reported) Discontinued Reason: Pt stopped taking med [Miralax powder], (Reported) Discontinued Reason: Pt stopped taking med [Toprol Xl], 75 MG PO DAILY, (Reported) Discontinued Reason: Pt stopped taking med Patient History Healthcare decision maker Cleo Donnelly Resuscitation status Advanced Directive on File Past Medical/Surgical History Past Medical/Surgical History: (1) Status post ORIF of fracture of ankle (2) Hx of gastric bypass (3) Hx of reduction mammoplasty (4) History of asthma (5) Fibromyalgia (6) Osteoarthritis of multiple joints (7) Cervical radiculopathy (8) Hypertension (9) Lumbar radiculopathy (10) KAREN (obstructive sleep apnea) (11) Hepatitis C Review of Systems Constitutional: Reports: no symptoms Eye: Reports: no symptoms ENT: Reports: no symptoms Physical Exam General Appearance: WD/WN, morbidly obese Lines, tubes and drains: peripheral HEENT: normocephalic, atraumatic Neck: non-tender, normal alignment Respiratory/Chest: chest wall non-tender, lungs clear Breasts: no masses Cardiovascular/Chest: normal peripheral pulses Abdomen: normal bowel sounds Genitourinary/Rectal: normal genital exam Extremities: normal range of motion Last 24 Hour Vital Signs Date Time Temp Pulse Resp B/P (MAP) Pulse Ox O2 Delivery O2 Flow Rate FiO2 10/22/18 09:28 108 159/108 10/22/18 08:00 99.8 108 19 159/108 (125) 93 10/22/18 04:00 98.0 74 18 140/89 (106) 96 10/21/18 21:01 Room Air 10/21/18 21:00 Room Air 10/21/18 16:00 97.7 76 18 147/92 (110) 95 10/21/18 14:49 Room Air 10/21/18 14:29 98.4 10/21/18 14:21 98.4 10/21/18 13:32 98.4 80 18 138/65 95 Room Air Intake and Output 10/21/18 10/22/18 19:00 07:00 Intake Total 340 ml 0 ml Balance 340 ml 0 ml Intake Oral 340 ml 0 ml Laboratory Tests Test 10/21/18 12:30 10/22/18 08:20 White Blood Count 9.1 K/UL (4.8-10.8) 8.5 K/UL (4.8-10.8) Red Blood Count 4.48 M/UL (4.20-5.40) 4.42 M/UL (4.20-5.40) Hemoglobin 12.8 G/DL (12.0-16.0) 12.8 G/DL (12.0-16.0) Hematocrit 40.0 % (37.0-47.0) 39.7 % (37.0-47.0) Mean Corpuscular Volume 89 FL (80-99) 90 FL (80-99) Mean Corpuscular Hemoglobin 28.6 PG (27.0-31.0) 29.0 PG (27.0-31.0) Mean Corpuscular Hemoglobin Concent 32.1 G/DL (32.0-36.0) 32.4 G/DL (32.0-36.0) Red Cell Distribution Width 12.0 % (11.6-14.8) 12.5 % (11.6-14.8) Platelet Count 411 K/UL (150-450) 379 K/UL (150-450) Mean Platelet Volume 5.0 FL (6.5-10.1) L 4.9 FL (6.5-10.1) L Neutrophils (%) (Auto) 56.6 % (45.0-75.0) 66.5 % (45.0-75.0) Lymphocytes (%) (Auto) 35.4 % (20.0-45.0) 28.0 % (20.0-45.0) Monocytes (%) (Auto) 4.2 % (1.0-10.0) 2.0 % (1.0-10.0) Eosinophils (%) (Auto) 3.2 % (0.0-3.0) H 2.7 % (0.0-3.0) Basophils (%) (Auto) 0.6 % (0.0-2.0) 0.9 % (0.0-2.0) Erythrocyte Sedimentation Rate 60 MM/HR (0-20) H Sodium Level 142 MMOL/L (136-145) 142 MMOL/L (136-145) Potassium Level 3.8 MMOL/L (3.5-5.1) 3.8 MMOL/L (3.5-5.1) Chloride Level 104 MMOL/L (98-107) 104 MMOL/L (98-107) Carbon Dioxide Level 30 MMOL/L (21-32) 26 MMOL/L (21-32) Anion Gap 8 mmol/L (5-15) 12 mmol/L (5-15) Blood Urea Nitrogen 7 mg/dL (7-18) 9 mg/dL (7-18) Creatinine 0.8 MG/DL (0.55-1.30) 0.9 MG/DL (0.55-1.30) Estimat Glomerular Filtration Rate > 60 mL/min (>60) > 60 mL/min (>60) Glucose Level 99 MG/DL (74-106) 210 MG/DL (74-106) #H Calcium Level 9.3 MG/DL (8.5-10.1) 9.2 MG/DL (8.5-10.1) Total Bilirubin 0.3 MG/DL (0.2-1.0) 0.3 MG/DL (0.2-1.0) Aspartate Amino Transf (AST/SGOT) 14 U/L (15-37) L 12 U/L (15-37) L Alanine Aminotransferase (ALT/SGPT) 16 U/L (12-78) 17 U/L (12-78) Alkaline Phosphatase 83 U/L (46-116) 84 U/L (46-116) Total Protein 8.5 G/DL (6.4-8.2) H 8.1 G/DL (6.4-8.2) Albumin 3.3 G/DL (3.4-5.0) L 3.1 G/DL (3.4-5.0) L Globulin 5.2 g/dL 5.0 g/dL Albumin/Globulin Ratio 0.6 (1.0-2.7) L 0.6 (1.0-2.7) L Thyroid Stimulating Hormone (TSH) 1.364 uiU/mL (0.358-3.740) 1.179 uiU/mL (0.358-3.740) Triglycerides Level 126 MG/DL (30-150) Cholesterol Level 189 MG/DL (< 200) LDL Cholesterol 126 mg/dL (<100) H HDL Cholesterol 35 MG/DL (40-60) L Cholesterol/HDL Ratio 5.4 (3.3-4.4) H Microbiology Date/Time Source Procedure Growth Status 10/21/18 15:15 Rectum Received Height (Feet): 5 Height (Inches): 8.00 Weight (Pounds): 340 Medications Current Medications Medications (Trade) Dose Ordered Sig/Farideh Route PRN Reason Start Time Stop Time Status Last Admin Dose Admin Acetaminophen (Tylenol) 650 mg Q4H PRN ORAL fever 10/21/18 18:15 11/20/18 18:14 Amlodipine Besylate (Norvasc) 5 mg DAILY ORAL 10/22/18 09:00 11/21/18 08:59 10/22/18 09:28 Cyclobenzaprine HCl (Flexeril) 10 mg THREE TIMES A DAY ORAL 10/22/18 09:00 11/21/18 08:59 10/22/18 09:29 Dextrose (Dextrose 50%) 25 ml Q30M PRN IV Hypoglycemia 10/21/18 18:15 11/20/18 18:14 Dextrose (Dextrose 50%) 50 ml Q30M PRN IV Hypoglycemia 10/21/18 18:30 11/20/18 18:29 Diclofenac Sodium (Voltaren) 25 mg THREE TIMES A DAY ORAL 10/22/18 09:00 11/21/18 08:59 10/22/18 09:43 Duloxetine HCl (Cymbalta) 60 mg DAILY ORAL 10/22/18 09:00 11/21/18 08:59 10/22/18 09:28 Hydromorphone HCl (Dilaudid) 1 mg Q4H PRN IVP severe pain 10/22/18 08:30 10/29/18 08:29 10/22/18 09:30 Lorazepam (Ativan 2mg/ml 1ml) 0.5 mg Q4H PRN IV For Anxiety 10/21/18 18:15 10/28/18 18:14 10/22/18 07:46 Ondansetron HCl (Zofran) 4 mg Q6H PRN IVP Nausea & Vomiting 10/21/18 18:15 11/20/18 18:14 Oxybutynin Chloride (Ditropan) 5 mg THREE TIMES A DAY ORAL 10/22/18 09:00 11/21/18 08:59 10/22/18 09:27 Oxycodone HCl (Roxicodone) 10 mg Q4H PRN ORAL Breakthrough Pain 10/22/18 08:30 10/29/18 08:29 Polyethylene Glycol (Miralax) 17 gm HSPRN PRN ORAL Constipation 10/21/18 18:15 11/20/18 18:14 Pregabalin (Lyrica) 75 mg THREE TIMES A DAY ORAL 10/22/18 09:00 11/21/18 08:59 10/22/18 09:29 Tizanidine HCl (Zanaflex) 4 mg THREE TIMES A DAY ORAL 10/22/18 09:00 11/21/18 08:59 10/22/18 09:27 Trimethoprim/ Sulfamethoxazole (Bactrim-DS) 1 tab TWICE A DAY ORAL 10/21/18 18:00 10/28/18 17:59 10/22/18 09:28 Zolpidem Tartrate (Ambien) 5 mg HSPRN PRN ORAL Insomnia 10/21/18 18:15 10/28/18 18:14 10/22/18 03:02 Assessment/Plan Problem List: (1) KAREN (obstructive sleep apnea) ICD Codes: G47.33 - Obstructive sleep apnea (adult) (pediatric) SNOMED: 48107985 (2) History of asthma ICD Codes: Z87.09 - Personal history of other diseases of the respiratory system SNOMED: 618121908 (3) Cellulitis ICD Codes: L03.90 - Cellulitis, unspecified SNOMED: 958892585 (4) Obesity, morbid, BMI 40.0-49.9 ICD Codes: E66.01 - Morbid (severe) obesity due to excess calories SNOMED: 319521782 (5) Hepatitis C ICD Codes: B19.20 - Unspecified viral hepatitis C without hepatic coma SNOMED: 63103872 (6) Hypertension ICD Codes: I10 - Essential (primary) hypertension SNOMED: 26291818 (7) Osteoarthritis of multiple joints ICD Codes: M15.9 - Polyosteoarthritis, unspecified SNOMED: 156384918 (8) Fibromyalgia ICD Codes: M79.7 - Fibromyalgia SNOMED: 82588643 (9) Intractable pain ICD Codes: R52 - Pain, unspecified SNOMED: 15196914 (10) Status post ORIF of fracture of ankle ICD Codes: Z98.890 - Other specified postprocedural states; Z87.81 - Personal history of (healed) traumatic fracture SNOMED: 219992387, 52630679 (11) Hx of gastric bypass ICD Codes: Z98.89 - Other specified postprocedural states SNOMED: 23632938, 23906032, 692704680 (12) Lupus (systemic lupus erythematosus) ICD Codes: M32.9 - Systemic lupus erythematosus, unspecified SNOMED: 40513372 Assessment/Plan: prn BIPAP at night respiratory treatment titrate fio2 to sat of 92% pain control symptomatic treatment Mer Powell MD Oct 22, 2018 11:43
--- NOTE | 2018-10-22 11:56 | NUR ---
NURSE NOTES: Received orders from Dr. Powell for patient's home medications lisinopril, lopressor, and lasix. MD also ordered patient may be OOB to bathroom with walker and no weight bearing on right leg. Orders entered.
[2018-10-22 12:00] VITALS: BP 154/107
--- NOTE | 2018-10-22 12:04 | Infectious Diseases Prog Note ---
Assessment/Plan Assessment/Plan Abx: None Assessment: R/o probable Surgical site infection (currently does not appear infected but report of malodorous discharge) Afebrile No leukocytosis HTN MDD Lupus COPD chronic pain syndrome GERD Plan: -Empiric Bactrim DS 1 tab bid #2/3 -f/u cx -Monitor CBC/CMP, temperatures Thank you for this consultation. Will continue to follow along with you. Discussed with RN. Subjective Allergies: Coded Allergies: Cashew (Verified Allergy, Unknown, 12/30/14) GABAPENTIN (Verified Allergy, Unknown, 10/21/18) HYDROQUINONE (Unverified Allergy, Unknown, 11/08/17) HYDROXYCHLOROQUINE (Verified Allergy, Unknown, 08/31/17) PENICILLINS (Verified Allergy, Unknown, 10/21/18) PISTACHIO NUT (Verified Allergy, Unknown, 10/21/18) Uncoded Allergies: FISH (Allergy, Unknown, 12/30/14) Subjective afebrile Objective Vital Signs Last 24 Hour Vital Signs Date Time Temp Pulse Resp B/P (MAP) Pulse Ox O2 Delivery O2 Flow Rate FiO2 10/22/18 09:28 108 159/108 10/22/18 09:00 Room Air 10/22/18 08:00 99.8 108 19 159/108 (125) 93 10/22/18 04:00 98.0 74 18 140/89 (106) 96 10/21/18 21:01 Room Air 10/21/18 21:00 Room Air 10/21/18 16:00 97.7 76 18 147/92 (110) 95 10/21/18 14:49 Room Air 10/21/18 14:29 98.4 10/21/18 14:21 98.4 10/21/18 13:32 98.4 80 18 138/65 95 Room Air Height (Feet): 5 Height (Inches): 8.00 Weight (Pounds): 340 Objective General Appearance: normal inspection, well appearing, no apparent distress, alert, GCS 15, obese, Chronically Ill Head: atraumatic Eyes: bilateral eye other - some intermittent lid lag ENT: normal ENT inspection, hearing grossly normal, normal voice Neck: normal inspection, full range of motion, supple, no bony tend Respiratory: normal inspection, lungs clear, normal breath sounds, no respiratory distress, no retraction, no wheezing Cardiovascular #1: regular rate, rhythm, no edema Gastrointestinal: normal inspection, normal bowel sounds, non tender, soft, no guarding, no hernia Genitourinary: no CVA tenderness Musculoskeletal: normal inspection, back normal, normal range of motion Neurologic: normal inspection, alert, oriented x3, responsive, speech normal Psychiatric: normal inspection, judgement/insight normal, mood/affect normal Skin: other Microbiology Date/Time Source Procedure Growth Status 10/21/18 15:15 Rectum Received Laboratory Tests Test 10/21/18 12:30 10/22/18 08:20 White Blood Count 9.1 K/UL (4.8-10.8) 8.5 K/UL (4.8-10.8) Red Blood Count 4.48 M/UL (4.20-5.40) 4.42 M/UL (4.20-5.40) Hemoglobin 12.8 G/DL (12.0-16.0) 12.8 G/DL (12.0-16.0) Hematocrit 40.0 % (37.0-47.0) 39.7 % (37.0-47.0) Mean Corpuscular Volume 89 FL (80-99) 90 FL (80-99) Mean Corpuscular Hemoglobin 28.6 PG (27.0-31.0) 29.0 PG (27.0-31.0) Mean Corpuscular Hemoglobin Concent 32.1 G/DL (32.0-36.0) 32.4 G/DL (32.0-36.0) Red Cell Distribution Width 12.0 % (11.6-14.8) 12.5 % (11.6-14.8) Platelet Count 411 K/UL (150-450) 379 K/UL (150-450) Mean Platelet Volume 5.0 FL (6.5-10.1) L 4.9 FL (6.5-10.1) L Neutrophils (%) (Auto) 56.6 % (45.0-75.0) 66.5 % (45.0-75.0) Lymphocytes (%) (Auto) 35.4 % (20.0-45.0) 28.0 % (20.0-45.0) Monocytes (%) (Auto) 4.2 % (1.0-10.0) 2.0 % (1.0-10.0) Eosinophils (%) (Auto) 3.2 % (0.0-3.0) H 2.7 % (0.0-3.0) Basophils (%) (Auto) 0.6 % (0.0-2.0) 0.9 % (0.0-2.0) Erythrocyte Sedimentation Rate 60 MM/HR (0-20) H Sodium Level 142 MMOL/L (136-145) 142 MMOL/L (136-145) Potassium Level 3.8 MMOL/L (3.5-5.1) 3.8 MMOL/L (3.5-5.1) Chloride Level 104 MMOL/L (98-107) 104 MMOL/L (98-107) Carbon Dioxide Level 30 MMOL/L (21-32) 26 MMOL/L (21-32) Anion Gap 8 mmol/L (5-15) 12 mmol/L (5-15) Blood Urea Nitrogen 7 mg/dL (7-18) 9 mg/dL (7-18) Creatinine 0.8 MG/DL (0.55-1.30) 0.9 MG/DL (0.55-1.30) Estimat Glomerular Filtration Rate > 60 mL/min (>60) > 60 mL/min (>60) Glucose Level 99 MG/DL (74-106) 210 MG/DL (74-106) #H Calcium Level 9.3 MG/DL (8.5-10.1) 9.2 MG/DL (8.5-10.1) Total Bilirubin 0.3 MG/DL (0.2-1.0) 0.3 MG/DL (0.2-1.0) Aspartate Amino Transf (AST/SGOT) 14 U/L (15-37) L 12 U/L (15-37) L Alanine Aminotransferase (ALT/SGPT) 16 U/L (12-78) 17 U/L (12-78) Alkaline Phosphatase 83 U/L (46-116) 84 U/L (46-116) Total Protein 8.5 G/DL (6.4-8.2) H 8.1 G/DL (6.4-8.2) Albumin 3.3 G/DL (3.4-5.0) L 3.1 G/DL (3.4-5.0) L Globulin 5.2 g/dL 5.0 g/dL Albumin/Globulin Ratio 0.6 (1.0-2.7) L 0.6 (1.0-2.7) L Thyroid Stimulating Hormone (TSH) 1.364 uiU/mL (0.358-3.740) 1.179 uiU/mL (0.358-3.740) Triglycerides Level 126 MG/DL (30-150) Cholesterol Level 189 MG/DL (< 200) LDL Cholesterol 126 mg/dL (<100) H HDL Cholesterol 35 MG/DL (40-60) L Cholesterol/HDL Ratio 5.4 (3.3-4.4) H Current Medications Medications (Trade) Dose Ordered Sig/Farideh Route PRN Reason Start Time Stop Time Status Last Admin Dose Admin Acetaminophen (Tylenol) 650 mg Q4H PRN ORAL fever 10/21/18 18:15 11/20/18 18:14 Amlodipine Besylate (Norvasc) 5 mg DAILY ORAL 10/22/18 09:00 11/21/18 08:59 10/22/18 09:28 Cyclobenzaprine HCl (Flexeril) 10 mg THREE TIMES A DAY ORAL 10/22/18 09:00 11/21/18 08:59 10/22/18 09:29 Dextrose (Dextrose 50%) 25 ml Q30M PRN IV Hypoglycemia 10/21/18 18:15 11/20/18 18:14 Dextrose (Dextrose 50%) 50 ml Q30M PRN IV Hypoglycemia 10/21/18 18:30 11/20/18 18:29 Diclofenac Sodium (Voltaren) 25 mg THREE TIMES A DAY ORAL 10/22/18 09:00 11/21/18 08:59 10/22/18 09:43 Duloxetine HCl (Cymbalta) 60 mg DAILY ORAL 10/22/18 09:00 11/21/18 08:59 10/22/18 09:28 Furosemide (Lasix) 40 mg DAILY ORAL 10/23/18 09:00 11/22/18 08:59 Hydromorphone HCl (Dilaudid) 1 mg Q4H PRN IVP severe pain 10/22/18 08:30 10/29/18 08:29 10/22/18 09:30 Lisinopril (Zestril) 10 mg DAILY ORAL 10/23/18 09:00 11/22/18 08:59 Lorazepam (Ativan 2mg/ml 1ml) 0.5 mg Q4H PRN IV For Anxiety 10/21/18 18:15 10/28/18 18:14 10/22/18 07:46 Metoprolol Tartrate (Lopressor) 75 mg DAILY ORAL 10/23/18 09:00 11/22/18 08:59 Ondansetron HCl (Zofran) 4 mg Q6H PRN IVP Nausea & Vomiting 10/21/18 18:15 11/20/18 18:14 Oxybutynin Chloride (Ditropan) 5 mg THREE TIMES A DAY ORAL 10/22/18 09:00 11/21/18 08:59 10/22/18 09:27 Oxycodone HCl (Roxicodone) 10 mg Q4H PRN ORAL Breakthrough Pain 10/22/18 08:30 10/29/18 08:29 Polyethylene Glycol (Miralax) 17 gm HSPRN PRN ORAL Constipation 10/21/18 18:15 11/20/18 18:14 Pregabalin (Lyrica) 75 mg THREE TIMES A DAY ORAL 10/22/18 09:00 11/21/18 08:59 10/22/18 09:29 Tizanidine HCl (Zanaflex) 4 mg THREE TIMES A DAY ORAL 10/22/18 09:00 11/21/18 08:59 10/22/18 09:27 Trimethoprim/ Sulfamethoxazole (Bactrim-DS) 1 tab TWICE A DAY ORAL 10/21/18 18:00 10/28/18 17:59 10/22/18 09:28 Zolpidem Tartrate (Ambien) 5 mg HSPRN PRN ORAL Insomnia 10/21/18 18:15 10/28/18 18:14 10/22/18 03:02 Zoie Connolly M.D. Oct 22, 2018 12:04
[2018-10-22 16:00] VITALS: BP 126/72
[2018-10-22] MEDS: oxyCODONE 5mg IR tab ORAL PRN ×2 (17:09→23:23)
--- NOTE | 2018-10-22 17:11 | NUR ---
CASE MANAGEMENT: INITIAL REVIEW 42 YO F MELLO FROM [facility] CC: PAIN PMHx: HTN. ASTHMA. COPD. SI:LUPUS PAIN EXACERBATION. RIGHT LE PAIN. T 99.8 HR 108 RR 19 B/P 159/108 SATS 93% ON RA AST 14 IS: MORPHINE IV X1 PATIENT ADMITTED TO MED/SURG 10/21/2018 @ 1220 DCP: PATIENT TO BE DISCHARGED TO HOME ONCE MEDICALLY CLEARED. PLAN OF CARE: VENOUS DUPLEX PAIN MANAGEMENT Addendum: 10/23/18 at 0651 by Irene Lopez CM [employer]
--- NOTE | 2018-10-22 17:15 | History and Physical Report ---
DATE OF ADMISSION: 10/21/2018 DATE AND TIME SEEN: 10/22/2018 at 1 p.m. CONSULTANTS: 1. Lorenzo Peck M.D. 2. Garrett Sanders M.D. 3. Mer Powell M.D. 4. Karlee Leonardo M.D. 5. Troy Esparza M.D. 6. Alec Smith M.D CHIEF COMPLAINT: Leg pain, psych history, hypertension, lupus. BRIEF HISTORY: This is a 42-year-old female from [facility], presented with above-mentioned diagnoses. Excruciating pain, status post recent right ankle surgery. The patient came to [place], diagnosed with the above, admitted to medical floor for further treatment. Currently, slightly anxious in bed, complaining of general pain 5/10. No complaint. REVIEW OF SYSTEMS: No chest pain. No shortness of breath. No nausea, vomiting, or diarrhea. PAST MEDICAL HISTORY: Hypertension, lupus, chronic pain, arthritis, hep C, fibromyalgia, asthma. PAST SURGICAL HISTORY: Recent right ankle surgery, gastric bypass, breast reduction. ALLERGIES: Gabapentin, hydroquinone, hydroxychloroquine, penicillin. SOCIAL HISTORY: No smoking. No alcohol. No intravenous drug abuse. FAMILY HISTORY: Noncontributory. PHYSICAL EXAMINATION: GENERAL: Awake, slightly anxious in bed, oriented x3, no acute distress. VITAL SIGNS: Temperature is 99, pulse 104, respirations 20, blood pressure 154/107. CARDIOVASCULAR: No murmur. LUNGS: Distant and clear. ABDOMEN: Bowel sounds positive. Nontender. Nondistended. EXTREMITIES: No cyanosis, clubbing, or edema. NEUROLOGIC: The patient moves all extremities, slightly weak. LABORATORY AND DIAGNOSTIC DATA: Labs at this time show CBC is normal. BMP shows glucose 210, otherwise normal. AST 12. Albumin 3.1. MEDICATIONS: Include lisinopril, furosemide, metoprolol, amlodipine, cyclobenzaprine, diclofenac, pregabalin, hydromorphone, oxycodone, Tylenol, zolpidem, Zofran, lorazepam. ASSESSMENT: 1. Leg pain. 2. Psych history. 3. Malnutrition. 4. Fibromyalgia. 5. Asthma. 6. Osteoarthritis. 7. Hep C. 8. Hypertension. 9. Diabetes. 10. Lupus. 11. Chronic pain. PLAN: 1. Blood pressure, blood sugar, pain control. 2. Dietary followup. 3. PT eval. 4. CBC, BMP in the morning. Get Tovar D.O. DR: VIANNEY JOB#: [id number] CC:
--- NOTE | 2018-10-22 18:40 | NUR ---
NURSE NOTES: Uploaded photo of patient's right leg wound to EMR per order from Dr. Connolly. Right leg re-wrapped with xeroform, kerlix, stabilizer, and candido wrap.
--- NOTE | 2018-10-22 19:30 | NUR ---
HAND-OFF: Report given to Niurka BAKER. Patient is in stable condition.
--- NOTE | 2018-10-22 19:31 | Cardiology Progress Note ---
Assessment/Plan Assessment/Plan The patient is seen and examined, full consult note is dictated. Objective Last 24 Hour Vital Signs Date Time Temp Pulse Resp B/P (MAP) Pulse Ox O2 Delivery O2 Flow Rate FiO2 10/22/18 12:00 99.1 104 20 154/107 (123) 94 10/22/18 09:28 108 159/108 10/22/18 09:00 Room Air 10/22/18 08:00 99.8 108 19 159/108 (125) 93 10/22/18 04:00 98.0 74 18 140/89 (106) 96 10/21/18 21:01 Room Air 10/21/18 21:00 Room Air Intake and Output 10/21/18 10/22/18 19:00 07:00 Intake Total 340 ml 0 ml Balance 340 ml 0 ml Intake Oral 340 ml 0 ml Laboratory Tests Test 10/22/18 08:20 White Blood Count 8.5 K/UL (4.8-10.8) Red Blood Count 4.42 M/UL (4.20-5.40) Hemoglobin 12.8 G/DL (12.0-16.0) Hematocrit 39.7 % (37.0-47.0) Mean Corpuscular Volume 90 FL (80-99) Mean Corpuscular Hemoglobin 29.0 PG (27.0-31.0) Mean Corpuscular Hemoglobin Concent 32.4 G/DL (32.0-36.0) Red Cell Distribution Width 12.5 % (11.6-14.8) Platelet Count 379 K/UL (150-450) Mean Platelet Volume 4.9 FL (6.5-10.1) L Neutrophils (%) (Auto) 66.5 % (45.0-75.0) Lymphocytes (%) (Auto) 28.0 % (20.0-45.0) Monocytes (%) (Auto) 2.0 % (1.0-10.0) Eosinophils (%) (Auto) 2.7 % (0.0-3.0) Basophils (%) (Auto) 0.9 % (0.0-2.0) Sodium Level 142 MMOL/L (136-145) Potassium Level 3.8 MMOL/L (3.5-5.1) Chloride Level 104 MMOL/L (98-107) Carbon Dioxide Level 26 MMOL/L (21-32) Anion Gap 12 mmol/L (5-15) Blood Urea Nitrogen 9 mg/dL (7-18) Creatinine 0.9 MG/DL (0.55-1.30) Estimat Glomerular Filtration Rate > 60 mL/min (>60) Glucose Level 210 MG/DL (74-106) #H Calcium Level 9.2 MG/DL (8.5-10.1) Total Bilirubin 0.3 MG/DL (0.2-1.0) Aspartate Amino Transf (AST/SGOT) 12 U/L (15-37) L Alanine Aminotransferase (ALT/SGPT) 17 U/L (12-78) Alkaline Phosphatase 84 U/L (46-116) Total Protein 8.1 G/DL (6.4-8.2) Albumin 3.1 G/DL (3.4-5.0) L Globulin 5.0 g/dL Albumin/Globulin Ratio 0.6 (1.0-2.7) L Triglycerides Level 126 MG/DL (30-150) Cholesterol Level 189 MG/DL (< 200) LDL Cholesterol 126 mg/dL (<100) H HDL Cholesterol 35 MG/DL (40-60) L Cholesterol/HDL Ratio 5.4 (3.3-4.4) H Thyroid Stimulating Hormone (TSH) 1.179 uiU/mL (0.358-3.740) Microbiology Date/Time Source Procedure Growth Status 10/21/18 15:15 Rectum Received Lorenzo Peck MD Oct 22, 2018 19:31
[2018-10-22 20:00] VITALS: BP 155/107
--- NOTE | 2018-10-22 23:06 | NUR ---
NURSE NOTE: Pt is A/Ox4 with stable VS. Physical assessment completed and orders reviewed. Pt educated on the need to use walker when ambulating. Pt IV infiltrated and was removed. Multiple IV insertions attempted with the assist of the Vein Finder machine. Unable to insert IV at this time due to poor veins. Will re-attempt. Pt expressed that she only wants to be seen by Dr. Tovar and no other physician due to concerns with health insurance. Charge nurse informed. Call negrete is within reach. Will continue to monitor.
[2018-10-23] VITALS (8 sets, daily range): BP systolic 107–154; BP diastolic 69–113
--- NOTE | 2018-10-23 | Consultation ---
DATE OF CONSULTATION: 10/22/2018 NOTE: "POOR AUDIO QUALITY" CARDIOLOGY CONSULTATION CONSULTING PHYSICIAN: Lorenzo Peck M.D. REFERRING PHYSICIAN: Gte Tovar D.O. REASON FOR CONSULTATION: Management of accelerated hypertension. HISTORY OF PRESENT ILLNESS: The patient is a very unfortunate 42-year-old lady, who presents to the hospital with increased generalized pain. The patient had a recent fall at [facility] and fractured her right ankle for which she underwent open reduction and internal fixation of the right ankle. The patient also has history of autoimmune disease and has chronic pain syndrome with associated headaches. She is taking OxyContin ER without improvement in pain control. At the time of arrival to the hospital, the blood pressure was 132/68 mmHg, heart rate was 68, however, the blood pressure arti to a value of 154/107 with heart rate of 104 when she was admitted to the floor. Cardiology consultation was made at the request of Dr. Tovar for management of accelerated hypertension. The patient states that she has been compliant with her medication on a regular basis and in the hospital, she was not given her blood pressure medication in time. She denies any chest pain or shortness of breath. She has been complaining of bilateral lower extremity swelling. PAST MEDICAL HISTORY: Hypertension, asthma/COPD, history of a spinal cord injury, history of autoimmune disease, history of gastroesophageal reflux disease. PAST SURGICAL HISTORY: ORIF of the right ankle. ALLERGIES: Allergies to cashew nuts, gabapentin, hydroquinone, hydroxychloroquine, penicillin, . FAMILY HISTORY: No premature coronary artery disease in first-degree relatives. SOCIAL HISTORY: Denies any tobacco, alcohol, or illicit drug use. MEDICATIONS: The list of medications was reviewed and reconciled. That includes Tylenol, ProAir, amlodipine, bisacodyl, Soma, Flexeril, Benadryl, Colace, Cymbalta, fentanyl patch, Advair, Breo, , DuoNeb, lisinopril, lidocaine patch, Reglan, morphine sulfate, Zofran, Ditropan XL, oxycodone hydrochloride, Protonix, K-Dur, prednisone, and senna. PHYSICAL EXAMINATION: VITAL SIGNS: Blood pressure was 154/107, heart rate was 104, temperature is 99.1 degrees Fahrenheit, O2 saturation 94%, respiration of 20. GENERAL: The patient is a morbidly obese 42-year-old female, in no apparent respiratory distress. Alert and oriented x4. HEENT: Atraumatic and normocephalic. Anicteric. Pupils are equal, round, and reactive to light and accommodation. Extraocular movements intact. NECK: Cannot assess JVP. No carotid bruits. Carotid upstrokes 2+ bilaterally. CARDIOVASCULAR SYSTEM: Normal S1, S2. Regular rate and rhythm. No murmurs, gallops, or rubs. PMI is at fourth intercostal space in the midclavicular line. LUNGS: Clear to auscultation bilaterally. ABDOMEN: Soft and nontender. No hepatosplenomegaly. Positive bowel sounds. EXTREMITIES: She has 2+ edema in the left lower extremity and right lower extremity is dressed from above the knee down to the toes. LABORATORY FINDINGS: Hemoglobin of 12.8, hematocrit was 40%, and platelet count is 411,000. Sodium 142, potassium 3.8, chloride 104, bicarbonate was 30, BUN 7, creatinine 0.8, glucose 99, calcium 9.3. TSH is 1.36. Cholesterol panel, LDL was 126, HDL was 35, triglyceride was 128. ASSESSMENT AND PLAN: The patient is a very unfortunate 42-year-old female seen in Cardiology consultation. 1. Accelerated hypertension. The patient has lower extremity edema. I will try to avoid calcium-channel blockers. I would like to treat the patient with a combination of ARBs and diuretics such as chlorthalidone, however, I would like to give the patient valsartan 320 in addition to chlorthalidone 25 mg daily. I would consider carvedilol at this time at 3.125 mg twice daily. The blood pressure will be monitored throughout the hospital visit. I would like to order 2D echocardiography to assess for LV systolic and diastolic function. Further therapeutic and diagnostic decision will be based on the result of 2D echocardiography. 2. Mixed dyslipidemia. 3. Generalized body pain. 4. Autoimmune disease. 5. Status post right ankle ORIF following a fall. I would like to thank, Dr. Tovar, for the courtesy of this consultation. Lorenzo Peck M.D. DR: SITA JOB#: [id number] CC:
[2018-10-23] MEDS: LORazepam Inj 2mg/ml 1ml IV PRN ×3 (01:45→17:34)
[2018-10-23] MEDS: HYDROmorphone 1mg/ml Carpuject IVP PRN ×4 (01:49→17:31)
--- NOTE | 2018-10-23 03:00 | Consultation ---
DATE OF CONSULTATION: 10/22/2018 NOTE: POOR AUDIO HISTORY OF PRESENT ILLNESS: This is a 40-year-old female patient. She has been . She has a lot of neuromuscular problems, neuropathy, difficulty with ambulation, and GI complaints, and also ambulatory issues as well, high levels of anxiety, depression, and mood lability worsened by the stress of her medical illness. That is why, her attending has requested daily psychiatric consultation at this time. Mom and sister at bedside. She says " frustrated over the issues of having significant decline in her cognition, also significant decline in her mental health as a result of physical decline and she refers back to her past history and healthy only to decline significantly physically. PAST MEDICAL HISTORY: tenderness and obesity. She has some dental problems as well. She has respiratory and gastrointestinal complaints, chronic pain. ALLERGIES: No known drug allergies. PSYCHOTROPIC MEDICATIONS ON ADMISSION: Currently on Cymbalta 60 mg twice a day. She is also on Ambien 10 mg at bedtime and Xanax as needed. SUBSTANCE ABUSE HISTORY: Denies. FAMILY PSYCH HISTORY: Denies. PAIN ASSESSMENT: A 0/10. DEVELOPMENTAL PROBLEMS: Denies. SOCIAL HISTORY: She is supported by [employer] and Medicare. She is currently living in [facility]. MENTAL STATUS EXAMINATION: This is a 42-year-old female. Appearance is disheveled. Attitude, irritable and agitated. Affect, guarded and restricted. Intellect poor. Mood, depressed and anxious. Motor activity, psychomotor agitation. Attention span is poor. Orientation x2. Speech is low volume, slurred. Thought process is disorganized and illogical. Insight and judgment is poor. DIAGNOSIS: Major depressive disorder, mild, recurrent, without psychotic features. Secondary medical includes psychosocial stressors, financial function impairment, severe. PLAN: Treat the patient with medication regimen of Cymbalta 30 mg twice a day. She is on Ativan as needed. 20 minutes of cognitive behavioral therapy provided to help her identify her automatic negative thoughts and help her convert those negative thoughts to more positive thoughts to reduce depression, anxiety, and mood lability and encouraged to interact appropriately with staff and other patients. Chart reviewed. Discussed with staff. Seen and assessed in her room. Troy Esparza M.D. DR: JUAN JOB#: [id number] CC:
[2018-10-23] MEDS: oxyCODONE 5mg IR tab ORAL PRN ×3 (04:27→23:50)
[2018-10-23 06:15] LABS: BASOPHILS % (AUTO) 1.3 % (0.0-2.0); EOSINOPHILS % (AUTO) 3.9 % (0.0-3.0); HEMOGLOBIN 13.2 G/DL (12.0-16.0); LYMPHOCYTES % (AUTO) 31.2 % (20.0-45.0); MEAN CORPUSCULAR VOLUME 90 FL (80-99); MONOCYTES % (AUTO) 6.3 % (1.0-10.0); NEUTROPHILS % (AUTO) 57.4 % (45.0-75.0); PLATELET COUNT 359 K/UL (150-450); RED BLOOD COUNT 4.56 M/UL (4.20-5.40)
[2018-10-23 06:19] LABS: ANION GAP 10 mmol/L (5-15); BLOOD UREA NITROGEN 8 mg/dL (7-18); CALCIUM 9.4 MG/DL (8.5-10.1); CARBON DIOXIDE 27 MMOL/L (21-32); CHLORIDE 103 MMOL/L (98-107); CREATININE 0.8 MG/DL (0.55-1.30); POTASSIUM 4.5 MMOL/L (3.5-5.1); SODIUM 140 MMOL/L (136-145)
--- NOTE | 2018-10-23 07:30 | NUR ---
NURSE NOTES: awake /alert. pain scale 8/10. rt ankle dressing dry and intact. tiffani warm to touch. given ativan 0.25mg iv pervrequest for anxiety. in no acute distress.
--- NOTE | 2018-10-23 07:30 | NUR ---
NURSE NOTES: AWAKE/ALERT.PAIN SCALE 8/10. GIVEN ATIVAN 0.25MG IV PER REQUEST FOR ANXIET. RT ANKLE DRESSING DRY AND INTACT. IN NO DISTRESS.
--- NOTE | 2018-10-23 07:32 | NUR ---
HAND-OFF: Report given to Eliane. Pt is stable.
--- NOTE | 2018-10-23 08:28 | General Progress Note ---
Assessment/Plan Assessment/Plan: (1) Morbid obesity (2) Multiple joint osteoarthritis (3) Multiple joint pain (4) Right ankle fracture (5) Right ankle pain s/p ORIF (6) Fibromyalgia The patient will be continued on oxycodone and Dilaudid. The patient was discussed with Dr. Leonardo he concurred and will follow the patient. Subjective Date patient seen: Oct 23, 2018 Time patient seen: 08:00 - am Allergies: Coded Allergies: Cashew (Verified Allergy, Unknown, 12/30/14) GABAPENTIN (Verified Allergy, Unknown, 10/21/18) HYDROQUINONE (Unverified Allergy, Unknown, 11/08/17) HYDROXYCHLOROQUINE (Verified Allergy, Unknown, 08/31/17) PENICILLINS (Verified Allergy, Unknown, 10/21/18) PISTACHIO NUT (Verified Allergy, Unknown, 10/21/18) Uncoded Allergies: FISH (Allergy, Unknown, 12/30/14) Subjective REVIEW OF SYSTEMS: Denies rash, fever, chills, sweating, dizziness, drowsiness, blurred vision, sore throat, change in hearing or weight. No shortness of breath, chest pain, palpitations, or cough. No nausea, vomiting, diarrhea, or blood in the stool or urine. No bowel or bladder incontinence. No dysuria. She is complaining of generalized body pain. SUBJECTIVE: Patient has been in c/o pain which is severe with movement. The pain has been stable on the Dilaudid and Oxycodone. No new complaints at this time. Objective Last 24 Hour Vital Signs Date Time Temp Pulse Resp B/P (MAP) Pulse Ox O2 Delivery O2 Flow Rate FiO2 10/23/18 05:57 98.9 112 18 154/104 (121) 97 10/23/18 00:00 99.0 98 18 154/113 (127) 97 10/22/18 21:00 Room Air 10/22/18 20:00 99.6 101 19 155/107 (123) 96 10/22/18 16:00 99.2 88 20 126/72 (90) 95 10/22/18 12:00 99.1 104 20 154/107 (123) 94 10/22/18 09:28 108 159/108 10/22/18 09:00 Room Air Intake and Output 10/22/18 10/23/18 18:59 06:59 Intake Total 1200 ml 3000 ml Balance 1200 ml 3000 ml Intake Oral 1200 ml 3000 ml # Voids 2 3 Laboratory Tests 10/23/18 05:20: White Blood Count 9.0, Red Blood Count 4.56, Hemoglobin 13.2, Hematocrit 41.0, Mean Corpuscular Volume 90, Mean Corpuscular Hemoglobin 29.1, Mean Corpuscular Hemoglobin Concent 32.3, Red Cell Distribution Width 12.0, Platelet Count 359, Mean Platelet Volume 5.0L, Neutrophils (%) (Auto) 57.4, Lymphocytes (%) (Auto) 31.2, Monocytes (%) (Auto) 6.3, Eosinophils (%) (Auto) 3.9H, Basophils (%) (Auto ) 1.3, Sodium Level 140, Potassium Level 4.5, Chloride Level 103, Carbon Dioxide Level 27, Anion Gap 10, Blood Urea Nitrogen 8, Creatinine 0.8, Estimat Glomerular Filtration Rate > 60, Glucose Level 129H, Calcium Level 9.4 Height (Feet): 5 Height (Inches): 8.00 Weight (Pounds): 346 Objective PHYSICAL EXAMINATION: GENERAL: Alert, awake, and oriented. LUNGS: Decreased breath sounds bilaterally. HEART: S1, S2 regular. ABDOMEN: Obese. EXTREMITIES: No cyanosis, no clubbing with right ankle bandages applied and noted. Cirilo Chavez Oct 23, 2018 08:27
[2018-10-23] MEDS: Furosemide 40mg tab ORAL SCH (08:42)
[2018-10-23] MEDS: Oxybutynin 5mg tab ORAL SCH ×3 (08:42→17:52)
[2018-10-23] MEDS: DULoxetine 30mg cap ORAL SCH (08:42)
[2018-10-23] MEDS: Cyclobenzaprine 10mg Tab ORAL SCH ×3 (08:42→17:47)
[2018-10-23] MEDS: Bactrim-DS 1 tab ORAL SCH ×2 (08:42→17:47)
[2018-10-23] MEDS: Diclofenac 25mg tab ORAL SCH ×3 (08:43→17:46)
[2018-10-23] MEDS: Lyrica 75mg cap ORAL SCH ×3 (08:43→17:47)
[2018-10-23] MEDS: Metoprolol 25mg tab ORAL SCH (08:44)
[2018-10-23] MEDS: Lisinopril 10mg tab ORAL SCH (08:44)
--- NOTE | 2018-10-23 10:21 | General Progress Note ---
Assessment/Plan Problem List: (1) Diabetes ICD Codes: E11.9 - Type 2 diabetes mellitus without complications SNOMED: 91951409 (2) HTN (hypertension) ICD Codes: I10 - Essential (primary) hypertension SNOMED: 41398674 (3) Chronic pain ICD Codes: G89.29 - Other chronic pain SNOMED: 04450246 (4) Arthritis ICD Codes: M19.90 - Unspecified osteoarthritis, unspecified site SNOMED: 0983147 (5) Lupus (systemic lupus erythematosus) ICD Codes: M32.9 - Systemic lupus erythematosus, unspecified SNOMED: 53544517 (6) Obesity, morbid, BMI 40.0-49.9 ICD Codes: E66.01 - Morbid (severe) obesity due to excess calories SNOMED: 126938912 (7) Fibromyalgia ICD Codes: M79.7 - Fibromyalgia SNOMED: 17220712 (8) History of asthma ICD Codes: Z87.09 - Personal history of other diseases of the respiratory system SNOMED: 129062054 Status: stable, progressing Assessment/Plan: pt diet pain control cbc bmp am Subjective Constitutional: Reports: weakness Allergies: Coded Allergies: Cashew (Verified Allergy, Unknown, 12/30/14) GABAPENTIN (Verified Allergy, Unknown, 10/21/18) HYDROQUINONE (Unverified Allergy, Unknown, 11/08/17) HYDROXYCHLOROQUINE (Verified Allergy, Unknown, 08/31/17) PENICILLINS (Verified Allergy, Unknown, 10/21/18) PISTACHIO NUT (Verified Allergy, Unknown, 10/21/18) Uncoded Allergies: FISH (Allergy, Unknown, 12/30/14) All Systems: reviewed and negative except above Subjective sleepy calm Objective Last 24 Hour Vital Signs Date Time Temp Pulse Resp B/P (MAP) Pulse Ox O2 Delivery O2 Flow Rate FiO2 10/23/18 09:59 98.9 10/23/18 09:42 98.9 10/23/18 09:13 98.9 10/23/18 09:00 Room Air 10/23/18 08:44 105 132/85 10/23/18 08:44 132/85 10/23/18 08:44 105 132/85 10/23/18 08:00 98.4 20 132/85 (101) 94 10/23/18 05:57 98.9 112 18 154/104 (121) 97 10/23/18 00:00 99.0 98 18 154/113 (127) 97 10/22/18 21:00 Room Air 10/22/18 20:00 99.6 101 19 155/107 (123) 96 10/22/18 16:00 99.2 88 20 126/72 (90) 95 10/22/18 12:00 99.1 104 20 154/107 (123) 94 Intake and Output 10/22/18 10/23/18 19:00 07:00 Intake Total 1200 ml 3000 ml Balance 1200 ml 3000 ml Intake Oral 1200 ml 3000 ml # Voids 2 3 Laboratory Tests 10/23/18 05:20: White Blood Count 9.0, Red Blood Count 4.56, Hemoglobin 13.2, Hematocrit 41.0, Mean Corpuscular Volume 90, Mean Corpuscular Hemoglobin 29.1, Mean Corpuscular Hemoglobin Concent 32.3, Red Cell Distribution Width 12.0, Platelet Count 359, Mean Platelet Volume 5.0L, Neutrophils (%) (Auto) 57.4, Lymphocytes (%) (Auto) 31.2, Monocytes (%) (Auto) 6.3, Eosinophils (%) (Auto) 3.9H, Basophils (%) (Auto ) 1.3, Sodium Level 140, Potassium Level 4.5, Chloride Level 103, Carbon Dioxide Level 27, Anion Gap 10, Blood Urea Nitrogen 8, Creatinine 0.8, Estimat Glomerular Filtration Rate > 60, Glucose Level 129H, Calcium Level 9.4 Height (Feet): 5 Height (Inches): 8.00 Weight (Pounds): 346 General Appearance: lethargic EENT: normal ENT inspection Neck: normal alignment Cardiovascular: normal peripheral pulses, normal rate, regular rhythm Respiratory/Chest: chest wall non-tender, lungs clear, normal breath sounds Abdomen: normal bowel sounds, non tender, soft Extremities: normal inspection Edema: no edema noted Arm (L), no edema noted Arm (R), no edema noted Leg (L), no edema noted Leg (R), no edema noted Pedal (L), no edema noted Pedal (R), no edema noted Generalized Neurologic: motor weakness Skin: normal pigmentation, warm/dry Get Tovar DO Oct 23, 2018 10:21
--- NOTE | 2018-10-23 10:50 | NUR ---
NURSE NOTES: DR Magdy RIZO CALLED RE PT'S CONSULT, LEFT MESSAGE TO RETURN CALL.
[2018-10-23] MEDS: Docusate 250mg cap ORAL SCH ×2 (12:46→17:46)
--- NOTE | 2018-10-23 13:13 | Pulmonology Progress Note ---
Assessment/Plan Problems: (1) KAREN (obstructive sleep apnea) (2) History of asthma (3) Cellulitis (4) Obesity, morbid, BMI 40.0-49.9 (5) Hepatitis C (6) Hypertension (7) Osteoarthritis of multiple joints (8) Fibromyalgia (9) Intractable pain (10) Status post ORIF of fracture of ankle (11) Hx of gastric bypass (12) Lupus (systemic lupus erythematosus) Assessment/Plan wants a few more changes to her medication symptomatic treatment doing better all notes reviewed refusing so far doppler of extremities dvt prophylaxis. Subjective ROS Limited/Unobtainable: No Constitutional: Reports: no symptoms HEENT: Repors: no symptoms Respiratory: Reports: no symptoms Allergies: Coded Allergies: Cashew (Verified Allergy, Unknown, 12/30/14) GABAPENTIN (Verified Allergy, Unknown, 10/21/18) HYDROQUINONE (Unverified Allergy, Unknown, 11/08/17) HYDROXYCHLOROQUINE (Verified Allergy, Unknown, 08/31/17) PENICILLINS (Verified Allergy, Unknown, 10/21/18) PISTACHIO NUT (Verified Allergy, Unknown, 10/21/18) Uncoded Allergies: FISH (Allergy, Unknown, 12/30/14) Objective Last 24 Hour Vital Signs Date Time Temp Pulse Resp B/P (MAP) Pulse Ox O2 Delivery O2 Flow Rate FiO2 10/23/18 11:13 98.9 10/23/18 09:59 98.9 10/23/18 09:42 98.9 10/23/18 09:13 98.9 10/23/18 09:00 Room Air 10/23/18 08:44 105 132/85 10/23/18 08:44 132/85 10/23/18 08:44 105 132/85 10/23/18 08:00 98.4 20 132/85 (101) 94 10/23/18 05:57 98.9 112 18 154/104 (121) 97 10/23/18 00:00 99.0 98 18 154/113 (127) 97 10/22/18 21:00 Room Air 10/22/18 20:00 99.6 101 19 155/107 (123) 96 10/22/18 16:00 99.2 88 20 126/72 (90) 95 Intake and Output 10/22/18 10/23/18 19:00 07:00 Intake Total 1200 ml 3000 ml Balance 1200 ml 3000 ml Intake Oral 1200 ml 3000 ml # Voids 2 3 General Appearance: WD/WN HEENT: normocephalic, atraumatic Respiratory/Chest: chest wall non-tender, normal breath sounds Breasts: no masses Cardiovascular: normal peripheral pulses, normal rate Abdomen: normal bowel sounds, soft, non tender Genitourinary: normal external genitalia Extremities: no clubbing Skin: no rash Microbiology Date/Time Source Procedure Growth Status 10/21/18 15:15 Nasal Nares MRSA Culture - Final NO METHICILLIN RESISTANT STAPH AUREUS... Complete 10/21/18 15:15 Rectum VRE Culture - Final NO VANCOMYCIN RESISTANT ENTEROCOCCUS ... Complete 10/21/18 15:15 Rectum - Final NO CARBAPENEM-RESISTANT ENTEROBACTERI... Complete Laboratory Tests 10/23/18 05:20: White Blood Count 9.0, Red Blood Count 4.56, Hemoglobin 13.2, Hematocrit 41.0, Mean Corpuscular Volume 90, Mean Corpuscular Hemoglobin 29.1, Mean Corpuscular Hemoglobin Concent 32.3, Red Cell Distribution Width 12.0, Platelet Count 359, Mean Platelet Volume 5.0L, Neutrophils (%) (Auto) 57.4, Lymphocytes (%) (Auto) 31.2, Monocytes (%) (Auto) 6.3, Eosinophils (%) (Auto) 3.9H, Basophils (%) (Auto ) 1.3, Sodium Level 140, Potassium Level 4.5, Chloride Level 103, Carbon Dioxide Level 27, Anion Gap 10, Blood Urea Nitrogen 8, Creatinine 0.8, Estimat Glomerular Filtration Rate > 60, Glucose Level 129H, Calcium Level 9.4 Current Medications Medications (Trade) Dose Ordered Sig/Farideh Route PRN Reason Start Time Stop Time Status Last Admin Dose Admin Acetaminophen (Tylenol) 650 mg Q4H PRN ORAL fever 10/21/18 18:15 11/20/18 18:14 Amlodipine Besylate (Norvasc) 5 mg DAILY ORAL 10/22/18 09:00 11/21/18 08:59 10/23/18 08:44 Calcium/Vitamin D (OsCal D) 1 tab DAILY ORAL 10/24/18 09:00 11/23/18 08:59 Cyanocobalamin (Vitamin B-12 Tab) 100 mcg DAILY ORAL 10/24/18 09:00 11/23/18 08:59 Cyclobenzaprine HCl (Flexeril) 10 mg THREE TIMES A DAY ORAL 10/22/18 09:00 11/21/18 08:59 10/23/18 12:45 Dextrose (Dextrose 50%) 25 ml Q30M PRN IV Hypoglycemia 10/21/18 18:15 11/20/18 18:14 Dextrose (Dextrose 50%) 50 ml Q30M PRN IV Hypoglycemia 10/21/18 18:30 11/20/18 18:29 Diclofenac Sodium (Voltaren) 25 mg THREE TIMES A DAY ORAL 10/22/18 09:00 11/21/18 08:59 10/23/18 12:45 Docusate Sodium (Colace) 250 mg TID ORAL 10/23/18 13:00 11/22/18 12:59 10/23/18 12:46 Duloxetine HCl (Cymbalta) 60 mg DAILY ORAL 10/24/18 09:00 11/21/18 08:59 Furosemide (Lasix) 40 mg DAILY ORAL 10/23/18 09:00 11/22/18 08:59 10/23/18 08:42 Hydromorphone HCl (Dilaudid) 1 mg Q4H PRN IVP severe pain 10/22/18 08:30 10/29/18 08:29 10/23/18 10:43 Lisinopril (Zestril) 10 mg DAILY ORAL 10/23/18 09:00 11/22/18 08:59 10/23/18 08:44 Lorazepam (Ativan 2mg/ml 1ml) 0.5 mg Q4H PRN IV For Anxiety 10/21/18 18:15 10/28/18 18:14 10/23/18 08:14 Metoprolol Tartrate (Lopressor) 75 mg DAILY ORAL 10/23/18 09:00 11/22/18 08:59 10/23/18 08:44 Multivitamins (Multivitamins) 1 tab DAILY ORAL 10/24/18 09:00 11/23/18 08:59 Ondansetron HCl (Zofran) 4 mg Q6H PRN IVP Nausea & Vomiting 10/21/18 18:15 11/20/18 18:14 Oxybutynin Chloride (Ditropan) 5 mg THREE TIMES A DAY ORAL 10/22/18 09:00 11/21/18 08:59 10/23/18 12:46 Oxycodone HCl (Roxicodone) 10 mg Q4H PRN ORAL Breakthrough Pain 10/22/18 08:30 10/29/18 08:29 10/23/18 04:27 Pantoprazole (Protonix) 40 mg DAILY ORAL 10/24/18 09:00 11/23/18 08:59 Polyethylene Glycol (Miralax) 17 gm BID ORAL 10/23/18 18:00 11/22/18 17:59 Polyethylene Glycol (Miralax) 17 gm HSPRN PRN ORAL Constipation 10/21/18 18:15 11/20/18 18:14 10/22/18 20:55 Pregabalin (Lyrica) 75 mg THREE TIMES A DAY ORAL 10/22/18 09:00 11/21/18 08:59 10/23/18 12:45 Tizanidine HCl (Zanaflex) 4 mg THREE TIMES A DAY ORAL 10/22/18 09:00 11/21/18 08:59 10/23/18 12:46 Trimethoprim/ Sulfamethoxazole (Bactrim-DS) 1 tab TWICE A DAY ORAL 10/21/18 18:00 10/28/18 17:59 10/23/18 08:42 Zolpidem Tartrate (Ambien) 10 mg HSPRN PRN ORAL Insomnia 10/23/18 21:00 10/30/18 20:59 Mer Powell MD Oct 23, 2018 13:13
--- NOTE | 2018-10-23 13:15 | Infectious Diseases Prog Note ---
Assessment/Plan Assessment/Plan Abx: None Assessment: R/o probable Surgical site infection (currently does not appear infected but report of malodorous discharge) Afebrile No leukocytosis HTN MDD Lupus COPD chronic pain syndrome GERD Plan: -Empiric Bactrim DS 1 tab bid #3/5 -f/u cx -Monitor CBC/CMP, temperatures Thank you for this consultation. Will continue to follow along with you. Discussed with RN. Subjective Allergies: Coded Allergies: Cashew (Verified Allergy, Unknown, 12/30/14) GABAPENTIN (Verified Allergy, Unknown, 10/21/18) HYDROQUINONE (Unverified Allergy, Unknown, 11/08/17) HYDROXYCHLOROQUINE (Verified Allergy, Unknown, 08/31/17) PENICILLINS (Verified Allergy, Unknown, 10/21/18) PISTACHIO NUT (Verified Allergy, Unknown, 10/21/18) Uncoded Allergies: FISH (Allergy, Unknown, 12/30/14) Subjective afebrile Objective Vital Signs Last 24 Hour Vital Signs Date Time Temp Pulse Resp B/P (MAP) Pulse Ox O2 Delivery O2 Flow Rate FiO2 10/23/18 11:13 98.9 10/23/18 09:59 98.9 10/23/18 09:42 98.9 10/23/18 09:13 98.9 10/23/18 09:00 Room Air 10/23/18 08:44 105 132/85 10/23/18 08:44 132/85 10/23/18 08:44 105 132/85 10/23/18 08:00 98.4 20 132/85 (101) 94 10/23/18 05:57 98.9 112 18 154/104 (121) 97 10/23/18 00:00 99.0 98 18 154/113 (127) 97 10/22/18 21:00 Room Air 10/22/18 20:00 99.6 101 19 155/107 (123) 96 10/22/18 16:00 99.2 88 20 126/72 (90) 95 Height (Feet): 5 Height (Inches): 8.00 Weight (Pounds): 346 Objective General Appearance: normal inspection, well appearing, no apparent distress, alert, GCS 15, obese, Chronically Ill Head: atraumatic Eyes: bilateral eye other - some intermittent lid lag ENT: normal ENT inspection, hearing grossly normal, normal voice Neck: normal inspection, full range of motion, supple, no bony tend Respiratory: normal inspection, lungs clear, normal breath sounds, no respiratory distress, no retraction, no wheezing Cardiovascular #1: regular rate, rhythm, no edema Gastrointestinal: normal inspection, normal bowel sounds, non tender, soft, no guarding, no hernia Genitourinary: no CVA tenderness Musculoskeletal: normal inspection, back normal, normal range of motion Neurologic: normal inspection, alert, oriented x3, responsive, speech normal Psychiatric: normal inspection, judgement/insight normal, mood/affect normal Skin: other Microbiology Date/Time Source Procedure Growth Status 10/21/18 15:15 Nasal Nares MRSA Culture - Final NO METHICILLIN RESISTANT STAPH AUREUS... Complete 10/21/18 15:15 Rectum VRE Culture - Final NO VANCOMYCIN RESISTANT ENTEROCOCCUS ... Complete 10/21/18 15:15 Rectum - Final NO CARBAPENEM-RESISTANT ENTEROBACTERI... Complete Laboratory Tests Test 10/23/18 05:20 White Blood Count 9.0 K/UL (4.8-10.8) Red Blood Count 4.56 M/UL (4.20-5.40) Hemoglobin 13.2 G/DL (12.0-16.0) Hematocrit 41.0 % (37.0-47.0) Mean Corpuscular Volume 90 FL (80-99) Mean Corpuscular Hemoglobin 29.1 PG (27.0-31.0) Mean Corpuscular Hemoglobin Concent 32.3 G/DL (32.0-36.0) Red Cell Distribution Width 12.0 % (11.6-14.8) Platelet Count 359 K/UL (150-450) Mean Platelet Volume 5.0 FL (6.5-10.1) L Neutrophils (%) (Auto) 57.4 % (45.0-75.0) Lymphocytes (%) (Auto) 31.2 % (20.0-45.0) Monocytes (%) (Auto) 6.3 % (1.0-10.0) Eosinophils (%) (Auto) 3.9 % (0.0-3.0) H Basophils (%) (Auto) 1.3 % (0.0-2.0) Sodium Level 140 MMOL/L (136-145) Potassium Level 4.5 MMOL/L (3.5-5.1) Chloride Level 103 MMOL/L (98-107) Carbon Dioxide Level 27 MMOL/L (21-32) Anion Gap 10 mmol/L (5-15) Blood Urea Nitrogen 8 mg/dL (7-18) Creatinine 0.8 MG/DL (0.55-1.30) Estimat Glomerular Filtration Rate > 60 mL/min (>60) Glucose Level 129 MG/DL (74-106) H Calcium Level 9.4 MG/DL (8.5-10.1) Current Medications Medications (Trade) Dose Ordered Sig/Farideh Route PRN Reason Start Time Stop Time Status Last Admin Dose Admin Acetaminophen (Tylenol) 650 mg Q4H PRN ORAL fever 10/21/18 18:15 11/20/18 18:14 Amlodipine Besylate (Norvasc) 5 mg DAILY ORAL 10/22/18 09:00 11/21/18 08:59 10/23/18 08:44 Calcium/Vitamin D (OsCal D) 1 tab DAILY ORAL 10/24/18 09:00 11/23/18 08:59 Cyanocobalamin (Vitamin B-12 Tab) 100 mcg DAILY ORAL 10/24/18 09:00 11/23/18 08:59 Cyclobenzaprine HCl (Flexeril) 10 mg THREE TIMES A DAY ORAL 10/22/18 09:00 11/21/18 08:59 10/23/18 12:45 Dextrose (Dextrose 50%) 25 ml Q30M PRN IV Hypoglycemia 10/21/18 18:15 11/20/18 18:14 Dextrose (Dextrose 50%) 50 ml Q30M PRN IV Hypoglycemia 10/21/18 18:30 11/20/18 18:29 Diclofenac Sodium (Voltaren) 25 mg THREE TIMES A DAY ORAL 10/22/18 09:00 11/21/18 08:59 10/23/18 12:45 Docusate Sodium (Colace) 250 mg TID ORAL 10/23/18 13:00 11/22/18 12:59 10/23/18 12:46 Duloxetine HCl (Cymbalta) 60 mg DAILY ORAL 10/24/18 09:00 11/21/18 08:59 Furosemide (Lasix) 40 mg DAILY ORAL 10/23/18 09:00 11/22/18 08:59 10/23/18 08:42 Hydromorphone HCl (Dilaudid) 1 mg Q4H PRN IVP severe pain 10/22/18 08:30 10/29/18 08:29 10/23/18 10:43 Lisinopril (Zestril) 10 mg DAILY ORAL 10/23/18 09:00 11/22/18 08:59 10/23/18 08:44 Lorazepam (Ativan 2mg/ml 1ml) 0.5 mg Q4H PRN IV For Anxiety 10/21/18 18:15 10/28/18 18:14 10/23/18 08:14 Metoprolol Tartrate (Lopressor) 75 mg DAILY ORAL 10/23/18 09:00 11/22/18 08:59 10/23/18 08:44 Multivitamins (Multivitamins) 1 tab DAILY ORAL 10/24/18 09:00 11/23/18 08:59 Ondansetron HCl (Zofran) 4 mg Q6H PRN IVP Nausea & Vomiting 10/21/18 18:15 11/20/18 18:14 Oxybutynin Chloride (Ditropan) 5 mg THREE TIMES A DAY ORAL 10/22/18 09:00 11/21/18 08:59 10/23/18 12:46 Oxycodone HCl (Roxicodone) 10 mg Q4H PRN ORAL Breakthrough Pain 10/22/18 08:30 10/29/18 08:29 10/23/18 04:27 Pantoprazole (Protonix) 40 mg DAILY ORAL 10/24/18 09:00 11/23/18 08:59 Polyethylene Glycol (Miralax) 17 gm BID ORAL 10/23/18 18:00 11/22/18 17:59 Polyethylene Glycol (Miralax) 17 gm HSPRN PRN ORAL Constipation 10/21/18 18:15 11/20/18 18:14 10/22/18 20:55 Pregabalin (Lyrica) 75 mg THREE TIMES A DAY ORAL 10/22/18 09:00 11/21/18 08:59 10/23/18 12:45 Tizanidine HCl (Zanaflex) 4 mg THREE TIMES A DAY ORAL 10/22/18 09:00 11/21/18 08:59 10/23/18 12:46 Trimethoprim/ Sulfamethoxazole (Bactrim-DS) 1 tab TWICE A DAY ORAL 10/21/18 18:00 10/28/18 17:59 10/23/18 08:42 Zolpidem Tartrate (Ambien) 10 mg HSPRN PRN ORAL Insomnia 10/23/18 21:00 10/30/18 20:59 Zoie Connolly M.D. Oct 23, 2018 13:14
--- NOTE | 2018-10-23 14:00 | NUR ---
NURSE NOTES: tried to restart heplock using vein finder. with no luck.will try again later.
--- NOTE | 2018-10-23 14:40 | NUR ---
PT NOTE Received MD order for PT evaluation, medical record reviewed. Patient has order for venous duplex BLE to R/O DVT, patient declined to have scan yesterday. Per Eliane BAKER, patient scheduled to have scan later today. Will wait for results prior to initiating PT evaluation, Eliane BAKER notified. Will follow up tomorrow.
[2018-10-23] MEDS: Miralax 17gm pkt ORAL SCH (17:46)
--- NOTE | 2018-10-23 18:30 | NUR ---
NURSE NOTES: HEPLOCK ON RT SUBCLAVIAN ACCIDENTALLY CAME OUT WHE PT TRIED TO CHANGE HER CLOTHES. PT HARD STICK . WILL TRY TO RESTART IT NEXT SHIFT.
--- NOTE | 2018-10-23 19:11 | NUR ---
HAND-OFF: Report given to Sabra TRUJILLO RN.
--- NOTE | 2018-10-23 19:30 | NUR ---
NURSE NOTES: Patient awake in bed, alert and oriented x4, concerned about her pain on her right leg. For IV insertion. Pt is willing to let RN try. Instructed the use of call light. Bed in lowest position and lock engaged. Will continue to monitor.
--- NOTE | 2018-10-23 20:15 | Progress Note ---
DATE: 10/23/2018 SUBJECTIVE: She is a 42-year-old female patient. This patient came into the hospital because she has systemic lupus erythematosus causing the lupus exacerbation and she also has other medical complaints such as obesity, hepatitis C, lumbar radiculopathy, hypertension, iron deficiency anemia, intractable pain with fibromyalgia. She does require being on the medical unit, but this patient also has a history of anxiety and some depression worsened by the stress of her medical illness . She is having because of the stressors of limitations. I saw and assessed her at bedside. She talks a lot about how . She is calm today with significant decline in functionality due to her lupus and that is causing her a lot of depression and a lot. She seemed to be very concerned about being diagnosed with bipolar and she most of the time that she is not bipolar nor is schizophrenic. She says that she prefers to be documented as not bipolar or schizophrenic on her diagnosis at this point. MENTAL STATUS EXAMINATION: A 42-year-old female. Appearance is disheveled. Attitude, irritable and agitated. Affect, guarded and restricted. Intellect poor. Mood, depressed and anxious. Motor activity, psychomotor agitation. Attention span is poor. Orientation x2. Speech is slightly pressured. Thought process, disorganized and illogical. Insight and judgment is poor. DIAGNOSIS: Major depressive disorder, mild, recurrent, without psychotic features. Secondary medical psychosocial stressors and financial. PLAN: I am going to continue her on Cymbalta 60 mg daily and provided with 20 minutes of cognitive behavioral therapy to help her identify her automatic negative thoughts and help her convert those negative thoughts to more positive thoughts and help her have a more adaptive behavioral pattern. The patient will continue to be followed by Psychiatry throughout the hospital course. Chart reviewed. Discussed with staff. The patient is seen and assessed at bedside. Troy Esparza M.D. DR: JUAN JOB#: [id number] CC:
[2018-10-23] MEDS: Zolpidem 5mg tab ORAL PRN (20:30)
--- NOTE | 2018-10-23 22:18 | NUR ---
NURSE NOTES: RNs attempted to insert IV access on patient several times but failed.
--- NOTE | 2018-10-24 02:00 | NUR ---
NURSE NOTES: Explained to the patient, RNs and Charge nurse assessed her for IV insertion that she is very hardstick. Dr. Tovar and Dr. Powell made aware. Still demanded to be poke and insisted to get her IV pain med after she criticized her primary RN.
[2018-10-24] MEDS: HYDROmorphone 1mg/ml Carpuject IVP PRN ×4 (03:03→12:09)
--- NOTE | 2018-10-24 03:21 | NUR ---
NURSE NOTES: RN from another unit was able to get an IV access on the right wrist 24.
[2018-10-24] MEDS: LORazepam Inj 2mg/ml 1ml IV PRN (04:00)
[2018-10-24 04:21] VITALS: BP 146/88
--- NOTE | 2018-10-24 05:16 | NUR ---
NURSE NOTES: Patient refused blood draw per Abimbola from the lab.
--- NOTE | 2018-10-24 07:43 | NUR ---
HAND-OFF: Report given to SAMUEL Anaya.
[2018-10-24 08:00] VITALS: BP 183/112
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
--- NOTE | 2018-10-24 08:22 | General Progress Note ---
Assessment/Plan Assessment/Plan: (1) Morbid obesity (2) Multiple joint osteoarthritis (3) Multiple joint pain (4) Right ankle fracture (5) Right ankle pain s/p ORIF (6) Fibromyalgia The patient will be continued on oxycodone and Dilaudid. The patient was discussed with Dr. Leonardo and he concurred Subjective Date patient seen: Oct 24, 2018 Time patient seen: 07:00 - am Allergies: Coded Allergies: Cashew (Verified Allergy, Unknown, 12/30/14) GABAPENTIN (Verified Allergy, Unknown, 10/21/18) HYDROQUINONE (Unverified Allergy, Unknown, 11/08/17) HYDROXYCHLOROQUINE (Verified Allergy, Unknown, 08/31/17) PENICILLINS (Verified Allergy, Unknown, 10/21/18) PISTACHIO NUT (Verified Allergy, Unknown, 10/21/18) Uncoded Allergies: FISH (Allergy, Unknown, 12/30/14) Subjective REVIEW OF SYSTEMS: Denies rash, fever, chills, sweating, dizziness, drowsiness, blurred vision, sore throat, change in hearing or weight. No shortness of breath, chest pain, palpitations, or cough. No nausea, vomiting, diarrhea, or blood in the stool or urine. No bowel or bladder incontinence. No dysuria. She is complaining of generalized body pain. SUBJECTIVE: Patient is in bed and reports that the pain has been tolerated on the Dilaudid and Oxycodone. She reports that the pain is worsened with activities. However is at a moderate level while at rest. Objective Last 24 Hour Vital Signs Date Time Temp Pulse Resp B/P (MAP) Pulse Ox O2 Delivery O2 Flow Rate FiO2 10/24/18 04:21 97.8 83 18 146/88 (107) 96 10/23/18 23:57 98.5 80 20 133/87 (102) 95 10/23/18 21:00 Room Air 10/23/18 20:00 98.6 69 20 130/87 (101) 95 10/23/18 18:47 98.9 10/23/18 18:46 98.9 10/23/18 18:17 98.9 10/23/18 18:01 98.9 10/23/18 16:00 98.9 80 20 107/69 (82) 98 10/23/18 12:00 98.5 71 18 123/72 (89) 95 10/23/18 09:00 Room Air 10/23/18 08:44 105 132/85 10/23/18 08:44 132/85 10/23/18 08:44 105 132/85 Intake and Output 10/23/18 10/24/18 18:59 06:59 Intake Total 300 ml 500 ml Output Total 75 ml Balance 225 ml 500 ml Intake Oral 300 ml 500 ml Output Emesis 75 ml # Voids 2 Height (Feet): 5 Height (Inches): 8.00 Weight (Pounds): 346 Objective PHYSICAL EXAMINATION: GENERAL: Alert, awake, and oriented. LUNGS: Decreased breath sounds bilaterally. HEART: S1, S2 regular. ABDOMEN: Obese. EXTREMITIES: No cyanosis, no clubbing with right ankle bandages applied and noted. Cirilo Chavez Oct 24, 2018 08:22
--- NOTE | 2018-10-24 08:30 | Progress Note ---
DATE: 10/24/2018 SUBJECTIVE: This is a 42-year-old female patient with lupus exacerbation, hypertension, and cervical radiculopathy. This patient is still suffering from depression and anxiety. She had stress of her medical illness and physical decline which she had to undergo secondary to her lupus. She thought about that and she has feelings of helplessness, hopelessness, low energy, poor appetite, loss of interest in activity. MENTAL STATUS EXAMINATION: This is a 42-year-old female patient. Appearance is disheveled. Attitude, irritable and agitated. Affect, guarded and restricted. Intellect poor. Mood, depressed and anxious. Motor activity, psychomotor agitation. Insight and judgment are poor. DIAGNOSIS: Major depressive disorder, mild, recurrent, without psychotic features. PLAN: Treat her with Cymbalta 60 mg daily, Ativan 1 every 4 hours p.r.n. anxiety and agitation, and Ambien 10 mg nightly. Twenty minutes of cognitive behavioral therapy was provided to help identify automatic negative thoughts and help her convert those negative thoughts to more positive thoughts to reduce depression, anxiety, and mood lability. Chart was reviewed. Discussed with staff. Seen and assessed at bedside. Troy Esparza M.D. DR: REMIGIO JOB#: [id number] CC:
[2018-10-24] MEDS: Docusate 250mg cap ORAL SCH ×3 (08:41→18:43)
[2018-10-24] MEDS: Lisinopril 10mg tab ORAL SCH (08:42)
[2018-10-24] MEDS: Vitamin B-12 100mcg tab ORAL SCH (08:44)
[2018-10-24] MEDS: Metoprolol 25mg tab ORAL SCH (08:44)
[2018-10-24] MEDS: Calcium Carbonate 500mg w/Vit D 200iu tab ORAL SCH (08:44)
[2018-10-24] MEDS: Bactrim-DS 1 tab ORAL SCH ×2 (08:45→18:44)
[2018-10-24] MEDS: Oxybutynin 5mg tab ORAL SCH ×3 (08:45→18:00)
[2018-10-24] MEDS: Lyrica 75mg cap ORAL SCH ×3 (08:46→18:45)
[2018-10-24] MEDS: Miralax 17gm pkt ORAL SCH ×2 (08:46→18:46)
[2018-10-24] MEDS: oxyCODONE 5mg IR tab ORAL PRN ×2 (09:03→18:10)
[2018-10-24] MEDS: Furosemide 40mg tab ORAL SCH (09:08)
[2018-10-24] MEDS: Diclofenac 25mg tab ORAL SCH ×3 (09:08→18:46)
[2018-10-24] MEDS: Cyclobenzaprine 10mg Tab ORAL SCH ×3 (09:09→18:43)
--- NOTE | 2018-10-24 09:30 | NUR ---
PT NOTE Patient did not have duplex venous scan done yesterday. Will wait for scan to be done or clearance from MD prior to initiating PT evaluation. Discussed with Yolanda BAKER, will follow.
--- NOTE | 2018-10-24 10:45 | NUR ---
NURSE NOTES: gave okay to discharge pt if cleared.
--- NOTE | 2018-10-24 11:00 | NUR ---
NURSE NOTES: Dr Tovar phoned made aware that pt is complaining of pain after all routine pain medication, prn roxycodone, pt is belligerent and combative. Supervisor Sawmill asked her what her pain level is, and where is the pain located. " Pt sat up in bed you do not have the right to interrogate me about my medicine that I pay for with my insurances, that is not your job." Charge Nurse called to room. Pt began yelling out all of here diagnosis. Pt redirected. Risk of receiving so many sedative medications explained . " I know me! and that is how I get them, they are already thrown off because no one could start an IV" Not receptive to pt teaching
--- NOTE | 2018-10-24 11:10 | NUR ---
NURSE NOTES: Pt is sedated speech is slurred unable to keep eyes open while talking to personal lines underwriter stating " I need my shot" Dr Chavez phoned made aware taht pt states she is still in pain after giving lyrica cymbalta flexiril zanafax, roxycodone, and pt states she is still in pain 09/28. Awaiting return call
--- NOTE | 2018-10-24 11:30 | NUR ---
NURSE NOTES: Dr Tovar made aware that pt does not have iv access no new orders
--- NOTE | 2018-10-24 11:59 | NUR ---
NURSE NOTES: Dr Sanders phoned made aware that pt is not cooperating with labs, and has refused venous doppler, due to that reason PT will not give her therapy. Dr Sanders gave orders to discharge pt resume home medications to follow up wit him in 3 weeks. Pt is non weight bearing and has been non cooperative walking on her leg. Gave orders for xray to ankle. Xray will be ordered stat
[2018-10-24 12:00] VITALS: BP 123/78
[2018-10-24] MEDS ORDERED: LORazepam 0.5mg tab ORAL PRN (12:00)
--- NOTE | 2018-10-24 12:06 | Pulmonology Progress Note ---
Assessment/Plan Problems: (1) KAREN (obstructive sleep apnea) (2) History of asthma (3) Cellulitis (4) Obesity, morbid, BMI 40.0-49.9 (5) Hepatitis C (6) Hypertension (7) Osteoarthritis of multiple joints (8) Fibromyalgia (9) Intractable pain (10) Status post ORIF of fracture of ankle (11) Hx of gastric bypass (12) Lupus (systemic lupus erythematosus) Assessment/Plan wants a few more changes to her medication symptomatic treatment doing better all notes reviewed refusing so far doppler of extremities dvt prophylaxis.\ ortho has not seen her yet bp controlled no IV access b/o obesity. Subjective ROS Limited/Unobtainable: No Constitutional: Reports: no symptoms HEENT: Repors: no symptoms Allergies: Coded Allergies: Cashew (Verified Allergy, Unknown, 12/30/14) GABAPENTIN (Verified Allergy, Unknown, 10/21/18) HYDROQUINONE (Unverified Allergy, Unknown, 11/08/17) HYDROXYCHLOROQUINE (Verified Allergy, Unknown, 08/31/17) PENICILLINS (Verified Allergy, Unknown, 10/21/18) PISTACHIO NUT (Verified Allergy, Unknown, 10/21/18) Uncoded Allergies: FISH (Allergy, Unknown, 12/30/14) Objective Last 24 Hour Vital Signs Date Time Temp Pulse Resp B/P (MAP) Pulse Ox O2 Delivery O2 Flow Rate FiO2 10/24/18 09:00 Room Air 10/24/18 08:44 100 183/121 10/24/18 08:42 183/121 10/24/18 08:41 100 183/121 10/24/18 08:00 100 20 183/112 (135) 98 10/24/18 04:21 97.8 83 18 146/88 (107) 96 10/23/18 23:57 98.5 80 20 133/87 (102) 95 10/23/18 21:00 Room Air 10/23/18 20:00 98.6 69 20 130/87 (101) 95 10/23/18 18:47 98.9 10/23/18 18:46 98.9 10/23/18 18:17 98.9 10/23/18 18:01 98.9 10/23/18 16:00 98.9 80 20 107/69 (82) 98 Intake and Output 10/23/18 10/24/18 18:59 06:59 Intake Total 300 ml 500 ml Output Total 75 ml Balance 225 ml 500 ml Intake Oral 300 ml 500 ml Output Emesis 75 ml # Voids 2 General Appearance: WD/WN HEENT: normocephalic, atraumatic, anicteric Respiratory/Chest: chest wall non-tender, lungs clear Breasts: no masses Cardiovascular: normal peripheral pulses Abdomen: normal bowel sounds, soft, non tender Genitourinary: normal external genitalia Skin: no rash Microbiology Date/Time Source Procedure Growth Status 10/21/18 15:15 Nasal Nares MRSA Culture - Final NO METHICILLIN RESISTANT STAPH AUREUS... Complete 10/21/18 15:15 Rectum VRE Culture - Final NO VANCOMYCIN RESISTANT ENTEROCOCCUS ... Complete 10/21/18 15:15 Rectum - Final NO CARBAPENEM-RESISTANT ENTEROBACTERI... Complete Current Medications Medications (Trade) Dose Ordered Sig/Farideh Route PRN Reason Start Time Stop Time Status Last Admin Dose Admin Acetaminophen (Tylenol) 650 mg Q4H PRN ORAL fever 10/21/18 18:15 11/20/18 18:14 Amlodipine Besylate (Norvasc) 5 mg DAILY ORAL 10/22/18 09:00 11/21/18 08:59 10/24/18 08:41 Calcium/Vitamin D (OsCal D) 1 tab DAILY ORAL 10/24/18 09:00 11/23/18 08:59 10/24/18 08:44 Cyanocobalamin (Vitamin B-12 Tab) 100 mcg DAILY ORAL 10/24/18 09:00 11/23/18 08:59 10/24/18 08:44 Cyclobenzaprine HCl (Flexeril) 10 mg THREE TIMES A DAY ORAL 10/22/18 09:00 11/21/18 08:59 10/24/18 09:09 Dextrose (Dextrose 50%) 25 ml Q30M PRN IV Hypoglycemia 10/21/18 18:15 11/20/18 18:14 Dextrose (Dextrose 50%) 50 ml Q30M PRN IV Hypoglycemia 10/21/18 18:30 11/20/18 18:29 Diclofenac Sodium (Voltaren) 25 mg THREE TIMES A DAY ORAL 10/22/18 09:00 11/21/18 08:59 10/24/18 09:08 Docusate Sodium (Colace) 250 mg TID ORAL 10/23/18 13:00 11/22/18 12:59 10/24/18 08:41 Duloxetine HCl (Cymbalta) 60 mg DAILY ORAL 10/24/18 09:00 11/21/18 08:59 10/24/18 08:45 Furosemide (Lasix) 40 mg DAILY ORAL 10/23/18 09:00 11/22/18 08:59 10/24/18 09:08 Hydromorphone HCl (Dilaudid) 1 mg Q4H PRN IVP severe pain 10/22/18 08:30 10/29/18 08:29 10/24/18 11:34 Lisinopril (Zestril) 10 mg DAILY ORAL 10/23/18 09:00 11/22/18 08:59 10/24/18 08:42 Lorazepam (Ativan) 0.5 mg Q4H PRN ORAL For Anxiety 10/24/18 12:00 10/31/18 11:59 Metoprolol Tartrate (Lopressor) 75 mg DAILY ORAL 10/23/18 09:00 11/22/18 08:59 10/24/18 08:44 Multivitamins (Multivitamins) 1 tab DAILY ORAL 10/24/18 09:00 11/23/18 08:59 10/24/18 08:44 Ondansetron HCl (Zofran) 4 mg Q6H PRN IVP Nausea & Vomiting 10/21/18 18:15 11/20/18 18:14 Oxybutynin Chloride (Ditropan) 5 mg THREE TIMES A DAY ORAL 10/22/18 09:00 11/21/18 08:59 10/24/18 08:45 Oxycodone HCl (Roxicodone) 10 mg Q4H PRN ORAL Breakthrough Pain 10/22/18 08:30 10/29/18 08:29 10/24/18 09:03 Pantoprazole (Protonix) 40 mg DAILY ORAL 10/24/18 09:00 11/23/18 08:59 10/24/18 08:42 Polyethylene Glycol (Miralax) 17 gm BID ORAL 10/23/18 18:00 11/22/18 17:59 10/24/18 08:46 Polyethylene Glycol (Miralax) 17 gm HSPRN PRN ORAL Constipation 10/21/18 18:15 11/20/18 18:14 10/22/18 20:55 Pregabalin (Lyrica) 75 mg THREE TIMES A DAY ORAL 10/22/18 09:00 11/21/18 08:59 10/24/18 08:46 Tizanidine HCl (Zanaflex) 4 mg THREE TIMES A DAY ORAL 10/22/18 09:00 11/21/18 08:59 10/24/18 08:44 Trimethoprim/ Sulfamethoxazole (Bactrim-DS) 1 tab TWICE A DAY ORAL 10/21/18 18:00 10/28/18 17:59 10/24/18 08:45 Zolpidem Tartrate (Ambien) 10 mg HSPRN PRN ORAL Insomnia 10/23/18 21:00 10/30/18 20:59 10/23/18 20:30 Mer Powell MD Oct 24, 2018 12:06
--- NOTE | 2018-10-24 12:10 | NUR ---
NURSE NOTES: Unable to administer Dilaudid IV pt does not have a line , Dilaudid wasted. Pt accused com writer of purposely not flushing line. Flush given to charge nurse. Charge Nurse unable to flush line. Pt informed that medication can be changed to PO ,'That is going to make me vomit" " No I want a line" Pt complaining about repeated attempt of iv attempts
--- NOTE | 2018-10-24 12:16 | NUR ---
NURSE NOTES: cd technician here required verbal encouragement to cooperate. stated to mri technician ' It has plaster on it you wont be able to do a xray" picture taken of rt ankle does not have a cast on rt ankle
[2018-10-24] MEDS: ALPRAZolam 0.5mg tab ORAL PRN ×2 (12:27→19:50)
--- NOTE | 2018-10-24 13:31 | NUR ---
CASE MANAGEMENT: REVIEW 10/24/2018 SI:LUPUS PAIN EXACERBATION. RIGHT LE PAIN. T 97.8 HR 70 RR 16 B/P 123/78 SATS 98% ON RA NO LABS TODAY IS: BACTRIM PO BID NORVASC PO QD LISINOPRIL PO QD LASIX PO QD LOPRESSOR PO QD CYMBALTA PO QD PROTONIX PO QD MED/SURG STATUS DCP: PATIENT TO BE DISCHARGED TO HOME ONCE MEDICALLY CLEARED. PLAN OF CARE: VENOUS DUPLEX >> REFUSED PAIN MANAGEMENT
--- NOTE | 2018-10-24 13:59 | NUR ---
NURSE NOTES: Dr Tovar here to see pt . Currently sleeping bandaged reinforced outer layer removed because pt was walking on foot. PT and technical publications writer informed her that she is non weight bearing. Pt fell asleep as dressing was being changed . B/P is within normal range, was 123/72. Pt has multiple blood pressure medications attempted to separate medications " I know my body" Risk and benifits explained.
--- NOTE | 2018-10-24 14:02 | Infectious Diseases Prog Note ---
Assessment/Plan Assessment/Plan Abx: None Assessment: R/o probable Surgical site infection (currently does not appear infected but report of malodorous discharge) Afebrile No leukocytosis HTN MDD Lupus COPD chronic pain syndrome GERD Plan: -Empiric Bactrim DS 1 tab bid #4/5 -f/u cx -Monitor CBC/CMP, temperatures Thank you for this consultation. Will continue to follow along with you. Discussed with RN. Subjective Allergies: Coded Allergies: Cashew (Verified Allergy, Unknown, 12/30/14) GABAPENTIN (Verified Allergy, Unknown, 10/21/18) HYDROQUINONE (Unverified Allergy, Unknown, 11/08/17) HYDROXYCHLOROQUINE (Verified Allergy, Unknown, 08/31/17) PENICILLINS (Verified Allergy, Unknown, 10/21/18) PISTACHIO NUT (Verified Allergy, Unknown, 10/21/18) Uncoded Allergies: FISH (Allergy, Unknown, 12/30/14) Subjective afebrile no leukocytosis Objective Vital Signs Last 24 Hour Vital Signs Date Time Temp Pulse Resp B/P (MAP) Pulse Ox O2 Delivery O2 Flow Rate FiO2 10/24/18 12:00 97.8 70 16 123/78 (93) 98 10/24/18 09:00 Room Air 10/24/18 08:44 100 183/121 10/24/18 08:42 183/121 10/24/18 08:41 100 183/121 10/24/18 08:00 100 20 183/112 (135) 98 10/24/18 04:21 97.8 83 18 146/88 (107) 96 10/23/18 23:57 98.5 80 20 133/87 (102) 95 10/23/18 21:00 Room Air 10/23/18 20:00 98.6 69 20 130/87 (101) 95 10/23/18 18:47 98.9 10/23/18 18:46 98.9 10/23/18 18:17 98.9 10/23/18 18:01 98.9 10/23/18 16:00 98.9 80 20 107/69 (82) 98 Height (Feet): 5 Height (Inches): 8.00 Weight (Pounds): 346 Objective General Appearance: normal inspection, well appearing, no apparent distress, alert, GCS 15, obese, Chronically Ill Head: atraumatic Eyes: bilateral eye other - some intermittent lid lag ENT: normal ENT inspection, hearing grossly normal, normal voice Neck: normal inspection, full range of motion, supple, no bony tend Respiratory: normal inspection, lungs clear, normal breath sounds, no respiratory distress, no retraction, no wheezing Cardiovascular #1: regular rate, rhythm, no edema Gastrointestinal: normal inspection, normal bowel sounds, non tender, soft, no guarding, no hernia Genitourinary: no CVA tenderness Musculoskeletal: normal inspection, back normal, normal range of motion Neurologic: normal inspection, alert, oriented x3, responsive, speech normal Psychiatric: normal inspection, judgement/insight normal, mood/affect normal Skin: other Microbiology Date/Time Source Procedure Growth Status 10/21/18 15:15 Nasal Nares MRSA Culture - Final NO METHICILLIN RESISTANT STAPH AUREUS... Complete 10/21/18 15:15 Rectum VRE Culture - Final NO VANCOMYCIN RESISTANT ENTEROCOCCUS ... Complete 10/21/18 15:15 Rectum - Final NO CARBAPENEM-RESISTANT ENTEROBACTERI... Complete Current Medications Medications (Trade) Dose Ordered Sig/Farideh Route PRN Reason Start Time Stop Time Status Last Admin Dose Admin Acetaminophen (Tylenol) 650 mg Q4H PRN ORAL fever 10/21/18 18:15 11/20/18 18:14 Alprazolam (Xanax) 1 mg Q6H PRN ORAL For Anxiety 10/24/18 12:15 10/31/18 12:14 10/24/18 12:27 Amlodipine Besylate (Norvasc) 5 mg DAILY ORAL 10/22/18 09:00 11/21/18 08:59 10/24/18 08:41 Calcium/Vitamin D (OsCal D) 1 tab DAILY ORAL 10/24/18 09:00 11/23/18 08:59 10/24/18 08:44 Cyanocobalamin (Vitamin B-12 Tab) 100 mcg DAILY ORAL 10/24/18 09:00 11/23/18 08:59 10/24/18 08:44 Cyclobenzaprine HCl (Flexeril) 10 mg THREE TIMES A DAY ORAL 10/22/18 09:00 11/21/18 08:59 10/24/18 13:05 Dextrose (Dextrose 50%) 25 ml Q30M PRN IV Hypoglycemia 10/21/18 18:15 11/20/18 18:14 Dextrose (Dextrose 50%) 50 ml Q30M PRN IV Hypoglycemia 10/21/18 18:30 11/20/18 18:29 Diclofenac Sodium (Voltaren) 25 mg THREE TIMES A DAY ORAL 10/22/18 09:00 11/21/18 08:59 10/24/18 13:02 Docusate Sodium (Colace) 250 mg TID ORAL 10/23/18 13:00 11/22/18 12:59 10/24/18 13:05 Duloxetine HCl (Cymbalta) 60 mg DAILY ORAL 10/24/18 09:00 11/21/18 08:59 10/24/18 08:45 Furosemide (Lasix) 40 mg DAILY ORAL 10/23/18 09:00 11/22/18 08:59 10/24/18 09:08 Hydromorphone HCl (Dilaudid) 1 mg Q4H PRN IVP severe pain 10/22/18 08:30 10/29/18 08:29 10/24/18 06:58 Lisinopril (Zestril) 10 mg DAILY ORAL 10/23/18 09:00 11/22/18 08:59 10/24/18 08:42 Metoprolol Tartrate (Lopressor) 75 mg DAILY ORAL 10/23/18 09:00 11/22/18 08:59 10/24/18 08:44 Multivitamins (Multivitamins) 1 tab DAILY ORAL 10/24/18 09:00 11/23/18 08:59 10/24/18 08:44 Ondansetron HCl (Zofran) 4 mg Q6H PRN IVP Nausea & Vomiting 10/21/18 18:15 11/20/18 18:14 Oxybutynin Chloride (Ditropan) 5 mg THREE TIMES A DAY ORAL 10/22/18 09:00 11/21/18 08:59 10/24/18 13:05 Oxycodone HCl (Roxicodone) 10 mg Q4H PRN ORAL Breakthrough Pain 10/22/18 08:30 10/29/18 08:29 10/24/18 09:03 Pantoprazole (Protonix) 40 mg DAILY ORAL 10/24/18 09:00 11/23/18 08:59 10/24/18 08:42 Polyethylene Glycol (Miralax) 17 gm BID ORAL 10/23/18 18:00 11/22/18 17:59 10/24/18 08:46 Polyethylene Glycol (Miralax) 17 gm HSPRN PRN ORAL Constipation 10/21/18 18:15 11/20/18 18:14 10/22/18 20:55 Pregabalin (Lyrica) 75 mg THREE TIMES A DAY ORAL 10/22/18 09:00 11/21/18 08:59 10/24/18 13:04 Tizanidine HCl (Zanaflex) 4 mg THREE TIMES A DAY ORAL 10/22/18 09:00 11/21/18 08:59 10/24/18 13:03 Trimethoprim/ Sulfamethoxazole (Bactrim-DS) 1 tab TWICE A DAY ORAL 10/21/18 18:00 10/28/18 17:59 10/24/18 08:45 Zolpidem Tartrate (Ambien) 10 mg HSPRN PRN ORAL Insomnia 10/23/18 21:00 10/30/18 20:59 10/23/18 20:30 Zoie Connolly M.D. Oct 24, 2018 14:02
--- NOTE | 2018-10-24 14:10 | General Progress Note ---
Assessment/Plan Problem List: (1) Diabetes ICD Codes: E11.9 - Type 2 diabetes mellitus without complications SNOMED: 00232330 (2) HTN (hypertension) ICD Codes: I10 - Essential (primary) hypertension SNOMED: 54708186 (3) Chronic pain ICD Codes: G89.29 - Other chronic pain SNOMED: 09519374 (4) Arthritis ICD Codes: M19.90 - Unspecified osteoarthritis, unspecified site SNOMED: 1168351 (5) Lupus (systemic lupus erythematosus) ICD Codes: M32.9 - Systemic lupus erythematosus, unspecified SNOMED: 41035330 (6) Obesity, morbid, BMI 40.0-49.9 ICD Codes: E66.01 - Morbid (severe) obesity due to excess calories SNOMED: 471678517 (7) Fibromyalgia ICD Codes: M79.7 - Fibromyalgia SNOMED: 79203118 (8) History of asthma ICD Codes: Z87.09 - Personal history of other diseases of the respiratory system SNOMED: 011022807 Status: stable, progressing Assessment/Plan: pt diet pain control dc to snf Subjective Constitutional: Reports: weakness Allergies: Coded Allergies: Cashew (Verified Allergy, Unknown, 12/30/14) GABAPENTIN (Verified Allergy, Unknown, 10/21/18) HYDROQUINONE (Unverified Allergy, Unknown, 11/08/17) HYDROXYCHLOROQUINE (Verified Allergy, Unknown, 08/31/17) PENICILLINS (Verified Allergy, Unknown, 10/21/18) PISTACHIO NUT (Verified Allergy, Unknown, 10/21/18) Uncoded Allergies: FISH (Allergy, Unknown, 12/30/14) All Systems: reviewed and negative except above Subjective sleepy calm Objective Last 24 Hour Vital Signs Date Time Temp Pulse Resp B/P (MAP) Pulse Ox O2 Delivery O2 Flow Rate FiO2 10/24/18 12:00 97.8 70 16 123/78 (93) 98 10/24/18 09:00 Room Air 10/24/18 08:44 100 183/121 10/24/18 08:42 183/121 10/24/18 08:41 100 183/121 10/24/18 08:00 100 20 183/112 (135) 98 10/24/18 04:21 97.8 83 18 146/88 (107) 96 10/23/18 23:57 98.5 80 20 133/87 (102) 95 10/23/18 21:00 Room Air 10/23/18 20:00 98.6 69 20 130/87 (101) 95 10/23/18 18:47 98.9 10/23/18 18:46 98.9 10/23/18 18:17 98.9 10/23/18 18:01 98.9 10/23/18 16:00 98.9 80 20 107/69 (82) 98 Intake and Output 10/23/18 10/24/18 19:00 07:00 Intake Total 300 ml 500 ml Output Total 75 ml Balance 225 ml 500 ml Intake Oral 300 ml 500 ml Output Emesis 75 ml # Voids 2 Height (Feet): 5 Height (Inches): 8.00 Weight (Pounds): 346 General Appearance: lethargic EENT: normal ENT inspection Neck: normal alignment Cardiovascular: normal peripheral pulses, normal rate, regular rhythm Respiratory/Chest: chest wall non-tender, lungs clear, normal breath sounds Abdomen: normal bowel sounds, non tender, soft Extremities: normal inspection Edema: no edema noted Arm (L), no edema noted Arm (R), no edema noted Leg (L), no edema noted Leg (R), no edema noted Pedal (L), no edema noted Pedal (R), no edema noted Generalized Neurologic: motor weakness Skin: normal pigmentation, warm/dry Objective r foot in gauze clean and dry Get Tovar DO Oct 24, 2018 14:10
--- NOTE | 2018-10-24 14:27 | NUR ---
NURSE NOTES: Dr Sanders to be here later on today to see pt
--- NOTE | 2018-10-24 15:31 | Diagnostic Imaging Report ---
Indication: Right ankle pain Technique: 2 views of the right ankle Comparison: none Findings: Overlying plaster splint obscures bony detail. Surgical hardware is seen reducing a distal fibular fracture. This appears well aligned. Hardware appears intact. A surgical clip is also seen adjacent to the medial aspect of the distal tibia. No definite acute fractures. Impression: Posttraumatic and postsurgical changes, as described No definite acute bony trauma
--- NOTE | 2018-10-24 15:39 | NUR ---
NURSE NOTES: Pt in room complaining about her pain not being managed at in her SNF , she stated that her routine medications where not prescribed for her ankle. Film Spooler informed pt that pain medication does not know where pain is it works systemically. Film Spooler also informed her that some medications do work better than others, and some also have anti inflammatory properties" Pt began yelling , where I was they did not even want to take my bandage off, they did not give me directions, ' You are nothing but a NURSE! ; you do not know anything pt yelling louder. " " He should have come to [facility] home to see me referring to Dr Sanders. Film Spooler is unable to inform pt of Dr Sanders visit or directions to her that were relayed to her SNF" Film Spooler informed pt that our protocol is to give report , and information on what has been done under our care
--- NOTE | 2018-10-24 16:45 | NUR ---
DISCHARGE DISPOSITION: PLEASE READ PATIENT [facility] BE [facility] [address] [facility] [address] [address] T:[phone]>>> CALL FOR REPORT [facility] [address] ARIADNA ALVARES [phone]>> IS AWARE AND AGREEABLE TO THE DC
--- NOTE | 2018-10-24 17:48 | NUR ---
NURSE NOTES: Cirilo Chavez phoned for pain management orders. Kathy PA for [facility] states that he is unable to return to [place] for an hard copy prescription. He was willing to fax a prescription to the SNF pharmacy , but the facility stated that they need an hard copy.While giving report to [facility] to Kailyn she stated that a hard copy will be needed for C2 drugs , due to the current pain management, Dr being unwilling to continuing pain medication for pt. Dr Tovar phone who is her primary physician gave orders to hold discharge until a hard prescription can be given by Malissa or Kathy. Charge Nurse made . Call placed to [facility] singer songwriter spoke to Kailyn to inform her that transfer will be held until a hard prescription can be written. Kathy phoned informed that per Dr Tovar discharge will be held for pain management
--- NOTE | 2018-10-24 18:03 | NUR ---
NURSE NOTES: Per Dr Sanders ordered pt to have splint placed and cam boot on when reaches facility
--- NOTE | 2018-10-24 19:20 | NUR ---
NURSE NOTES: Report taken from SAMUEL Guerrero. Patient is awake and in bed, A&Ox4. No signs of distress on room air. Having moderate complaints of pain through her Rt. LE, 07/29. Is very vocal on how her medications should be given and taken, will discuss with patient medication care for the night. No IV site, is aware. Skin is intact, dark spots from where previous IVs were inserted. Surgical site Rt LE c/d/i. Refused labs for the AM. Patient is less anxious when you use therapeutic talking techniques during her care. Possible D/C in the AM. Bed in lowest position, call light within reach.
--- NOTE | 2018-10-24 19:51 | NUR ---
HAND-OFF: Report given to Deon made awre of pending d/c for pain management and to inform SNF to remove splint and replace with cam boot at arrival. Kathy will be here tomorrow to write hard prescription.
--- NOTE | 2018-10-24 19:58 | NUR ---
NURSE NOTES: Dr Powell gave okay to give dilaudid subq due to pt not having iv acces . IVP Dilaudid change to subq 1 mg q 4hours prn severe pain
[2018-10-24 20:00] VITALS: BP 125/76
--- NOTE | 2018-10-24 20:00 | Consultation ---
DATE OF CONSULTATION: 10/24/2018 HISTORY OF PRESENT ILLNESS: The patient underwent open reduction and internal fixation of the right ankle by me approximately 2 to 3 weeks ago. Doing relatively well. She was admitted here for some drainage along the incision site, but more for pain management. Orthopedic consultation was obtained for further care and recommendation. PHYSICAL EXAMINATION: The patient is resting comfortably on bed. Right posterior splint is removed. Incision is clean, dry, and intact. There is a small area where the skin is a little irritated, but intact. There is no drainage. No odor. Posterior calf is soft. IMAGING STUDY: Imaging study show good reduction of the mortise. Implant in good position. ASSESSMENT: Status post ORIF of right ankle fracture, dislocation, and malunion. DISCUSSION: At this point, she needs to be placed in either CAM walker boot or short-leg cast. Unfortunately, she does have a CAM walker boot that she got previous to my surgery and so she is instructed to begin wearing that. She understands that she is not supposed to be bearing weight. As reported by the nursing staff here, she has been putting weight on the right leg despite the fact that I told her before surgery not to put any weight on the right leg. She has been noncompliant. I discussed with her that that may be causing some swelling and some issues as related to some of the drainage that she is experiencing. Signs and symptoms for infection discussed with the patient. She refused DVT to make sure there is no blood clot. Clinically, she has no pain in the posterior capsule core in the posterior calf. At this point, I will see her back in a month with repeat x-rays. At this time, she is instructed again to be nonweightbearing. In terms of wound care, she is instructed that she can shower, but she cannot submerge the right ankle in any water. She can only shower. She is nonweightbearing. Grarett Sanders M.D. DR: KANIKA JOB#: [id number] CC: PETROS
--- NOTE | 2018-10-24 23:06 | Cardiology Progress Note ---
Assessment/Plan Assessment/Plan 1. Accelerated hypertension, stage I, increase lisinopril to 20mg daily, continue metoprolol, awaiting 2D echocardiography to assess cardiomyopathy, further therapeutic and diagnostic decision will be based on the result of 2D echocardiography. 2. Mixed dyslipidemia. 3. Generalized body pain. 4. Autoimmune disease. 5. Status post right ankle ORIF following a fall. Subjective Subjective No cardiac events. Objective Last 24 Hour Vital Signs Date Time Temp Pulse Resp B/P (MAP) Pulse Ox O2 Delivery O2 Flow Rate FiO2 10/24/18 12:00 97.8 70 16 123/78 (93) 98 10/24/18 09:00 Room Air 10/24/18 08:44 100 183/121 10/24/18 08:42 183/121 10/24/18 08:41 100 183/121 10/24/18 08:00 100 20 183/112 (135) 98 10/24/18 04:21 97.8 83 18 146/88 (107) 96 10/23/18 23:57 98.5 80 20 133/87 (102) 95 Intake and Output 10/23/18 10/24/18 19:00 07:00 Intake Total 300 ml 500 ml Output Total 75 ml Balance 225 ml 500 ml Intake Oral 300 ml 500 ml Output Emesis 75 ml # Voids 2 2D Echo: refused echo Objective HEENT: Atraumatic and normocephalic. Anicteric. Pupils are equal, round, and reactive to light and accommodation. Extraocular movements intact. NECK: Cannot assess JVP. No carotid bruits. Carotid upstrokes 2+ bilaterally. CARDIOVASCULAR SYSTEM: Normal S1, S2. Regular rate and rhythm. No murmurs, gallops, or rubs. PMI is at fourth intercostal space in the midclavicular line. LUNGS: Clear to auscultation bilaterally. ABDOMEN: Soft and nontender. No hepatosplenomegaly. Positive bowel sounds. EXTREMITIES: She has 2+ edema in the left lower extremity and right lower extremity is dressed from above the knee down to the toes. Lorenzo Peck MD Oct 24, 2018 23:06
[2018-10-25] VITALS: BP 137/82
[2018-10-25] MEDS: Zolpidem 5mg tab ORAL PRN (00:11)
--- NOTE | 2018-10-25 04:15 | Consultation ---
DATE OF CONSULTATION: 10/23/2018 NOTE: POOR AUDIO PSYCHOTHERAPY CONSULTATION PROGRESS NOTE CONSULTING PHYSICIAN: Kevon Lala PsyD. TREATING ATTENDING PHYSICIAN: Get Tovar D.O. HISTORY OF PRESENT ILLNESS: The patient is a 42-year-old female from [facility]. The patient was brought in to the hospital for lupus exacerbation and right lower extremity pain. She has a history of depression and possible bipolar disorder. The patient was referred for psychotherapeutic services . The patient was crying. She was tearful. She states that she feels very depressed because she is feeling very frustrated. She is in severe pain, she states, to the body. The patient states that she had also been she states. This has also her self-esteem and her mood. She states that she constantly feels very negative in her thoughts and has been helpless, hopeless, and depressed. She denies suicidal or homicidal thoughts of ideation. Denies any auditory or visual hallucinations although she is labile and depressed. PAST MEDICAL HISTORY: Includes a history of hypertension, lupus, chronic pain, arthritis, hepatitis C, asthma, and fibromyalgia. ALLERGIES: The patient is allergic to . SUBSTANCE ABUSE HISTORY: The patient denies history of alcohol use, illicit substance use, or smoking cigarettes. PAST PSYCHIATRIC HISTORY: The patient has a history of depression and anxiety has been treated with psychotropic medications in the past. SOCIAL HISTORY: The patient is a 42-year-old single female patient. She lives in [facility]. Financially sustained through . MENTAL STATUS EXAMINATION: The patient is alert and oriented to person, place, time, and situation. Her mood is extremely labile. She is tearful. Affect is tearful. Thought process poor attention and concentration. Fair insight, fair judgment, fair impulse control. DIAGNOSES: Major depressive disorder, recurrent, severe without psychotic features. I assessed the patient helpless, hopeless, and is in severe pain. I provided her with supportive psychotherapy feelings of helplessness as we discussed positive coping skills, positive thinking strategy for this patient positive self-talk very negative and catastrophic in her thought process. Plan is to maintain medication compliance and assist with positive coping skills . Psychotherapy was provided to this patient is 50 minutes. This clinician has reviewed the patient's chart and discussed with treatment team. Kevon Lala PsyD. DR: ELLIOTT JOB#: [id number] CC:
[2018-10-25] MEDS: oxyCODONE 5mg IR tab ORAL PRN ×2 (06:06→10:35)
--- NOTE | 2018-10-25 07:27 | NUR ---
HAND-OFF: Report given to SAMUEL Bowles. patient is awake,VS stable.
--- NOTE | 2018-10-25 07:30 | NUR ---
NURSE NOTES: Patient is in bed awake and able to verbalize needs. Stable. Denies pain or SOB. Patient encouraged to use call light for assistance, verbalized understanding. Patient in bed in locked and lowest position with call light within reach. All safety measures provided. All needs met at this time. Will continue to monitor.
[2018-10-25] MEDS: ALPRAZolam 0.5mg tab ORAL PRN ×2 (07:37→13:50)
[2018-10-25 08:00] VITALS: BP 116/75
--- NOTE | 2018-10-25 08:06 | General Progress Note ---
Assessment/Plan Assessment/Plan: (1) Morbid obesity (2) Multiple joint osteoarthritis (3) Multiple joint pain (4) Right ankle fracture (5) Right ankle pain s/p ORIF (6) Fibromyalgia The patient will be continued on oxycodone and Dilaudid. An Rx for Oxycodone 10mg PO 1 tab Q4H PRN severe pain was written in anticipation for patient discharge to the SNF. The patient was discussed with Dr. Leonardo and he concurred Subjective Date patient seen: Oct 25, 2018 Time patient seen: 07:15 - am Allergies: Coded Allergies: Cashew (Verified Allergy, Unknown, 12/30/14) GABAPENTIN (Verified Allergy, Unknown, 10/21/18) HYDROQUINONE (Unverified Allergy, Unknown, 11/08/17) HYDROXYCHLOROQUINE (Verified Allergy, Unknown, 08/31/17) PENICILLINS (Verified Allergy, Unknown, 10/21/18) PISTACHIO NUT (Verified Allergy, Unknown, 10/21/18) Uncoded Allergies: FISH (Allergy, Unknown, 12/30/14) Subjective REVIEW OF SYSTEMS: Denies rash, fever, chills, sweating, dizziness, drowsiness, blurred vision, sore throat, change in hearing or weight. No shortness of breath, chest pain, palpitations, or cough. No nausea, vomiting, diarrhea, or blood in the stool or urine. No bowel or bladder incontinence. No dysuria. She is complaining of generalized body pain. SUBJECTIVE: Patient has been tolerated the pain on the Oxycodone. She has no new complaints at this time. Objective Last 24 Hour Vital Signs Date Time Temp Pulse Resp B/P (MAP) Pulse Ox O2 Delivery O2 Flow Rate FiO2 10/25/18 00:00 98.2 81 18 137/82 (100) 99 10/24/18 21:00 Room Air 10/24/18 20:00 98.0 82 18 125/76 (92) 100 10/24/18 12:00 97.8 70 16 123/78 (93) 98 10/24/18 09:00 Room Air 10/24/18 08:44 100 183/121 10/24/18 08:42 183/121 10/24/18 08:41 100 183/121 Intake and Output 10/24/18 10/25/18 18:59 06:59 Intake Total 725 ml Balance 725 ml Intake Oral 725 ml # Voids 3 3 Height (Feet): 5 Height (Inches): 8.00 Weight (Pounds): 346 Objective PHYSICAL EXAMINATION: GENERAL: Alert, awake, and oriented. LUNGS: Decreased breath sounds bilaterally. HEART: S1, S2 regular. ABDOMEN: Obese. EXTREMITIES: No cyanosis, no clubbing with right ankle bandages applied and noted. Cirilo Chavez Oct 25, 2018 08:06
--- NOTE | 2018-10-25 08:23 | NUR ---
NURSE NOTES: Patient has splint.
[2018-10-25] MEDS ORDERED: Lisinopril 10mg tab ORAL SCH (09:00)
[2018-10-25] MEDS: Miralax 17gm pkt ORAL SCH (09:09)
[2018-10-25] MEDS: HYDROmorphone 1mg/ml Carpuject SUBQ PRN ×2 (09:10→13:06)
[2018-10-25] MEDS: Vitamin B-12 100mcg tab ORAL SCH (09:10)
[2018-10-25] MEDS: Furosemide 40mg tab ORAL SCH (09:10)
[2018-10-25] MEDS: Diclofenac 25mg tab ORAL SCH ×2 (09:10→13:05)
[2018-10-25] MEDS: Docusate 250mg cap ORAL SCH ×2 (09:10→13:00)
[2018-10-25] MEDS: Calcium Carbonate 500mg w/Vit D 200iu tab ORAL SCH (09:11)
[2018-10-25] MEDS: Cyclobenzaprine 10mg Tab ORAL SCH ×2 (09:11→13:06)
[2018-10-25] MEDS: Lyrica 75mg cap ORAL SCH ×2 (09:11→13:06)
[2018-10-25] MEDS: Bactrim-DS 1 tab ORAL SCH (09:11)
[2018-10-25] MEDS: Oxybutynin 5mg tab ORAL SCH ×2 (09:11→13:05)
[2018-10-25] MEDS: Metoprolol 25mg tab ORAL SCH (09:12)
--- NOTE | 2018-10-25 09:40 | General Progress Note ---
Assessment/Plan Problem List: (1) Diabetes ICD Codes: E11.9 - Type 2 diabetes mellitus without complications SNOMED: 96387917 (2) HTN (hypertension) ICD Codes: I10 - Essential (primary) hypertension SNOMED: 17267674 (3) Chronic pain ICD Codes: G89.29 - Other chronic pain SNOMED: 02884305 (4) Arthritis ICD Codes: M19.90 - Unspecified osteoarthritis, unspecified site SNOMED: 1888806 (5) Lupus (systemic lupus erythematosus) ICD Codes: M32.9 - Systemic lupus erythematosus, unspecified SNOMED: 43715010 (6) Obesity, morbid, BMI 40.0-49.9 ICD Codes: E66.01 - Morbid (severe) obesity due to excess calories SNOMED: 516080211 (7) Fibromyalgia ICD Codes: M79.7 - Fibromyalgia SNOMED: 04468360 (8) History of asthma ICD Codes: Z87.09 - Personal history of other diseases of the respiratory system SNOMED: 447693135 Status: stable, progressing Assessment/Plan: pt diet pain control dc to snf Subjective Constitutional: Reports: weakness Allergies: Coded Allergies: Cashew (Verified Allergy, Unknown, 12/30/14) GABAPENTIN (Verified Allergy, Unknown, 10/21/18) HYDROQUINONE (Unverified Allergy, Unknown, 11/08/17) HYDROXYCHLOROQUINE (Verified Allergy, Unknown, 08/31/17) PENICILLINS (Verified Allergy, Unknown, 10/21/18) PISTACHIO NUT (Verified Allergy, Unknown, 10/21/18) Uncoded Allergies: FISH (Allergy, Unknown, 12/30/14) All Systems: reviewed and negative except above Subjective sleepy calm Objective Last 24 Hour Vital Signs Date Time Temp Pulse Resp B/P (MAP) Pulse Ox O2 Delivery O2 Flow Rate FiO2 10/25/18 09:13 92 134/79 10/25/18 09:12 134/79 10/25/18 09:12 92 134/79 10/25/18 00:00 98.2 81 18 137/82 (100) 99 10/24/18 21:00 Room Air 10/24/18 20:00 98.0 82 18 125/76 (92) 100 10/24/18 12:00 97.8 70 16 123/78 (93) 98 Intake and Output 10/24/18 10/25/18 19:00 07:00 Intake Total 725 ml Balance 725 ml Intake Oral 725 ml # Voids 3 3 Height (Feet): 5 Height (Inches): 8.00 Weight (Pounds): 346 General Appearance: alert EENT: normal ENT inspection Neck: normal alignment Cardiovascular: normal peripheral pulses, normal rate, regular rhythm Respiratory/Chest: chest wall non-tender, lungs clear, normal breath sounds Abdomen: normal bowel sounds, non tender, soft Extremities: normal inspection Edema: no edema noted Arm (L), no edema noted Arm (R), no edema noted Leg (L), no edema noted Leg (R), no edema noted Pedal (L), no edema noted Pedal (R), no edema noted Generalized Neurologic: responsive, motor weakness Skin: normal pigmentation, warm/dry Objective r foot in gauze clean and dry Get Tovar DO Oct 25, 2018 09:40
--- NOTE | 2018-10-25 10:00 | NUR ---
PT NOTE Patient seen by Dr. Sanders, patient to be NWB RLE. Duplex scan not completed. Patient c/o increased pain RLE, declined mobility, will follow. Jelena BAKER notified.
--- NOTE | 2018-10-25 11:54 | Infectious Diseases Prog Note ---
Assessment/Plan Assessment/Plan Assessment: R/o probable Surgical site infection (currently does not appear infected but report of malodorous discharge) -Xray R ankle: Posttraumatic and postsurgical changes, as described. No definite acute bony trauma Afebrile No leukocytosis hx of Recent R fibula fracture s/p ORIF HTN MDD Lupus COPD chronic pain syndrome GERD Plan: -Empiric Bactrim DS 1 tab bid #5/5 -f/u cx -Monitor CBC/CMP, temperatures Thank you for this consultation. Will continue to follow along with you. Discussed with RN. Subjective Allergies: Coded Allergies: Cashew (Verified Allergy, Unknown, 12/30/14) GABAPENTIN (Verified Allergy, Unknown, 10/21/18) HYDROQUINONE (Unverified Allergy, Unknown, 11/08/17) HYDROXYCHLOROQUINE (Verified Allergy, Unknown, 08/31/17) PENICILLINS (Verified Allergy, Unknown, 10/21/18) PISTACHIO NUT (Verified Allergy, Unknown, 10/21/18) Uncoded Allergies: FISH (Allergy, Unknown, 12/30/14) Subjective afebrile no leukocytosis Objective Vital Signs Last 24 Hour Vital Signs Date Time Temp Pulse Resp B/P (MAP) Pulse Ox O2 Delivery O2 Flow Rate FiO2 10/25/18 09:13 92 134/79 10/25/18 09:12 134/79 10/25/18 09:12 92 134/79 10/25/18 09:00 Room Air 10/25/18 08:00 97.9 104 19 116/75 (89) 97 10/25/18 00:00 98.2 81 18 137/82 (100) 99 10/24/18 21:00 Room Air 10/24/18 20:00 98.0 82 18 125/76 (92) 100 10/24/18 12:00 97.8 70 16 123/78 (93) 98 Height (Feet): 5 Height (Inches): 8.00 Weight (Pounds): 346 Objective General Appearance: normal inspection, well appearing, no apparent distress, alert, GCS 15, obese, Chronically Ill Head: atraumatic Eyes: bilateral eye other - some intermittent lid lag ENT: normal ENT inspection, hearing grossly normal, normal voice Neck: normal inspection, full range of motion, supple, no bony tend Respiratory: normal inspection, lungs clear, normal breath sounds, no respiratory distress, no retraction, no wheezing Cardiovascular #1: regular rate, rhythm, no edema Gastrointestinal: normal inspection, normal bowel sounds, non tender, soft, no guarding, no hernia Genitourinary: no CVA tenderness Musculoskeletal: normal inspection, back normal, normal range of motion Neurologic: normal inspection, alert, oriented x3, responsive, speech normal Psychiatric: normal inspection, judgement/insight normal, mood/affect normal Skin: other Current Medications Medications (Trade) Dose Ordered Sig/Farideh Route PRN Reason Start Time Stop Time Status Last Admin Dose Admin Acetaminophen (Tylenol) 650 mg Q4H PRN ORAL fever 10/21/18 18:15 11/20/18 18:14 Alprazolam (Xanax) 1 mg Q6H PRN ORAL For Anxiety 10/24/18 12:15 10/31/18 12:14 10/25/18 07:37 Amlodipine Besylate (Norvasc) 5 mg DAILY ORAL 10/22/18 09:00 11/21/18 08:59 10/25/18 09:13 Calcium/Vitamin D (OsCal D) 1 tab DAILY ORAL 10/24/18 09:00 11/23/18 08:59 10/25/18 09:11 Cyanocobalamin (Vitamin B-12 Tab) 100 mcg DAILY ORAL 10/24/18 09:00 11/23/18 08:59 10/25/18 09:10 Cyclobenzaprine HCl (Flexeril) 10 mg THREE TIMES A DAY ORAL 10/22/18 09:00 11/21/18 08:59 10/25/18 09:11 Dextrose (Dextrose 50%) 25 ml Q30M PRN IV Hypoglycemia 10/21/18 18:15 11/20/18 18:14 Dextrose (Dextrose 50%) 50 ml Q30M PRN IV Hypoglycemia 10/21/18 18:30 11/20/18 18:29 Diclofenac Sodium (Voltaren) 25 mg THREE TIMES A DAY ORAL 10/22/18 09:00 11/21/18 08:59 10/25/18 09:10 Docusate Sodium (Colace) 250 mg TID ORAL 10/23/18 13:00 11/22/18 12:59 10/25/18 09:10 Duloxetine HCl (Cymbalta) 60 mg DAILY ORAL 10/24/18 09:00 11/21/18 08:59 10/25/18 09:10 Furosemide (Lasix) 40 mg DAILY ORAL 10/23/18 09:00 11/22/18 08:59 10/25/18 09:10 Hydromorphone HCl (Dilaudid) 1 mg Q4H PRN SUBQ Severe Pain (Pain Scale 7-10) 10/24/18 20:00 10/31/18 19:59 10/25/18 09:10 Lisinopril (Zestril) 20 mg DAILY ORAL 10/25/18 09:00 11/24/18 08:59 10/25/18 09:12 Metoprolol Tartrate (Lopressor) 75 mg DAILY ORAL 10/23/18 09:00 11/22/18 08:59 10/25/18 09:12 Multivitamins (Multivitamins) 1 tab DAILY ORAL 10/24/18 09:00 11/23/18 08:59 10/25/18 09:12 Ondansetron HCl (Zofran) 4 mg Q6H PRN IVP Nausea & Vomiting 10/21/18 18:15 11/20/18 18:14 Oxybutynin Chloride (Ditropan) 5 mg THREE TIMES A DAY ORAL 10/22/18 09:00 11/21/18 08:59 10/25/18 09:11 Oxycodone HCl (Roxicodone) 10 mg Q4H PRN ORAL Breakthrough Pain 10/22/18 08:30 10/29/18 08:29 10/25/18 10:35 Pantoprazole (Protonix) 40 mg DAILY ORAL 10/24/18 09:00 11/23/18 08:59 10/25/18 09:10 Polyethylene Glycol (Miralax) 17 gm BID ORAL 10/23/18 18:00 11/22/18 17:59 10/25/18 09:09 Polyethylene Glycol (Miralax) 17 gm HSPRN PRN ORAL Constipation 10/21/18 18:15 11/20/18 18:14 10/22/18 20:55 Pregabalin (Lyrica) 75 mg THREE TIMES A DAY ORAL 10/22/18 09:00 11/21/18 08:59 10/25/18 09:11 Tizanidine HCl (Zanaflex) 4 mg THREE TIMES A DAY ORAL 10/22/18 09:00 11/21/18 08:59 10/25/18 09:12 Trimethoprim/ Sulfamethoxazole (Bactrim-DS) 1 tab TWICE A DAY ORAL 10/21/18 18:00 10/28/18 17:59 10/25/18 09:11 Zolpidem Tartrate (Ambien) 10 mg HSPRN PRN ORAL Insomnia 10/23/18 21:00 10/30/18 20:59 10/25/18 00:11 Zoie Connolly M.D. Oct 25, 2018 11:54
[2018-10-25 12:00] VITALS: BP 118/59
--- NOTE | 2018-10-25 12:22 | NUR ---
NURSE NOTES: Report given to Mihcael BAKER at [facility].
--- NOTE | 2018-10-25 12:42 | Pulmonology Progress Note ---
Assessment/Plan Problems: (1) KAREN (obstructive sleep apnea) (2) History of asthma (3) Cellulitis (4) Obesity, morbid, BMI 40.0-49.9 (5) Hepatitis C (6) Hypertension (7) Osteoarthritis of multiple joints (8) Fibromyalgia (9) Intractable pain (10) Status post ORIF of fracture of ankle (11) Hx of gastric bypass (12) Lupus (systemic lupus erythematosus) Assessment/Plan suppose to be discharged but claimed that she had fallen to get some more narcotics wants a few more changes to her medication symptomatic treatment doing better all notes reviewed refusing so far doppler of extremities dvt prophylaxis.\ ortho has not seen her yet bp controlled no IV access b/o obesity. Subjective ROS Limited/Unobtainable: No Constitutional: Reports: no symptoms HEENT: Repors: no symptoms Allergies: Coded Allergies: Cashew (Verified Allergy, Unknown, 12/30/14) GABAPENTIN (Verified Allergy, Unknown, 10/21/18) HYDROQUINONE (Unverified Allergy, Unknown, 11/08/17) HYDROXYCHLOROQUINE (Verified Allergy, Unknown, 08/31/17) PENICILLINS (Verified Allergy, Unknown, 10/21/18) PISTACHIO NUT (Verified Allergy, Unknown, 10/21/18) Uncoded Allergies: FISH (Allergy, Unknown, 12/30/14) Objective Last 24 Hour Vital Signs Date Time Temp Pulse Resp B/P (MAP) Pulse Ox O2 Delivery O2 Flow Rate FiO2 10/25/18 12:00 98.7 85 19 118/59 (78) 96 10/25/18 09:13 92 134/79 10/25/18 09:12 134/79 10/25/18 09:12 92 134/79 10/25/18 09:00 Room Air 10/25/18 08:00 97.9 104 19 116/75 (89) 97 10/25/18 00:00 98.2 81 18 137/82 (100) 99 10/24/18 21:00 Room Air 10/24/18 20:00 98.0 82 18 125/76 (92) 100 Intake and Output 10/24/18 10/25/18 18:59 06:59 Intake Total 725 ml Balance 725 ml Intake Oral 725 ml # Voids 3 3 General Appearance: WD/WN HEENT: normocephalic, atraumatic Respiratory/Chest: chest wall non-tender, lungs clear Cardiovascular: normal peripheral pulses, normal rate Abdomen: normal bowel sounds, soft, non tender Extremities: no cyanosis Skin: no rash Current Medications Medications (Trade) Dose Ordered Sig/Farideh Route PRN Reason Start Time Stop Time Status Last Admin Dose Admin Acetaminophen (Tylenol) 650 mg Q4H PRN ORAL fever 10/21/18 18:15 11/20/18 18:14 Alprazolam (Xanax) 1 mg Q6H PRN ORAL For Anxiety 10/24/18 12:15 10/31/18 12:14 10/25/18 07:37 Amlodipine Besylate (Norvasc) 5 mg DAILY ORAL 10/22/18 09:00 11/21/18 08:59 10/25/18 09:13 Calcium/Vitamin D (OsCal D) 1 tab DAILY ORAL 10/24/18 09:00 11/23/18 08:59 10/25/18 09:11 Cyanocobalamin (Vitamin B-12 Tab) 100 mcg DAILY ORAL 10/24/18 09:00 11/23/18 08:59 10/25/18 09:10 Cyclobenzaprine HCl (Flexeril) 10 mg THREE TIMES A DAY ORAL 10/22/18 09:00 11/21/18 08:59 10/25/18 09:11 Dextrose (Dextrose 50%) 25 ml Q30M PRN IV Hypoglycemia 10/21/18 18:15 11/20/18 18:14 Dextrose (Dextrose 50%) 50 ml Q30M PRN IV Hypoglycemia 10/21/18 18:30 11/20/18 18:29 Diclofenac Sodium (Voltaren) 25 mg THREE TIMES A DAY ORAL 10/22/18 09:00 11/21/18 08:59 10/25/18 09:10 Docusate Sodium (Colace) 250 mg TID ORAL 10/23/18 13:00 11/22/18 12:59 10/25/18 09:10 Duloxetine HCl (Cymbalta) 60 mg DAILY ORAL 10/24/18 09:00 11/21/18 08:59 10/25/18 09:10 Furosemide (Lasix) 40 mg DAILY ORAL 10/23/18 09:00 11/22/18 08:59 10/25/18 09:10 Hydromorphone HCl (Dilaudid) 1 mg Q4H PRN SUBQ Severe Pain (Pain Scale 7-10) 10/24/18 20:00 10/31/18 19:59 10/25/18 09:10 Lisinopril (Zestril) 20 mg DAILY ORAL 10/25/18 09:00 11/24/18 08:59 10/25/18 09:12 Metoprolol Tartrate (Lopressor) 75 mg DAILY ORAL 10/23/18 09:00 11/22/18 08:59 10/25/18 09:12 Multivitamins (Multivitamins) 1 tab DAILY ORAL 10/24/18 09:00 11/23/18 08:59 10/25/18 09:12 Ondansetron HCl (Zofran) 4 mg Q6H PRN IVP Nausea & Vomiting 10/21/18 18:15 11/20/18 18:14 Oxybutynin Chloride (Ditropan) 5 mg THREE TIMES A DAY ORAL 10/22/18 09:00 11/21/18 08:59 10/25/18 09:11 Oxycodone HCl (Roxicodone) 10 mg Q4H PRN ORAL Breakthrough Pain 10/22/18 08:30 10/29/18 08:29 10/25/18 10:35 Pantoprazole (Protonix) 40 mg DAILY ORAL 10/24/18 09:00 11/23/18 08:59 10/25/18 09:10 Polyethylene Glycol (Miralax) 17 gm BID ORAL 10/23/18 18:00 11/22/18 17:59 10/25/18 09:09 Polyethylene Glycol (Miralax) 17 gm HSPRN PRN ORAL Constipation 10/21/18 18:15 11/20/18 18:14 10/22/18 20:55 Pregabalin (Lyrica) 75 mg THREE TIMES A DAY ORAL 10/22/18 09:00 11/21/18 08:59 10/25/18 09:11 Tizanidine HCl (Zanaflex) 4 mg THREE TIMES A DAY ORAL 10/22/18 09:00 11/21/18 08:59 10/25/18 09:12 Trimethoprim/ Sulfamethoxazole (Bactrim-DS) 1 tab TWICE A DAY ORAL 10/21/18 18:00 10/28/18 17:59 10/25/18 09:11 Zolpidem Tartrate (Ambien) 10 mg HSPRN PRN ORAL Insomnia 10/23/18 21:00 10/30/18 20:59 10/25/18 00:11 Mer Powell MD Oct 25, 2018 12:42
--- NOTE | 2018-10-25 13:17 | Cardiology Report ---
APPROVED REPORT EXAM: Two-dimensional and M-mode echocardiogram with Doppler and color Doppler. INDICATION Hypertensive heart disease M-Mode DIMENSIONS IVSd1.5 (0.7-1.1cm)Left Atrium (MM)4.0 (1.6-4.0cm) LVDd4.2 (3.5-5.6cm)Aortic Root3.0 (2.0-3.7cm) PWd1.5 (0.7-1.1cm)Aortic Cusp Exc.2.1 (1.5-2.0cm) LVDs2.3 (2.5-4.0cm) PWs2.4 cm Technically difficult study due to poor acoustic windows. Study quality precludes accurate assessment of regional wall motion. Normal left ventricular chamber size, systolic function and wall motion. Left ventricular ejection fraction estimated to be 60 %. Mild left ventricular hypertrophy. Anterior Echo-free space, may be due to pericardial fat or effusion. All other cardiac chamber sizes are within normal limits. Focal aortic valve sclerosis with adequate cusp excursion. Thickened mitral valve leaflets with normal excursion. Mitral annulus and aortic root calcification. Pulmonic valve not well visualized. Normal tricuspid valve structure. IVC is normal in size with physiological collapse. A color flow and spectral Doppler study was performed and revealed: No aortic regurgitation. No mitral regurgitation. Mitral diastolic velocities suggest mild left ventricular diastolic dysfunction (Grade I). Mild tricuspid regurgitation. Tricuspid systolic velocities suggests peak right ventricular systolic pressure of 48 mmHg, consistent with moderate pulmonary hypertension. No pulmonic regurgitation present.
--- NOTE | 2018-10-25 13:35 | NUR ---
NURSE NOTES:awaiting for scheduled [employer] spot picker [facility] due at 1330,spoke with oleksandr(tool dispatcher)stated "IN 45 MINUTES"assigned rn(danuta) aware.charlie(compa)was also notified.
--- NOTE | 2018-10-25 14:01 | Diagnostic Imaging Report ---
Indication: right leg pain Comparison: None Findings: Two views of the right tibia and fibula were obtained. A posterior splint partially obscures the lower tibia and fibula. There is a compression plate reducing a fracture of the distal fibula which is not appreciated well on this examination but presumably old. No acute fracture is obviously identified. There is soft tissue swelling noted. IMPRESSION: No acute fracture identified. Limitations as described above
--- NOTE | 2018-10-25 14:50 | NUR ---
NURSE NOTES:ambulance picker and packer not in yet,spoke to oleksandr([facility] dispatcher)stated "in 45 minutes,because they are really busy"assigned rn(danuta) and sathya rn made aware.
--- NOTE | 2018-10-25 16:46 | NUR ---
NURSE NOTES: Patient discharged to [facility] as ordered. Stable. Denies pain or SOB. Patient able to verbalize needs. Patient has all belongings. [facility] Skin is clean, dry, and intact. No IV access. Splint is in place as ordered. Patient assisted into [facility] with 3 person assist without incident.
--- NOTE | 2018-10-25 17:45 | Progress Note ---
DATE: 10/24/2018 SUBJECTIVE: This is a 43-year-old female patient with lupus. She also has hypertension, cervical radiculopathy, and obesity. She has altered mental status, disability, depression, and anxiety worsened by the stress of her medical illness. That is why, her attending physician has requested daily psychiatric consultation. MENTAL STATUS EXAMINATION: This is a 43-year-old female. Appearance is disheveled. Attitude, irritable and agitated. Affect, guarded and restricted. Intellect poor. Mood, depressed and anxious. Motor activity, psychomotor agitation. Attention span is poor. Orientation x2. Speech is pressured. Thought process, disorganized and illogical. Insight and judgment is poor. DIAGNOSIS: Major depressive disorder, mild, recurrent, without psychotic features. PLAN: Treat her with Cymbalta 60 mg daily, Ativan 1 every 4 hours p.r.n. anxiety and agitation, and Ambien 10 mg at bedtime. Also, I provided 20 minutes of cognitive behavioral therapy to this patient to help her identify her automatic negative thoughts and help her to convert her automatic negative thinking to more positive thinking to reduce depression, anxiety, and mood lability. Chart reviewed. Discussed with staff. Seen and assessed at bedside. Troy Esparza M.D. DR: JUAN JOB#: [id number] CC:
--- NOTE | 2018-10-27 15:02 | Discharge Summary ---
Discharge Summary Discharge Summary _ DATE OF ADMISSION: 10/21/2018 DATE OF DISCHARGE: 10/25/2018 DISCHARGED BY: Dr. Get Tovar CONSULTANTS: Dr. Troy Lala [facility] COURSE: Patient is a 42-year-old female from [facility], presented to ED due to leg pain, status post recent right ankle surgery. She has chronic pain in multiple parts of the body related to autoimmune disease. She denied fever. She reported headache. She had been taking OxyContin ER without improvement in pain control. She has medical history significant for hypertension, asthma, COPD, and recent ORIF right ankle. On evaluation at the ED, vital signs were stable. Blood work did not show any leukocytosis. Hemoglobin and hematocrit are stable. Electrolytes were normal. ESR 60. X-ray of the right ankle showed posttraumatic and postsurgical changes with no definite acute bony trauma. Right lower extremity splint was removed. There was noted slight skin breakdown to the incision site and some crusted drainage. No erythema noted to the wound. She had pain unrelieved with outpatient medication. She was then admitted for intractable pain. Pain management consulted. Patient was started on oxycodone 10 mg every 4 hours for moderate pain and Dilaudid 1 mg IV every 4 hours for severe pain. Patient has history of obstructive sleep apnea. She was placed on BiPAP nightly. Titrate FiO2 to s saturation greater than 92%. ID was consulted for probable surgical site infection patient. Wound did not appear infected but there was report of malodorous discharge. She was started empirically on Bactrim DS twice daily. Patient had increased blood pressure. She was given a combination of lisinopril and diuretic. She was given metoprolol and Norvasc. Lipid panel showed LDL 126, HDL 35 and triglyceride 128. Psychiatric evaluation was done. Patient high levels of anxiety, depression and mood lability worsened by stress of medical illness. She was diagnosed with major depressive disorder, mild, recurrent, without psychotic features. She was given Cymbalta twice daily. Continued on Ativan. Orthopedic surgery was consulted. Imaging studies showed good reduction of the mortise. Implant in good position. Incision clean, dry and intact. There was a small area of the skin with little irritation, but intact. No drainage. No odor. Posterior calf soft. She refused to have DVT done. Patient has CAM walker boot. She was instructed to wear the walker boot. Patient understands that she was not supposed to be weightbearing on the right leg, however was reported by nursing staff that patient has been putting on weight on the right leg. Patient has been noncompliant. She was recommended follow-up in a month with repeat x-ray. She was informed she can shower, but she cannot submerge the right ankle in any water. Reiterated she has to be nonweightbearing to the right leg. Patient was hard stick. Multiple attempts to insert IV was unsuccessful. Dilaudid was given subcut. She was given physical therapy. Patient was ordered for discharge back to [facility]. However, discharge was canceled as patient complained of inadequate pain control at the SNF. SNF requested hard copy prescription for pain meds. X-ray of the right leg did not show any acute fracture. Orthopedic ordered to have patient placed on splint, to have it removed once patient arrives at the [facility] and for her to wear cam boot. Pain management sent prescriptions to the SNF. Patient was eventually discharged back to SNF the following day. FINAL DIAGNOSES: Recent right ankle ORIF, rule out probable surgical site infection Major depressive disorder, mild, recurrent, without psychotic features Obstructive sleep apnea Morbid obesity Hepatitis C Hypertension Glucose Fibromyalgia Glucose GERD COPD Chronic pain syndrome Accelerated hypertension Mixed dyslipidemia DISPOSITION: Patient was discharged to a SNF. DISCHARGE MEDICATIONS: Refer to Discharge Medication List. I have been assigned to complete a discharge summary on this account, I was not involved with the patient's management.--ASUNCION Salazar Jacqueline Robles NP Oct 27, 2018 15:02
== END 2018-10-25 16:36 | DRG 863 ==
LOC: EDBD 10:49 → EMR 11:16 → 4E 12:20 → EDBEDREQ 12:29 → 3E 10-22 05:45
DX: T81.49XA Infection following a procedure, other surgical site, initial encounter (principal); Z68.43 Body mass index [BMI] 50.0-59.9, adult; F33.0 Major depressive disorder, recurrent, mild; E46 Unspecified protein-calorie malnutrition; Y83.8 Other surgical procedures as the cause of abnormal reaction of the patient, or of later complication, without mention of misadventure at the time of the procedure; M79.7 Fibromyalgia; M32.9 Systemic lupus erythematosus, unspecified; E66.01 Morbid (severe) obesity due to excess calories; I10 Essential (primary) hypertension; Z88.6 Allergy status to analgesic agent; Z88.0 Allergy status to penicillin; Z88.8 Allergy status to other drugs, medicaments and biological substances; G89.29 Other chronic pain; Z98.84 Bariatric surgery status; J45.909 Unspecified asthma, uncomplicated; B19.20 Unspecified viral hepatitis C without hepatic coma; G47.33 Obstructive sleep apnea (adult) (pediatric); K21.9 Gastro-esophageal reflux disease without esophagitis; G89.4 Chronic pain syndrome; E78.2 Mixed hyperlipidemia; Z91.81 History of falling; M06.9 Rheumatoid arthritis, unspecified; Z91.19 Patient's noncompliance with other medical treatment and regimen; M15.9 Polyosteoarthritis, unspecified; E11.9 Type 2 diabetes mellitus without complications
CPT/HCPCS: 36415; 80048; 80053; 80061; 84443; 85025; 85651; 87081; 93306; 96374; 96376; 99285; J2405

== ENCOUNTER 2018-11-06 14:54 | Inpatient (IN) | payer MEDICARE ==
[~2018-11-06] VITALS: Ht 167.6 cm; Wt 161.9 kg
[~2018-11-06 14:54] MED LIST changes: +ACETAMINOPHEN325 M1 ORAL; +DICLOFENAC SODI25 MG ORAL; +METOPROLOL TART50 MG ORAL; +MULTIVITAMINS1 EAC2 ORAL; +OXYBUTYNIN CHLOR5 M1 ORAL; +OXYCONTIN10 MG ORAL; +TIZANIDINE HCL4 MG ORAL; +[UNRECOGNIZED DRUG - OTHER] PO
[2018-11-06 14:57] VITALS: BP 135/70
--- NOTE | 2018-11-06 14:57 | NUR ---
ED Nurse Note: Pt brought in by [facility] from [facility] due to generalized body pain x 2 weeks. Pt fell one and a half month ago and had surgery on her right ankle 2 weeks ago. AAO x4 and ambulatory with non labored breathing.
--- NOTE | 2018-11-06 15:44 | Emergency Room Report ---
History of Present Illness General Chief Complaint: Pain Source: Medical Record Present Illness HPI Is a 42-year-old female who presented after increased low back pain. Patient a prior history of chronic pain as well as lupus. She had a recent fall approximately 3 days prior to arrival. Patient reports having fallen from her bed onto the floor. She reports having persistent pain to her mid back. Patient states that she has had multiple prior episodes of similar pain in the past. She had also noted some increased rash to her hands. She had recently been hospitalized after some infection to her surgical site to the right lower extremity. She denies any recent increase in pain in that location. Patient had recently been seen by a paint and table edger. She is currently staying at a facility. Allergies: Coded Allergies: Cashew (Verified Allergy, Unknown, 12/30/14) FISH CONTAINING PRODUCTS (Unverified Allergy, Unknown, 11/06/18) GABAPENTIN (Verified Allergy, Unknown, 10/21/18) HYDROQUINONE (Unverified Allergy, Unknown, 11/08/17) HYDROXYCHLOROQUINE (Verified Allergy, Unknown, 08/31/17) PENICILLINS (Verified Allergy, Unknown, 10/21/18) PISTACHIO NUT (Verified Allergy, Unknown, 10/21/18) Uncoded Allergies: FISH (Allergy, Unknown, 12/30/14) Patient History Past Medical History: see triage record Last Menstrual Period: 09/2018 Now: No Reviewed Nursing Documentation: PMH: Agreed; PSxH: Agreed Nursing Documentation-PMH Past Medical History: No History, Except For Hx Cardiac Problems: Yes - lupus erythematous Hx Hypertension: Yes Hx Asthma: Yes Hx COPD: Yes Hx Cancer: No Hx Gastrointestinal Problems: Yes Hx Neurological Problems: Yes - difficulty in walking, fx shaft of fibula, fibromyalgia Hx Spinal Cord Injury: Yes Review of Systems All Other Systems: negative except mentioned in HPI Physical Exam Vital Signs Date Time Temp Pulse Resp B/P (MAP) Pulse Ox O2 Delivery O2 Flow Rate FiO2 11/06/18 14:47 98.1 72 16 118/64 (82) 91 Room Air Sp02 EP Interpretation: reviewed, normal General Appearance: normal inspection, well appearing, no apparent distress, alert, GCS 15, obese Head: atraumatic ENT: normal ENT inspection, hearing grossly normal, normal voice Neck: normal inspection, full range of motion, supple, no bony tend Respiratory: normal inspection, lungs clear, normal breath sounds, no respiratory distress, no retraction, no wheezing Cardiovascular #1: regular rate, rhythm, no edema Gastrointestinal: normal inspection, normal bowel sounds, non tender, soft, no guarding, no hernia Genitourinary: no CVA tenderness Musculoskeletal: normal inspection, back normal, decreased range of motion, other - healing incision to right leg Neurologic: normal inspection, alert, oriented x3, responsive, marine farmer III-XII nml as tested, speech normal Psychiatric: normal inspection, judgement/insight normal, mood/affect normal Skin: other - eczematous rash to hands. Medical Decision Making Diagnostic Impression: Primary Impression: lupus pain exacerbation Additional Impressions: Obesity, morbid, BMI 40.0-49.9 Fibromyalgia ER Course Patient presented for increased pain. Differential diagnosis include is not limited to radiculopathy, lupus flare, osteoarthritis, among others. Because of complexity of patient's case laboratory tests and imaging studies were ordered. Patient noted to have some evidence of generalized Patient's wound appears to be improved compared to previous visit. Patient was discussed with Dr. Get Tovar and patient will be admitted due to intractable pain. Labs Test 11/06/18 17:10 11/07/18 06:30 Erythrocyte Sedimentation Rate 30 MM/HR (0-20) White Blood Count 8.1 K/UL (4.8-10.8) Red Blood Count 4.10 M/UL (4.20-5.40) Hemoglobin 11.9 G/DL (12.0-16.0) Hematocrit 36.8 % (37.0-47.0) Mean Corpuscular Volume 90 FL (80-99) Mean Corpuscular Hemoglobin 29.0 PG (27.0-31.0) Mean Corpuscular Hemoglobin Concent 32.3 G/DL (32.0-36.0) Red Cell Distribution Width 12.6 % (11.6-14.8) Platelet Count 284 K/UL (150-450) Mean Platelet Volume 4.9 FL (6.5-10.1) Neutrophils (%) (Auto) 65.3 % (45.0-75.0) Lymphocytes (%) (Auto) 26.0 % (20.0-45.0) Monocytes (%) (Auto) 4.3 % (1.0-10.0) Eosinophils (%) (Auto) 3.2 % (0.0-3.0) Basophils (%) (Auto) 1.1 % (0.0-2.0) Sodium Level 137 MMOL/L (136-145) Potassium Level 3.8 MMOL/L (3.5-5.1) Chloride Level 103 MMOL/L (98-107) Carbon Dioxide Level 29 MMOL/L (21-32) Anion Gap 5 mmol/L (5-15) Blood Urea Nitrogen 10 mg/dL (7-18) Creatinine 0.7 MG/DL (0.55-1.30) Estimat Glomerular Filtration Rate > 60 mL/min (>60) Glucose Level 106 MG/DL (74-106) Calcium Level 8.7 MG/DL (8.5-10.1) Total Bilirubin 0.4 MG/DL (0.2-1.0) Aspartate Amino Transf (AST/SGOT) 14 U/L (15-37) Alanine Aminotransferase (ALT/SGPT) 14 U/L (12-78) Alkaline Phosphatase 86 U/L (46-116) Total Protein 7.1 G/DL (6.4-8.2) Albumin 2.9 G/DL (3.4-5.0) Globulin 4.2 g/dL Albumin/Globulin Ratio 0.7 (1.0-2.7) Thyroid Stimulating Hormone (TSH) 2.398 uiU/mL (0.358-3.740) Last Vital Signs Date Time Temp Pulse Resp B/P (MAP) Pulse Ox O2 Delivery O2 Flow Rate FiO2 11/06/18 14:47 98.1 72 16 118/64 (82) 91 Room Air Status: improved Disposition: HOME, SELF-CARE Condition: Stable Ángel Villela MD Nov 06, 2018 15:44
[2018-11-06] MEDS ORDERED: oxyCODONE HCL/Acetaminophen 5/325mg ORAL ONE (16:00)
--- NOTE | 2018-11-06 16:01 | NUR ---
ED Nurse Note: Pt refused perocet 5mg and states that she [facility] Dr Villela was notified.
[2018-11-06] MEDS ORDERED: Morphine Sulfate 10mg/ml Inj IVP ONE (16:45)
[2018-11-06] MEDS ORDERED: DiphenhydrAMINE 50mg/ml Inj IVP ONE (16:45)
[2018-11-06 17:39] LABS: EOSINOPHILS % (AUTO) 3.4 % (0.0-3.0); HEMATOCRIT 38.6 % (37.0-47.0); HEMOGLOBIN 12.5 G/DL (12.0-16.0); LYMPHOCYTES % (AUTO) 33.8 % (20.0-45.0); MEAN CORPUSCULAR VOLUME 91 FL (80-99); MONOCYTES % (AUTO) 5.5 % (1.0-10.0); NEUTROPHILS % (AUTO) 56.3 % (45.0-75.0); PLATELET COUNT 142 K/UL (150-450); RED BLOOD COUNT 4.26 M/UL (4.20-5.40); RED CELL DISTRIBUTION WIDTH 11.7 % (11.6-14.8); WHITE BLOOD COUNT 8.2 K/UL (4.8-10.8)
[2018-11-06 17:50] LABS: ANION GAP 7 mmol/L (5-15); BLOOD UREA NITROGEN 11 mg/dL (7-18); CALCIUM 9.2 MG/DL (8.5-10.1); CARBON DIOXIDE 28 MMOL/L (21-32); CHLORIDE 102 MMOL/L (98-107); CREATININE 0.8 MG/DL (0.55-1.30); POTASSIUM 5.2 MMOL/L (3.5-5.1); SODIUM 137 MMOL/L (136-145)
[2018-11-06 17:54] LABS: ALANINE AMINOTRANSFERASE 12 U/L (12-78); ALBUMIN 3.2 G/DL (3.4-5.0); ALBUMIN/GLOBULIN RATIO 0.7 (1.0-2.7); ALKALINE PHOSPHATASE 107 U/L (46-116); ASPARTATE AMINO TRANSFERASE 16 U/L (15-37); BILIRUBIN,TOTAL 0.2 MG/DL (0.2-1.0)
[2018-11-06 18:00] VITALS: BP 128/63
[2018-11-06] MEDS ORDERED: Morphine Sulfate 2mg/ml Inj(IV/IM USE ONLY) IVP PRN (18:30)
[2018-11-06] MEDS ORDERED: Zolpidem 5mg tab ORAL PRN (18:30)
--- NOTE | 2018-11-06 19:00 | NUR ---
ED Nurse Note: Pt wants to get discharged at this time and states that she does not want to be admitted in the hospital. ER charge nurse and Dr Villela notified.
--- NOTE | 2018-11-06 19:12 | NUR ---
HAND-OFF: Report given to Amelia BAKER.
--- NOTE | 2018-11-06 19:47 | NUR ---
ED Nurse Note: Recieved report tor esume care, pt in bed awake,a lert and oriented x 4, pt has vitaly for admission but wants to speak with MD before going to floor, pt ahs patent saline lock in right upper arm, pt c/o severe pain and constantly asking for dilaudid pain meds, MD is aware, report called to floor nurse for admission, given to SAMUEL Zuluaga, pt being taken to unit via gurney with er-tech x 2.
--- NOTE | 2018-11-06 20:20 | NUR ---
NURSE NOTES: Patient came from ER via gurney. A&OX4. IV site patent and intact. Surgical wound noted on right lower leg, dressing changed. Belongings are checked. Patient's wheelchair at bedside. Bed in lowest position. Call light within reach. Will continue to monitor.
[2018-11-06 20:30] VITALS: BP 155/95
[2018-11-06] MEDS: Heparin 5000 units/ml inj SUBQ SCH (21:00)
[2018-11-06] MEDS: Lisinopril 10mg tab ORAL SCH (22:01)
[2018-11-06] MEDS: Morphine Sulfate 4mg/ml Inj (IV USE ONLY) IVP PRN (22:01)
[2018-11-06] MEDS: LORazepam Inj 2mg/ml 1ml IV PRN (22:14)
[2018-11-07] VITALS (7 sets, daily range): BP systolic 125–171; BP diastolic 70–87
[2018-11-07] MEDS: Morphine Sulfate 4mg/ml Inj (IV USE ONLY) IVP PRN ×2 (02:08→06:21)
[2018-11-07] MEDS: LORazepam Inj 2mg/ml 1ml IV PRN (06:37)
[2018-11-07 06:59] LABS: BASOPHILS % (AUTO) 1.1 % (0.0-2.0); EOSINOPHILS % (AUTO) 3.2 % (0.0-3.0); HEMATOCRIT 36.8 % (37.0-47.0); HEMOGLOBIN 11.9 G/DL (12.0-16.0); MEAN CORPUSCULAR VOLUME 90 FL (80-99); MONOCYTES % (AUTO) 4.3 % (1.0-10.0); NEUTROPHILS % (AUTO) 65.3 % (45.0-75.0); PLATELET COUNT 284 K/UL (150-450); RED CELL DISTRIBUTION WIDTH 12.6 % (11.6-14.8); WHITE BLOOD COUNT 8.1 K/UL (4.8-10.8)
[2018-11-07 07:27] LABS: ALANINE AMINOTRANSFERASE 14 U/L (12-78); ALBUMIN 2.9 G/DL (3.4-5.0); ALBUMIN/GLOBULIN RATIO 0.7 (1.0-2.7); ALKALINE PHOSPHATASE 86 U/L (46-116); ANION GAP 5 mmol/L (5-15); ASPARTATE AMINO TRANSFERASE 14 U/L (15-37); BILIRUBIN,TOTAL 0.4 MG/DL (0.2-1.0); BLOOD UREA NITROGEN 10 mg/dL (7-18); CALCIUM 8.7 MG/DL (8.5-10.1); CARBON DIOXIDE 29 MMOL/L (21-32); CHLORIDE 103 MMOL/L (98-107); CREATININE 0.7 MG/DL (0.55-1.30); POTASSIUM 3.8 MMOL/L (3.5-5.1); SODIUM 137 MMOL/L (136-145)
--- NOTE | 2018-11-07 07:45 | NUR ---
HAND-OFF: Report given to Daniela BAKER.
--- NOTE | 2018-11-07 07:59 | NUR ---
NURSE NOTES: Received pt from CT ROJO RN. Pt is alert and orient x4. pt is in RA, no SOB or acute respiratory distress noted. pt has intact IV access LEONA 24g SL. Pt is eating breakfast independently. all needs attended, bed is locked and is in the lowest position, call light within easy reach. will continue to monitor.
[2018-11-07] MEDS: Metoprolol 25mg tab ORAL SCH (08:56)
[2018-11-07] MEDS: Miralax 17gm pkt ORAL PRN (08:56)
[2018-11-07] MEDS: DULoxetine 30mg cap ORAL SCH (08:57)
[2018-11-07] MEDS: Furosemide 40mg tab ORAL SCH (08:58)
[2018-11-07] MEDS: Lisinopril 10mg tab ORAL SCH (08:59)
[2018-11-07] MEDS: Cyclobenzaprine 10mg Tab ORAL SCH ×3 (08:59→17:40)
[2018-11-07] MEDS: Heparin 5000 units/ml inj SUBQ SCH ×2 (09:00→20:59)
[2018-11-07] MEDS ORDERED: Lyrica 75mg cap ORAL SCH ×2 (09:00→13:00)
[2018-11-07] MEDS ORDERED: Diclofenac 25mg tab ORAL SCH (09:00)
[2018-11-07] MEDS: ALPRAZolam 0.5mg tab ORAL PRN ×2 (09:15→17:52)
--- NOTE | 2018-11-07 10:08 | General Progress Note ---
Assessment/Plan Assessment/Plan: (1) Morbid obesity (2) Multiple joint osteoarthritis (3) Multiple joint pain (4) Right ankle fracture (5) Right ankle pain s/p ORIF (6) Fibromyalgia The patient will be started on oxycodone 10mg PO 1 tab Q4H PRN moderate pain and Dilaudid 1mg IV Q6H PRN severe pain. We will discontinue Morphine. The patient was discussed with Dr. Leonardo and he concurred Subjective Date patient seen: Nov 07, 2018 Time patient seen: 09:15 - am Allergies: Coded Allergies: Cashew (Verified Allergy, Unknown, 12/30/14) FISH CONTAINING PRODUCTS (Unverified Allergy, Unknown, 11/06/18) GABAPENTIN (Verified Allergy, Unknown, 10/21/18) HYDROQUINONE (Unverified Allergy, Unknown, 11/08/17) HYDROXYCHLOROQUINE (Verified Allergy, Unknown, 08/31/17) PENICILLINS (Verified Allergy, Unknown, 10/21/18) PISTACHIO NUT (Verified Allergy, Unknown, 10/21/18) Uncoded Allergies: FISH (Allergy, Unknown, 12/30/14) Subjective REVIEW OF SYSTEMS: Denies rash, fever, chills, sweating, dizziness, drowsiness, blurred vision, sore throat, change in hearing or weight. No shortness of breath, chest pain, palpitations, or cough. No nausea, vomiting, diarrhea, or blood in the stool or urine. No bowel or bladder incontinence. No dysuria. She is complaining of generalized body pain. SUBJECTIVE: Patient is a known patient from prior admission. She was transferred from SNF due uncontrolled pain, had been on Oxycontin 10 mg PO1 tab Q6h PRN and it was not relieving her pain. She would also like to be seen by the orthopedic surgeon. At this time was started on Morphine with no relief of pain. We were consulted so patient has adequate pain control while here in the hospital. Objective Last 24 Hour Vital Signs Date Time Temp Pulse Resp B/P (MAP) Pulse Ox O2 Delivery O2 Flow Rate FiO2 11/07/18 08:59 171/71 11/07/18 08:58 83 171/71 11/07/18 08:56 83 171/71 11/07/18 08:00 98.8 83 18 171/71 (104) 95 11/07/18 04:00 98.3 75 18 133/87 (102) 96 11/07/18 00:00 98.4 72 18 133/70 (91) 95 11/06/18 23:18 Room Air 11/06/18 23:00 Room Air 11/06/18 22:01 155/95 11/06/18 20:30 98.7 67 18 155/95 (115) 96 11/06/18 20:10 98.3 75 16 128/63 98 Room Air 11/06/18 18:00 98.3 75 16 128/63 98 Room Air 11/06/18 17:47 98.1 11/06/18 14:57 98.5 83 20 135/70 95 Room Air 11/06/18 14:47 98.1 72 16 118/64 (82) 91 Room Air Intake and Output 11/06/18 11/07/18 19:00 07:00 Intake Total 0 ml Balance 0 ml Intake Oral 0 ml # Voids 3 Laboratory Tests 11/06/18 17:10: White Blood Count 8.2, Red Blood Count 4.26, Hemoglobin 12.5, Hematocrit 38.6, Mean Corpuscular Volume 91, Mean Corpuscular Hemoglobin 29.3, Mean Corpuscular Hemoglobin Concent 32.4, Red Cell Distribution Width 11.7, Platelet Count 142L, Mean Platelet Volume 6.0L, Neutrophils (%) (Auto) 56.3, Lymphocytes (%) (Auto) 33.8, Monocytes (%) (Auto) 5.5, Eosinophils (%) (Auto) 3.4H, Basophils (%) (Auto ) 1.0, Erythrocyte Sedimentation Rate 30H, Sodium Level 137, Potassium Level 5.2H, Chloride Level 102, Carbon Dioxide Level 28, Anion Gap 7, Blood Urea Nitrogen 11, Creatinine 0.8, Estimat Glomerular Filtration Rate > 60, Glucose Level 101, Calcium Level 9.2, Total Bilirubin 0.2, Aspartate Amino Transf (AST/ SGOT) 16, Alanine Aminotransferase (ALT/SGPT) 12, Alkaline Phosphatase 107, Total Protein 7.7, Albumin 3.2L, Globulin 4.5, Albumin/Globulin Ratio 0.7L 11/07/18 06:30: White Blood Count 8.1, Red Blood Count 4.10L, Hemoglobin 11.9L, Hematocrit 36.8L , Mean Corpuscular Volume 90, Mean Corpuscular Hemoglobin 29.0, Mean Corpuscular Hemoglobin Concent 32.3, Red Cell Distribution Width 12.6, Platelet Count 284#, Mean Platelet Volume 4.9L, Neutrophils (%) (Auto) 65.3, Lymphocytes (%) (Auto) 26.0, Monocytes (%) (Auto) 4.3, Eosinophils (%) (Auto) 3.2H, Basophils (%) (Auto) 1.1, Sodium Level 137, Potassium Level 3.8, Chloride Level 103, Carbon Dioxide Level 29, Anion Gap 5, Blood Urea Nitrogen 10, Creatinine 0.7, Estimat Glomerular Filtration Rate > 60, Glucose Level 106, Calcium Level 8.7, Total Bilirubin 0.4, Aspartate Amino Transf (AST/SGOT) 14L, Alanine Aminotransferase (ALT/SGPT) 14, Alkaline Phosphatase 86, Total Protein 7.1, Albumin 2.9L, Globulin 4.2, Albumin/Globulin Ratio 0.7L, Thyroid Stimulating Hormone (TSH) 2.398 Height (Feet): 5 Height (Inches): 6.00 Weight (Pounds): 357 Objective PHYSICAL EXAMINATION: GENERAL: Alert, awake, and oriented. LUNGS: Decreased breath sounds bilaterally. HEART: S1, S2 regular. ABDOMEN: Obese. EXTREMITIES: No cyanosis, no clubbing with right ankle bandages applied and noted. Cirilo Chavez Nov 07, 2018 10:08
[2018-11-07] MEDS: Naloxegol Oxalate 25mg tab ORAL SCH (10:48)
[2018-11-07] MEDS: HYDROmorphone 1mg/ml Carpuject IVP PRN ×2 (10:48→19:29)
--- NOTE | 2018-11-07 12:33 | Consultation ---
History of Present Illness General Chief Complaint: Pain Present Illness Allergies: Coded Allergies: Cashew (Verified Allergy, Unknown, 12/30/14) FISH CONTAINING PRODUCTS (Unverified Allergy, Unknown, 11/06/18) GABAPENTIN (Verified Allergy, Unknown, 10/21/18) HYDROQUINONE (Unverified Allergy, Unknown, 11/08/17) HYDROXYCHLOROQUINE (Verified Allergy, Unknown, 08/31/17) PENICILLINS (Verified Allergy, Unknown, 10/21/18) PISTACHIO NUT (Verified Allergy, Unknown, 10/21/18) Uncoded Allergies: FISH (Allergy, Unknown, 12/30/14) Medication History Scheduled Alprazolam* (Xanax*), 1 MG ORAL TID, (Reported) Amlodipine Besylate* (Amlodipine Besylate*), 5 MG ORAL DAILY, (Reported) Cyclobenzaprine Hcl* (Flexeril*), 10 MG ORAL THREE TIMES A DAY, (Reported) Diclofenac Sod* (Voltaren*), 25 MG ORAL THREE TIMES A DAY, (Reported) Docusate Sodium* (Colace*), 250 MG ORAL DAILY, (Reported) Duloxetine Hcl* (Cymbalta*), 60 MG ORAL DAILY, (Reported) Folic Acid* (Folic Acid*), 1 MG ORAL DAILY, (Reported) Furosemide* (Lasix*), 40 MG ORAL DAILY, (Reported) Lisinopril* (Lisinopril*), 10 MG ORAL DAILY, (Reported) Metoprolol Tartrate* (Metoprolol Tartrate*), 75 MG ORAL DAILY, (Reported) Multivitamins* (Multivitamins*), 1 TAB ORAL DAILY, (Reported) Oxybutynin Chloride (Oxybutynin Chloride), 5 MG ORAL THREE TIMES A DAY, ( Reported) Oxycodone Hcl Er* (Oxycontin*), 10 MG ORAL EVERY 12 HOURS, (Reported) Potassium Chloride* (K-Dur*), 20 MEQ ORAL DAILY, (Reported) Pregabalin* (Lyrica*), 75 MG ORAL THREE TIMES A DAY, (Reported) Tizanidine Hcl* (Zanaflex*), 4 MG ORAL THREE TIMES A DAY, (Reported) [gerikot], 17.2 MG PO QHS, (Reported) Scheduled PRN Acetaminophen* (Acetaminophen 325MG Tablet*), 650 MG ORAL Q6H PRN for For Pain, (Reported) Ondansetron* (Zofran*), 4 MG ORAL Q6H PRN for Nausea & Vomiting, (Reported) Zolpidem Tartrate* (Zolpidem Tartrate*), 10 MG ORAL BEDTIME PRN for Insomnia, ( Reported) Patient History Healthcare decision maker N Resuscitation status Full Code Advanced Directive on File Physical Exam Last 24 Hour Vital Signs Date Time Temp Pulse Resp B/P (MAP) Pulse Ox O2 Delivery O2 Flow Rate FiO2 11/07/18 12:00 98.8 70 19 140/78 (98) 96 11/07/18 10:00 155/72 (99) 11/07/18 09:56 98.8 11/07/18 09:56 98.8 11/07/18 09:28 98.8 11/07/18 09:28 98.8 11/07/18 09:00 Room Air 11/07/18 08:59 171/71 11/07/18 08:58 83 171/71 11/07/18 08:56 83 171/71 11/07/18 08:00 98.8 83 18 171/71 (104) 95 11/07/18 04:00 98.3 75 18 133/87 (102) 96 11/07/18 00:00 98.4 72 18 133/70 (91) 95 11/06/18 23:18 Room Air 11/06/18 23:00 Room Air 11/06/18 22:01 155/95 11/06/18 20:30 98.7 67 18 155/95 (115) 96 11/06/18 20:10 98.3 75 16 128/63 98 Room Air 11/06/18 18:00 98.3 75 16 128/63 98 Room Air 11/06/18 17:47 98.1 11/06/18 14:57 98.5 83 20 135/70 95 Room Air 11/06/18 14:47 98.1 72 16 118/64 (82) 91 Room Air Intake and Output 11/06/18 11/07/18 19:00 07:00 Intake Total 0 ml Balance 0 ml Intake Oral 0 ml # Voids 3 Laboratory Tests Test 11/06/18 17:10 11/07/18 06:30 White Blood Count 8.2 K/UL (4.8-10.8) 8.1 K/UL (4.8-10.8) Red Blood Count 4.26 M/UL (4.20-5.40) 4.10 M/UL (4.20-5.40) L Hemoglobin 12.5 G/DL (12.0-16.0) 11.9 G/DL (12.0-16.0) L Hematocrit 38.6 % (37.0-47.0) 36.8 % (37.0-47.0) L Mean Corpuscular Volume 91 FL (80-99) 90 FL (80-99) Mean Corpuscular Hemoglobin 29.3 PG (27.0-31.0) 29.0 PG (27.0-31.0) Mean Corpuscular Hemoglobin Concent 32.4 G/DL (32.0-36.0) 32.3 G/DL (32.0-36.0) Red Cell Distribution Width 11.7 % (11.6-14.8) 12.6 % (11.6-14.8) Platelet Count 142 K/UL (150-450) L 284 K/UL (150-450) # Mean Platelet Volume 6.0 FL (6.5-10.1) L 4.9 FL (6.5-10.1) L Neutrophils (%) (Auto) 56.3 % (45.0-75.0) 65.3 % (45.0-75.0) Lymphocytes (%) (Auto) 33.8 % (20.0-45.0) 26.0 % (20.0-45.0) Monocytes (%) (Auto) 5.5 % (1.0-10.0) 4.3 % (1.0-10.0) Eosinophils (%) (Auto) 3.4 % (0.0-3.0) H 3.2 % (0.0-3.0) H Basophils (%) (Auto) 1.0 % (0.0-2.0) 1.1 % (0.0-2.0) Erythrocyte Sedimentation Rate 30 MM/HR (0-20) H Sodium Level 137 MMOL/L (136-145) 137 MMOL/L (136-145) Potassium Level 5.2 MMOL/L (3.5-5.1) H 3.8 MMOL/L (3.5-5.1) Chloride Level 102 MMOL/L (98-107) 103 MMOL/L (98-107) Carbon Dioxide Level 28 MMOL/L (21-32) 29 MMOL/L (21-32) Anion Gap 7 mmol/L (5-15) 5 mmol/L (5-15) Blood Urea Nitrogen 11 mg/dL (7-18) 10 mg/dL (7-18) Creatinine 0.8 MG/DL (0.55-1.30) 0.7 MG/DL (0.55-1.30) Estimat Glomerular Filtration Rate > 60 mL/min (>60) > 60 mL/min (>60) Glucose Level 101 MG/DL (74-106) 106 MG/DL (74-106) Calcium Level 9.2 MG/DL (8.5-10.1) 8.7 MG/DL (8.5-10.1) Total Bilirubin 0.2 MG/DL (0.2-1.0) 0.4 MG/DL (0.2-1.0) Aspartate Amino Transf (AST/SGOT) 16 U/L (15-37) 14 U/L (15-37) L Alanine Aminotransferase (ALT/SGPT) 12 U/L (12-78) 14 U/L (12-78) Alkaline Phosphatase 107 U/L (46-116) 86 U/L (46-116) Total Protein 7.7 G/DL (6.4-8.2) 7.1 G/DL (6.4-8.2) Albumin 3.2 G/DL (3.4-5.0) L 2.9 G/DL (3.4-5.0) L Globulin 4.5 g/dL 4.2 g/dL Albumin/Globulin Ratio 0.7 (1.0-2.7) L 0.7 (1.0-2.7) L Thyroid Stimulating Hormone (TSH) 2.398 uiU/mL (0.358-3.740) Microbiology Date/Time Source Procedure Growth Status 11/06/18 17:20 Rectum Received Height (Feet): 5 Height (Inches): 6.00 Weight (Pounds): 357 Medications Current Medications Medications (Trade) Dose Ordered Sig/Farideh Route PRN Reason Start Time Stop Time Status Last Admin Dose Admin Acetaminophen (Tylenol) 650 mg Q4H PRN ORAL fever 11/06/18 18:30 12/06/18 18:29 Alprazolam (Xanax) 1 mg Q4H PRN ORAL For Anxiety 11/07/18 08:15 11/14/18 08:14 11/07/18 09:15 Amlodipine Besylate (Norvasc) 5 mg DAILY ORAL 11/07/18 09:00 12/07/18 08:59 11/07/18 08:58 Cyclobenzaprine HCl (Flexeril) 10 mg THREE TIMES A DAY ORAL 11/07/18 09:00 12/07/18 08:59 11/07/18 08:59 Dextrose (Dextrose 50%) 25 ml Q30M PRN IV Hypoglycemia 11/06/18 18:30 12/06/18 18:29 Dextrose (Dextrose 50%) 50 ml Q30M PRN IV Hypoglycemia 11/06/18 18:30 12/06/18 18:29 Diclofenac Sodium (Voltaren gel) 1 applic QID TOPIC 11/07/18 13:00 12/07/18 12:59 Duloxetine HCl (Cymbalta) 60 mg DAILY ORAL 11/07/18 09:00 12/07/18 08:59 11/07/18 08:57 Furosemide (Lasix) 40 mg DAILY ORAL 11/07/18 09:00 12/07/18 08:59 11/07/18 08:58 Heparin Sodium (Porcine) (Heparin 5000 units/ml) 5,000 units EVERY 12 HOURS SUBQ 11/06/18 21:00 12/06/18 20:59 Hydromorphone HCl (Dilaudid) 1 mg Q6H PRN IVP Severe Pain (Pain Scale 7-10) 11/07/18 10:00 11/14/18 09:59 11/07/18 10:48 Lisinopril (Zestril) 10 mg DAILY ORAL 11/06/18 22:00 12/06/18 21:59 11/07/18 08:59 Metoprolol Tartrate (Lopressor) 75 mg DAILY ORAL 11/07/18 09:00 12/07/18 08:59 11/07/18 08:56 Naloxegol (Movantik) 25 mg DAILY ORAL 11/07/18 10:00 12/07/18 09:59 11/07/18 10:48 Ondansetron HCl (Zofran) 4 mg Q6H PRN IVP Nausea & Vomiting 11/06/18 18:30 12/06/18 18:29 Oxycodone HCl (Roxicodone) 10 mg Q4H PRN ORAL Moderate Pain (Pain Scale 4-6) 11/07/18 10:00 11/14/18 09:59 Polyethylene Glycol (Miralax) 17 gm HSPRN PRN ORAL Constipation 11/06/18 18:30 12/06/18 18:29 11/07/18 08:56 Pregabalin (Lyrica) 100 mg THREE TIMES A DAY ORAL 11/07/18 13:00 12/07/18 08:59 Tizanidine HCl (Zanaflex) 4 mg THREE TIMES A DAY ORAL 11/07/18 09:00 12/07/18 08:59 11/07/18 08:57 Zolpidem Tartrate (Ambien) 10 mg HSPRN PRN ORAL Insomnia 11/07/18 21:00 11/14/18 20:59 Mer Powell MD Nov 07, 2018 12:33
--- NOTE | 2018-11-07 12:42 | NUR ---
NURSE NOTES: daysi PARTIDA of dr Leonardo re dc clearance, awaiting call back relayed to dr alexandra no id on the case per md , no need for id clearance.
[2018-11-07] MEDS: Diclofenac 1% Gel 100gm TOPIC SCH ×3 (12:59→21:00)
[2018-11-07] MEDS: Lyrica 50mg cap ORAL SCH ×2 (13:04→17:40)
[2018-11-07] MEDS: oxyCODONE 5mg IR tab ORAL PRN (13:05)
[2018-11-07] MEDS ORDERED: HYDROMORPHO2 MG/1 M5 IV (13:16)
[2018-11-07] MEDS ORDERED: ALPRAZOLAM1 MG ORAL (13:18)
[2018-11-07] MEDS ORDERED: AMBIEN10 M1 ORAL (13:19)
--- NOTE | 2018-11-07 14:47 | Consultation ---
History of Present Illness General Chief Complaint: Pain Present Illness Allergies: Coded Allergies: Cashew (Verified Allergy, Unknown, 12/30/14) FISH CONTAINING PRODUCTS (Unverified Allergy, Unknown, 11/06/18) GABAPENTIN (Verified Allergy, Unknown, 10/21/18) HYDROQUINONE (Unverified Allergy, Unknown, 11/08/17) HYDROXYCHLOROQUINE (Verified Allergy, Unknown, 08/31/17) PENICILLINS (Verified Allergy, Unknown, 10/21/18) PISTACHIO NUT (Verified Allergy, Unknown, 10/21/18) Uncoded Allergies: FISH (Allergy, Unknown, 12/30/14) Medication History Scheduled Alprazolam* (Xanax*), 1 MG ORAL TID, (Reported) Amlodipine Besylate* (Amlodipine Besylate*), 5 MG ORAL DAILY, (Reported) Cyclobenzaprine Hcl* (Flexeril*), 10 MG ORAL THREE TIMES A DAY, (Reported) Diclofenac Sod* (Voltaren*), 25 MG ORAL THREE TIMES A DAY, (Reported) Docusate Sodium* (Colace*), 250 MG ORAL DAILY, (Reported) Duloxetine Hcl* (Cymbalta*), 60 MG ORAL DAILY, (Reported) Folic Acid* (Folic Acid*), 1 MG ORAL DAILY, (Reported) Furosemide* (Lasix*), 40 MG ORAL DAILY, (Reported) Lisinopril* (Lisinopril*), 10 MG ORAL DAILY, (Reported) Metoprolol Tartrate* (Metoprolol Tartrate*), 75 MG ORAL DAILY, (Reported) Multivitamins* (Multivitamins*), 1 TAB ORAL DAILY, (Reported) Oxybutynin Chloride (Oxybutynin Chloride), 5 MG ORAL THREE TIMES A DAY, ( Reported) Oxycodone Hcl Er* (Oxycontin*), 10 MG ORAL EVERY 12 HOURS, (Reported) Potassium Chloride* (K-Dur*), 20 MEQ ORAL DAILY, (Reported) Pregabalin* (Lyrica*), 75 MG ORAL THREE TIMES A DAY, (Reported) Tizanidine Hcl* (Zanaflex*), 4 MG ORAL THREE TIMES A DAY, (Reported) [gerikot], 17.2 MG PO QHS, (Reported) Scheduled PRN Acetaminophen* (Acetaminophen 325MG Tablet*), 650 MG ORAL Q6H PRN for For Pain, (Reported) Alprazolam* (Xanax*), 1 MG ORAL Q4HR PRN for For Anxiety, (Reported) Hydromorphone Hcl/Pf (Hydromorphone 2 Mg/Ml Syringe*), 1 MG IV Q6HR PRN for For Pain, (Reported) Ondansetron* (Zofran*), 4 MG ORAL Q6H PRN for Nausea & Vomiting, (Reported) Zolpidem Tartrate* (Zolpidem Tartrate*), 10 MG ORAL BEDTIME PRN for Insomnia, ( Reported) Zolpidem Tartrate* (Ambien*), 10 MG ORAL HS PRN for Insomnia, (Reported) Patient History Healthcare decision maker N Resuscitation status Full Code Advanced Directive on File Physical Exam Last 24 Hour Vital Signs Date Time Temp Pulse Resp B/P (MAP) Pulse Ox O2 Delivery O2 Flow Rate FiO2 11/07/18 13:57 98.8 11/07/18 12:00 98.8 70 19 140/78 (98) 96 11/07/18 10:00 155/72 (99) 11/07/18 09:56 98.8 11/07/18 09:28 98.8 11/07/18 09:28 98.8 11/07/18 09:00 Room Air 11/07/18 08:59 171/71 11/07/18 08:58 83 171/71 11/07/18 08:56 83 171/71 11/07/18 08:00 98.8 83 18 171/71 (104) 95 11/07/18 04:00 98.3 75 18 133/87 (102) 96 11/07/18 00:00 98.4 72 18 133/70 (91) 95 11/06/18 23:18 Room Air 11/06/18 23:00 Room Air 11/06/18 22:01 155/95 11/06/18 20:30 98.7 67 18 155/95 (115) 96 11/06/18 20:10 98.3 75 16 128/63 98 Room Air 11/06/18 18:00 98.3 75 16 128/63 98 Room Air 11/06/18 17:47 98.1 11/06/18 14:57 98.5 83 20 135/70 95 Room Air 11/06/18 14:47 98.1 72 16 118/64 (82) 91 Room Air Intake and Output 11/06/18 11/07/18 19:00 07:00 Intake Total 0 ml Balance 0 ml Intake Oral 0 ml # Voids 3 Laboratory Tests Test 11/06/18 17:10 11/07/18 06:30 White Blood Count 8.2 K/UL (4.8-10.8) 8.1 K/UL (4.8-10.8) Red Blood Count 4.26 M/UL (4.20-5.40) 4.10 M/UL (4.20-5.40) L Hemoglobin 12.5 G/DL (12.0-16.0) 11.9 G/DL (12.0-16.0) L Hematocrit 38.6 % (37.0-47.0) 36.8 % (37.0-47.0) L Mean Corpuscular Volume 91 FL (80-99) 90 FL (80-99) Mean Corpuscular Hemoglobin 29.3 PG (27.0-31.0) 29.0 PG (27.0-31.0) Mean Corpuscular Hemoglobin Concent 32.4 G/DL (32.0-36.0) 32.3 G/DL (32.0-36.0) Red Cell Distribution Width 11.7 % (11.6-14.8) 12.6 % (11.6-14.8) Platelet Count 142 K/UL (150-450) L 284 K/UL (150-450) # Mean Platelet Volume 6.0 FL (6.5-10.1) L 4.9 FL (6.5-10.1) L Neutrophils (%) (Auto) 56.3 % (45.0-75.0) 65.3 % (45.0-75.0) Lymphocytes (%) (Auto) 33.8 % (20.0-45.0) 26.0 % (20.0-45.0) Monocytes (%) (Auto) 5.5 % (1.0-10.0) 4.3 % (1.0-10.0) Eosinophils (%) (Auto) 3.4 % (0.0-3.0) H 3.2 % (0.0-3.0) H Basophils (%) (Auto) 1.0 % (0.0-2.0) 1.1 % (0.0-2.0) Erythrocyte Sedimentation Rate 30 MM/HR (0-20) H Sodium Level 137 MMOL/L (136-145) 137 MMOL/L (136-145) Potassium Level 5.2 MMOL/L (3.5-5.1) H 3.8 MMOL/L (3.5-5.1) Chloride Level 102 MMOL/L (98-107) 103 MMOL/L (98-107) Carbon Dioxide Level 28 MMOL/L (21-32) 29 MMOL/L (21-32) Anion Gap 7 mmol/L (5-15) 5 mmol/L (5-15) Blood Urea Nitrogen 11 mg/dL (7-18) 10 mg/dL (7-18) Creatinine 0.8 MG/DL (0.55-1.30) 0.7 MG/DL (0.55-1.30) Estimat Glomerular Filtration Rate > 60 mL/min (>60) > 60 mL/min (>60) Glucose Level 101 MG/DL (74-106) 106 MG/DL (74-106) Calcium Level 9.2 MG/DL (8.5-10.1) 8.7 MG/DL (8.5-10.1) Total Bilirubin 0.2 MG/DL (0.2-1.0) 0.4 MG/DL (0.2-1.0) Aspartate Amino Transf (AST/SGOT) 16 U/L (15-37) 14 U/L (15-37) L Alanine Aminotransferase (ALT/SGPT) 12 U/L (12-78) 14 U/L (12-78) Alkaline Phosphatase 107 U/L (46-116) 86 U/L (46-116) Total Protein 7.7 G/DL (6.4-8.2) 7.1 G/DL (6.4-8.2) Albumin 3.2 G/DL (3.4-5.0) L 2.9 G/DL (3.4-5.0) L Globulin 4.5 g/dL 4.2 g/dL Albumin/Globulin Ratio 0.7 (1.0-2.7) L 0.7 (1.0-2.7) L Thyroid Stimulating Hormone (TSH) 2.398 uiU/mL (0.358-3.740) Microbiology Date/Time Source Procedure Growth Status 11/06/18 17:20 Rectum Received Height (Feet): 5 Height (Inches): 6.00 Weight (Pounds): 357 Medications Current Medications Medications (Trade) Dose Ordered Sig/Farideh Route PRN Reason Start Time Stop Time Status Last Admin Dose Admin Acetaminophen (Tylenol) 650 mg Q4H PRN ORAL fever 11/06/18 18:30 12/06/18 18:29 Alprazolam (Xanax) 1 mg Q4H PRN ORAL For Anxiety 11/07/18 08:15 11/14/18 08:14 11/07/18 09:15 Amlodipine Besylate (Norvasc) 5 mg DAILY ORAL 11/07/18 09:00 12/07/18 08:59 11/07/18 08:58 Cyclobenzaprine HCl (Flexeril) 10 mg THREE TIMES A DAY ORAL 11/07/18 09:00 12/07/18 08:59 11/07/18 12:58 Dextrose (Dextrose 50%) 25 ml Q30M PRN IV Hypoglycemia 11/06/18 18:30 12/06/18 18:29 Dextrose (Dextrose 50%) 50 ml Q30M PRN IV Hypoglycemia 11/06/18 18:30 12/06/18 18:29 Diclofenac Sodium (Voltaren gel) 1 applic QID TOPIC 11/07/18 13:00 12/07/18 12:59 11/07/18 12:59 Duloxetine HCl (Cymbalta) 60 mg DAILY ORAL 11/07/18 09:00 12/07/18 08:59 11/07/18 08:57 Furosemide (Lasix) 40 mg DAILY ORAL 11/07/18 09:00 12/07/18 08:59 11/07/18 08:58 Heparin Sodium (Porcine) (Heparin 5000 units/ml) 5,000 units EVERY 12 HOURS SUBQ 11/06/18 21:00 12/06/18 20:59 Hydromorphone HCl (Dilaudid) 1 mg Q6H PRN IVP Severe Pain (Pain Scale 7-10) 11/07/18 10:00 11/14/18 09:59 11/07/18 10:48 Lisinopril (Zestril) 10 mg DAILY ORAL 11/06/18 22:00 12/06/18 21:59 11/07/18 08:59 Metoprolol Tartrate (Lopressor) 75 mg DAILY ORAL 11/07/18 09:00 12/07/18 08:59 11/07/18 08:56 Naloxegol (Movantik) 25 mg DAILY ORAL 11/07/18 10:00 12/07/18 09:59 11/07/18 10:48 Ondansetron HCl (Zofran) 4 mg Q6H PRN IVP Nausea & Vomiting 11/06/18 18:30 12/06/18 18:29 Oxycodone HCl (Roxicodone) 10 mg Q4H PRN ORAL Moderate Pain (Pain Scale 4-6) 11/07/18 10:00 11/14/18 09:59 11/07/18 13:05 Polyethylene Glycol (Miralax) 17 gm HSPRN PRN ORAL Constipation 11/06/18 18:30 12/06/18 18:29 11/07/18 08:56 Pregabalin (Lyrica) 100 mg THREE TIMES A DAY ORAL 11/07/18 13:00 12/07/18 08:59 11/07/18 13:04 Tizanidine HCl (Zanaflex) 4 mg THREE TIMES A DAY ORAL 11/07/18 09:00 12/07/18 08:59 11/07/18 12:58 Zolpidem Tartrate (Ambien) 10 mg HSPRN PRN ORAL Insomnia 11/07/18 21:00 11/14/18 20:59 Assessment/Plan Assessment/Plan: Hematology Consultaiton GAURI MD: Sabra Tovar RFC: Thrombocytopenia DOS 11/07/18 ID Is a 42-year-old female who presented after increased low back pain. Patient a prior history of chronic pain as well as lupus. She had a recent fall approximately 3 days prior to arrival. Patient reports having fallen from her bed onto the floor. She reports having persistent pain to her mid back. Patient states that she has had multiple prior episodes of similar pain in the past. She had also noted some increased rash to her hands. She had recently been hospitalized after some infection to her surgical site to the right lower extremity. She denies any recent increase in pain in that location. Patient had recently been seen by a portrait painter. She is currently staying at a facility. Noted to have been here before and [facility] today as well. Allergies: Cashew (Verified Allergy, Unknown, 12/30/14) FISH CONTAINING PRODUCTS (Unverified Allergy, Unknown, 11/06/18) GABAPENTIN (Verified Allergy, Unknown, 10/21/18) HYDROQUINONE (Unverified Allergy, Unknown, 11/08/17) HYDROXYCHLOROQUINE (Verified Allergy, Unknown, 08/31/17) PENICILLINS (Verified Allergy, Unknown, 10/21/18) PISTACHIO NUT (Verified Allergy, Unknown, 10/21/18) Uncoded Allergies: FISH (Allergy, Unknown, 12/30/14) Patient History Past Medical History: see triage record Last Menstrual Period: 09/2018 Now: No Reviewed Nursing Documentation: PMH: Agreed; PSxH: Agreed Nursing Documentation-PMH Past Medical History: No History, Except For Hx Cardiac Problems: Yes - lupus erythematous Hx Hypertension: Yes Hx Asthma: Yes Hx COPD: Yes Hx Cancer: No Hx Gastrointestinal Problems: Yes Hx Neurological Problems: Yes - difficulty in walking, fx shaft of fibula, fibromyalgia Hx Spinal Cord Injury: Yes Review of Systems All Other Systems: negative except mentioned in HPI Physical Exam: Vitals: reviewed General Appearance: NAD HEENT: normocephalic, atraumatic Neck: non-tender, normal alignment Respiratory/Chest: normal breath sounds bilaterally Cardiovascular/Chest: normal peripheral pulses, normal rate Abdomen: normal bowel sounds, soft, nontender Extremities: normal range of motion ++ rash on scam Labs: noted Assessment and Recs: # Thrombocytopenia - potential causes multifactorial, evaluate liver and viral etiologies to begin, also could be related to underlying medications patient has received. Plt 140 range on admission --> Hep panel and HIV as outpatient --> US abd to evaluate for cirrhosis and hsm ordered --> Peripheral smear ordered to evaluate for blasts /schistocytes --> abx and other meds have been reviewed # hx of Recent R fibula fracture s/p ORIF --> see by id in the past --> abx as needed # HTN --> sbp goal <150 --> amlodipine and mtp # MDD # Lupus # COPD # chronic pain syndrome # GERD # Dvt ppx with hep sq The timing of this note does not necessarily reflect the time of the patient was seen. Greatly appreciate consultation. Roberto Fortune MD Nov 07, 2018 14:47
--- NOTE | 2018-11-07 15:19 | NUR ---
NURSE NOTES:WOUND CARE NOTES:Pt declined wound care visit .Pt stated she did not have a wound and was being discharged today
--- NOTE | 2018-11-07 15:51 | NUR ---
DISCHARGE PLANNING DISCHARGE ORDER NOTED Patient has been accepted to; [facility] [address] [place] [address] Bed: 30-A Alf [phone] for Nurse to Nurse report [facility] ETA for transportation: Will-Call waiting for prescriptions
--- NOTE | 2018-11-07 19:20 | NUR ---
HAND-OFF: Report given to ISMAEL BAKER.
--- NOTE | 2018-11-07 19:45 | History and Physical Report ---
DATE OF ADMISSION: 11/06/2018 CONSULTANTS: 1. Karlee Leonardo M.D. 2. Mer Powell M.D. CHIEF COMPLAINT: Fall, intractable pain, and lupus. BRIEF HISTORY: This is a 42-year-old female from [facility], apparently fell yesterday landing on the right leg, had some pain. The patient came to [facility], diagnosed with the above and admitted to medical floor for further treatment. Currently, slightly anxious in bed, actually feeling better, wants to go home this afternoon. No chest pain. No shortness of breath. No nausea, vomiting, or diarrhea. PAST MEDICAL HISTORY: Include diabetes, hypertension, lupus, arthritis, hep C, sleep apnea, and fibromyalgia. PAST SURGICAL HISTORY: Unknown. MEDICATIONS: Include zolpidem, Lyrica, , Dilaudid, oxycodone, amlodipine, cyclobenzaprine, metoprolol, furosemide, Dulcolax, Zanaflex, lisinopril, Tylenol, and Zofran. ALLERGIES: Gabapentin, hydroquinone, hydroxychloroquine, and penicillin. SOCIAL HISTORY: Positive smoking. No alcohol. No intravenous drug abuse. FAMILY HISTORY: Noncontributory. PHYSICAL EXAMINATION: GENERAL: Slightly anxious in bed, oriented x3, in no acute distress. VITAL SIGNS: Show temperature is 98 degrees, pulse 83, respirations 19, and blood pressure 171/71. CARDIOVASCULAR: No murmurs. LUNGS: Distant and clear. ABDOMEN: Bowel sounds positive. Nontender. Nondistended. EXTREMITIES: No cyanosis, clubbing, or edema. NEUROLOGIC: The patient moves all extremities, slightly weak. LABORATORY AND DIAGNOSTIC DATA: Labs, at this time, show hemoglobin 11.9, otherwise CBC is normal. BMP shows this morning is normal. Albumin is 2.9. ASSESSMENT: 1. Fall. 2. Intractable pain in the right leg. 3. Lupus. 4. Right ankle wound. 5. Diabetes. 6. Hypertension. 7. Arthritis. 8. Hep C. 9. Anemia. 10. Fibromyalgia. 11. Malnutrition. PLAN: 1. PT and dietary evaluation. 2. CBC and BMP in the morning. 3. Discharge if cleared by team. 4. Resume home medications. 5. We will continue to follow this patient. eGt Tovar D.O. DR: HUMBLE JOB#: [id number] CC:
--- NOTE | 2018-11-07 19:55 | NUR ---
NURSE NOTES: Received report from SAMUEL Suarez. Patient is awake and alertx4. On room air with no signs of distress or SOB. New IV on the left wrist is intact. Bed is locked and in lowest position. Call light in reach. Will continue to monitor to the patient.
[2018-11-07] MEDS ORDERED: Zolpidem 5mg tab ORAL PRN (21:00)
[2018-11-08] VITALS: BP 150/94
[2018-11-08] MEDS: oxyCODONE 5mg IR tab ORAL PRN ×3 (00:08→14:35)
[2018-11-08 04:00] VITALS: BP 154/79
--- NOTE | 2018-11-08 05:56 | NUR ---
NURSE NOTES: Patient refused lab to draw blood this am.
[2018-11-08] MEDS: ALPRAZolam 0.5mg tab ORAL PRN ×2 (06:37→11:55)
[2018-11-08] MEDS: Miralax 17gm pkt ORAL PRN (06:42)
--- NOTE | 2018-11-08 07:37 | NUR ---
HAND-OFF: Report given to SAMUEL Gomez.
[2018-11-08 08:00] VITALS: BP 136/65
--- NOTE | 2018-11-08 08:12 | NUR ---
NURSE NOTES: received pt in bed, no complaint of pain or discomfort. No IV access on pt. Bed locked at the lowest position possible, call light within easy reach, siderails upx2. Will continue to monitor pt and follow up with the plan of care.
--- NOTE | 2018-11-08 08:58 | General Progress Note ---
Assessment/Plan Assessment/Plan: (1) Morbid obesity (2) Multiple joint osteoarthritis (3) Multiple joint pain (4) Right ankle fracture (5) Right ankle pain s/p ORIF (6) Fibromyalgia The patient will be continued on oxycodone and Dilaudid. An Rx for Oxycodone 10mg PO 1 tab Q4H PRN and Lyrica 100mg PO 1 tab TID was written for patient to SNF in anticipation for discharge. The patient was discussed with Dr. Leonardo and he concurred Subjective Date patient seen: Nov 08, 2018 Time patient seen: 07:30 - am Allergies: Coded Allergies: Cashew (Verified Allergy, Unknown, 12/30/14) FISH CONTAINING PRODUCTS (Unverified Allergy, Unknown, 11/06/18) GABAPENTIN (Verified Allergy, Unknown, 10/21/18) HYDROQUINONE (Unverified Allergy, Unknown, 11/08/17) HYDROXYCHLOROQUINE (Verified Allergy, Unknown, 08/31/17) PENICILLINS (Verified Allergy, Unknown, 10/21/18) PISTACHIO NUT (Verified Allergy, Unknown, 10/21/18) Uncoded Allergies: FISH (Allergy, Unknown, 12/30/14) Subjective REVIEW OF SYSTEMS: Denies rash, fever, chills, sweating, dizziness, drowsiness, blurred vision, sore throat, change in hearing or weight. No shortness of breath, chest pain, palpitations, or cough. No nausea, vomiting, diarrhea, or blood in the stool or urine. No bowel or bladder incontinence. No dysuria. She is complaining of generalized body pain. SUBJECTIVE: Patient is in bed and reports that her pain has reduced and has been tolerated on the Dilaudid and Oxycodone. She will be discharged to SNF as per customer counter associate. An Rx will be written in anticipation for discharge. Objective Last 24 Hour Vital Signs Date Time Temp Pulse Resp B/P (MAP) Pulse Ox O2 Delivery O2 Flow Rate FiO2 11/08/18 04:00 98.1 80 20 154/79 (104) 95 11/08/18 00:00 98.6 73 20 150/94 (112) 94 11/07/18 20:09 Room Air 11/07/18 20:00 98.7 77 20 125/73 (90) 95 11/07/18 18:39 98.8 11/07/18 16:00 98.6 78 18 149/81 (103) 96 11/07/18 12:00 98.8 70 19 140/78 (98) 96 11/07/18 10:00 155/72 (99) 11/07/18 09:56 98.8 11/07/18 09:28 98.8 11/07/18 09:28 98.8 11/07/18 09:00 Room Air 11/07/18 08:59 171/71 11/07/18 08:58 83 171/71 11/07/18 08:56 83 171/71 Intake and Output 11/07/18 11/08/18 19:00 07:00 # Voids 2 # Bowel Movements 1 Height (Feet): 5 Height (Inches): 6.00 Weight (Pounds): 357 Objective PHYSICAL EXAMINATION: GENERAL: Alert, awake, and oriented. LUNGS: Decreased breath sounds bilaterally. HEART: S1, S2 regular. ABDOMEN: Obese. EXTREMITIES: No cyanosis, no clubbing with right ankle bandages applied and noted. Cirilo Chavez Nov 08, 2018 08:58
[2018-11-08] MEDS: Heparin 5000 units/ml inj SUBQ SCH (09:00)
--- NOTE | 2018-11-08 09:40 | NUR ---
PT EVALUATION NOTE Patient seen for initial evaluation, see complete evaluation for details. Patient presents with generalized weakness and pain which affects patient's ability to perform mobility tasks. Patient requires supervision/SBA for all mobility, non-compliant with NWB RLE status. Patient will benefit from skilled inpatient PT intervention to address strength, balance and safety to improve level of functional mobility. Recommend discharge to SNF once medically cleared by MD. Recommend FWW for transfers and ambulation to comply with NWB RLE. Addendum: 11/08/18 at 1255 by AILIN TAYLOR PT Amended: Links added.
[2018-11-08] MEDS: DULoxetine 30mg cap ORAL SCH (10:04)
[2018-11-08] MEDS: Lisinopril 10mg tab ORAL SCH (10:05)
[2018-11-08] MEDS: Lyrica 50mg cap ORAL SCH ×2 (10:05→13:56)
[2018-11-08] MEDS: Naloxegol Oxalate 25mg tab ORAL SCH (10:06)
[2018-11-08] MEDS: Furosemide 40mg tab ORAL SCH (10:06)
[2018-11-08] MEDS: Metoprolol 25mg tab ORAL SCH (10:06)
[2018-11-08] MEDS: Cyclobenzaprine 10mg Tab ORAL SCH ×2 (10:06→13:57)
[2018-11-08] MEDS: Diclofenac 1% Gel 100gm TOPIC SCH ×2 (10:07→13:57)
[2018-11-08] MEDS: HYDROmorphone 1mg/ml Carpuject IVP PRN (10:21)
--- NOTE | 2018-11-08 10:30 | Consultation ---
DATE OF CONSULTATION: 11/07/2018 NOTE: POOR AUDIO PSYCHOTHERAPY CONSULTATION PROGRESS NOTE CONSULTING PHYSICIAN: Kevon Lala PsyD. TREATING ATTENDING PHYSICIAN: Get Tovar D.O. HISTORY OF PRESENT ILLNESS: The patient is a 42-year-old female. [facility] The patient has a history of depression and she is also to the hospital for intractable pain , self-referred for psychotherapeutic services. When assessed the patient, the patient states that she has had anxiety. She has been feeling very tired. Now she states that she has been feeling restless, helpless and hopeless because of her pain. She feels hopeless because she states that her pain is chronic and she does not know what to do and somewhat depressed. She denies suicidal or homicidal thoughts of ideation. She denies any auditory or visual hallucinations. Verbally able to participate in treatment. She takes feelings of helplessness, hopelessness, depression, anxiety issues. She states that her anxiety is also due to her pain. She has had poor frustration tolerance. Fair insight into her current condition. She denies suicidal or homicidal thoughts of ideation. She denies auditory or visual hallucinations. PAST MEDICAL HISTORY: Includes history of hypertension, , arthritis, hepatitis C, sleep apnea, fibromyalgia, and diabetes. ALLERGIES: She is allergic to penicillin, hydroxychloroquine, and gabapentin. SUBSTANCE ABUSE HISTORY: She denies history of alcohol use, illicit substance use. Does have a history of smoking cigarettes. PSYCHIATRIC HISTORY: The patient has a history of depression and has been treated with psychotropic medications in the past. She also has a history of anxiety. SOCIAL HISTORY: The patient is a single 42-year-old female. The patient . Financially sustained at this time. MENTAL STATUS EXAMINATION: She is alert and oriented to person, place, time, and situation. Her mood is depressed. Affect is congruent. Thought process remains negative and catastrophic. She has poor attention and concentration. Poor insight, judgment, and impulse control. I ASSESSED THE PATIENT. PROVIDED THE PATIENT WITH: Reality orientation, which focuses on improving cognitive function of the patient who is confused and disorganized. Oriented to person, place, time, and situation. Provide the patient with supportive psychotherapy . Encouraging her to communicate her thoughts positive communication skills and with cognitive behavioral therapy as we address her feelings of helplessness, hopelessness, and depression. We discussed her positive positive coping skills including positive . 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 PLAN: Plan is to maintain medication compliance with positive coping skills. . Psychotherapy provided for this patient was 50 minutes. This clinician has reviewed the patient's chart. Discussed treatment with treatment team. Kevon Lala PsyD. DR: SARAH JOB#: [id number] CC:
--- NOTE | 2018-11-08 11:16 | Hematology/Onc Progress Note ---
Assessment/Plan Assessment/Plan Assessment and Recs: # Thrombocytopenia - potential causes multifactorial, evaluate liver and viral etiologies to begin, also could be related to underlying medications patient has received. Plt 140 range on admission --> Hep panel and HIV if thrombocytopenia returns --> US abd to evaluate for cirrhosis and hsm as needed --> Peripheral smear ordered to evaluate for blasts /schistocytes and none noted --> abx and other meds have been reviewed --> plt trend 142-->284k # hx of Recent R fibula fracture s/p ORIF --> see by id in the past --> abx as needed # HTN --> sbp goal <150 --> amlodipine and mtp # MDD # Lupus # COPD # chronic pain syndrome # GERD # Dvt ppx with hep sq The timing of this note does not necessarily reflect the time of the patient was seen. Greatly appreciate consultation. Subjective Allergies: Coded Allergies: Cashew (Verified Allergy, Unknown, 12/30/14) FISH CONTAINING PRODUCTS (Unverified Allergy, Unknown, 11/06/18) GABAPENTIN (Verified Allergy, Unknown, 10/21/18) HYDROQUINONE (Unverified Allergy, Unknown, 11/08/17) HYDROXYCHLOROQUINE (Verified Allergy, Unknown, 08/31/17) PENICILLINS (Verified Allergy, Unknown, 10/21/18) PISTACHIO NUT (Verified Allergy, Unknown, 10/21/18) Uncoded Allergies: FISH (Allergy, Unknown, 12/30/14) Subjective 11/08: awake and alert, no acute events, refused am labs, dc back to snf planning Objective Objective Current Medications Medications (Trade) Dose Ordered Sig/Farideh Route PRN Reason Start Time Stop Time Status Last Admin Dose Admin Acetaminophen (Tylenol) 650 mg Q4H PRN ORAL fever 11/06/18 18:30 12/06/18 18:29 Alprazolam (Xanax) 1 mg Q4H PRN ORAL For Anxiety 11/07/18 08:15 11/14/18 08:14 11/08/18 06:37 Amlodipine Besylate (Norvasc) 5 mg DAILY ORAL 11/07/18 09:00 12/07/18 08:59 11/08/18 10:06 Cyclobenzaprine HCl (Flexeril) 10 mg THREE TIMES A DAY ORAL 11/07/18 09:00 12/07/18 08:59 11/08/18 10:06 Dextrose (Dextrose 50%) 25 ml Q30M PRN IV Hypoglycemia 11/06/18 18:30 12/06/18 18:29 Dextrose (Dextrose 50%) 50 ml Q30M PRN IV Hypoglycemia 11/06/18 18:30 12/06/18 18:29 Diclofenac Sodium (Voltaren gel) 1 applic QID TOPIC 11/07/18 13:00 12/07/18 12:59 11/08/18 10:07 Duloxetine HCl (Cymbalta) 60 mg DAILY ORAL 11/07/18 09:00 12/07/18 08:59 11/08/18 10:04 Furosemide (Lasix) 40 mg DAILY ORAL 11/07/18 09:00 12/07/18 08:59 11/08/18 10:06 Heparin Sodium (Porcine) (Heparin 5000 units/ml) 5,000 units EVERY 12 HOURS SUBQ 11/06/18 21:00 12/06/18 20:59 Hydromorphone HCl (Dilaudid) 1 mg Q6H PRN IVP Severe Pain (Pain Scale 7-10) 11/07/18 10:00 11/14/18 09:59 11/08/18 10:21 Lisinopril (Zestril) 10 mg DAILY ORAL 11/06/18 22:00 12/06/18 21:59 11/08/18 10:05 Metoprolol Tartrate (Lopressor) 75 mg DAILY ORAL 11/07/18 09:00 12/07/18 08:59 11/08/18 10:06 Naloxegol (Movantik) 25 mg DAILY ORAL 11/07/18 10:00 12/07/18 09:59 11/08/18 10:06 Ondansetron HCl (Zofran) 4 mg Q6H PRN IVP Nausea & Vomiting 11/06/18 18:30 12/06/18 18:29 Oxycodone HCl (Roxicodone) 10 mg Q4H PRN ORAL Moderate Pain (Pain Scale 4-6) 11/07/18 10:00 11/14/18 09:59 11/08/18 05:37 Polyethylene Glycol (Miralax) 17 gm HSPRN PRN ORAL Constipation 11/06/18 18:30 12/06/18 18:29 11/08/18 06:42 Pregabalin (Lyrica) 100 mg THREE TIMES A DAY ORAL 11/07/18 13:00 12/07/18 08:59 11/08/18 10:05 Tizanidine HCl (Zanaflex) 4 mg THREE TIMES A DAY ORAL 11/07/18 09:00 12/07/18 08:59 11/08/18 10:06 Zolpidem Tartrate (Ambien) 10 mg HSPRN PRN ORAL Insomnia 11/07/18 21:00 11/14/18 20:59 11/07/18 21:08 Last 24 Hour Vital Signs Date Time Temp Pulse Resp B/P (MAP) Pulse Ox O2 Delivery O2 Flow Rate FiO2 11/08/18 10:06 59 136/65 11/08/18 10:06 59 136/65 11/08/18 10:05 136/65 11/08/18 08:00 97.5 59 17 136/65 (88) 97 11/08/18 04:00 98.1 80 20 154/79 (104) 95 11/08/18 00:00 98.6 73 20 150/94 (112) 94 11/07/18 20:09 Room Air 11/07/18 20:00 98.7 77 20 125/73 (90) 95 11/07/18 18:39 98.8 11/07/18 16:00 98.6 78 18 149/81 (103) 96 11/07/18 12:00 98.8 70 19 140/78 (98) 96 11/07/18 10:00 155/72 (99) 11/07/18 09:56 98.8 11/07/18 09:28 98.8 11/07/18 09:28 98.8 11/07/18 09:00 Room Air 11/07/18 08:59 171/71 11/07/18 08:58 83 171/71 11/07/18 08:56 83 171/71 11/07/18 08:00 98.8 83 18 171/71 (104) 95 11/07/18 04:00 98.3 75 18 133/87 (102) 96 11/07/18 00:00 98.4 72 18 133/70 (91) 95 11/06/18 23:18 Room Air 11/06/18 23:00 Room Air 11/06/18 22:01 155/95 11/06/18 20:30 98.7 67 18 155/95 (115) 96 11/06/18 20:10 98.3 75 16 128/63 98 Room Air 11/06/18 18:00 98.3 75 16 128/63 98 Room Air 11/06/18 17:47 98.1 11/06/18 14:57 98.5 83 20 135/70 95 Room Air 11/06/18 14:47 98.1 72 16 118/64 (82) 91 Room Air Intake and Output 11/07/18 11/08/18 19:00 07:00 # Voids 2 # Bowel Movements 1 Labs Test 11/06/18 17:10 11/07/18 06:30 White Blood Count 8.2 K/UL (4.8-10.8) 8.1 K/UL (4.8-10.8) Red Blood Count 4.26 M/UL (4.20-5.40) 4.10 M/UL (4.20-5.40) Hemoglobin 12.5 G/DL (12.0-16.0) 11.9 G/DL (12.0-16.0) Hematocrit 38.6 % (37.0-47.0) 36.8 % (37.0-47.0) Mean Corpuscular Volume 91 FL (80-99) 90 FL (80-99) Mean Corpuscular Hemoglobin 29.3 PG (27.0-31.0) 29.0 PG (27.0-31.0) Mean Corpuscular Hemoglobin Concent 32.4 G/DL (32.0-36.0) 32.3 G/DL (32.0-36.0) Red Cell Distribution Width 11.7 % (11.6-14.8) 12.6 % (11.6-14.8) Platelet Count 142 K/UL (150-450) 284 K/UL (150-450) Mean Platelet Volume 6.0 FL (6.5-10.1) 4.9 FL (6.5-10.1) Neutrophils (%) (Auto) 56.3 % (45.0-75.0) 65.3 % (45.0-75.0) Lymphocytes (%) (Auto) 33.8 % (20.0-45.0) 26.0 % (20.0-45.0) Monocytes (%) (Auto) 5.5 % (1.0-10.0) 4.3 % (1.0-10.0) Eosinophils (%) (Auto) 3.4 % (0.0-3.0) 3.2 % (0.0-3.0) Basophils (%) (Auto) 1.0 % (0.0-2.0) 1.1 % (0.0-2.0) Erythrocyte Sedimentation Rate 30 MM/HR (0-20) Sodium Level 137 MMOL/L (136-145) 137 MMOL/L (136-145) Potassium Level 5.2 MMOL/L (3.5-5.1) 3.8 MMOL/L (3.5-5.1) Chloride Level 102 MMOL/L (98-107) 103 MMOL/L (98-107) Carbon Dioxide Level 28 MMOL/L (21-32) 29 MMOL/L (21-32) Anion Gap 7 mmol/L (5-15) 5 mmol/L (5-15) Blood Urea Nitrogen 11 mg/dL (7-18) 10 mg/dL (7-18) Creatinine 0.8 MG/DL (0.55-1.30) 0.7 MG/DL (0.55-1.30) Estimat Glomerular Filtration Rate > 60 mL/min (>60) > 60 mL/min (>60) Glucose Level 101 MG/DL (74-106) 106 MG/DL (74-106) Calcium Level 9.2 MG/DL (8.5-10.1) 8.7 MG/DL (8.5-10.1) Total Bilirubin 0.2 MG/DL (0.2-1.0) 0.4 MG/DL (0.2-1.0) Aspartate Amino Transf (AST/SGOT) 16 U/L (15-37) 14 U/L (15-37) Alanine Aminotransferase (ALT/SGPT) 12 U/L (12-78) 14 U/L (12-78) Alkaline Phosphatase 107 U/L (46-116) 86 U/L (46-116) Total Protein 7.7 G/DL (6.4-8.2) 7.1 G/DL (6.4-8.2) Albumin 3.2 G/DL (3.4-5.0) 2.9 G/DL (3.4-5.0) Globulin 4.5 g/dL 4.2 g/dL Albumin/Globulin Ratio 0.7 (1.0-2.7) 0.7 (1.0-2.7) Thyroid Stimulating Hormone (TSH) 2.398 uiU/mL (0.358-3.740) Height (Feet): 5 Height (Inches): 6.00 Weight (Pounds): 357 Objective Physical Exam: Vitals: reviewed General Appearance: NAD HEENT: normocephalic, atraumatic Neck: non-tender, normal alignment Respiratory/Chest: normal breath sounds bilaterally Cardiovascular/Chest: normal peripheral pulses, normal rate Abdomen: normal bowel sounds, soft, nontender Extremities: normal range of motion ++ rash on scam Roberto Fortune MD Nov 08, 2018 11:15
--- NOTE | 2018-11-08 11:30 | NUR ---
DISCHARGE PLANNING DISCHARGE ORDER NOTED Patient has been accepted to; [facility] [address] [place] [address] Bed: 30-A Fpc [phone] for Nurse to Nurse report [facility] ETA for transportation: 12:00
[2018-11-08 12:00] VITALS: BP 108/59
[2018-11-08] MEDS ORDERED: Guaifenesin/DM 10ml syrup ORAL PRN (12:00)
--- NOTE | 2018-11-08 12:10 | NUR ---
NURSE NOTES: Nurse tried to give report to RN Sami from [facility] rehab, but Sami told her pt needs to see orthopedist to have her R ankle assessed, and also needs prescription for the following meds: Xanax, Ambien, Tizanadine and Cymbalta. Contacted SANCHE[facility] Rivas, informed Sami's concern and given the facility contact #. Nurse previously got the prescription for Oxycodone and Lyrica, placed at the physical chart.
--- NOTE | 2018-11-08 13:30 | NUR ---
NURSE NOTES: called [facility], spoken to SAMUEL Zavaleta not available at this time. Left message for house mover supervisor SAMUEL Gallardo to call FREDO.
--- NOTE | 2018-11-08 15:02 | General Progress Note ---
Assessment/Plan Problem List: (1) lupus pain exacerbation (2) Arthritis ICD Codes: M19.90 - Unspecified osteoarthritis, unspecified site SNOMED: 9626297 (3) Diabetes ICD Codes: E11.9 - Type 2 diabetes mellitus without complications SNOMED: 95634184 (4) HTN (hypertension) ICD Codes: I10 - Essential (primary) hypertension SNOMED: 40026996 (5) Chronic pain ICD Codes: G89.29 - Other chronic pain SNOMED: 28629198 (6) Obesity, morbid, BMI 40.0-49.9 ICD Codes: E66.01 - Morbid (severe) obesity due to excess calories SNOMED: 833031413 (7) Hepatitis C ICD Codes: B19.20 - Unspecified viral hepatitis C without hepatic coma SNOMED: 94684519 (8) Fibromyalgia ICD Codes: M79.7 - Fibromyalgia SNOMED: 05877737 Status: stable, progressing Assessment/Plan: pt diet abx pain control cbc bmp am Subjective Constitutional: Reports: weakness Allergies: Coded Allergies: Cashew (Verified Allergy, Unknown, 12/30/14) FISH CONTAINING PRODUCTS (Unverified Allergy, Unknown, 11/06/18) GABAPENTIN (Verified Allergy, Unknown, 10/21/18) HYDROQUINONE (Unverified Allergy, Unknown, 11/08/17) HYDROXYCHLOROQUINE (Verified Allergy, Unknown, 08/31/17) PENICILLINS (Verified Allergy, Unknown, 10/21/18) PISTACHIO NUT (Verified Allergy, Unknown, 10/21/18) Uncoded Allergies: FISH (Allergy, Unknown, 12/30/14) All Systems: reviewed and negative except above Subjective c/o sore throat and weak Objective Last 24 Hour Vital Signs Date Time Temp Pulse Resp B/P (MAP) Pulse Ox O2 Delivery O2 Flow Rate FiO2 11/08/18 12:00 98.4 59 19 108/59 (75) 98 11/08/18 10:51 97.5 11/08/18 10:51 97.5 11/08/18 10:06 59 136/65 11/08/18 10:06 59 136/65 11/08/18 10:05 136/65 11/08/18 09:00 Room Air 11/08/18 08:00 97.5 59 17 136/65 (88) 97 11/08/18 04:00 98.1 80 20 154/79 (104) 95 11/08/18 00:00 98.6 73 20 150/94 (112) 94 11/07/18 20:09 Room Air 11/07/18 20:00 98.7 77 20 125/73 (90) 95 11/07/18 16:00 98.6 78 18 149/81 (103) 96 Intake and Output 11/07/18 11/08/18 19:00 07:00 # Voids 2 # Bowel Movements 1 Height (Feet): 5 Height (Inches): 6.00 Weight (Pounds): 357 General Appearance: lethargic EENT: normal ENT inspection Neck: normal alignment Cardiovascular: normal peripheral pulses, normal rate, regular rhythm Respiratory/Chest: chest wall non-tender, lungs clear, normal breath sounds Abdomen: normal bowel sounds, non tender, soft Extremities: normal inspection Edema: no edema noted Arm (L), no edema noted Arm (R), no edema noted Leg (L), no edema noted Leg (R), no edema noted Pedal (L), no edema noted Pedal (R), no edema noted Generalized Neurologic: responsive, motor weakness Skin: normal pigmentation, warm/dry Get Tovar DO Nov 08, 2018 15:02
--- NOTE | 2018-11-08 15:30 | NUR ---
NURSE NOTES: Patient was discharged back to [facility], report given to Kailyn blackjack supervisor. Patient left with all her belongings and signed off belongings list. IV access was taken off, no bleeding after site compression. Discharge packet with 1 sheet of prescription for controlled pain medication was send with packet, pt refused to sign receipt, EMT mr Escamilla signed receipt of it and witnessed nurse telling patient she has to accept facility's dr to have all her other meds filled at pharmacy. Patient is in stable condition and VS, complained of pain, given all pain meds ordered PRN.
--- NOTE | 2018-11-08 15:42 | Pulmonology Progress Note ---
Assessment/Plan Problems: (1) Diabetes (2) HTN (hypertension) (3) Chronic pain (4) lupus pain exacerbation (5) Obesity, morbid, BMI 40.0-49.9 (6) Hepatitis C (7) KAREN (obstructive sleep apnea) (8) Hypertension (9) Cervical radiculopathy Assessment/Plan improving pain management sliding scale diabetic diet nutrition evaluation bipap for night time Subjective ROS Limited/Unobtainable: No Constitutional: Reports: no symptoms Allergies: Coded Allergies: Cashew (Verified Allergy, Unknown, 12/30/14) FISH CONTAINING PRODUCTS (Unverified Allergy, Unknown, 11/06/18) GABAPENTIN (Verified Allergy, Unknown, 10/21/18) HYDROQUINONE (Unverified Allergy, Unknown, 11/08/17) HYDROXYCHLOROQUINE (Verified Allergy, Unknown, 08/31/17) PENICILLINS (Verified Allergy, Unknown, 10/21/18) PISTACHIO NUT (Verified Allergy, Unknown, 10/21/18) Uncoded Allergies: FISH (Allergy, Unknown, 12/30/14) Objective Last 24 Hour Vital Signs Date Time Temp Pulse Resp B/P (MAP) Pulse Ox O2 Delivery O2 Flow Rate FiO2 11/08/18 12:00 98.4 59 19 108/59 (75) 98 11/08/18 10:51 97.5 11/08/18 10:51 97.5 11/08/18 10:06 59 136/65 11/08/18 10:06 59 136/65 11/08/18 10:05 136/65 11/08/18 09:00 Room Air 11/08/18 08:00 97.5 59 17 136/65 (88) 97 11/08/18 04:00 98.1 80 20 154/79 (104) 95 11/08/18 00:00 98.6 73 20 150/94 (112) 94 11/07/18 20:09 Room Air 11/07/18 20:00 98.7 77 20 125/73 (90) 95 11/07/18 16:00 98.6 78 18 149/81 (103) 96 Intake and Output 11/07/18 11/08/18 19:00 07:00 # Voids 2 # Bowel Movements 1 Microbiology Date/Time Source Procedure Growth Status 11/06/18 17:20 Nasal Nares MRSA Culture - Final NO METHICILLIN RESISTANT STAPH AUREUS... Complete 11/06/18 17:20 Rectum VRE Culture - Final NO VANCOMYCIN RESISTANT ENTEROCOCCUS ... Complete Mer Powell MD Nov 08, 2018 15:42
--- NOTE | 2018-11-08 16:25 | Consultation ---
History of Present Illness General Date patient seen: Nov 08, 2018 Time patient seen: 15:30 Chief Complaint: Pain Reason for Consultation: Throat pain Present Illness HPI Ms. Vuong is a 42 yo female withPMHx of DM, HTN, Lupus, Hep C, KAREN and fibromyalgia who was sent to the ED from her retirement after a fall. She has had no fevers, chills. In the ED she was Afebrile with no Leukocytosis. This morning she reports Sore throat, and wheezing. She says that she thinks that she was having an asthma attack. Her sore throat has impoved and she is satting well on RA. She has had no fever today. ID was consulted for sore throat PMHx/PSHx DM HTN Lupus Hep C KAREN Fibromyalgia SocHx Active Cig use No E/D FamHx Not Contributory Allergies: Coded Allergies: Cashew (Verified Allergy, Unknown, 12/30/14) FISH CONTAINING PRODUCTS (Unverified Allergy, Unknown, 11/06/18) GABAPENTIN (Verified Allergy, Unknown, 10/21/18) HYDROQUINONE (Unverified Allergy, Unknown, 11/08/17) HYDROXYCHLOROQUINE (Verified Allergy, Unknown, 08/31/17) PENICILLINS (Verified Allergy, Unknown, 10/21/18) PISTACHIO NUT (Verified Allergy, Unknown, 10/21/18) Uncoded Allergies: FISH (Allergy, Unknown, 12/30/14) Medication History Scheduled Alprazolam* (Xanax*), 1 MG ORAL TID, (Reported) Amlodipine Besylate* (Amlodipine Besylate*), 5 MG ORAL DAILY, (Reported) Cyclobenzaprine Hcl* (Flexeril*), 10 MG ORAL THREE TIMES A DAY, (Reported) Diclofenac Sod* (Voltaren*), 25 MG ORAL THREE TIMES A DAY, (Reported) Docusate Sodium* (Colace*), 250 MG ORAL DAILY, (Reported) Duloxetine Hcl* (Cymbalta*), 60 MG ORAL DAILY, (Reported) Folic Acid* (Folic Acid*), 1 MG ORAL DAILY, (Reported) Furosemide* (Lasix*), 40 MG ORAL DAILY, (Reported) Lisinopril* (Lisinopril*), 10 MG ORAL DAILY, (Reported) Metoprolol Tartrate* (Metoprolol Tartrate*), 75 MG ORAL DAILY, (Reported) Multivitamins* (Multivitamins*), 1 TAB ORAL DAILY, (Reported) Oxybutynin Chloride (Oxybutynin Chloride), 5 MG ORAL THREE TIMES A DAY, ( Reported) Oxycodone Hcl Er* (Oxycontin*), 10 MG ORAL EVERY 12 HOURS, (Reported) Potassium Chloride* (K-Dur*), 20 MEQ ORAL DAILY, (Reported) Pregabalin* (Lyrica*), 75 MG ORAL THREE TIMES A DAY, (Reported) Tizanidine Hcl* (Zanaflex*), 4 MG ORAL THREE TIMES A DAY, (Reported) [[email or web address]], 17.2 MG PO QHS, (Reported) Scheduled PRN Acetaminophen* (Acetaminophen 325MG Tablet*), 650 MG ORAL Q6H PRN for For Pain, (Reported) Alprazolam* (Xanax*), 1 MG ORAL Q4HR PRN for For Anxiety, (Reported) Ondansetron* (Zofran*), 4 MG ORAL Q6H PRN for Nausea & Vomiting, (Reported) Zolpidem Tartrate* (Zolpidem Tartrate*), 10 MG ORAL BEDTIME PRN for Insomnia, ( Reported) Zolpidem Tartrate* (Ambien*), 10 MG ORAL HS PRN for Insomnia, (Reported) Discontinued Medications Hydromorphone Hcl/Pf (Hydromorphone 2 Mg/Ml Syringe*), 1 MG IV Q6HR PRN for For Pain, (Reported) Discontinued Reason: MD discontinued med Patient History Healthcare decision maker N Resuscitation status Full Code Advanced Directive on File Review of Systems ROS Narrative 12 point ROS negative except as noted in the HPI Physical Exam Last 24 Hour Vital Signs Date Time Temp Pulse Resp B/P (MAP) Pulse Ox O2 Delivery O2 Flow Rate FiO2 11/08/18 14:55 98.4 11/08/18 12:00 98.4 59 19 108/59 (75) 98 11/08/18 10:51 97.5 11/08/18 10:06 59 136/65 11/08/18 10:06 59 136/65 11/08/18 10:05 136/65 11/08/18 09:00 Room Air 11/08/18 08:00 97.5 59 17 136/65 (88) 97 11/08/18 04:00 98.1 80 20 154/79 (104) 95 11/08/18 00:00 98.6 73 20 150/94 (112) 94 11/07/18 20:09 Room Air 11/07/18 20:00 98.7 77 20 125/73 (90) 95 Intake and Output 11/07/18 11/08/18 19:00 07:00 # Voids 2 # Bowel Movements 1 Height (Feet): 5 Height (Inches): 6.00 Weight (Pounds): 357 Objective Narrative Gen: NAD HEENT: NCAT, MMM, EOMI, PERRL, No Oral lesion, observed pharynx normal in appearance. no scleral icterus NECK: full range of motion, supple, no meningismus, No LAD, No JVD LUNGS: CTAB, No W/C, No Accessory muscle use CARDS: RRR, S1, S2, No M/R/G, ABD: Soft, NT, ND, No R/G, + BS, No HSM, No Masses : Deferred Ext: C/C/E, Pulses 2+ B/L (DP, Rad): NEURO: A/O x 4, Strength and Sensation Grossly intact PSYCH: Normal mood and affect SKIN: Warm/dry, No rashes Assessment/Plan Assessment/Plan: 42 yo female withPMHx of DM, HTN, Lupus, Hep C, KAREN and fibromyalgia who was sent to the ED from her retirement after a fall. 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 [facility] will continue to follow the patient with you during this hospitalization. Madhav Saxena MD Nov 08, 2018 16:25
--- NOTE | 2018-11-09 22:48 | Discharge Summary ---
Discharge Summary Discharge Summary _ DATE OF ADMISSION: 11/06/2018 DATE OF DISCHARGE: 11/08/2018 DISCHARGED BY: Dr. Get Tovar CONSULTANTS: Dr. Madhav Lala Jayy BRIEF HOSPITAL COURSE: Patient is a 42-year-old female, from [facility], apparently fell landing on the right leg, and had pain. She has medical history significant for diabetes, hypertension, lupus, arthritis, hepatitis C, sleep apnea and fibromyalgia. On evaluation at the ED, vital signs were stable. Blood work did not show any leukocytosis. Hemoglobin and hematocrit were stable. Platelet was low at 142. Potassium was elevated to 5.2. She was admitted for intractable pain in the right leg. She was given pain management. Morphine was discontinued. She was given oxycodone 10 mg and Dilaudid 1 mg IV every 6 hours as needed. Patient had thrombocytopenia. Thrombocytopenia multifactorial. Antibiotics and medications were reviewed. Platelet count eventually normalized. She had a recent right fibula fracture status post ORIF. She was given heparin subcutaneous for DVT prophylaxis. She complained of sore throat. Sore throat improved with no signs of infection. She had wheezing likely mild asthma exacerbation. There was no leukocytosis. No fever. She was monitored off antibiotics. She was eventually discharged back to [facility]. To continue oxycodone and Lyrica at the [facility]. FINAL DIAGNOSES: Sore throat with no signs of infection Diabetes mellitus Hypertension Glucose Hepatitis C Obstructive sleep apnea Fibromyalgia Morbid obesity Cervical radiculopathy Thrombocytopenia, resolved History of recent right fibula ORIF Major depressive disorder GERD Chronic pain syndrome DISPOSITION: DC to [facility] DISCHARGE MEDICATIONS: Refer to Discharge Medication List. I have been assigned to complete a discharge summary on this account, I was not involved with the patient's management.--ASUNCION Salazar Jacqueline Robles NP Nov 09, 2018 22:48
== END 2018-11-08 15:25 | DRG 546 ==
LOC: EDBD 14:54 → EDBEDREQ 16:49 → EMR 17:19 → 4E 17:30 → EDBEDREQ 19:33 → 4E 20:20
DX: M32.9 Systemic lupus erythematosus, unspecified (principal); Z68.43 Body mass index [BMI] 50.0-59.9, adult; F33.1 Major depressive disorder, recurrent, moderate; M79.604 Pain in right leg; M15.9 Polyosteoarthritis, unspecified; E66.01 Morbid (severe) obesity due to excess calories; D69.59 Other secondary thrombocytopenia; J44.9 Chronic obstructive pulmonary disease, unspecified; Z88.6 Allergy status to analgesic agent; Z88.0 Allergy status to penicillin; Z88.8 Allergy status to other drugs, medicaments and biological substances; M79.7 Fibromyalgia; E11.9 Type 2 diabetes mellitus without complications; J02.9 Acute pharyngitis, unspecified; I10 Essential (primary) hypertension; B19.20 Unspecified viral hepatitis C without hepatic coma; G47.33 Obstructive sleep apnea (adult) (pediatric); M54.12 Radiculopathy, cervical region; F32.9 Major depressive disorder, single episode, unspecified; K21.9 Gastro-esophageal reflux disease without esophagitis; G89.4 Chronic pain syndrome; Z91.81 History of falling; S91.001D Unspecified open wound, right ankle, subsequent encounter; X58.XXXD Exposure to other specified factors, subsequent encounter
CPT/HCPCS: 36415; 80053; 84443; 85025; 85651; 87081; 93005; 96374; 96375; 99285